=== PATIENT | female | born 1965 | race Caucasian/White ===

== ENCOUNTER 2017-04-27 09:20 | Day surgery (SDC) | payer MEDICARE, MEDICAID ==
[~2017-04-27] VITALS: Ht 167.6 cm; Wt 84.3 kg
[2017-04-27] MEDS ORDERED: IOHEXOL 350 MG/ML 50 ML BTL (for Cath Lab) OTHER ONE (09:21)
[2017-04-27] MEDS ORDERED: TRAM50TA PO (09:58)
[2017-04-27] MEDS ORDERED: FERR324T8 PO (09:58)
[2017-04-27] MEDS ORDERED: HYDR-3133 PO (09:58)
[2017-04-27] MEDS ORDERED: TRIA0.022 TOPICAL (09:58)
[2017-04-27] MEDS ORDERED: PERC10TA27 PO (09:58)
[2017-04-27] MEDS ORDERED: AMLO10TA2 PO (09:58)
[2017-04-27] MEDS ORDERED: CARV6.252 PO (09:58)
[2017-04-27] MEDS ORDERED: CINA30 PO (09:58)
[2017-04-27] MEDS ORDERED: CITA10TA4 PO (09:58)
[2017-04-27 10:08] VITALS: BP 162/112; PULSE 80; RESP 18; TEMP 98.7; O2SAT 94
[2017-04-27 11:38] LABS: INTERNATIONAL NORMALIZED RATIO 2.3 RATIO
--- NOTE | 2017-04-27 12:59 | PD.VS.PN ---
Pre-operative Note Pre-operative diagnosis: ESRD, need for HD Access Planned procedure: R UE venogram and SVCavagram Interval History: Pt has been feeling well, anxious but ready to proceed Labs: Laboratory Results Test 04/27/17 09:53 Prothromb Time International Ratio 2.3 RATIO Blood: none needed Orders: NPO Post-operative destination: DOCU Operative site marked: Yes Consent: Informed consent has been obtained from Adrienne Jackman. I have explained the procedure in detail and discussed the risks, benefits, and potential complications. All questions have been answered. Aguila Vargas MD Apr 27, 2017 12:59
--- NOTE | 2017-04-27 13:11 | HHI.PR ---
Immediate Post Op Note Procedure Date: Apr 27, 2017 Pre Op Diagnosis: ESRD, need for HD access Post Op Diagnosis: ESRD, need for HD access Surgeon: Aguila Vargas Radio Electronics Technician(s): none Procedure: R UE venogram and central venogram Findings: patent central veins Complications: none Specimen(s) removed: none Estimated blood loss: 0 Drains: None Patient to: Other (DOCU) Patient Condition: Good Date/Time of Procedure: SEE SURGICAL CARE RECORD Aguila Vargas MD Apr 27, 2017 13:11
--- NOTE | 2017-04-27 13:19 | CATHPROC ---
Engage HIS Report Study Information Study Number Admission Scheduled Start Study Start [id number] Apr 27 2017 9:20AM 04/27/2017 Apr 27 2017 12:46PM [place] Service Cath Endovascular Study Admit Source Facility Department Other [facility] - Animation Artist Physician and Clinical Staff Initial Aguila Barnhart Steam Conditioning Operator Gregorio Moralez,KAYLEE Recorder Miya Chery,KAROLYN TECH2 Scrub Hosterman, Lalo,RT(R) Procedures Performed Procedure Location (Site) Vessel Name Venogram Brach. Vein (right) Brachial Vein Equipment Time Facilities Supervisor Description Size Mfg Part Number Used/Scraped 12:48 [employer]ED OMNIPAQUE, 300 MG, 50ML 50ML [id number] Used [id number] 12:48 [facility] BLANKET,WARM AIR CCL * Used *[id number] History: Current Medications Medication Dosage/Unit Route Frequency Last Date/Time Taken NORVASC CARVEDILOL Ultram History: Allergies Allergy Reaction Penicillins History: Risk Factors Hypertension Dyslipidemia Previous Heart Failure Yes Yes Yes Cerebrovascular On Dialysis Disease Labs INR (PTT:PT) 0.90-1.10 2.3 Medication (Drip) Medication Time Given Dosage/Unit Concentration/Unit Diluent (ml) Solution IV Solutions 04/27/2017 1:00:54 PM 0 mL (IV) 500 NaCl .9 Patient arrived on IV Solutions in Right Antecubital via Peripheral IV. Pump/Drip Flow = 20 ml/hr usi ng NaCl .9. Initial Case Assessment Cardiovascular HR Rhythm Chest Pain 82 sr 0 Neurological State Oriented to time-place- Alert Moves all extremities person Respiration - General Respiration Rate SpO2 (%) (B/min) 19 100 Final Case Assessment Cardiovascular HR Rhythm Chest Pain 82 sr 0 Neurological State Oriented to time-place- Alert Moves all extremities person Respiration - General Respiration Rate SpO2 (%) (B/min) 19 100 Chronological Log Time Study Chronological Log 12:58:38 Patient arrived via Bed. 12:58:41 Patient Name, D.O.B, / Armband Verified By R.N. 13:00:42 Consent signed by the physician and the patient and verified by the Animation Artist staff. 13:00:43 Pre-op and post- op instructions given; patient acknowledges understanding of instructions . 13:00:45 Verbal Stimulation=2 Physical Stimulation=2 Airway=2 Respiration=2 TOTAL=8. (0=absent, 1=l imited, 2=present) 13:00:47 Presedation assessment performed by Animation Artist RN. 13:00:49 Patient has been NPO for More than 6Hrs. 13:00:50 Skin Breakdown-right leg bandaged 13:00:52 Jaswinder Prominences Protected 13:00:53 A # 20 IV was noted in the Antecubital (right). Grade = patent 13:00:54 Patient arrived on IV Solutions in Right Antecubital via Peripheral IV. Pump/Drip Flow = 2 0 ml/hr using NaCl .9. 13:00:58 MD arrived. Time Out. Correct patient, correct procedure, correct physician, power injector not used, surg ical team present. Time 13:05:14 Out Concurred by MD and individual staff in procedure. 13:06:40 History and physical on the chart or being dictated. 13:06:47 HR=82 bpm, YrL3=189 %, Resp=19 B/min Assessment: Initial Case, HR=82 BPM, Rhythm=sr, Chest Pain=0 13:06:47 Neurological: State=Alert, Ox3, [place] Respiration: Resp=19 B/min, MfQ5=190 % 13:07:38 The Brach. Vein (right) was manually injected with 5 cc's of contrast. OMNIPAQUE, 300 MG, 50ML 50ML used. 13:10:00 Case End Assessment: Final Case, HR=82 BPM, Rhythm=sr, Chest Pain=0 13:10:29 Neurological: State=Alert, Ox3, [place] Respiration: Resp=19 B/min, JgG3=636 % 13:11:10 No case complications noted. 13:11:15 Cine recording checked. 13:11:15 Patient moved to bed. 13:11:24 Bedside Report will be given. 13:11:35 Patient transported to DOCU End Study - Contrast Media Used In Study Contrast Total Opened (mL) Total Used (mL) Total Wasted (mL) Omnipaque 5 5 0 End Study - Radiation Exposure Fluoro Time (minutes) 0.1 End Study - Patient Disposition Complications Transferred To Interventional Outcome No Telemetry Bed No attempt made
--- NOTE | 2017-04-28 07:10 | MP ---
cc: AGUILA VARGAS MD DATE OF SURGERY 04/27/2017 PREOPERATIVE DIAGNOSIS End-stage renal disease, multiple failed dialysis access procedures. POSTOPERATIVE DIAGNOSIS End-stage renal disease, multiple failed dialysis access procedures. PROCEDURE Right upper extremity venogram. ATTENDING SURGEON Aguila Vargas MD ANESTHESIA None INDICATIONS Ms. Jackman is a 51-year-old female with by her estimation nine prior dialysis access attempts. When I met her in clinic she has obvious multiple incisions in her left upper extremity and concern for central venous stenosis give her prior catheter used. She is currently dialyzing through a groin catheter. She is taken to the operating room for a central venogram in preparation for dialysis access planning. PROCEDURE Informed consent was obtained from the patient. She was taken to the operating room and placed supine on the operating room table. An appropriate time-out was taken to ensure the patient's identity, operative site and the planned procedure. Everyone in the room agreed with the time-out and we proceeded. There were no antibiotics needed as this is a clean procedure, without planned implantation of any foreign objects. She previously had a right forearm vein access with an intravenous catheter. Under fluoroscopic imaging, an injection of contrast was then administered, followed by saline flush. This confirmed that her central veins were widely patent. The patient was then transported to the recovery room in stable condition. There were no complications. I was present and scrubbed and performed the entire procedure. Aguila Vargas MD RJF/SSB /6:15 AM /6:57 AM
== END 2017-04-27 15:27 | disposition home or self-care (01) ==
LOC: HDOC 09:20 → HDIC 09:20 → EDSEX 09:20 → HDOC 15:27
PROVIDERS: ATTEND Surgery
DX: T82.590A Other mechanical complication of surgically created arteriovenous fistula, initial encounter (principal); N18.6 End stage renal disease; I50.9 Heart failure, unspecified; E21.3 Hyperparathyroidism, unspecified; I45.89 Other specified conduction disorders; E78.5 Hyperlipidemia, unspecified; G45.9 Transient cerebral ischemic attack, unspecified; I82.509 Chronic embolism and thrombosis of unspecified deep veins of unspecified lower extremity; L03.119 Cellulitis of unspecified part of limb; Z01.818 Encounter for other preprocedural examination
CPT/HCPCS: 75820; 85610; Q9967

== ENCOUNTER 2017-05-20 14:14 | Observation (INO) | payer MEDICARE, MEDICAID ==
[~2017-05-20] VITALS: Ht 167.6 cm; Wt 83.5 kg
[~2017-05-20 14:14] MED LIST: AMLO10TA2 PO; BUPIVACAINE HCL PF 0.5% 30 ML VIAL ONE; CARV6.252 PO; CINA30 PO; CITA10TA4 PO; COUM7.5T PO; ESOM1CAP16 PO; FERR324T8 PO; HEPARIN SODIUM - IV 10,000 UNITS/10 ML VIAL ONE; HEPARIN-NS/PF INJ 500 ML ONE; HYDR-3133 PO; LIDOCAINE HCL 1% PF 5 ML SYRINGE OTHER ONE; ONDANSETRON HCL 4 MG/2 ML VIAL IV PUSH ONE; PERC10TA27 PO; PROPOFOL 200 MG/20 ML AMP IV ONE; PROTAMINE SULFATE 50 MG/5 ML VIAL ONE; SODIUM CHLORID 0.9% 500 ML INJ 500 ML IV ONE; STERILE WATER FOR INJECTION 20 ML VIAL IV ONE; TRAM50TA PO; TRIA0.022 TOPICAL; VANCOMYCIN HCL 1000 MG VIAL ONE; ceFAZolin 2 GM PREMIX 0 ML ONE; ePHEDrine/NS 25 MG/5 ML SYR IV ONE
[2017-05-20] MEDS ORDERED: INSULIN HUMAN REGULAR 1,000 UNITS/10 ML VIAL SQ PRN (14:45)
[2017-05-20] MEDS ORDERED: CHLORHEXIDINE GLUCONATE 2 % 1 PACK (2 CLOTHS) TOPICAL PRN (14:45)
[2017-05-20] MEDS ORDERED: SODIUM CHLORID 0.9% 500 ML IV PRN (14:45)
[2017-05-20] MEDS ORDERED: LACTATED RINGER'S 1000 ML IV PRN (14:45)
[2017-05-20] MEDS ORDERED: POVIDONE IODINE 5% (ANTISEPSIS KIT) 4 APPLICATIONS EACH NARE PRN (14:45)
[2017-05-20] MEDS ORDERED: METOPROLOL TARTRATE 25 MG TAB PO PRN (14:45)
--- NOTE | 2017-05-20 14:55 | HHI.HP ---
History of Present Illness Chief Complaint: ESRD, need for HD access History of Present Illness 51 yo female with ESRD and currently on HD MWF via groin catheter. Says she has had 9 prior UE access attempts. R UE venogram suggested decent central veins and R arm with palpable pulse Past/Family/Social History Past Medical History HTN ESRD CHF CVOD ICVF Past Surgical History AVF x 9 Social History nonsmoker Family History NC Home Medications Reported Medications Esomeprazole DR (Esomeprazole DR) 40 Mg Capdr, 40 MG PO DAILY, #30 CAP 0 Refills 05/05/17 Warfarin (Coumadin) 7.5 Mg Tab, 7.5 MG PO DAILY for Prevent Blood Clot, #30 TAB 0 Refills 05/05/17 Triamcinolone Topical (Triamcinolone Topical) 0.025 % Oint, 1 APPLIC TOPICAL BID for Inflammation, GM 0 Refills 04/27/17 Citalopram (Citalopram) 10 Mg Tab, 10 MG PO DAILY for Control Depression, #30 TAB 0 Refills 04/27/17 Oxycodone-Acetaminophen (Percocet) 10-325 mg Tab, 1 TAB PO Q6H Y for PAIN, TAB 0 Refills 04/27/17 Tramadol (Tramadol) 50 Mg Tab, 50 MG PO Q6H Y for PAIN, TAB 0 Refills 04/27/17 Hydroxyzine HCl (Hydroxyzine HCl) 25 Mg Tab, 25 MG PO TID, TAB 0 Refills 04/27/17 Ferrous Fumarate (Ferrous Fumarate) 324 Mg (106 Mg Iron) Tab, 325 MG PO DAILY for Nutritional Supplement, #30 TAB 0 Refills 04/27/17 Cinacalcet (Sensipar) 30 Mg Tab, 30 MG PO DAILY, #30 TAB 0 Refills 04/27/17 Carvedilol (Carvedilol) 6.25 Mg Tab, 6.25 MG PO BID, #60 TAB 0 Refills 04/27/17 Amlodipine (Amlodipine) 10 Mg Tab, 10 MG PO DAILY for Blood Pressure Management , #30 TAB 0 Refills 04/27/17 Coded Allergies: Penicillins (Verified Allergy, Severe, Swelling, 05/20/17) Review of Systems Constitutional: DENIES: Fever, Chills Physical Exam Neuro: alert, pleasant HEENT: anicteric Neck: trachea midline Heart: reg rate, no M Lungs: clear B Vascular: palpable pulses R UE Caprini VTE Risk Assessment Caprini VTE Risk Assessment: Mod/High Risk (score >= 2) Caprini Risk Assessment Model Point Value = 1 Point Value = 2 Point Value = 3 Point Value = 5 Age 41-60 Minor surgery BMI > 25 kg/m2 Swollen legs Varicose veins or History of unexplained or recurrent spontaneous Oral contraceptives or hormone replacement Sepsis (< 1 month) Serious lung disease, including pneumonia (< 1 month) Abnormal pulmonary function Acute myocardial infarction Congestive heart failure (< 1 month) History of inflammatory bowel disease Medical patient at bed rest Age 61-74 Arthroscopic surgery Major open surgery (> 45 min) Laparoscopic surgery (> 45 min) Malignancy Confined to bed (> 72 hours) Immobilizing plaster cast Central venous access Age >= 75 History of VTE Family history of VTE Factor V Leiden Prothrombin [id number] Lupus anticoagulant Anticardiolipin antibodies Elevated serum homocysteine Heparin-induced thrombocytopenia Other congenital or acquired thrombophilia Stroke (< 1 month) Elective arthroplasty Hip, pelvis, or leg fracture Acute spinal cord injury (< 1 month) Prophylaxis Regimen Total Risk Factor Score Risk Level Prophylaxis Regimen 0-1 Low Early ambulation 2 Moderate Order ONE of the following: *Sequential Compression Device (SCD) *Heparin 5000 units SQ BID 3-4 Higher Order ONE of the following medications: *Heparin 5000 units SQ TID *Enoxaparin/Lovenox 40 mg SQ daily (WT < 150 kg, CrCl > 30 mL/min) *Enoxaparin/Lovenox 30 mg SQ daily (WT < 150 kg, CrCl > 10-29 mL/min) *Enoxaparin/Lovenox 30 mg SQ BID (WT < 150 kg, CrCl > 30 mL/min) AND/OR *Sequential Compression Device (SCD) 5 or more Highest Order ONE of the following medications: *Heparin 5000 units SQ TID (Preferred with Epidurals) *Enoxaparin/Lovenox 40 mg SQ daily (WT < 150 kg, CrCl > 30 mL/min) *Enoxaparin/Lovenox 30 mg SQ daily (WT < 150 kg, CrCl > 10-29 mL/min) *Enoxaparin/Lovenox 30 mg SQ BID (WT < 150 kg, CrCl > 30 mL/min) AND *Sequential Compression Device (SCD) Assessment and Plan Plan R brachiobasilic AVF, 1st stage OR and post-op observation Discharge Planning tomorrow after HD Aguila Vargas MD May 20, 2017 14:55
[2017-05-20] MEDS ORDERED: SENNOSIDES 8.6 MG TAB PO PRN (15:00)
[2017-05-20] MEDS ORDERED: MORPHINE SULFATE 4 MG/ML INJ IV PUSH PRN (15:00)
[2017-05-20] MEDS ORDERED: BISACODYL 10 MG SUPP RECTAL PRN (15:00)
[2017-05-20] MEDS ORDERED: MAGNESIUM HYDROXIDE SUSP 30 ML CUP PO PRN (15:00)
[2017-05-20] MEDS ORDERED: oxyCODONE/ACETAMINOPHEN 10 MG/325 MG TAB PO PRN (15:00)
[2017-05-20] MEDS ORDERED: traMADol HCL 50 MG TAB PO PRN (15:00)
[2017-05-20] MEDS ORDERED: LACTULOSE SYRUP 20 GM/30 ML CUP PO PRN (15:00)
[2017-05-20 15:33] LABS: AUTOMATED NEUTROPHIL # 2.2 TH/MM3 (1.8-7.7); BASOPHIL # 0.1 TH/MM3 (0-0.2); BASOPHIL % 1.4 % (0.0-2.0); EOSINOPHIL # 0.4 TH/MM3 (0-0.4); EOSINOPHIL % 11.7 % (0.0-4.0); HEMATOCRIT 31.8 % (35.0-46.0); HEMO FLAGS DIFF FINAL; LYMPH % 18.5 % (9.0-44.0); LYMPHOCYTE # 0.7 TH/MM3 (1.0-4.8); MEAN CELL VOLUME 83.5 FL (80.0-100.0); MEAN CORPUSCULAR HEMOGLOBIN 27.3 PG (27.0-34.0); MEAN CORPUSCULAR HGB CONC 32.7 % (32.0-36.0); MONO % 10.5 % (0.0-8.0); NEUT % 57.9 % (16.0-70.0); PLATELET COUNT 236 TH/MM3 (150-450); RED BLOOD COUNT 3.81 MIL/MM3 (4.00-5.30); RED CELL DISTRIBUTION WIDTH 16.9 % (11.6-17.2); WHITE BLOOD COUNT 3.8 TH/MM3 (4.0-11.0)
[2017-05-20 15:41] LABS: INTERNATIONAL NORMALIZED RATIO 1.4 RATIO; PROTHROMBIN TIME - PATIENT 15.4 SEC (9.8-11.6)
[2017-05-20 15:51] LABS: BICARBONATE 31.7 MEQ/L (21.0-32.0); POTASSIUM 3.9 MEQ/L (3.5-5.1)
[2017-05-20] MEDS ORDERED: THROMBIN (TOPICAL) 20,000 UNIT SPRAY KIT ONE (16:15)
--- NOTE | 2017-05-20 16:22 | RADRPT ---
EXAM DATE/TIME: 05/20/2017 15:08 [place] COMPARISON: No previous studies available for comparison. INDICATIONS : Preoperative chest x-ray. MEDICAL HISTORY : Congestive heart failure. Stroke. SURGICAL HISTORY : None. ENCOUNTER: Initial ACUITY: 1 day PAIN SCORE: 0/10 LOCATION: Bilateral chest FINDINGS: A single portable frontal view the chest shows moderate cardiomegaly. No regional pulmonary vascular engorgement. There is nodularity involving the right hilum. The lungs are clear without infiltrate or effusion. Bony structures are unremarkable. There is a linear density overlying the right paraspinal area within the anterior chest presumably related to a groin catheter. CONCLUSION: 1. Cardiomegaly. 2. Nodularity involving the right hilum. Although this may simply relate to the patient's vasculature I cannot completely exclude a hilar mass. PA and lateral views of the chest versus CT scan of thorax with IV contrast to further evaluate. Indra Moran Jr., MD on May 20, 2017 at 16:19 Board Certified Radiologist. This report was verified electronically.
--- NOTE | 2017-05-20 16:53 | HHI.PR ---
Immediate Post Op Note Procedure Date: May 20, 2017 Pre Op Diagnosis: ESRD, need for HD Access Post Op Diagnosis: ESRD, need for HD access Surgeon: Aguila Vargas Fish Roe Technician(s): Murali Castro Procedure: R brachio-brachial AVF Findings: 4mm artery 3mm vein Additional Information: Good Doppler signals in wrist and + thrill in AVF after access creation Complications: none Specimen(s) removed: none Estimated blood loss: 15mL Anesthesia: LMA Drains: None Fluids: 150mL IVF Patient to: PACU Patient Condition: Good Date/Time of Procedure: SEE SURGICAL CARE RECORD Aguila Vargas MD May 20, 2017 16:53
[2017-05-20] MEDS ORDERED: PILL SPLITTER OTHER PRN (17:30)
[2017-05-20] MEDS ORDERED: DO NOT ADM ANY ANTICOAGULANT DRUGS PRN (18:15)
[2017-05-20] MEDS ORDERED: *morphine SULFATE 8 MG/ML PERIprocedure ONLY ONE (18:31)
[2017-05-20 20:00] VITALS: PULSE 78
[2017-05-20 20:45] VITALS: BP_SYST 128; BP_DIAS 7; BP_DIAS 79; PULSE 79; RESP 16; TEMP 97.9; O2SAT 93
[2017-05-20] MEDS: CARVEDILOL 6.25 MG TAB PO SCH (20:58)
[2017-05-20] MEDS: FLUOCINOLONE ACETONIDE 0.01% CR 15 GM TUBE TOPICAL SCH (20:58)
[2017-05-20 21:00] VITALS: PULSE 76; PULSE 78
[2017-05-20] MEDS: DOCUSATE SODIUM 50 MG/SENNA 8.6 MG TAB PO SCH (21:05)
[2017-05-20] MEDS: HYDROmorphone HCL 2 MG TAB PO PRN (21:06)
[2017-05-20] MEDS: hydrOXYzine HCL 25 MG TAB PO SCH (21:27)
[2017-05-20] MEDS ORDERED: SODIUM CHLOR 0.9% 1000 ML INJ 1,000 ML IV PRN (21:35)
[2017-05-20] MEDS ORDERED: SODIUM CHLOR 0.9% 1000 ML INJ 1,000 ML OTHER PRN ×2 (21:35)
[2017-05-20] MEDS ORDERED: diphenhydrAMINE HCL 25 MG CAP PO PRN (21:45)
[2017-05-20] MEDS ORDERED: SODIUM CHLORIDE 0.9% FLUSH 10 ML FLUSH IV FLUSH PRN (21:45)
[2017-05-20] MEDS ORDERED: HEPARIN SODIUM - IV 10,000 UNITS/10 ML VIAL PRN (21:45)
[2017-05-20] MEDS ORDERED: cloNIDine HCL 0.1 MG TAB PO PRN (21:45)
[2017-05-20] MEDS ORDERED: GELATIN 12 MM/7 MM FOAM TOP PRN (21:45)
[2017-05-20] MEDS ORDERED: ALBUMIN 25% INJ 100 ML IV PRN (21:45)
[2017-05-20] MEDS ORDERED: MANNITOL 12.5 GM/50 ML VIAL IV PRN (21:45)
[2017-05-20] MEDS ORDERED: ONDANSETRON HCL 4 MG/2 ML VIAL IV PUSH PRN (21:45)
[2017-05-20] MEDS ORDERED: NITROGLYCERIN 0.4 MG SL 25 TABS/BTL SL PRN (21:45)
[2017-05-20] MEDS ORDERED: EPOETIN ALFA 10,000 UNITS/ML VIAL IV PUSH PRN (21:45)
[2017-05-20] MEDS ORDERED: HEPARIN SODIUM - IV 10,000 UNITS/10 ML VIAL IV FLUSH PRN (21:45)
[2017-05-20] MEDS ORDERED: ACETAMINOPHEN 325 MG TAB PO PRN (21:45)
[2017-05-20] MEDS ORDERED: GENTAMICIN SULFATE (DIALYSIS USE ONLY) 20 MG/2 ML VIAL OTHER PRN (21:45)
[2017-05-20 22:00] VITALS: PULSE 78; PULSE 82
--- NOTE | 2017-05-20 22:23 | MB ---
cc: CAITLYN LANDRUM MD DATE OF CONSULTATION 05/20/17 REASON FOR CONSULTATION End-stage renal disease on hemodialysis for management. HISTORY OF PRESENT ILLNESS This is a very pleasant 51-year-old female with past medical history of hypertension, history of cerebrovascular accident, ischemic heart disease, congestive heart failure, was admitted for creation of right arm AV fistula. I was called to see the patient because of management of hemodialysis. She has been on hemodialysis on Wednesday, Wednesday, Wednesday. She had her dialysis done yesterday. She has a PermCath in the left groin through which she is getting dialysis and she developed a wound in her left lower leg. According to the patient this is related to her catheter in the groin but she has bilateral lymphedema. The patient has multiple surgeries for AV fistula which has been unsuccessful. She lives in [place] and she gets the dialysis there and came here for the surgery. Denies any shortness of breath. I saw the patient in the recovery room. There is no nausea or vomiting or chest pain. No abdominal pain. She was seen after the surgery. PAST MEDICAL HISTORY Hypertension, ischemic heart disease, congestive heart failure, end-stage renal disease on hemodialysis, chronic anemia, history of cerebrovascular accident. PAST SURGICAL HISTORY Multiple surgeries for AV fistula. REVIEW OF SYSTEMS There is no history of fever. No headache, dizziness or blurring of vision. No shortness of breath. No chest pain. No palpitations. No nausea, vomiting, abdominal pain. She has mild pain at the site of the AV fistula. SOCIAL HISTORY The patient lives in [place]. She has no history of smoking. FAMILY HISTORY Noncontributory. ALLERGIES SHE HAS ALLERGY TO PENICILLIN. MEDICATIONS Currently she is on the following medications: 1. Carvedilol 6.25 milligrams b.i.d. 2. Norvasc 10 milligrams once a day. 3. Sensipar 30 milligrams daily. 4. Celexa 10 milligrams once a day. 5. Hemocyte 325 milligrams daily. 6. Protonix 40 milligrams once a day. 7. Coumadin 7.5 milligrams daily. 8. Heparin 5000 units subcu q. 8-hour. 9. Atarax 25 milligrams t.i.d. 10. Oxycodone 5 milligrams p.r.n. 11. Dilaudid as needed. 12. Dulcolax as needed. PHYSICAL EXAMINATION GENERAL: The patient is awake, alert, not in acute distress. VITAL SIGNS: Her last blood pressure 129/78, temperature is 98.9, oxygen saturation on 2 liters nasal cannula 99% to 100%. HEENT: Pupils are mid-constricted. Nonicteric sclera, conjunctiva pale. NECK: Neck supple. JVD is not elevated. LUNGS: The patient has bilateral good air entry with occasional wheezing. HEART: S1-S2. Regular rhythm. ABDOMEN: Distended, soft, lax. There is no tenderness. Bowel sounds positive. EXTREMITIES: She has bilateral lymphedema and there is a dressing in the left lower leg. INVESTIGATION WBC count 3.8, hemoglobin 10.4, platelet count of 236, neutrophils 57.9, eosinophil 11.7%, sodium is 134, potassium 3.9, chloride 95, bicarb 31.7, BUN 39, creatinine 3.3, calcium 8.8, INR is 1.4. IMAGING STUDIES The patient has chest x-ray done which showed that she has cardiomegaly and nodularity involving the right hilum. CT scan recommended to exclude hilar mass. ASSESSMENT/PLAN 1. End-stage renal disease on hemodialysis. 2. Post AV fistula surgery. 3. Hypertension. 4. Ischemic heart disease, congestive heart failure. 5. Possibility of hilar mass on the chest x-ray. 6. History of cerebrovascular accident. The patient has been on hemodialysis through the Perma-Cath. She will need dialysis tomorrow. AV fistula surgery seems to be successful. There is a good bruit over the AV fistula. Her blood pressure is stable. The patient is not in fluid overload status. Her last potassium is 3.9. I will arrange for hemodialysis for tomorrow. For her chest hilar mass she will need the CT scan of the chest which she will try to do tomorrow and hemodialysis and after dialysis if she is stable possibly she will be discharged. Thank you for the consultation. I will follow the patient while she is in the hospital. Caitlyn Landrum MD AQJ/NICOLE /9:38 PM /10:03 PM
[2017-05-20 23:00] VITALS: PULSE 83
[2017-05-20 23:38] VITALS: BP 131/84; PULSE 79; RESP 16; TEMP 98.3; O2SAT 95
[2017-05-21] VITALS (20 sets, daily range): BP systolic 121–142; BP diastolic 77–87; PULSE 70–89; RESP 18–22; TEMP 98.3–98.7; O2SAT 90–95
[2017-05-21] MEDS: HYDROmorphone HCL 2 MG TAB PO PRN ×4 (02:45→20:48)
[2017-05-21 05:10] LABS: HEMATOCRIT 31.1 % (35.0-46.0); MEAN CELL VOLUME 83.9 FL (80.0-100.0); MEAN CORPUSCULAR HEMOGLOBIN 27.4 PG (27.0-34.0); MEAN CORPUSCULAR HGB CONC 32.7 % (32.0-36.0); PLATELET COUNT 242 TH/MM3 (150-450); RED CELL DISTRIBUTION WIDTH 16.9 % (11.6-17.2); REVIEW FLAG FINAL; WHITE BLOOD COUNT 4.1 TH/MM3 (4.0-11.0)
[2017-05-21 05:17] LABS: BICARBONATE 31.5 MEQ/L (21.0-32.0); POTASSIUM 3.6 MEQ/L (3.5-5.1)
--- NOTE | 2017-05-21 08:28 | PD.VS.PN ---
Subjective POD #: 1 Procedure(s): R brachio-brachial AVF Subjective/Hospital Course Pt POD 1 R BB AVF Pt w/o complaints Pt denies hand pain Objective Vitals/I&O Date Time Temp Pulse Resp B/P (MAP) Pulse Ox O2 Delivery O2 Flow Rate FiO2 05/21/17 06:00 80 05/21/17 05:10 76 05/21/17 04:00 78 05/21/17 03:25 80 20 129/86 (100) 94 05/21/17 03:25 94 Room Air 05/21/17 03:04 80 05/21/17 02:00 82 05/21/17 01:00 84 05/21/17 00:00 94 05/21/17 00:00 80 05/20/17 23:39 95 Nasal Cannula 2.00 05/20/17 23:38 98.3 79 16 131/84 (100) 95 05/20/17 23:00 83 05/20/17 22:00 82 05/20/17 21:00 76 05/20/17 20:45 97.9 79 16 128/79 (95) 93 05/20/17 20:30 93 Nasal Cannula 2.00 05/20/17 20:00 78 05/20/17 19:45 78 14 129/79 (96) 99 Nasal Cannula 2 05/20/17 19:00 74 14 131/77 (95) 100 Nasal Cannula 2 05/20/17 18:30 74 14 127/76 (93) 100 Nasal Cannula 2 05/20/17 18:15 71 14 122/77 (92) 100 Nasal Cannula 2 05/20/17 18:00 70 14 121/77 (92) 100 Nasal Cannula 2 05/20/17 17:45 69 14 127/79 (95) 100 Nasal Cannula 2 05/20/17 17:30 69 14 134/74 (94) 100 Nasal Cannula 2 05/20/17 17:15 70 14 157/81 (106) 97 Nasal Cannula 2 05/20/17 17:00 98.9 69 14 114/73 (87) 93 Nasal Cannula 2 05/20/17 14:56 98.1 74 18 142/95 (111) 100 05/21/17 05/21/17 05/21/17 07:00 15:00 23:00 Intake Total 360 ml Balance 360 ml Exam: GENERAL: A&OX3,NAD, GCS15 SKIN: RIGHT UE incision intact with surgical glue, NO R/D/S UE warm with motor intact Palpable R/L radial pulses Palpable thrill near R AVF present Laboratory Laboratory Tests Test 05/20/17 14:54 05/21/17 04:09 White Blood Count 3.8 4.1 Red Blood Count 3.81 3.70 Hemoglobin 10.4 10.1 Hematocrit 31.8 31.1 Mean Corpuscular Volume 83.5 83.9 Mean Corpuscular Hemoglobin 27.3 27.4 Mean Corpuscular Hemoglobin Concent 32.7 32.7 Red Cell Distribution Width 16.9 16.9 Platelet Count 236 242 Mean Platelet Volume 8.1 8.0 Neutrophils (%) (Auto) 57.9 Lymphocytes (%) (Auto) 18.5 Monocytes (%) (Auto) 10.5 Eosinophils (%) (Auto) 11.7 Basophils (%) (Auto) 1.4 Neutrophils # (Auto) 2.2 Lymphocytes # (Auto) 0.7 Monocytes # (Auto) 0.4 Eosinophils # (Auto) 0.4 Basophils # (Auto) 0.1 CBC Comment DIFF FINAL Differential Comment Prothrombin Time 15.4 Prothromb Time International Ratio 1.4 Blood Urea Nitrogen 39 45 Creatinine 3.33 3.77 Random Glucose 75 77 Calcium Level 8.8 8.3 Sodium Level 134 136 Potassium Level 3.9 3.6 Chloride Level 95 96 Carbon Dioxide Level 31.7 31.5 Anion Gap 7 9 Estimat Glomerular Filtration Rate 18 15 Assessment and Plan Assessment: (1) ESRD (end stage renal disease) (2) AVF (arteriovenous fistula) Plan Pt s/p POD 1- R brachiobasilic AVF, 1st stage Pt doing well w/o complaints Plan Pt to HD this am Discussed and reviewed post operative care -AVF Questions answered Arranged out patient f/u in 3W D/C post HD Zehra ESPARZA [facility] [employer] [phone] Discharge Planning Today after HD Zehra Lynch May 21, 2017 08:28
--- NOTE | 2017-05-21 08:47 | PD.VS.DC ---
Discharge Summary Admission Date: May 20, 2017 at 15:02 Discharge Date: May 21, 2017 Admission Diagnosis: (1) AVF (arteriovenous fistula) (2) ESRD (end stage renal disease) Discharge Diagnosis: (1) ESRD (end stage renal disease) ICD Codes: N18.6 - End stage renal disease (2) AVF (arteriovenous fistula) ICD Codes: I77.0 - Arteriovenous fistula, acquired Brief History from admission 51 yo female with ESRD and currently on HD MWF via groin catheter. Says she has had 9 prior UE access attempts. R UE venogram suggested decent central veins and R arm with palpable pulse Procedure(s): R brachio-brachial AVF Significant Findings GENERAL: A&OX3,NAD, GCS15 SKIN: RIGHT UE incision intact with surgical glue, NO R/D/S UE warm with motor intact Palpable R/L radial pulses Palpable thrill near R AVF present Laboratory Tests Test 05/20/17 14:54 05/21/17 04:09 White Blood Count 3.8 TH/MM3 (4.0-11.0) Red Blood Count 3.81 MIL/MM3 (4.00-5.30) 3.70 MIL/MM3 (4.00-5.30) Hemoglobin 10.4 GM/DL (11.6-15.3) 10.1 GM/DL (11.6-15.3) Hematocrit 31.8 % (35.0-46.0) 31.1 % (35.0-46.0) Monocytes (%) (Auto) 10.5 % (0.0-8.0) Eosinophils (%) (Auto) 11.7 % (0.0-4.0) Lymphocytes # (Auto) 0.7 TH/MM3 (1.0-4.8) Prothrombin Time 15.4 SEC (9.8-11.6) Blood Urea Nitrogen 39 MG/DL (7-18) 45 MG/DL (7-18) Creatinine 3.33 MG/DL (0.50-1.00) 3.77 MG/DL (0.50-1.00) Sodium Level 134 MEQ/L (136-145) Chloride Level 95 MEQ/L (98-107) 96 MEQ/L (98-107) Estimat Glomerular Filtration Rate 18 ML/MIN (>89) 15 ML/MIN (>89) Calcium Level 8.3 MG/DL (8.5-10.1) Hospital Course: 51 yo female with ESRD and currently on HD MWF via groin catheter. Pt POD 1 s/p RIGHT Brachio-brachial AVF Pt doing well w/o complaints Arranged OP F/U in 3W Discharge Condition: Good Discharge Disposition: Discharge Home Discharge Instructions: Out pt f/u in 3W Leave incision open to air Do not apply any creams or ointments as it may loosen the surgical glue Call the office to report any new onset RIGHT sided hand pain No heavy lifting over a gallon of milk (Right Arm) for 2W Activities to Right Upper Extremity as tolerated May shower then pat dry incision to Right arm Any questions or concerns: Call [facility] at [facility] [phone] Zehra Lynch May 21, 2017 08:47
[2017-05-21] MEDS ORDERED: PERC5TAB12 PO (08:50)
[2017-05-21] MEDS ORDERED: CINACALCET HYDROCHLORIDE 30 MG TAB PO SCH (09:00)
[2017-05-21] MEDS: FLUOCINOLONE ACETONIDE 0.01% CR 15 GM TUBE TOPICAL SCH ×2 (09:00→20:49)
[2017-05-21] MEDS ORDERED: PANTOPRAZOLE SOD 40 MG DELAYED RELEASE TAB PO SCH (09:00)
[2017-05-21] MEDS: hydrOXYzine HCL 25 MG TAB PO SCH ×3 (09:00→18:00)
[2017-05-21] MEDS ORDERED: ESOMEPRAZOLE 40 MG PO SCH (09:00)
[2017-05-21] MEDS ORDERED: FERROUS FUMARATE 325 MG TAB (106 MG ELEMENTAL IRON) PO SCH (09:00)
[2017-05-21] MEDS ORDERED: CITALOPRAM HYDROBROMIDE 20 MG TAB PO SCH (09:00)
--- NOTE | 2017-05-21 11:30 | HHI.NPPN ---
Subjective History of Present Illness 51-year-old female with past medical history of hypertension, history of cerebrovascular accident, ischemic heart disease, congestive heart failure, was admitted for creation of right arm AV fistula. I was called to see the patient because of management of hemodialysis. She has been on hemodialysis on Wednesday, Wednesday, Wednesday. Additional Remarks Patient is alert, has mild pain at AVF site, now on HD. Review of Systems General Constitutional: Fatigue Cardiovascular Cardiac: BOWMAN Objective Data Data Vital Signs Date Time Temp Pulse Resp B/P (MAP) Pulse Ox O2 Delivery O2 Flow Rate FiO2 05/21/17 07:38 93 Room Air 05/21/17 07:38 98.3 83 22 142/87 (105) 93 05/21/17 06:00 80 05/21/17 05:10 76 05/21/17 04:00 78 05/21/17 03:25 80 20 129/86 (100) 94 05/21/17 03:25 94 Room Air 05/21/17 03:04 80 05/21/17 02:00 82 05/21/17 01:00 84 05/21/17 00:00 94 05/21/17 00:00 80 05/20/17 23:39 95 Nasal Cannula 2.00 05/20/17 23:38 98.3 79 16 131/84 (100) 95 05/20/17 23:00 83 05/20/17 22:00 82 05/20/17 21:00 76 05/20/17 20:45 97.9 79 16 128/79 (95) 93 05/20/17 20:30 93 Nasal Cannula 2.00 05/20/17 20:00 78 05/20/17 19:45 78 14 129/79 (96) 99 Nasal Cannula 2 05/20/17 19:00 74 14 131/77 (95) 100 Nasal Cannula 2 05/20/17 18:30 74 14 127/76 (93) 100 Nasal Cannula 2 05/20/17 18:15 71 14 122/77 (92) 100 Nasal Cannula 2 05/20/17 18:00 70 14 121/77 (92) 100 Nasal Cannula 2 05/20/17 17:45 69 14 127/79 (95) 100 Nasal Cannula 2 05/20/17 17:30 69 14 134/74 (94) 100 Nasal Cannula 2 05/20/17 17:15 70 14 157/81 (106) 97 Nasal Cannula 2 05/20/17 17:00 98.9 69 14 114/73 (87) 93 Nasal Cannula 2 05/20/17 14:56 98.1 74 18 142/95 (111) 100 -: 05/21/179 05/21/17408 Physical Exam General Appearance: No Acute Distress, Comfortable Eyes Eye Exam: Pupils Equal Neck Neck Exam: Neck Supple Pulmonary Resp Exam: Breath Sounds Equal, No Distress, Rhonchi, Decreased Bases Cardiology CV Exam: Regular, Normal Sinus Rhythm Gastrointestinal/Abdomen GI Exam: Soft, Non-Tender, Bowel Sounds Present Extremeties Extremities Exam: Moderate Edema (has bilateral lymphedema.) Extremeties Remarks Rt. AVF has good Bruit. Neurologic Neuro Exam: Alert, Awake, Oriented Psychiatric Psych Exam: Appropriate Responses Assessment/Plan Assessment Summary: Hypertension, End Stage Renal Disease Problem List: (1) Hypertension ICD Codes: I10 - Essential (primary) hypertension (2) Anemia ICD Codes: D64.9 - Anemia, unspecified (3) AVF (arteriovenous fistula) ICD Codes: I77.0 - Arteriovenous fistula, acquired (4) ESRD (end stage renal disease) ICD Codes: N18.6 - End stage renal disease Plan Patient has AVF done, has good Bruit. HD now, BP is stable, K is normal. Possible D/C after HD. To follow at her Dialysis center. Johanny Hernandez MD May 21, 2017 11:30
[2017-05-21] MEDS: CARVEDILOL 6.25 MG TAB PO SCH ×2 (15:16→20:48)
[2017-05-21] MEDS: DOCUSATE SODIUM 50 MG/SENNA 8.6 MG TAB PO SCH ×2 (15:17→20:48)
[2017-05-21] MEDS ORDERED: WARFARIN SOD 7.5 MG TAB PO SCH (16:00)
[2017-05-21] MEDS ORDERED: HEPARIN SODIUM - SQ 10,000 UNITS/ML VIAL SQ SCH (16:00)
--- NOTE | 2017-05-21 16:41 | MP ---
cc: COLLETTE VARGAS DATE OF SURGERY: 05/20/2017. PREOPERATIVE DIAGNOSIS: End-stage renal disease, needs dialysis access. POSTOPERATIVE DIAGNOSIS: End-stage renal disease, needs dialysis access. OPERATIVE PROCEDURE PERFORMED: Right brachial artery to brachial vein arteriovenous fistula creation. SURGEON: Collette Vargas MD. COREMAKER BENCH SURGEON: Murali Castro MD. ANESTHESIA: General. INDICATIONS FOR THE PROCEDURE: Ms. Jackman is a 51-year-old lady with end-stage renal disease, and by her account, nine prior dialysis access attempts. She was taken to the operating room for access creation. Preoperative invasive and noninvasive imaging suggested that she had an adequate right basilic vein. Intraoperatively it was found that her basilic vein was smaller than her brachial vein and as such a brachial-brachial arteriovenous fistula was performed. DESCRIPTION OF THE PROCEDURE IN DETAIL: Informed consent was obtained from the patient. She was taken to the operating room and placed supine on the operating room table. An appropriate time out was taken to ensure the patient's identity, the operative site and the planned procedure. The administration of a gram of Vancomycin was initiated prior to the skin incision and will be discontinued after a single preoperative dose. Vancomycin was chosen because of the patient's end-stage renal disease. Everyone in the room agreed during the time-out. Her right arm was prepped and draped. An incision made over the medial aspect of the distal upper extremity and carried down through the subcutaneous tissue with the electrocautery. The brachial artery was identified. The brachial vein was identified and the brachial vein was dissected free for several centimeters. The distal limb was clamped with a right-angle clamp and the vein was marked and transected with the distal end being oversewn with a 3-0 silk. The patient was systemically heparinized with 3000 units of IV heparin. Proximal and distal control of the brachial artery was obtained with profunda clamps and a longitudinal arteriotomy was made with an 11 blade and extended with Tim scissors. The vein was then mobilized over to the artery and sewn end-to-side with running 6-0 Prolene suture which was flushed and made hemostatic. There is a nice thrill in the fistula and Doppler signal. The heparin reversed with protamine. The wound was infiltrated with Marcaine and closed with 2-0 Polysorb, 3-0 Polysorb and 4-0 Monocryl. Sponge and needle counts were correct at the end of the case. I was present and scrubbed for the entire procedure. MD LANDY Butcher/JAZMÍN /8:37 PM /4:33 PM
--- NOTE | 2017-05-21 18:08 | EKG ---
Date Performed: 05/20/2017 Time Performed: 15:00:02 PTAGE: 51 years EKG: Sinus rhythm WITH FIRST DEGREE AV BLOCK LEFT VENTRICULAR HYPERTROPHY AND ST-T CHANGE ABNORMAL ECG NO PREVIOUS TRACING DOCTOR: Rafael Roche Interpretating Date/Time 05/21/2017 18:06:15
== END 2017-05-21 23:15 | disposition home or self-care (01) ==
LOC: HCVO 14:14 → HSDI 15:02 → HCPC 20:00
PROVIDERS: ADMIT Surgery; ATTEND Surgery
DX: Z45.2 Encounter for adjustment and management of vascular access device (principal); N18.6 End stage renal disease; I44.0 Atrioventricular block, first degree; R94.31 Abnormal electrocardiogram [ECG] [EKG]; Z99.2 Dependence on renal dialysis; Z86.73 Personal history of transient ischemic attack (TIA), and cerebral infarction without residual deficits; I50.9 Heart failure, unspecified; I13.2 Hypertensive heart and chronic kidney disease with heart failure and with stage 5 chronic kidney disease, or end stage renal disease; I25.9 Chronic ischemic heart disease, unspecified; D63.1 Anemia in chronic kidney disease
CPT/HCPCS: 01844; 36821; 71010; 80048; 85025; 85027; 85610; 86850; 86900; 86901; 93005; 96374; 96375; G0257; G0378; J1580; J1644; J2270; J2405; J2720; J3010; J3370; J7030; J7040; Q4081; 90935; J0690

== ENCOUNTER 2017-09-02 13:15 | Inpatient (IN) | payer MEDICARE, MEDICAID ==
[~2017-09-02] VITALS: Ht 167.6 cm; Wt 81.5 kg
[~2017-09-02 13:15] MED LIST changes: -BUPIVACAINE HCL PF 0.5% 30 ML VIAL ONE; +DEXAMETHASONE SOD PHOS 4 MG/ML VIAL IV ONE; +ONDANSETRON HCL 4 MG/2 ML VIAL IV ONE; -ONDANSETRON HCL 4 MG/2 ML VIAL IV PUSH ONE; +PERC5TAB12 PO; +PHENYLEPH/NS 1000 MCG/10 ML SYR IV ONE; -SODIUM CHLORID 0.9% 500 ML INJ 500 ML IV ONE; -STERILE WATER FOR INJECTION 20 ML VIAL IV ONE; +THROMBIN (TOPICAL) 20,000 UNIT SPRAY KIT ONE; -ceFAZolin 2 GM PREMIX 0 ML ONE; -ePHEDrine/NS 25 MG/5 ML SYR IV ONE
[2017-09-02] MEDS ORDERED: POVIDONE IODINE 5% (ANTISEPSIS KIT) 4 APPLICATIONS EACH NARE PRN (14:00)
[2017-09-02] MEDS ORDERED: LACTATED RINGER'S 1000 ML IV PRN (14:00)
[2017-09-02] MEDS ORDERED: CHLORHEXIDINE GLUCONATE 2 % 1 PACK (2 CLOTHS) TOPICAL PRN (14:00)
[2017-09-02] MEDS ORDERED: SODIUM CHLORID 0.9% 500 ML IV PRN (14:00)
[2017-09-02] MEDS ORDERED: METOPROLOL TARTRATE 25 MG TAB PO PRN (14:00)
--- NOTE | 2017-09-02 14:14 | HHI.HP ---
History of Present Illness Chief Complaint: ESRD need for HD access History of Present Illness 51 yo female with ESRD s/p multiple failed AVF, most recently R Brachiobrachial AVF 05/20, presents for second stage. Past/Family/Social History Past Medical History ESRD CHF CVA DVT XOL HTN hyperparathyroidism Past Surgical History IVCF Multiple B UE AVF Social History nonsmoker Family History NC Home Medications Active Scripts Oxycodone-Acetaminophen (Percocet) 5-325 mg Tab, 1 TAB PO Q4H Y for PAIN, #30 TAB 0 Refills Prov:Zehra Lynch TERRAZZO TILE SETTER 05/21/[address] (Esomeprazole DR) 40 Mg Capdr, 40 MG PO DAILY, #30 CAP 0 Refills 05/05/17 Warfarin (Coumadin) 7.5 Mg Tab, 7.5 MG PO DAILY for Prevent Blood Clot, #30 TAB 0 Refills 05/05/17 Triamcinolone Topical (Triamcinolone Topical) 0.025 % Oint, 1 APPLIC TOPICAL BID for Inflammation, GM 0 Refills 04/27/17 Citalopram (Citalopram) 10 Mg Tab, 10 MG PO DAILY for Control Depression, #30 TAB 0 Refills 04/27/17 Oxycodone-Acetaminophen (Percocet) 10-325 mg Tab, 1 TAB PO Q6H Y for PAIN, TAB 0 Refills 04/27/17 Tramadol (Tramadol) 50 Mg Tab, 50 MG PO Q6H Y for PAIN, TAB 0 Refills 04/27/17 Hydroxyzine HCl (Hydroxyzine HCl) 25 Mg Tab, 25 MG PO TID, TAB 0 Refills 04/27/17 Ferrous Fumarate (Ferrous Fumarate) 324 Mg (106 Mg Iron) Tab, 325 MG PO DAILY for Nutritional Supplement, #30 TAB 0 Refills 04/27/17 Cinacalcet (Sensipar) 30 Mg Tab, 30 MG PO DAILY, #30 TAB 0 Refills 04/27/17 Carvedilol (Carvedilol) 6.25 Mg Tab, 6.25 MG PO BID, #60 TAB 0 Refills 04/27/17 Amlodipine (Amlodipine) 10 Mg Tab, 10 MG PO DAILY for Blood Pressure Management , #30 TAB 0 Refills 04/27/17 Coded Allergies: Penicillins (Verified Allergy, Severe, Swelling, 05/20/17) Review of Systems Constitutional: DENIES: Diaphoretic episodes, Fatigue, Fever, Weight gain, Weight loss, Chills, Dizziness, Change in appetite, Night Sweats Physical Exam Neuro: thin, frail, no acute distress HEENT: NC/AT Heart: reg rate Lungs: clear B Abdomen: soft, NT Vascular: palpable R UE thrill and palpable radial pulse Caprini VTE Risk Assessment Caprini VTE Risk Assessment: No/Low Risk (score <= 1) Caprini Risk Assessment Model Point Value = 1 Point Value = 2 Point Value = 3 Point Value = 5 Age 41-60 Minor surgery BMI > 25 kg/m2 Swollen legs Varicose veins or History of unexplained or recurrent spontaneous Oral contraceptives or hormone replacement Sepsis (< 1 month) Serious lung disease, including pneumonia (< 1 month) Abnormal pulmonary function Acute myocardial infarction Congestive heart failure (< 1 month) History of inflammatory bowel disease Medical patient at bed rest Age 61-74 Arthroscopic surgery Major open surgery (> 45 min) Laparoscopic surgery (> 45 min) Malignancy Confined to bed (> 72 hours) Immobilizing plaster cast Central venous access Age >= 75 History of VTE Family history of VTE Factor V Leiden Prothrombin [id number] Lupus anticoagulant Anticardiolipin antibodies Elevated serum homocysteine Heparin-induced thrombocytopenia Other congenital or acquired thrombophilia Stroke (< 1 month) Elective arthroplasty Hip, pelvis, or leg fracture Acute spinal cord injury (< 1 month) Prophylaxis Regimen Total Risk Factor Score Risk Level Prophylaxis Regimen 0-1 Low Early ambulation 2 Moderate Order ONE of the following: *Sequential Compression Device (SCD) *Heparin 5000 units SQ BID 3-4 Higher Order ONE of the following medications: *Heparin 5000 units SQ TID *Enoxaparin/Lovenox 40 mg SQ daily (WT < 150 kg, CrCl > 30 mL/min) *Enoxaparin/Lovenox 30 mg SQ daily (WT < 150 kg, CrCl > 10-29 mL/min) *Enoxaparin/Lovenox 30 mg SQ BID (WT < 150 kg, CrCl > 30 mL/min) AND/OR *Sequential Compression Device (SCD) 5 or more Highest Order ONE of the following medications: *Heparin 5000 units SQ TID (Preferred with Epidurals) *Enoxaparin/Lovenox 40 mg SQ daily (WT < 150 kg, CrCl > 30 mL/min) *Enoxaparin/Lovenox 30 mg SQ daily (WT < 150 kg, CrCl > 10-29 mL/min) *Enoxaparin/Lovenox 30 mg SQ BID (WT < 150 kg, CrCl > 30 mL/min) AND *Sequential Compression Device (SCD) Assessment and Plan Plan R UE access revision OR today Discharge Planning Home POD#1 Aguila Vargas MD Sep 02, 2017 14:13
[2017-09-02] MEDS ORDERED: ACETAMINOPHEN 1000 MG/100 ML 100 ML IV ONE (14:22)
[2017-09-02] MEDS ORDERED: FAMOTIDINE 20 MG/2 ML VIAL ONE (14:23)
[2017-09-02 14:33] LABS: HEMATOCRIT 30.2 % (35.0-46.0); HEMOGLOBIN 10.1 GM/DL (11.6-15.3); MEAN CELL VOLUME 82.8 FL (80.0-100.0); MEAN CORPUSCULAR HEMOGLOBIN 27.6 PG (27.0-34.0); MEAN CORPUSCULAR HGB CONC 33.3 % (32.0-36.0); MEAN PLATELET VOLUME 8.4 FL (7.0-11.0); PLATELET COUNT 359 TH/MM3 (150-450); RED BLOOD COUNT 3.65 MIL/MM3 (4.00-5.30); RED CELL DISTRIBUTION WIDTH 16.7 % (11.6-17.2)
[2017-09-02 14:41] LABS: INTERNATIONAL NORMALIZED RATIO 1.4 RATIO; PROTHROMBIN TIME - PATIENT 14.5 SEC (9.8-11.6)
[2017-09-02 14:45] LABS: BICARBONATE 32.4 MEQ/L (21.0-32.0); CREATININE 3.3 MG/DL (0.50-1.00)
[2017-09-02] MEDS ORDERED: BUPIVACAINE HCL PF 0.5% 10 ML VIAL ONE (15:40)
[2017-09-02 15:42] LABS: BANDS 4 % (0-6); BASOPHILS 2 % (0-2); LYMPHOCYTES 18 % (9-44); MONOCYTES 6 % (0-8); NEUTROPHIL # MANUAL DIFF 3.8 TH/MM3 (1.8-7.7); POLYS (SEG NEUTROPHILS) 59 % (16-70)
[2017-09-02 15:47] LABS: OVALOCYTES 1+ (NORMAL); TEARDROP RBCS 1+ (NORMAL)
--- NOTE | 2017-09-02 16:59 | HHI.PR ---
cc: Aguila Vargas MD Immediate Post Op Note Procedure Date: Sep 02, 2017 Pre Op Diagnosis: ESRD, need for HD access Post Op Diagnosis: ESRD, need for HD access Surgeon: Aguila Vargas Hand Finisher(s): Murali Castro Procedure: R UE access revision (superficialization, interpostion with PTFE) Findings: friable vein, replaced segment Complications: none Estimated blood loss: 400mL Anesthesia: General Drains: None Fluids: 350mL Patient to: PACU Patient Condition: Good Implant/Devices: SEE IMPLANT LOG (if applicable) Date/Time of Procedure: SEE SURGICAL CARE RECORD Aguila Vargas MD Sep 02, 2017 16:59
[2017-09-02] MEDS ORDERED: SENNOSIDES 8.6 MG TAB PO PRN (17:00)
[2017-09-02] MEDS ORDERED: MAGNESIUM HYDROXIDE SUSP 30 ML CUP PO PRN (17:00)
[2017-09-02] MEDS ORDERED: LACTULOSE SYRUP 20 GM/30 ML CUP PO PRN (17:00)
[2017-09-02] MEDS ORDERED: BISACODYL 10 MG SUPP RECTAL PRN (17:00)
[2017-09-02] MEDS ORDERED: DO NOT ADM ANY ANTICOAGULANT DRUGS PRN (17:32)
[2017-09-02] MEDS ORDERED: *morphine SULFATE 4 MG/ML PERIprocedure ONLY ONE ×3 (17:42→18:22)
[2017-09-02 18:08] LABS: HEMATOCRIT 26.9 % (35.0-46.0); HEMOGLOBIN 8.9 GM/DL (11.6-15.3); MEAN CELL VOLUME 82.9 FL (80.0-100.0); MEAN CORPUSCULAR HEMOGLOBIN 27.3 PG (27.0-34.0); MEAN CORPUSCULAR HGB CONC 32.9 % (32.0-36.0); MEAN PLATELET VOLUME 7.5 FL (7.0-11.0); PLATELET COUNT 282 TH/MM3 (150-450); RED BLOOD COUNT 3.25 MIL/MM3 (4.00-5.30); RED CELL DISTRIBUTION WIDTH 16.6 % (11.6-17.2); WHITE BLOOD COUNT 7.5 TH/MM3 (4.0-11.0)
[2017-09-02] MEDS ORDERED: PILL SPLITTER OTHER PRN (18:15)
[2017-09-02] MEDS ORDERED: MORPHINE SULFATE 2 MG/ML INJ IV PRN (18:15)
[2017-09-02 18:21] LABS: BICARBONATE 30.4 MEQ/L (21.0-32.0); CALCIUM 8.7 MG/DL (8.5-10.1); CREATININE 3.23 MG/DL (0.50-1.00)
[2017-09-02 19:00] VITALS: PULSE 75
[2017-09-02 20:00] VITALS: BP 156/84; PULSE 76; PULSE 77; RESP 18; TEMP 98; O2SAT 99
[2017-09-02] MEDS: HYDROmorphone HCL 2 MG TAB PO PRN (20:35)
[2017-09-02] MEDS: CARVEDILOL 6.25 MG TAB PO SCH (20:35)
[2017-09-02] MEDS: FLUOCINOLONE ACETONIDE 0.01% CR 15 GM TUBE TOPICAL SCH (20:35)
[2017-09-02] MEDS: hydrOXYzine HCL 25 MG TAB PO SCH (20:35)
[2017-09-02] MEDS: DOCUSATE SODIUM 50 MG/SENNA 8.6 MG TAB PO SCH (20:35)
[2017-09-02 21:00] VITALS: PULSE 78
[2017-09-02 22:00] VITALS: PULSE 78
[2017-09-02 23:00] VITALS: PULSE 76
[2017-09-02 23:20] VITALS: BP 151/87; PULSE 77; RESP 18; TEMP 97.8; O2SAT 100
[2017-09-03] VITALS (23 sets, daily range): BP systolic 115–140; BP diastolic 74–84; PULSE 72–82; RESP 16–18; TEMP 97.5–98.2; O2SAT 95–100
[2017-09-03] MEDS: HYDROmorphone HCL 2 MG TAB PO PRN ×2 (02:48→10:38)
[2017-09-03 06:05] LABS: HEMATOCRIT 25.4 % (35.0-46.0); HEMOGLOBIN 8.4 GM/DL (11.6-15.3); MEAN CELL VOLUME 83.7 FL (80.0-100.0); MEAN CORPUSCULAR HEMOGLOBIN 27.8 PG (27.0-34.0); MEAN CORPUSCULAR HGB CONC 33.2 % (32.0-36.0); MEAN PLATELET VOLUME 7.7 FL (7.0-11.0); PLATELET COUNT 268 TH/MM3 (150-450); RED BLOOD COUNT 3.03 MIL/MM3 (4.00-5.30); RED CELL DISTRIBUTION WIDTH 16.4 % (11.6-17.2); WHITE BLOOD COUNT 8.2 TH/MM3 (4.0-11.0)
[2017-09-03 06:30] LABS: CALCIUM 8.9 MG/DL (8.5-10.1); CREATININE 3.85 MG/DL (0.50-1.00)
--- NOTE | 2017-09-03 07:07 | PD.VS.PN ---
Subjective POD #: 1 Procedure(s): R UE Access revision Subjective/Hospital Course Pain overnight in incision but controlled this morning. No hand trouble. Objective Vitals/I&O Date Time Temp Pulse Resp B/P (MAP) Pulse Ox O2 Delivery O2 Flow Rate FiO2 09/03/17 06:00 79 09/03/17 05:00 76 09/03/17 04:00 78 09/03/17 03:00 100 Nasal Cannula 2.00 09/03/17 03:00 97.5 76 18 137/82 (100) 100 09/03/17 03:00 75 09/03/17 02:00 80 09/03/17 01:00 72 09/03/17 00:00 73 09/02/17 23:20 100 Nasal Cannula 2.00 09/02/17 23:20 97.8 77 18 151/87 (108) 100 09/02/17 23:00 76 09/02/17 22:00 78 09/02/17 21:00 78 09/02/17 20:00 99 Nasal Cannula 2.00 09/02/17 20:00 98.0 77 18 156/84 (108) 99 09/02/17 20:00 76 09/02/17 19:00 75 09/02/17 18:30 98.3 73 14 151/83 (105) 100 Nasal Cannula 2 09/02/17 18:15 75 19 133/81 (98) 100 Nasal Cannula 2 09/02/17 18:00 73 19 156/96 (116) 100 Nasal Cannula 2 09/02/17 17:45 73 21 154/95 (114) 100 Nasal Cannula 2 09/02/17 17:31 98.2 72 24 155/95 (115) 100 Nasal Cannula 2 09/02/17 14:00 99.1 90 18 164/101 (122) 96 09/03/17 09/03/17 09/03/17 06:59 14:59 22:59 Intake Total 720 ml Output Total 0 ml Balance 720 ml Exam: R UE incision covered. + thrill Slight fullness but not tense Good hand strength Laboratory Laboratory Tests Test 09/02/17 14:10 09/02/17 17:54 09/03/17 04:56 White Blood Count 6.0 7.5 8.2 Red Blood Count 3.65 3.25 3.03 Hemoglobin 10.1 8.9 8.4 Hematocrit 30.2 26.9 25.4 Mean Corpuscular Volume 82.8 82.9 83.7 Mean Corpuscular Hemoglobin 27.6 27.3 27.8 Mean Corpuscular Hemoglobin Concent 33.3 32.9 33.2 Red Cell Distribution Width 16.7 16.6 16.4 Platelet Count 359 282 268 Mean Platelet Volume 8.4 7.5 7.7 CBC Comment AUTO DIFF Differential Total Cells Counted 100 Neutrophils % (Manual) 59 Band Neutrophils % 4 Lymphocytes % 18 Monocytes % 6 Eosinophils % 11 Basophils % 2 Neutrophils # (Manual) 3.8 Differential Comment FINAL DIFF MANUAL Platelet Estimate NORMAL Platelet Morphology Comment NORMAL Tear Drop Cells 1+ Ovalocytes 1+ Prothrombin Time 14.5 Prothromb Time International Ratio 1.4 Activated Partial Thromboplast Time 29.8 Blood Urea Nitrogen 42 42 50 Creatinine 3.30 3.23 3.85 Random Glucose 70 88 97 Calcium Level 9.0 8.7 8.9 Sodium Level 136 136 137 Potassium Level 3.5 3.4 3.6 Chloride Level 98 99 99 Carbon Dioxide Level 32.4 30.4 26.0 Anion Gap 6 7 12 Estimat Glomerular Filtration Rate 18 18 15 Assessment and Plan Plan POD#1 s/p R UE access revision 1. D/C today 2. Pt requests HD here today as she normally gets HD in [place] at 0630. Have consulted nephrology Discharge Planning Today Aguila Vargas MD Sep 03, 2017 07:07
--- NOTE | 2017-09-03 07:08 | PD.VS.DC ---
Discharge Summary Admission Date: Sep 02, 2017 at 17:02 Discharge Date: Sep 03, 2017 Admission Diagnosis: (1) ESRD (end stage renal disease) Discharge Diagnosis: (1) ESRD (end stage renal disease) ICD Codes: N18.6 - End stage renal disease Brief History from admission 51 yo female with ESRD s/p multiple failed AVF, most recently R Brachiobrachial AVF 05/20, presents for second stage. Procedure(s): R UE Access revision Significant Findings Laboratory Tests Test 09/02/17 14:10 09/02/17 17:54 09/03/17 04:56 Red Blood Count 3.65 MIL/MM3 (4.00-5.30) 3.25 MIL/MM3 (4.00-5.30) 3.03 MIL/MM3 (4.00-5.30) Hemoglobin 10.1 GM/DL (11.6-15.3) 8.9 GM/DL (11.6-15.3) 8.4 GM/DL (11.6-15.3) Hematocrit 30.2 % (35.0-46.0) 26.9 % (35.0-46.0) 25.4 % (35.0-46.0) Eosinophils % 11 % (0-4) Tear Drop Cells 1+ (NORMAL) Ovalocytes 1+ (NORMAL) Prothrombin Time 14.5 SEC (9.8-11.6) Blood Urea Nitrogen 42 MG/DL (7-18) 42 MG/DL (7-18) 50 MG/DL (7-18) Creatinine 3.30 MG/DL (0.50-1.00) 3.23 MG/DL (0.50-1.00) 3.85 MG/DL (0.50-1.00) Random Glucose 70 MG/DL (74-106) Carbon Dioxide Level 32.4 MEQ/L (21.0-32.0) Estimat Glomerular Filtration Rate 18 ML/MIN (>89) 18 ML/MIN (>89) 15 ML/MIN (>89) Potassium Level 3.4 MEQ/L (3.5-5.1) Hospital Course: The patient was adm for post-op observation and did well overnight. Arranging HD POD#1 and will d/c. Discharge Condition: Good Discharge Disposition: Discharge Home Any questions or concerns: Call [facility] at [facility] [phone] Aguila Vargas MD Sep 03, 2017 07:08
[2017-09-03] MEDS ORDERED: SODIUM CHLOR 0.9% 1000 ML INJ 1,000 ML IV PRN (07:47)
[2017-09-03] MEDS ORDERED: SODIUM CHLOR 0.9% 1000 ML INJ 1,000 ML OTHER PRN ×2 (07:47)
[2017-09-03] MEDS ORDERED: NITROGLYCERIN 0.4 MG SL 25 TABS/BTL SL PRN (08:00)
[2017-09-03] MEDS ORDERED: ALBUMIN 25% INJ 100 ML IV PRN (08:00)
[2017-09-03] MEDS ORDERED: GELATIN 12 MM/7 MM FOAM TOP PRN (08:00)
[2017-09-03] MEDS ORDERED: GENTAMICIN SULFATE 20 MG/2 ML VIAL OTHER PRN (08:00)
[2017-09-03] MEDS ORDERED: diphenhydrAMINE HCL 25 MG CAP PO PRN (08:00)
[2017-09-03] MEDS ORDERED: cloNIDine HCL 0.1 MG TAB PO PRN (08:00)
[2017-09-03] MEDS ORDERED: ONDANSETRON HCL 4 MG/2 ML VIAL IV PUSH PRN (08:00)
[2017-09-03] MEDS ORDERED: ACETAMINOPHEN 325 MG TAB PO PRN (08:00)
[2017-09-03] MEDS ORDERED: MANNITOL 12.5 GM/50 ML VIAL IV PRN (08:00)
[2017-09-03] MEDS ORDERED: HEPARIN SODIUM - IV 10,000 UNITS/10 ML VIAL PRN (08:00)
[2017-09-03] MEDS ORDERED: EPOETIN ALFA 10,000 UNITS/ML VIAL IV PUSH PRN (08:00)
[2017-09-03] MEDS ORDERED: HEPARIN SODIUM - IV 10,000 UNITS/10 ML VIAL IV FLUSH PRN (08:00)
[2017-09-03] MEDS ORDERED: SODIUM CHLORIDE 0.9% FLUSH 10 ML FLUSH IV FLUSH PRN (08:00)
[2017-09-03] MEDS: FLUOCINOLONE ACETONIDE 0.01% CR 15 GM TUBE TOPICAL SCH (09:00)
[2017-09-03] MEDS ORDERED: ASPIRIN 81 MG CHEW TAB PO SCH (09:00)
[2017-09-03] MEDS ORDERED: CINACALCET HYDROCHLORIDE 30 MG TAB PO SCH (09:00)
[2017-09-03] MEDS ORDERED: CITALOPRAM HYDROBROMIDE 20 MG TAB PO SCH (09:00)
[2017-09-03] MEDS ORDERED: PANTOPRAZOLE SOD 40 MG DELAYED RELEASE TAB PO SCH (09:00)
[2017-09-03] MEDS ORDERED: FERROUS FUMARATE 325 MG TAB (106 MG ELEMENTAL IRON) PO SCH (09:00)
[2017-09-03] MEDS ORDERED: ESOMEPRAZOLE 40 MG PO SCH (09:00)
--- NOTE | 2017-09-03 09:33 | MP ---
cc: Aguila Vargas MD DATE OF OPERATION: 09/02/17 PREOPERATIVE DIAGNOSIS: End stage renal disease, need for hemodialysis access. POSTOPERATIVE DIAGNOSIS: End stage renal disease, need for hemodialysis access. PROCEDURE: Right upper extremity access revision (superficialization and interposition with PTFE). ATTENDING SURGEON: Aguila Vargas MD PROGRAMMER ANALYST HEALTH IT SURGEON: Murali Castro ANESTHESIA: General. INDICATIONS: Ms. Jackman is an elderly female who has had multiple dialysis access attempts. Several months ago, she underwent a right brachial artery to brachial vein arteriovenous fistula. This now appears to be mature by duplex and clinical examination. She is brought to the operating room for a planned second stage to include superficialization. Intraoperatively, it was found the vein was noted to be quite thin walled, and a portion of it was replaced with 6 mm PTFE. DESCRIPTION OF PROCEDURE: Informed consent was obtained from the patient. She was taken to the operating room, placed supine on the operating room table. An appropriate timeout was taken to ensure the patient's identity, operative site and planned procedure. The administration of a gram of vancomycin was initiated prior to skin incision and will be discontinued after a single preoperative dose. Vancomycin was chosen because of the patient's end stage renal disease. Everyone in the room agreed with the timeout, and we proceeded. Her right arm was prepped and draped. An incision was made over the medial aspect of the upper arm, carried down to subcutaneous tissue with electrocautery. The brachial vein was identified and dissected free. It was noted to be quite friable, but it was dissected free from the distal upper arm, all the way up to the axilla. At the central portion, it was noted to be very thin walled, and even surgical manipulation caused some of the nguyen to break down. As such, the decision was made to replace part of this. The patient was systemically heparinized, and proximal and distal control of the central part of the brachial vein was obtained with profunda clamps, and this section was resected. A 6 mm PTFE was brought up on the field. The vein and the PTFE were both spatulated and sewn end-to-end proximally and distally with a running 5-0 [place] suture. At the completion, it was flushed, noted to be hemostatic with several repair sutures. The entire wound was made hemostatic, infiltrated with Marcaine. The heparin was reversed with protamine, and the wound was closed with 2-0 Polysorb beneath the fistula. fistula wound was closed with 3-0 Polysorb and 4-0 Monocryl. The sponge and needle counts were correct at the end of the case. The heparin had been reversed with protamine, and there was Doppler signal at rest. There were no complications. The patient was awoken from anesthesia and transported to the recovery room in stable condition. Aguila Vargas MD RJF/DL , 04:59 AM , 09:31 AM MTDD
[2017-09-03] MEDS: CARVEDILOL 6.25 MG TAB PO SCH ×2 (10:31→21:56)
[2017-09-03] MEDS: DOCUSATE SODIUM 50 MG/SENNA 8.6 MG TAB PO SCH (10:31)
[2017-09-03] MEDS: hydrOXYzine HCL 25 MG TAB PO SCH ×2 (10:32→13:47)
[2017-09-03] MEDS ORDERED: HEPARIN SODIUM - SQ 10,000 UNITS/ML VIAL SQ SCH (17:00)
--- NOTE | 2017-09-03 17:14 | PD.CONS ---
HPI Service Nephrology Consult Requested By Dr. Vargas Reason for Consult ESRD management Primary Care Physician Non-Staff History of Present Illness Patient is a 51-year-old female with history of end-stage renal disease, CVA, CHF on hemodialysis she has peripheral edema and weakness in the legs she is here for AV fistula second procedure this was carried out she has a positive bruit, today is heard. Off dialysis, she is usually Wednesday, Wednesday and Wednesday patient, she gets short of breath on exertion, she follows with the Dr. Amaro in [place] Review of Systems Constitutional: COMPLAINS OF: Fatigue Respiratory: COMPLAINS OF: Shortness of breath Cardiovascular: COMPLAINS OF: Dyspnea on Exertion, Lower Extremity Edema, Orthopnea Musculoskeletal: COMPLAINS OF: Joint pain, Muscle aches, Back pain Neurologic: COMPLAINS OF: Abnormal gait Past Family Social History Allergies: Coded Allergies: Penicillins (Verified Allergy, Severe, Swelling, 09/02/17) Past Medical History End-stage renal disease Hypertension CVA congestive heart failure Peripheral edema Wheelchair bound due to weakness in the legs Venous stasis ulcers with poor circulation Osteoarthritis GERD Anemia Secondary hyperparathyroidism Past Surgical History AV fistula Reported Medications Reported Meds & Active Scripts Active Percocet (Oxycodone-Acetaminophen) 5-325 mg Tab 1 Tab PO Q4H PRN Reported Esomeprazole DR 40 Mg Capdr 40 Mg PO DAILY Coumadin (Warfarin) 7.5 Mg Tab 7.5 Mg PO DAILY Triamcinolone Topical 0.025 % Oint 1 Applic TOPICAL BID Citalopram (Citalopram Hydrobromide) 10 Mg Tab 10 Mg PO DAILY Percocet (Oxycodone-Acetaminophen) 10-325 mg Tab 1 Tab PO Q6H PRN Tramadol (Tramadol HCl) 50 Mg Tab 50 Mg PO Q6H PRN Hydroxyzine HCl 25 Mg Tab 25 Mg PO TID Ferrous Fumarate 324 Mg (106 Mg Iron) Tab 325 Mg PO DAILY Sensipar (Cinacalcet) 30 Mg Tab 30 Mg PO DAILY Carvedilol 6.25 Mg Tab 6.25 Mg PO BID Amlodipine (Amlodipine Besylate) 10 Mg Tab 10 Mg PO DAILY Active Ordered Medications Current Medications Medications (Trade) Dose Ordered Sig/Linda Route Start Time Stop Time Status Last Admin Lactated Ringer's 1,000 ml @ 30 mls/hr Q24H PRN IV 09/02/17 14:00 09/05/17 13:59 Sodium Chloride 500 ml @ 30 mls/hr [id number] PRN IV 09/02/17 14:00 09/05/17 13:59 09/02/17 14:00 (Lopressor) 25 mg CORPORATE RECEPTIONIST PRN PO 09/02/17 14:00 09/05/17 13:59 09/02/17 14:15 (Betadine 5% Antisepsis Kit) 1 applic CORPORATE RECEPTIONIST PRN EACH NARE 09/02/17 14:00 09/05/17 13:59 09/02/17 14:00 (Chlorhexidine 2% Cloth) 3 pack CORPORATE RECEPTIONIST PRN TOPICAL 09/02/17 14:00 09/05/17 13:59 09/02/17 14:00 (Aspirin Chew) 81 mg DAILY PO 09/03/17 09:00 09/03/17 10:31 (Roxicodone) 5 mg Q4H PRN PO 09/02/17 17:00 09/03/17 16:06 (Dilaudid) 2 mg Q4H PRN PO 09/02/17 17:00 09/03/17 10:38 (Morphine Inj) 2 mg Q1H PRN IV 09/02/17 18:15 09/03/17 05:30 (Heparin Inj) 5,000 units Q8H SQ 09/03/17 17:00 09/03/17 16:05 (Vanessa-Colace) 1 tab BID PO 09/02/17 21:00 09/03/17 10:31 (Milk Of Magnesia Liq) 30 ml Q12H PRN PO 09/02/17 17:00 (Senokot) 17.2 mg Q12H PRN PO 09/02/17 17:00 (Dulcolax Supp) 10 mg DAILY PRN RECTAL 09/02/17 17:00 (Lactulose Liq) 30 ml DAILY PRN PO 09/02/17 17:00 (Norvasc) 10 mg DAILY PO 09/03/17 09:00 09/03/17 10:36 (Coreg) 6.25 mg BID PO 09/02/17 21:00 09/03/17 10:31 (Sensipar) 30 mg DAILY PO 09/03/17 09:00 09/03/17 10:35 (CeleXA) 10 mg DAILY PO 09/03/17 09:00 09/03/17 10:33 (Hemocyte) 325 mg DAILY PO 09/03/17 09:00 09/03/17 10:34 (Atarax) 25 mg TID PO 09/02/17 18:00 09/03/17 13:47 (Synalar 0.01% Cream) 1 applic BID TOPICAL 09/02/17 21:00 (Pill Splitter) 1 ea UNSCH PRN OTHER 09/02/17 18:15 (Protonix) 40 mg DAILY PO 09/03/17 09:00 09/03/17 10:34 Miscellaneous Information ALL NURSING DEPARTME... UNSCH PRN .XX 09/02/17 17:32 09/03/17 17:31 Sodium Chloride 1,000 ml @ 0 mls/hr Q0M PRN OTHER 09/03/17 07:47 (Heparin Inj) 8,000 units UNSCH PRN IV FLUSH 09/03/17 08:00 Sodium Chloride 1,000 ml @ 200 mls/hr Q5H PRN IV 09/03/17 07:47 Sodium Chloride 1,000 ml @ 0 mls/hr Q0M PRN OTHER 09/03/17 07:47 (Mannitol Inj) 12.5 gm UNSCH PRN IV 09/03/17 08:00 Albumin Human 100 ml @ 60 mls/hr UNSCH PRN IV 09/03/17 08:00 (NS Flush) 5 ml UNSCH PRN IV FLUSH 09/03/17 08:00 (Heparin Inj) UNSCH PRN .XX 09/03/17 08:00 (Gentamicin Inj) 20 mg UNSCH PRN OTHER 09/03/17 08:00 (Zofran Inj) 4 mg UNSCH PRN IV PUSH 09/03/17 08:00 (Tylenol) 650 mg UNSCH PRN PO 09/03/17 08:00 (Benadryl) 25 mg UNSCH PRN PO 09/03/17 08:00 (Nitrostat Sl) 0.4 mg UNSCH PRN SL 09/03/17 08:00 (Catapres) 0.1 mg UNSCH PRN PO 09/03/17 08:00 (Epogen Inj) 10,000 units UNSCH PRN IV PUSH 09/03/17 08:00 (Gelfoam 12 Mm/7 Mm Top) 1 foam UNSCH PRN TOP 09/03/17 08:00 Family History Noncontributory Social History Denies smoking or alcohol use Physical Exam Vital Signs Vital Signs Date Time Temp Pulse Resp B/P (MAP) Pulse Ox O2 Delivery O2 Flow Rate FiO2 09/03/17 16:09 95 Room Air 09/03/17 16:09 98.1 75 18 115/74 (88) 95 09/03/17 16:00 76 09/03/17 15:00 77 09/03/17 14:00 78 09/03/17 13:00 80 09/03/17 12:00 80 09/03/17 11:54 98.2 82 18 135/76 (95) 95 09/03/17 11:54 95 Room Air 09/03/17 11:54 18 09/03/17 11:00 81 09/03/17 10:00 78 09/03/17 09:00 76 09/03/17 08:04 95 Room Air 09/03/17 08:04 80 18 140/84 (102) 95 09/03/17 08:00 80 09/03/17 07:00 76 09/03/17 06:00 79 09/03/17 05:00 76 09/03/17 04:00 78 09/03/17 03:00 100 Nasal Cannula 2.00 09/03/17 03:00 97.5 76 18 137/82 (100) 100 09/03/17 03:00 75 09/03/17 02:00 80 09/03/17 01:00 72 09/03/17 00:00 73 09/02/17 23:20 100 Nasal Cannula 2.00 09/02/17 23:20 97.8 77 18 151/87 (108) 100 09/02/17 23:00 76 09/02/17 22:00 78 09/02/17 21:00 78 09/02/17 20:00 99 Nasal Cannula 2.00 09/02/17 20:00 98.0 77 18 156/84 (108) 99 09/02/17 20:00 76 09/02/17 19:00 75 09/02/17 18:30 98.3 73 14 151/83 (105) 100 Nasal Cannula 2 09/02/17 18:15 75 19 133/81 (98) 100 Nasal Cannula 2 09/02/17 18:00 73 19 156/96 (116) 100 Nasal Cannula 2 09/02/17 17:45 73 21 154/95 (114) 100 Nasal Cannula 2 09/02/17 17:31 98.2 72 24 155/95 (115) 100 Nasal Cannula 2 Physical Exam GENERAL: Well-nourished, well-developed patient. SKIN: Warm and dry. HEAD: Normocephalic. EYES: No scleral icterus. No injection or drainage. NECK: Supple, trachea midline. JVD elevated 8 cm no lymphadenopathy. CARDIOVASCULAR: Regular rate and rhythm. 3/ 6 systolic murmurs, no gallops, or rubs. RESPIRATORY: Breath diminished at bases. Rales positive GASTROINTESTINAL: Abdomen soft, non-tender, nondistended. EXTREMITIES: No cyanosis, 2+ edema. Left leg ulcer NEUROLOGICAL: Awake, alert, and oriented x 3. Bilateral leg weakness Laboratory Laboratory Tests Test 09/02/17 17:54 09/03/17 04:56 White Blood Count 7.5 8.2 Red Blood Count 3.25 3.03 Hemoglobin 8.9 8.4 Hematocrit 26.9 25.4 Mean Corpuscular Volume 82.9 83.7 Mean Corpuscular Hemoglobin 27.3 27.8 Mean Corpuscular Hemoglobin Concent 32.9 33.2 Red Cell Distribution Width 16.6 16.4 Platelet Count 282 268 Mean Platelet Volume 7.5 7.7 Blood Urea Nitrogen 42 50 Creatinine 3.23 3.85 Random Glucose 88 97 Calcium Level 8.7 8.9 Sodium Level 136 137 Potassium Level 3.4 3.6 Chloride Level 99 99 Carbon Dioxide Level 30.4 26.0 Anion Gap 7 12 Estimat Glomerular Filtration Rate 18 15 Result Diagram: 09/03/17 0456 09/03/17 045 Assessment and Plan Problem List: (1) ESRD (end stage renal disease) ICD Codes: N18.6 - End stage renal disease Plan: Patient needs to do hemodialysis explained that she should do it, due to emergencies her dialysis was pushed to later time and she was reluctant to go on dialysis I convinced her to go for the dialysis now as she hasn't had dialysis since Wednesday She agreed to it the we will be transferring her down stairs Spoke to the staff, she voiced that she has to pay $100 fine if she is late for her discharge I told her it is unsafe medically to be without dialysis for 5 days. (2) AVF (arteriovenous fistula) ICD Codes: I77.0 - Arteriovenous fistula, acquired Plan: Working well (3) Hypertension ICD Codes: I10 - Essential (primary) hypertension Plan: Continue to monitor (4) Anemia ICD Codes: D64.9 - Anemia, unspecified Plan: Hemoglobin is stable Jacquie Malik MD Sep 03, 2017 17:14
== END 2017-09-03 22:38 | disposition home or self-care (01) | DRG 674 ==
LOC: HCVO 13:15 → HCPC 17:02
PROVIDERS: ADMIT Surgery; ATTEND Surgery
PROC: 03170JD Bypass Right Brachial Artery to Upper Arm Vein with Synthetic Substitute, Open Approach (ICD-10-PCS; principal; 2017-09-02 15:05)
PROC: 5A1D70Z Performance of Urinary Filtration, Intermittent, Less than 6 Hours Per Day (ICD-10-PCS; 2017-09-03)
DX: N18.6 End stage renal disease (principal); I13.2 Hypertensive heart and chronic kidney disease with heart failure and with stage 5 chronic kidney disease, or end stage renal disease; N25.81 Secondary hyperparathyroidism of renal origin; I50.9 Heart failure, unspecified; K21.9 Gastro-esophageal reflux disease without esophagitis; D64.9 Anemia, unspecified; M19.90 Unspecified osteoarthritis, unspecified site; Z99.3 Dependence on wheelchair; Z99.2 Dependence on renal dialysis; Z86.73 Personal history of transient ischemic attack (TIA), and cerebral infarction without residual deficits
CPT/HCPCS: 80048; 85007; 85027; 85610; 85730; 86850; 86900; 86901; 90935; 96374; 96375; C1768; J0131; J1100; J1580; J1644; J2270; J2370; J2405; J2720; J3010; J3370; J7040; Q4081

== ENCOUNTER 2017-09-13 15:49 | Emergency (ER) | payer MEDICARE, MEDICAID ==
[~2017-09-13] VITALS: Ht 167.6 cm; Wt 81.0 kg
[~2017-09-13 15:49] MED LIST changes: -DEXAMETHASONE SOD PHOS 4 MG/ML VIAL IV ONE; -HEPARIN SODIUM - IV 10,000 UNITS/10 ML VIAL ONE; -HEPARIN-NS/PF INJ 500 ML ONE; -LIDOCAINE HCL 1% PF 5 ML SYRINGE OTHER ONE; -ONDANSETRON HCL 4 MG/2 ML VIAL IV ONE; -PERC5TAB12 PO; -PHENYLEPH/NS 1000 MCG/10 ML SYR IV ONE; -PROPOFOL 200 MG/20 ML AMP IV ONE; -PROTAMINE SULFATE 50 MG/5 ML VIAL ONE; -THROMBIN (TOPICAL) 20,000 UNIT SPRAY KIT ONE; -VANCOMYCIN HCL 1000 MG VIAL ONE
[2017-09-13 16:03] VITALS: BP 137/82; PULSE 82; RESP 20; TEMP 98.7; O2SAT 97
[2017-09-13 17:31] LABS: BASOPHIL # 0.1 TH/MM3 (0-0.2); EOSINOPHIL # 0.5 TH/MM3 (0-0.4); EOSINOPHIL % 8.2 % (0.0-4.0); HEMATOCRIT 25.9 % (35.0-46.0); HEMOGLOBIN 8.5 GM/DL (11.6-15.3); LYMPH % 11.2 % (9.0-44.0); LYMPHOCYTE # 0.6 TH/MM3 (1.0-4.8); MEAN CELL VOLUME 83.9 FL (80.0-100.0); MEAN CORPUSCULAR HEMOGLOBIN 27.6 PG (27.0-34.0); MEAN CORPUSCULAR HGB CONC 32.9 % (32.0-36.0); MEAN PLATELET VOLUME 7.6 FL (7.0-11.0); MONO % 7.6 % (0.0-8.0); MONOCYTE # 0.4 TH/MM3 (0-0.9); PLATELET COUNT 286 TH/MM3 (150-450); RED BLOOD COUNT 3.09 MIL/MM3 (4.00-5.30); WHITE BLOOD COUNT 5.5 TH/MM3 (4.0-11.0)
[2017-09-13 17:42] LABS: ALBUMIN 2.7 GM/DL (3.4-5.0); ALT (GPT) 12 U/L (10-53); AST (GOT) 18 U/L (15-37); BICARBONATE 29.4 MEQ/L (21.0-32.0); BLOOD UREA NITROGEN 45 MG/DL (7-18); CALCIUM 9.1 MG/DL (8.5-10.1); CHLORIDE 95 MEQ/L (98-107); CREATININE 2.95 MG/DL (0.50-1.00); GLOMERULAR FILTRATION RATE 20 ML/MIN (>89); GLUCOSE,RANDOM 82 MG/DL (74-106); SODIUM (NA) 133 MEQ/L (136-145)
[2017-09-13 17:43] LABS: INTERNATIONAL NORMALIZED RATIO 1.5 RATIO; PROTHROMBIN TIME - PATIENT 15.4 SEC (9.8-11.6)
[2017-09-13 17:45] LABS: ALKALINE PHOSPHATASE 309 U/L (45-117); TOTAL BILIRUBIN ADULT 0.5 MG/DL (0.2-1.0); TOTAL PROTEIN 8.7 GM/DL (6.4-8.2)
--- NOTE | 2017-09-13 19:15 | PD ---
Physical Exam Date Seen by Provider: Sep 13, 2017 Time Seen by Provider: 18:33 Narrative 51 year old female presents to the emergency department stating she was sent by Dr. Vargas for right arm pain and swelling. She recently had AV fistula placed to right arm. She did have dialysis today. Current pain is 4/10. Data Data Last Documented VS Vital Signs Date Time Temp Pulse Resp B/P (MAP) Pulse Ox O2 Delivery O2 Flow Rate FiO2 09/13/17 16:03 98.7 82 20 137/82 (100) 97 Orders Orders Complete Blood Count With Diff (09/13/17 16:05) Comprehensive Metabolic Panel (09/13/17 16:05) Lipase (09/13/17 16:05) Prothrombin Time / Inr (Pt) (09/13/17 16:05) Act Partial Throm Time (Ptt) (09/13/17 16:05) Labs Laboratory Tests Test 09/13/17 17:00 White Blood Count 5.5 TH/MM3 Red Blood Count 3.09 MIL/MM3 Hemoglobin 8.5 GM/DL Hematocrit 25.9 % Mean Corpuscular Volume 83.9 FL Mean Corpuscular Hemoglobin 27.6 PG Mean Corpuscular Hemoglobin Concent 32.9 % Red Cell Distribution Width 18.0 % Platelet Count 286 TH/MM3 Mean Platelet Volume 7.6 FL Neutrophils (%) (Auto) 72.0 % Lymphocytes (%) (Auto) 11.2 % Monocytes (%) (Auto) 7.6 % Eosinophils (%) (Auto) 8.2 % Basophils (%) (Auto) 1.0 % Neutrophils # (Auto) 4.0 TH/MM3 Lymphocytes # (Auto) 0.6 TH/MM3 Monocytes # (Auto) 0.4 TH/MM3 Eosinophils # (Auto) 0.5 TH/MM3 Basophils # (Auto) 0.1 TH/MM3 CBC Comment DIFF FINAL Differential Comment Prothrombin Time 15.4 SEC Prothromb Time International Ratio 1.5 RATIO Activated Partial Thromboplast Time 30.1 SEC Blood Urea Nitrogen 45 MG/DL Creatinine 2.95 MG/DL Random Glucose 82 MG/DL Total Protein 8.7 GM/DL Albumin 2.7 GM/DL Calcium Level 9.1 MG/DL Alkaline Phosphatase 309 U/L Aspartate Amino Transf (AST/SGOT) 18 U/L Alanine Aminotransferase (ALT/SGPT) 12 U/L Total Bilirubin 0.5 MG/DL Sodium Level 133 MEQ/L Potassium Level 3.7 MEQ/L Chloride Level 95 MEQ/L Carbon Dioxide Level 29.4 MEQ/L Anion Gap 9 MEQ/L Estimat Glomerular Filtration Rate 20 ML/MIN Lipase 93 U/L [facility] Supervised Visit with MARJORIE: No Narrative Course 51 year old female presents to the emergency department for evaluation of right arm pain/swelling, sent by Dr. Vargas. Work up was initiated in triage. Patient left AMA before she could be moved to a medical bed. Diagnosis Primary Impression: Left against medical advice Disposition: 07 AGAINST MEDICAL ADVICE Rima Rosales Sep 13, 2017 19:15
== END 2017-09-13 18:33 | disposition left against medical advice (07) ==
LOC: NED 15:49
DX: M79.601 Pain in right arm (principal); I77.0 Arteriovenous fistula, acquired; Z53.21 Procedure and treatment not carried out due to patient leaving prior to being seen by health care provider
CPT/HCPCS: 80053; 83690; 85025; 85610; 85730; 99283

== ENCOUNTER 2018-01-03 19:45 | Inpatient (IN) ==
--- NOTE | 2018-01-03 23:41 | XR ---
EXAM DATE: 01/03/2018 11:33 PM EDT AGE/SEX: 52 years / Female INDICATIONS: Fever. CLINICAL DATA: This is the patient's initial encounter. Patient reports that signs and symptoms have been present for 1 day and indicates a pain score of 0/10. MEDICAL/SURGICAL HISTORY: Congestive heart failure. Stroke. None. COMPARISON: [facility] [place]ST SINGLE AP, 05/20/2017. POI, CT CHEST W AND W/O CONTRAST, 09/28/2017. . FINDINGS: There are new patchy infiltrates in the lower lateral right lung and consolidative infiltrates in the left lower lung. Stable fullness in the hilar region bilaterally. Stable moderate severity cardiomeg angela. Portions of the left hemidiaphragm are obscured. The right hemidiaphragm is well delineated. Oss eous structures are grossly intact. CONCLUSION: Bilateral lower lung infiltrates, left larger than right. Electronically signed by: Indra Perez MD 01/03/2018 11:40 PM EDT
[2018-01-03 23:51] LABS: Alanine Aminotransferase 9 U/L (10-53); Albumin 2.2 g/dL (3.4-5.0); Anion Gap 10 meq/L (5-15); Aspartate Aminotransferase 10 U/L (15-37); Blood Urea Nitrogen 54 mg/dL (7-18); Calcium 8.3 mg/dL (8.5-10.1); Carbon Dioxide 27.6 meq/L (21.0-32.0); Chloride 98 meq/L (98-107); Glomerular Filtration Rate 13 mL/min (>89); Glucose,Random 78 mg/dL (74-106); Potassium 3.8 meq/L (3.5-5.1); Sodium 136 meq/L (136-145)
[2018-01-03 23:53] LABS: Activated Partial Thrombo Time 38.8 sec (24.3-30.1); Alkaline Phosphatase 245 U/L (45-117); INR 2.7 Ratio; Total Protein 9.1 g/dL (6.4-8.2)
[2018-01-04 00:07] LABS: Baso # (Auto) 0.1 th/mm3 (0.0-0.2); Baso % (Auto) 1.2 % (0.0-2.0); Eos # (Auto) 0.3 th/mm3 (0.0-0.4); Eos % (Auto) 5.3 % (0.0-4.0); Hematocrit 27.9 % (35.0-46.0); Lymph # (Auto) 0.7 th/mm3 (1.0-4.8); Lymph % (Auto) 10.8 % (9.0-44.0); Mean Corpuscular HGB Conc 32.3 % (32.0-36.0); Mean Corpuscular Hemoglobin 25.7 pg (27.0-34.0); Mean Corpuscular Volume 79.5 fL (80.0-100.0); Mono # (Auto) 0.5 th/mm3 (0.0-0.9); Mono % (Auto) 8.2 % (0.0-8.0); Neut # (Auto) 4.5 th/mm3 (1.8-7.7); Neut % (Auto) 74.5 % (16.0-70.0); Platelet Count 367 th/mm3 (150-450); Red Blood Count 3.51 mil/mm3 (4.00-5.30); Red Cell Distribution Width 17.5 % (11.6-17.2); White Blood Count 6.1 th/mm3 (4.0-11.0)
[2018-01-04] MEDS ORDERED: Vancomycin Inj 1 GM/200 ML PIGGYBACK IV.SIG ONE (00:36)
--- NOTE | 2018-01-04 01:01 | ED ---
HPI General Chief complaint: Skin/Abscess/Foreign Body Stated complaint: Skin Time Seen by Provider: 01/03/18 22:41 Source: patient and family Mode of arrival: wheelchair Limitations: physical limitation History of Present Illness HPI narrative: 52-year-old female with history of end-stage renal disease, dialysis Wednesday, congestive heart failure, hypertension, lymphedema, presents emergency department at the instruction of her home health nurse. Patient states that she has had a Vas-Cath in her left lower extremity that stopped working last week. She states since then the left lower extremity has become more painful. It is a constant, throbbing pain, exacerbated with movement or touch. She states she has a wound on her left lower extremity that has began to get worse and is now open and draining. She has had intermittent fever and chills. Patient states that she feels like her abdomen breath. Dr. Vargas did her right upper extremity AV fistula. After a conversation with his staff, her home health nurse advised she come to the ED. Pt's tube builder is Dr. Nicole. Related Data Allergies Allergy/AdvReac Type Severity Reaction Status Date / Time Penicillins Allergy Severe Swelling Verified 09/02/17 14:16 Review of Systems ROS Unobtainable All other systems reviewed negative except as stated in HPI Except as stated in HPI: all other systems reviewed are negative Constitutional Reports as per HPI PMFSH History History Provided By: Patient and Family Member Medical History Medical History CHF (congestive heart failure) (Acute) CKD (chronic kidney disease) (Acute) DVT (deep venous thrombosis) (Acute) Dialysis patient (Acute) Lymphedema (Acute) Vascular port complication (Acute) Surgical History Surgical History H/O: (Acute) Social History Social History Substance History: No History of Abuse Second Hand Smoke Exposure: No Smoking Status: Never smoker How Often Do You Have a Drink Containing Alcohol: Never Recent Travel in [place] within the Last 8 Weeks: No Recent Out of Country Travel within the Last 8 Weeks: No Exam Narrative Exam Narrative: GENERAL: Chronically ill-appearing female patient, lying in bed , lethargic, arousable, but appears without distress SKIN: Focused skin assessment warm/dry. There is a Vas-Cath in place in the left upper extremity. There is a 15 cm x 8 cm open ulcerative lesion on the left lower extremity. There is a serous drainage from it. Foot is erythematous palpate. Pulses are thready. Cap refill is delayed. HEAD: Atraumatic. Normocephalic. EYES: Pupils equal and round. No scleral icterus. No injection or drainage. ENT: No nasal bleeding or discharge. Mucous membranes pink and moist. NECK: Trachea midline. No JVD. CARDIOVASCULAR: Regular rate and rhythm. RESPIRATORY: No accessory muscle use. Diminished to auscultation. Breath sounds equal bilaterally. GASTROINTESTINAL: Abdomen soft, non-tender. Normoactive bowel sounds. MUSCULOSKELETAL: No obvious deformities. No clubbing. No cyanosis. Significant edema of the right lower extremity NEUROLOGICAL: Lethargic, oriented x3. No obvious cranial nerve deficits. Motor grossly within normal limits. Normal speech. PSYCHIATRIC: Appropriate mood and affect; insight and judgment normal. Course Initial Documented Vital Signs Temperature 97.8 F 01/03/18 21:09 Pulse Rate 80 01/03/18 21:09 Respiratory Rate 18 01/03/18 21:09 Blood Pressure 136/73 01/03/18 21:09 Pulse Oximetry 96 01/03/18 21:09 Last Documented Vital Signs Temperature 97.8 F 01/03/18 21:09 Pulse Rate 80 01/03/18 21:09 Respiratory Rate 18 01/03/18 21:09 Blood Pressure 136/73 01/03/18 21:09 Pulse Oximetry 96 01/03/18 21:09 Medical Decision Making MARJORIE Attestation MARJORIE supervised visit: Yes [facility] Narrative Medical decision making narrative: 52-year-old female presents emergency department for evaluation. Patient appears chronically ill. She does not appear in any distress. Patient has lymphedema and lower extremity edema greater on the right than the left. She does have a wound on the left lower extremity is cellulitic. Lab work is collected to include blood cultures. Chest x-ray is complete with bilateral lower lobe infiltrates. Culture is obtained of the wound. I discussed patient with my attending physician. Patient will be given 1 g of vancomycin here in the emergency department. We feel it is in her best interest for CT of the lower extremities, however this will need to be coordinated with patient's creatinine has also increased to 4.4 however other electrolytes are within normal limits. Plan is discussed with the patient and her family. They are in agreement with this plan of care. Differential Diagnosis Differential Diagnosis: Cellulitis versus DVT versus PAD versus arterial occlusion versus recurrent wound versus chronic ulcer Lab Data Result diagrams: 01/03/18 23:00 01/03/18 23:00 Lab Results 01/03/18 01/03/18 01/03/18 Range/Units 23:00 23:00 23:00 WBC 6.1 (4.0-11.0) th/mm3 RBC 3.51 L (4.00-5.30) mil/mm3 Hgb 9.0 L (11.6-15.3) gm/dL Hct 27.9 L (35.0-46.0) % MCV 79.5 L (80.0-100.0) fL MCH 25.7 L (27.0-34.0) pg MCHC 32.3 (32.0-36.0) % RDW 17.5 H (11.6-17.2) % Plt Count 367 (150-450) th/mm3 MPV 8.0 (7.0-11.0) fL Neut % (Auto) 74.5 H (16.0-70.0) % Lymph % (Auto) 10.8 (9.0-44.0) % [place] % (Auto) 8.2 H (0.0-8.0) % Eos % (Auto) 5.3 H (0.0-4.0) % Baso % (Auto) 1.2 (0.0-2.0) % Neut # (Auto) 4.5 (1.8-7.7) th/mm3 Lymph # (Auto) 0.7 L (1.0-4.8) th/mm3 [place] # (Auto) 0.5 (0.0-0.9) th/mm3 Eos # (Auto) 0.3 (0.0-0.4) th/mm3 Baso # (Auto) 0.1 (0.0-0.2) th/mm3 WBC Differential . Differential Comment Auto diff final PT 27.0 H (9.8-11.6) sec INR 2.7 Ratio APTT 38.8 H (24.3-30.1) sec Sodium 136 (136-145) meq/L Potassium 3.8 (3.5-5.1) meq/L Chloride 98 (98-107) meq/L Carbon Dioxide 27.6 (21.0-32.0) meq/L Anion Gap 10 (5-15) meq/L BUN 54 H (7-18) mg/dL Creatinine 4.40 H (0.50-1.00) mg/dL Estimated GFR 13 L (>89) mL/min Random Glucose 78 (74-106) mg/dL Lactic Acid (0.4-2.0) mmol/L Calcium 8.3 L (8.5-10.1) mg/dL Total Bilirubin 0.3 (0.2-1.0) mg/dL AST 10 L (15-37) U/L ALT 9 L (10-53) U/L Alkaline Phosphatase 245 H (45-117) U/L Total Protein 9.1 H (6.4-8.2) g/dL Albumin 2.2 L (3.4-5.0) g/dL 01/03/18 Range/Units 23:00 WBC (4.0-11.0) th/mm3 RBC (4.00-5.30) mil/mm3 Hgb (11.6-15.3) gm/dL Hct (35.0-46.0) % MCV (80.0-100.0) fL MCH (27.0-34.0) pg MCHC (32.0-36.0) % RDW (11.6-17.2) % Plt Count (150-450) th/mm3 MPV (7.0-11.0) fL Neut % (Auto) (16.0-70.0) % Lymph % (Auto) (9.0-44.0) % [place] % (Auto) (0.0-8.0) % Eos % (Auto) (0.0-4.0) % Baso % (Auto) (0.0-2.0) % Neut # (Auto) (1.8-7.7) th/mm3 Lymph # (Auto) (1.0-4.8) th/mm3 [place] # (Auto) (0.0-0.9) th/mm3 Eos # (Auto) (0.0-0.4) th/mm3 Baso # (Auto) (0.0-0.2) th/mm3 WBC Differential Differential Comment PT (9.8-11.6) sec INR Ratio APTT (24.3-30.1) sec Sodium (136-145) meq/L Potassium (3.5-5.1) meq/L Chloride (98-107) meq/L Carbon Dioxide (21.0-32.0) meq/L Anion Gap (5-15) meq/L BUN (7-18) mg/dL Creatinine (0.50-1.00) mg/dL Estimated GFR (>89) mL/min Random Glucose (74-106) mg/dL Lactic Acid 0.9 (0.4-2.0) mmol/L Calcium (8.5-10.1) mg/dL Total Bilirubin (0.2-1.0) mg/dL AST (15-37) U/L ALT (10-53) U/L Alkaline Phosphatase (45-117) U/L Total Protein (6.4-8.2) g/dL Albumin (3.4-5.0) g/dL Imaging Data Radiologist's impression: ITS Impressions Chest X-Ray 01/03/18 23:05 CONCLUSION: Bilateral lower lung infiltrates, left larger than right. Discharge Plan Discharge Disposition Patient Disposition: 30 Still Patient Discharge Condition Condition: Stable Physicians Team ED Provider: Hue Gregg ED Midlevel Provider: Jailene Fishman Primary Care Provider: UNKNOWN, Status ED Status: With Doctor
[2018-01-04] MEDS ORDERED: Bisacodyl 10 MG Supp RECTAL PRN (01:27)
--- NOTE | 2018-01-04 03:07 | US ---
EXAM DATE: 01/04/2018 2:49 AM EDT AGE/SEX: 52 years / Female INDICATIONS: Bilateral lower extremity edema. CLINICAL DATA: This is the patient's initial encounter. Patient reports that signs and symptoms have been present for > 1 year and indicates a pain score of 8/10. MEDICAL/SURGICAL HISTORY: Renal disease, end stage. Congestive heart failure. Hypertension. Lymphedema. section. Vas-Cath in the left groin. COMPARISON: No prior exams available for comparison. TECHNIQUE: Venous ultrasound of both lower extremities was performed from the inguinal ligament to t he proximal calf. Real-time, color Doppler and spectral tracing, compression and augmentation techni ques were used. FINDINGS: Right Leg: There is compressibility of the common femoral and superficial femoral veins. Intact flow is seen in the deep system from the inguinal region to the popliteal with some augmentation demonstr ated with distal compression. Prominent soft tissue swelling. Left Leg: Vas-Cath is present within a groin pain; some echogenic thrombus is seen about the cathete r.. There is incomplete compressibility of the superficial femoral vein and peroneal vein. There is i ntact flow in the deep venous system with Doppler tracing having phasic components suggesting transmi ssion of arterial pulsation. Prominent soft tissue swelling. Other: Incidental note of pelvic free fluid. CONCLUSION: 1. No evidence of deep venous thrombosis in the right lower extremity. 2. There is some echogenic thrombus about the left groin catheter. 3. Incompressibility of the deep venous system in the proximal mid thigh and inability to demonstrat e augmentation to distal compression suggests deep venous thrombosis in the left lower extremity. 4. Prominent bilateral soft tissue swelling. 5. Evidence of free fluid in the pelvis. Electronically signed by: Indra Perez MD 01/04/2018 3:06 AM EDT
--- NOTE | 2018-01-04 05:20 | P.HPIM ---
History of Present Illness Primary Care Physician: UNKNOWN Chief Complaint: swelling History of Present Illness: 52-year-old female with history of ESRD on hemodialysis Wednesday, Wednesday, Wednesday (Dr Nicole in [place]), CVA, CHF who presents with worsening pain and swelling in bilateral legs, abdomen, together with worsening fatigue. She notes that left groin Vas-Cath stopped working last week, and she received partial dialysis, ending early on to dialysis days due to nonfunctional Vas- Cath.. Subsequent dialysis via right sided AV fistula has proceeded successfully per patient report. Patient reports feeling generally fatigued, short of breath, with abdominal distention over the past week - Inpatient Certification If this patient has been admitted as an Inpatient: I certify that the inpatient services were ordered in accordance with Medicare regulations governing the order. This includes certification that hospital inpatient services are reasonable and necessary and in the case of services not specified as inpatient-only under 42 CFR 419.22(n), that they are appropriately provided as inpatient services in accordance to with the 2-midnight benchmark under 43 CFR 412.3(e) Estimated Total Length of Stay (Days): 2 Plans for Post Hospital Care: Home Review of Systems All other systems reviewed negative except as stated in HPI PMFSH - History History Provided By: Patient, Family Member - Medical History Medical History: Medical History (Last Reviewed 01/04/18 @ 00:55 by VILMA Palma) CHF (congestive heart failure) CKD (chronic kidney disease) DVT (deep venous thrombosis) Dialysis patient Lymphedema Vascular port complication - Surgical History Surgical History: Surgical History (Last Reviewed 01/04/18 @ 00:56 by VILMA Palma) H/O: - Tobacco History Second Hand Smoke Exposure: No Tobacco Use In Past 30 Days: No Smoking Status: Never smoker - Alcohol History How Often Do You Have a Drink Containing Alcohol: Never - Substance Use History Substance History: No History of Abuse - Travel History Recent Travel in the [place] Within the Last 8 Weeks: No Recent Travel Out of the Country Within the Last 8 Weeks: No - Immunization History Tetanus Immunization: >5 Years Hx Influenza Vaccine This Season: No Medications and Allergies Active Medications: Active Medications Al Hydroxide/Mg Hydroxide (Milk Of Sandy Liq) 30 ml PO Q12H PRN PRN Reason: Mild Constipation Amlodipine Besylate (Norvasc) 10 mg PO DAILY [facility] Bisacodyl (Dulcolax Supp) 10 mg RECTAL DAILY PRN PRN Reason: SEVERE CONSITIPATION Carvedilol (Coreg) 6.25 mg PO BID [facility] Ferrous Sulfate (Ferosul) 325 mg PO DAILY [facility] Heparin Sodium (Porcine) (Heparin Inj) 5,000 units SQ Q12H [facility] Hydroxyzine HCl (Atarax) 25 mg PO QID PRN PRN Reason: Itching Pharmacy Profile Note (Coumadin Consult Pharmacy) 0 mls @ 0 mls/hr OTHER [facility] Lactulose (Lactulose Liq) 30 ml PO DAILY PRN PRN Reason: SEVERE CONSITIPATION Sennosides (Senokot) 17.2 mg PO Q12H PRN PRN Reason: Moderate Constipation Temazepam (Restoril) 15 mg PO HS PRN PRN Reason: INSOMNIA Trazodone HCl (Desyrel) 50 mg PO DAILY [facility] Allergies Allergy/AdvReac Type Severity Reaction Status Date / Time Penicillins Allergy Severe Swelling Verified 09/02/17 14:16 Home Medications Medication Instructions Recorded Confirmed Type amlodipine [Norvasc] 10 mg PO DAILY 01/04/18 01/04/18 History carvedilol 6.25 mg PO BID 01/04/18 01/04/18 History cinacalcet [Sensipar] 30 mg PO DAILY 01/04/18 01/04/18 History ferrous sulfate 325 mg PO DAILY 01/04/18 01/04/18 History hydroxyzine HCl 25 mg PO QID PRN 01/04/18 01/04/18 History oxycodone 01/04/18 History tramadol 50 mg PO QID 01/04/18 01/04/18 History trazodone 50 mg PO DAILY 01/04/18 01/04/18 History Exam Vital signs: Vital Signs 01/03/18 21:09 01/04/18 01:16 Temperature 97.8 F Pulse Rate 80 81 Respiratory Rate 18 14 Blood Pressure 136/73 136/76 Pulse Oximetry 96 100 Intake & Output 01/03/18 01/03/18 01/04/18 06:59 18:59 06:59 Weight 81.647 kg Narrative: GENERAL: Patient sitting up in bed. Appears comfortable. Somnolent, wakes up for exam. SKIN: Warm and dry. HEAD: Atraumatic. Normocephalic. EYES: Pupils equal and round. No scleral icterus. No injection or drainage. ENT: No nasal bleeding or discharge. Mucous membranes pink and moist. NECK: Trachea midline. No JVD. CARDIOVASCULAR: Regular rate and rhythm. RESPIRATORY: No accessory muscle use. Crackles bilateral bases. Breath sounds equal bilaterally. GASTROINTESTINAL: Abdomen soft, non-tender, nondistended. Hepatic and splenic margins not palpable. MUSCULOSKELETAL: Extremities without clubbing, cyanosis. No obvious deformities. 2+ bilateral lower extremity edema, abdominal ascites and anasarca. Left lower extremity with venous stasis ulcer just above the ankle, medially. Broken skin with granulation tissue, surrounding scar. No sign of acute infection. NEUROLOGICAL: Awake and alert. No obvious cranial nerve deficits. Motor grossly within normal limits. Five out of 5 muscle strength in the arms and legs. Normal speech. PSYCHIATRIC: Appropriate mood and affect; insight and judgment normal. Results - Labs CBC & Chem 7: 01/03/18 23:00 01/03/18 23:00 Labs: Short CBC 01/03/18 Range/Units 23:00 WBC 6.1 (4.0-11.0) th/mm3 Hgb 9.0 L (11.6-15.3) gm/dL Hct 27.9 L (35.0-46.0) % Plt Count 367 (150-450) th/mm3 BMP 01/03/18 23:00 Sodium 136 Potassium 3.8 Chloride 98 Carbon Dioxide 27.6 BUN 54 H Creatinine 4.40 H Calcium 8.3 L Liver Function 01/03/18 Range/Units 23:00 Total Bilirubin 0.3 (0.2-1.0) mg/dL AST 10 L (15-37) U/L ALT 9 L (10-53) U/L Alkaline Phosphatase 245 H (45-117) U/L Albumin 2.2 L (3.4-5.0) g/dL - Imaging Impressions Chest X-Ray 01/03/18 23:05 CONCLUSION: Bilateral lower lung infiltrates, left larger than right. Venous Doppler Study 01/04/18 01:01 CONCLUSION: 1. No evidence of deep venous thrombosis in the right lower extremity. 2. There is some echogenic thrombus about the left groin catheter. 3. Incompressibility of the deep venous system in the proximal mid thigh and inability to demonstrate augmentation to distal compression suggests deep venous thrombosis in the left lower extremity. 4. Prominent bilateral soft tissue swelling. 5. Evidence of free fluid in the pelvis. Caprini VTE Risk Assessment Caprini VTE Risk Assessment: Moderate/High Risk (score >= 2) Caprini Risk Assessment Model: Point Value = 1 Point Value = 2 Point Value = 3 Point Value = 5 Age 41-60 Minor surgery BMI > 25 kg/m2 Swollen legs Varicose veins or History of unexplained or recurrent spontaneous Oral contraceptives or hormone replacement Sepsis (< 1 month) Serious lung disease, including pneumonia (< 1 month) Abnormal pulmonary function Acute myocardial infarction Congestive heart failure (< 1 month) History of inflammatory bowel disease Medical patient at bed rest Age 61-74 Arthroscopic surgery Major open surgery (> 45 min) Laparoscopic surgery (> 45 min) Malignancy Confined to bed (> 72 hours) Immobilizing plaster cast Central venous access Age >= 75 History of VTE Family history of VTE Factor V Leiden Prothrombin [id number] Lupus anticoagulant Anticardiolipin antibodies Elevated serum homocysteine Heparin-induced thrombocytopenia Other congenital or acquired thrombophilia Stroke (< 1 month) Elective arthroplasty Hip, pelvis, or leg fracture Acute spinal cord injury (< 1 month) Prophylaxis Regimen: Total Risk Factor Score Risk Level Prophylaxis Regimen 0-1 Low Early ambulation 2 Moderate Order ONE of the following: *Sequential Compression Device (SCD) *Heparin 5000 units SQ BID 3-4 Higher Order ONE of the following medications: *Heparin 5000 units SQ TID *Enoxaparin/Lovenox 40 mg SQ daily (WT < 150 kg, CrCl > 30 mL/min) *Enoxaparin/Lovenox 30 mg SQ daily (WT < 150 kg, CrCl > 10-29 mL/min) *Enoxaparin/Lovenox 30 mg SQ BID (WT < 150 kg, CrCl > 30 mL/min) AND/OR *Sequential Compression Device (SCD) 5 or more Highest Order ONE of the following medications: *Heparin 5000 units SQ TID (Preferred with Epidurals) *Enoxaparin/Lovenox 40 mg SQ daily (WT < 150 kg, CrCl > 30 mL/min) *Enoxaparin/Lovenox 30 mg SQ daily (WT < 150 kg, CrCl > 10-29 mL/min) *Enoxaparin/Lovenox 30 mg SQ BID (WT < 150 kg, CrCl > 30 mL/min) AND *Sequential Compression Device (SCD) Assessment and Plan - Plan //CHF exacerbation //Fluid overload //Abdominal ascites = Renal cardiac syndrome secondary to fluid overload = Chest x-ray with bilateral infiltrates. BNP pending. = I have advised patient to minimize fluid intake. Consult nephrology for hemodialysis. //Left lower extremity venous stasis cellulitis. Does not appear to be infected. Will consult podiatry and vascular surgery as per discussion with ER physician. //Dysfunctional Vas-Cath left lower extremity. Small thrombus around Vas-Cath. On warfarin. Consult vascular surgery. //Hypertension. Systolic blood pressure acceptable. Continue home meds. //History of CVA //History of DVT -Patient appears to be on warfarin. INR therapeutic. Continue to monitor. //GERD. Chronic. Continue PPI. Discussed Condition With: Patient, nurse, ED physician, medical case manager
[2018-01-04] MEDS ORDERED: Warfarin Consult Pharmacy 1 EACH OTHER SCH (06:00)
[2018-01-04] MEDS: Carvedilol 6.25 MG Tablet PO SCH ×2 (08:02→21:22)
[2018-01-04] MEDS: Ferrous Sulfate 325 MG Tablet PO SCH (08:02)
[2018-01-04] MEDS: amLODIPine 10 MG Tablet PO SCH (08:02)
[2018-01-04] MEDS ORDERED: traZODone 50 MG Tablet PO SCH (09:00)
[2018-01-04] MEDS ORDERED: Heparin - SQ 10,000 UNITS/ML Vial SQ SCH (09:00)
[2018-01-04] MEDS ORDERED: Naloxone Inj 0.4 MG/ML Vial IV.PUSH PRN (10:16)
[2018-01-04 10:53] LABS: INR 2.6 Ratio; Prothrombin Time 26.3 sec (9.8-11.6)
[2018-01-04] MEDS: Ketorolac Inj 30 MG/ML (IVP) Vial IV.PUSH PRN ×2 (11:09→17:15)
--- NOTE | 2018-01-04 12:29 | ECG ---
Date Performed: 01/04/2018 Time Performed: 00:26:22 PTAGE: 52 years EKG: Sinus rhythm WITH FIRST DEGREE AV BLOCK POSSIBLE LEFT VENTRICULAR HYPERTROPHY NONSPECIFIC ST T WAVE CHANGES [place] E IN R WAVE PROGRESSION LIKELY DUE TO LEAD PLACEMENT WHEN COMPARED TO THE PRIOR TRACING ABNORMAL ECG PREVIOUS TRACING : 05/20/2017 15.00 DOCTOR: Chetan Toledo Interpretating Date/Time 01/04/2018 12:28:48
[2018-01-04] MEDS ORDERED: Albumin Human 25% Inj 100 ML IV.SIG PRN (13:26)
[2018-01-04] MEDS ORDERED: Sod Chloride 0.9% Inj 1,000 ML IV.CONT PRN (13:26)
[2018-01-04] MEDS ORDERED: Heparin 10,000 UNITS/10 ML Vial (for IV use) OTHER PRN (13:26)
[2018-01-04] MEDS ORDERED: Heparin 10,000 UNITS/10 ML Vial (for IV use) IV.FLUSH PRN (13:26)
[2018-01-04] MEDS ORDERED: Gelatin 12 MM/7 MM Topical Foam TOPICAL PRN (13:26)
[2018-01-04] MEDS ORDERED: Acetaminophen 325 MG Tablet PO PRN (13:26)
[2018-01-04] MEDS ORDERED: Sod Chloride 0.9% Inj 1,000 ML OTHER PRN ×2 (13:26)
--- NOTE | 2018-01-04 13:27 | P.PN ---
Subjective Interval history: Follow-up nonfunctional Vas-Cath January 04, 2018-patient seen and examined, currently stable Physical Exam Vital signs: Vital Signs 01/03/18 21:09 01/03/18 23:05 01/04/18 01:16 Temperature 97.8 F Pulse Rate 80 81 Respiratory Rate 18 14 Blood Pressure 136/73 136/76 Pulse Oximetry 96 96 100 01/04/18 06:41 01/04/18 07:58 01/04/18 11:55 Temperature 98.3 F 97.9 F Pulse Rate 85 80 74 Respiratory Rate 16 16 16 Blood Pressure 160/86 H 123/74 112/67 Pulse Oximetry 96 93 L 97 Intake & Output 01/03/18 01/04/18 01/04/18 18:59 06:59 18:59 Intake Total 200 / 200 Balance 200 / 200 Weight 81.647 kg Intake: IV 200 / 200 Narrative: GENERAL: NAD SKIN: Warm and dry. HEAD: Normocephalic. EYES: No scleral icterus. No injection or drainage. NECK: Supple, trachea midline. No JVD or lymphadenopathy. CARDIOVASCULAR: Regular rate and rhythm without murmurs, gallops, or rubs. RESPIRATORY: Breath sounds equal bilaterally. No accessory muscle use. GASTROINTESTINAL: Abdomen soft, non-tender, nondistended. MUSCULOSKELETAL: No cyanosis, or edema. Bilateral lower extremity lymphedema; left lower extremity with a chronic wound BACK: Nontender without obvious deformity. No CVA tenderness. Results - Labs CBC & Chem 7: 01/03/18 23:00 01/03/18 23:00 Laboratory Results - last 24 hr 01/03/18 01/03/18 01/03/18 23:00 23:00 23:00 WBC 6.1 RBC 3.51 L Hgb 9.0 L Hct 27.9 L MCV 79.5 L MCH 25.7 L MCHC 32.3 RDW 17.5 H Plt Count 367 MPV 8.0 Neut % (Auto) 74.5 H Lymph % (Auto) 10.8 [place] % (Auto) 8.2 H Eos % (Auto) 5.3 H Baso % (Auto) 1.2 Neut # (Auto) 4.5 Lymph # (Auto) 0.7 L [place] # (Auto) 0.5 Eos # (Auto) 0.3 Baso # (Auto) 0.1 WBC Differential . Differential Comment Auto diff final PT 27.0 H INR 2.7 APTT 38.8 H Sodium 136 Potassium 3.8 Chloride 98 Carbon Dioxide 27.6 Anion Gap 10 BUN 54 H Creatinine 4.40 H Estimated GFR 13 L Random Glucose 78 Lactic Acid Calcium 8.3 L Total Bilirubin 0.3 AST 10 L ALT 9 L Alkaline Phosphatase 245 H B-Natriuretic Peptide Total Protein 9.1 H Albumin 2.2 L 01/03/18 01/04/18 01/04/18 23:00 10:09 10:09 WBC RBC Hgb Hct MCV MCH MCHC RDW Plt Count MPV Neut % (Auto) Lymph % (Auto) [place] % (Auto) Eos % (Auto) Baso % (Auto) Neut # (Auto) Lymph # (Auto) [place] # (Auto) Eos # (Auto) Baso # (Auto) WBC Differential Differential Comment PT 26.3 H INR 2.6 APTT Sodium Potassium Chloride Carbon Dioxide Anion Gap BUN Creatinine Estimated GFR Random Glucose Lactic Acid 0.9 Calcium Total Bilirubin AST ALT Alkaline Phosphatase B-Natriuretic Peptide 4226 H Total Protein Albumin Microbiology 01/03/18 23:10 Blood - Peripheral Aerobic Blood Culture - Preliminary No growth in 1 day 01/03/18 23:10 Blood - Peripheral Anaerobic Blood Culture - Preliminary No growth in 1 day 01/03/18 23:00 Blood - Peripheral Aerobic Blood Culture - Preliminary No growth in 1 day 01/03/18 23:00 Blood - Peripheral Anaerobic Blood Culture - Preliminary No growth in 1 day 01/03/18 23:00 Wound - Foot Gram Stain - Final - Imaging Impressions Chest X-Ray 01/03/18 23:05 CONCLUSION: Bilateral lower lung infiltrates, left larger than right. Venous Doppler Study 01/04/18 01:01 CONCLUSION: 1. No evidence of deep venous thrombosis in the right lower extremity. 2. There is some echogenic thrombus about the left groin catheter. 3. Incompressibility of the deep venous system in the proximal mid thigh and inability to demonstrate augmentation to distal compression suggests deep venous thrombosis in the left lower extremity. 4. Prominent bilateral soft tissue swelling. 5. Evidence of free fluid in the pelvis. Assessment and Plan - Plan 52-year-old female with CHF exacerbation Fluid overload Abdominal ascites Consult nephrology for hemodialysis. Left lower extremity venous stasis cellulitis. consultation pending from podiatry and vascular surgery . Dysfunctional Vas-Cath left lower extremity. Small thrombus around Vas-Cath. On warfarin. Consult vascular surgery. Hypertension. Continue home meds. History of CVA History of DVT On warfarin. INR therapeutic. Continue to monitor. GERD. Chronic. Continue PPI.
--- NOTE | 2018-01-04 13:58 | MB ---
cc: Courtney Hernandez MD DATE: 01/04/2018 REASON FOR CONSULTATION: End-stage renal disease on hemodialysis for management. HISTORY OF PRESENT ILLNESS: This is a 52-year-old female with past medical history of end-stage renal disease on hemodialysis for last 10 years, history of hypertension, cerebrovascular accident, congestive heart failure, edema of both legs who was sent to the hospital because of a wound on the left lower leg. The patient has been on hemodialysis Wednesday, Wednesday and Wednesday. She went for her regular dialysis yesterday. She has this wound on her left lower leg, which has been taken care of by the wound care and they are doing the dressing, they told her that it is getting worse and her wound doctor advised her to go to the hospital. The patient has a PermCath in the left groin and she has a fistula in the right arm. According to her, they started using the fistula for the last 1-2 weeks and there was no problem, and I told her that the catheter has to be removed to improve the edema and help with healing of the wound on the left lower leg. The patient denies any history of trauma. She denies any nausea or vomiting. She has been getting dialysis in [place] and her hot plate plywood press operator is Dr. Nicole. PAST MEDICAL HISTORY: Hypertension, ischemic heart disease, congestive heart failure, and end-stage renal disease on hemodialysis, history of deep vein thrombosis, edema of both legs and chronic anemia. PAST SURGICAL HISTORY: Right arm AV fistula surgery, multiple PermCath placement and history of section. REVIEW OF SYSTEMS: Denies any headache or dizziness. There is no history of fever. No shortness of breath, no chest pain, no palpitation. No nausea or vomiting. No abdominal pain. No history of diarrhea. She has pain and swelling in her legs. SOCIAL HISTORY: There is no history of smoking or alcoholism. FAMILY HISTORY: Noncontributory. ALLERGIES: SHE IS ALLERGIC TO PENICILLIN. MEDICATIONS: Currently, she is on following medications: 1. Amlodipine 10 mg once a day. 2. Dulcolax as needed. 3. Coreg 6.25 mg b.i.d. 4. Ferrous sulfate 325 mg daily. 5. Atarax 25 mg q.i.d. 6. Toradol as needed. 7. Narcan as needed. 8. Senokot as needed. 9. Restoril as needed. 10. Coumadin 5 mg once a day. 11. She received 1 dose of vancomycin. PHYSICAL EXAMINATION: GENERAL: The patient is awake and alert. She is not in acute distress. VITAL SIGNS: Her last blood pressure is 136/67, temperature 98.3, oxygen saturation on room air is 96-100%. HEENT: Pupils are mid constricted. Nonicteric sclerae. Conjunctivae pale. NECK: Supple. JVD is not elevated. LUNGS: The patient has bilateral good air entry with occasional wheezing. HEART: S1, S2. Regular rate and rhythm. ABDOMEN: Distended, soft, lax. There is no tenderness. EXTREMITIES: She has bilateral 2+ edema, more in the left leg and the lower left leg is covered with a dressing. INVESTIGATIONS: WBC count 6.1, hemoglobin 9.0, platelet count of 367, neutrophils 74.6%, eosinophils 5.3%. INR is 2.6. Sodium 136, potassium 3.8, chloride 98, bicarbonate 27.6, BUN 54, creatinine 4.4, calcium 8.3, AST is 10, ALT is 9, alkaline phosphatase 245. BNP is 4226. Total protein is 9.1, albumin is 2.2. IMAGING STUDIES: The patient has venous Doppler of the leg done, which shows no evidence of deep vein thrombosis in the right lower extremity. There is echogenic thrombus in the left groin catheter, prominent left soft tissue swelling. Evidence of free fluid in the pelvis. Chest x-ray was done which shows bilateral lower infiltrate, left greater than the right. ASSESSMENT AND PLAN: 1. Left foot wound. 2. History of deep vein thrombosis and thrombus around the left PermCath. 3. Congestive heart failure. 4. End-stage renal disease on hemodialysis. 5. Hypertension. 6. Anemia. The patient is on Coumadin. Her INR is in the therapeutic range. She has AV fistula in the right arm, which we will use tomorrow for dialysis. She is on hemodialysis Wednesday, Wednesday and Wednesday and last hemodialysis was done yesterday. If the fistula is working good, then we will get the PermCath removed. Epogen with the dialysis. Thank you for the consultation. I will follow the patient while she is in the hospital. MD LAURA HudsonJ/KD , 01:25 PM , 01:57 PM
--- NOTE | 2018-01-04 14:45 | P.PNCA ---
- Note Subjective/Hospital Course: 01/04/2018 Covering for my colleague Dr. Vargas 52-year-old lady on chronic dialysis with multiple access sites in the past, currently an AV fistula on the right groin, presents with fatigue and anasarca. 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 Conservative therapy indicated Do not plan any vascular surgery at this time Thanks J Objective: Vital Signs - 24 hr 01/03/18 21:09 01/03/18 23:05 01/04/18 01:16 Temperature 97.8 F Pulse Rate 80 81 Respiratory Rate 18 14 Blood Pressure 136/73 136/76 Pulse Oximetry 96 96 100 01/04/18 06:41 01/04/18 07:58 01/04/18 11:55 Temperature 98.3 F 97.9 F Pulse Rate 85 80 74 Respiratory Rate 16 16 16 Blood Pressure 160/86 H 123/74 112/67 Pulse Oximetry 96 93 L 97 Labs: Laboratory Results - last 12 hr 01/04/18 01/04/18 10:09 10:09 PT 26.3 H INR 2.6 B-Natriuretic Peptide 4226 H Result Diagrams: 01/03/18 23:00 01/03/18 23:00
[2018-01-04 18:27] LABS: Hepatitis A IgM Antibody Nonreactive (Nonreactive)
[2018-01-04 18:28] LABS: Hepatitits B Surface Antigen Nonreactive (Nonreactive)
--- NOTE | 2018-01-04 18:35 | P.CON ---
History of Present Illness Service: Podiatry/foot and ankle surgery Consult date: 01/04/18 Reason for Consult: Left leg venous stasis ulcer Primary Care Provider: UNKNOWN Chief Complaint: swelling History of Present Illness: Podiatry consult for this 52-year-old female with a history of end-stage renal disease on hemodialysis, CVA, CHF who presents with worsening pain in the left lower extremity. Patient states she was discharged from her wound care provider he told her that her wound was here healed. She is very upset that it is open again. She reports tenderness and pain to left leg. She states silver helps heal her wounds. Review of Systems Constitutional: Denies chills, Denies fever(s), Denies night sweats Eyes: Denies blind spots, Denies blurry vision Ears, Nose, Mouth, and Throat: Denies abnormal hearing Cardiovascular: Reports leg swelling, Denies chest pain Respiratory: Denies cough, Denies shortness of breath Gastrointestinal: Denies abdominal pain Musculoskeletal: Reports muscle weakness Psychiatric: Denies anxiety, Denies confusion, Denies depression PMFSH - History History Provided By: Patient - Medical History Medical History: Medical History (Last Reviewed 01/04/18 @ 00:55 by VILMA Palma) CHF (congestive heart failure) CKD (chronic kidney disease) DVT (deep venous thrombosis) Dialysis patient Lymphedema Vascular port complication - Surgical History Surgical History: Surgical History (Last Reviewed 01/04/18 @ 00:56 by VILMA Palma) H/O: - Tobacco History Second Hand Smoke Exposure: No Tobacco Use In Past 30 Days: No Smoking Status: Never smoker - Alcohol History How Often Do You Have a Drink Containing Alcohol: Never - Substance Use History Substance History: No History of Abuse - Travel History Recent Travel in the [place] Within the Last 8 Weeks: No Recent Travel Out of the Country Within the Last 8 Weeks: No - Immunization History Tetanus Immunization: >5 Years Hx Influenza Vaccine This Season: No Medications and Allergies Active Medications: Active Medications Acetaminophen (Tylenol) 650 mg PO UNSCH PRN PRN Reason: SEE LABEL COMMENTS Al Hydroxide/Mg Hydroxide (Milk Of Magnbarb Liq) 30 ml PO Q12H PRN PRN Reason: Mild Constipation Last Admin: 01/04/18 11:09 Dose: 30 ml Amlodipine Besylate (Norvasc) 10 mg PO DAILY [facility] Last Admin: 01/04/18 08:02 Dose: 10 mg Bisacodyl (Dulcolax Supp) 10 mg RECTAL DAILY PRN PRN Reason: SEVERE CONSITIPATION Carvedilol (Coreg) 6.25 mg PO BID [facility] Last Admin: 01/04/18 08:02 Dose: 6.25 mg Clonidine HCl (Catapres) 0.1 mg PO UNSCH PRN PRN Reason: SEE LABEL COMMENTS Diphenhydramine HCl (Benadryl) 25 mg PO UNSCH PRN PRN Reason: SEE LABEL COMMENTS Epoetin Angel (Epogen Inj) 10,000 unit IV.PUSH MoWeFr [facility] Ferrous Sulfate (Ferosul) 325 mg PO DAILY [facility] Last Admin: 01/04/18 08:02 Dose: 325 mg Gelatin (Gelfoam 12 Mm/7 Mm Topical) 1 foam TOPICAL PRN PRN PRN Reason: help stop bleeding from site Gentamicin Sulfate (Gentamicin Inj) 20 mg OTHER WITH DIALYSIS PRN PRN Reason: Dwell Gentamycin Lock Heparin Sodium (Porcine) (Heparin Inj) 8,000 units IV.FLUSH WITH DIALYSIS PRN PRN Reason: for machine prime Heparin Sodium (Porcine) (Heparin Inj) 1,000 units OTHER WITH DIALYSIS PRN PRN Reason: Dwell Heparin to Fill Catheter Hydroxyzine HCl (Atarax) 25 mg PO QID PRN PRN Reason: Itching Pharmacy Profile Note (Coumadin Consult Pharmacy) 0 mls @ 0 mls/hr OTHER UNSCH [facility] Albumin Human (Flexbumin 25% Inj) 100 mls @ 60 mls/hr IV.SIG WITH DIALYSIS PRN PRN Reason: hypotension / volume replace Sodium Chloride (Ns Inj) 1,000 mls @ 0 mls/hr OTHER .Q0M PRN PRN Reason: for prime and rinse back Sodium Chloride (Ns Inj) 1,000 mls @ 200 mls/hr OTHER .Q5H PRN PRN Reason: for dialyzer flush PRN Sodium Chloride (Ns Inj) 1,000 mls @ 0 mls/hr IV.CONT .Q0M PRN PRN Reason: hypotension / volume replace Ketorolac Tromethamine (Toradol Inj) 15 mg IV.PUSH Q6H PRN PRN Reason: PAIN 3-5; IF UABLE TO TAKE PO Stop: 01/09/18 10:15 Ketorolac Tromethamine (Toradol Inj) 30 mg IV.PUSH Q6H PRN PRN Reason: PAIN 6-10;IF UNABLE TO TAKE PO Stop: 01/09/18 10:15 Last Admin: 01/04/18 17:15 Dose: 30 mg Lactulose (Lactulose Liq) 30 ml PO DAILY PRN PRN Reason: SEVERE CONSITIPATION Mannitol (Mannitol Inj) 12.5 gm IV.PUSH PRN PRN PRN Reason: hypotension / volume replace Naloxone HCl (Narcan Inj) 0.4 mg IV.PUSH UNSCH PRN PRN Reason: SEE LABEL COMMENTS Nitroglycerin (Nitrostat Sl) 0.4 mg SL Q5M PRN PRN Reason: CHEST PAIN Ondansetron HCl (Zofran Inj) 4 mg IV.PUSH UNSCH PRN PRN Reason: NAUSEA OR VOMITING Sennosides (Senokot) 17.2 mg PO Q12H PRN PRN Reason: Moderate Constipation Sodium Chloride (Ns Flush) 5 ml IV.FLUSH PRN PRN PRN Reason: flush each lumen during HD Temazepam (Restoril) 15 mg PO HS PRN PRN Reason: INSOMNIA Trazodone HCl (Desyrel) 50 mg PO HS [facility] Warfarin Sodium (Coumadin) 5 mg PO DAILY@1600 [facility] Last Admin: 01/04/18 17:16 Dose: 5 mg Allergies Allergy/AdvReac Type Severity Reaction Status Date / Time Penicillins Allergy Severe Swelling Verified 09/02/17 14:16 Home Medications Medication Instructions Recorded Confirmed Type amlodipine [Norvasc] 10 mg PO DAILY 01/04/18 01/04/18 History carvedilol 6.25 mg PO BID 01/04/18 01/04/18 History cinacalcet [Sensipar] 30 mg PO DAILY 01/04/18 01/04/18 History ferrous sulfate 325 mg PO DAILY 01/04/18 01/04/18 History hydroxyzine HCl 25 mg PO QID PRN 01/04/18 01/04/18 History oxycodone 01/04/18 History tramadol 50 mg PO QID 01/04/18 01/04/18 History trazodone 50 mg PO DAILY 01/04/18 01/04/18 History Physical Exam Vital signs: Vital Signs 01/03/18 21:09 01/03/18 23:05 01/04/18 01:16 Temperature 97.8 F Pulse Rate 80 81 Respiratory Rate 18 14 Blood Pressure 136/73 136/76 Pulse Oximetry 96 96 100 01/04/18 06:41 01/04/18 07:58 01/04/18 11:55 Temperature 98.3 F 97.9 F Pulse Rate 85 80 74 Respiratory Rate 16 16 16 Blood Pressure 160/86 H 123/74 112/67 Pulse Oximetry 96 93 L 97 01/04/18 16:00 Temperature 97.6 F Pulse Rate 73 Respiratory Rate 18 Blood Pressure 127/73 Pulse Oximetry 96 Intake & Output 01/03/18 01/04/18 01/04/18 18:59 06:59 18:59 Intake Total 1040 / 1040 Balance 1040 / 1040 Weight 81.647 kg Intake: IV 200 / 200 Oral 840 / 840 Narrative: GENERAL: This is a well-nourished, well-developed patient, in no apparent distress. SKIN: Left lower extremity venous leg ulcer HEAD: Atraumatic. EYES: Pupils equal round and reactive. ENT: Airway patent. NECK: Trachea midline. RESPIRATORY: Nonlabored breathing. MUSCULOSKELETAL:. Negative Homans sign bilaterally. NEUROLOGICAL: Awake and alert. Normal speech. Lower extremity physical exam: Vascular: Dorsalis pedis nonpalpable, posterior tibial nonpalpable. Capillary refill time within normal limits to digits X5 bilateral foot. Edema present bilateral lower extremity. Neuro: Gross sensation intact to bilateral lower extremity. Pinpoint sensation intact. No hyperalgesia noted to bilateral lower extremity Dermatology: Normal temperature and turgor to bilateral lower extremity. Left medial leg ulceration with serous drainage 1 cc total upon compression. Granular base with no hyperkeratotic borders. Fluctuance noted distally to ulceration. No increased erythema noted. No probe to bone and no malodor noted. Musculoskeletal: Tender to palpation to left lower extremity at ulceration site. Assessment and Plan - Plan 52-year-old female with left lower extremity ulceration Patient examined about with all questions answered Discussed need for MRI with patient as abscess may be present Patient is refusing MRI states she gets anxiety We will reevaluate to see if IV antibiotics improve left lower extremity wound Apply Aquacel Ag daily, nursing wound care orders placed
[2018-01-04] MEDS: traZODone 50 MG Tablet PO SCH (21:22)
[2018-01-05] MEDS: Ketorolac Inj 30 MG/ML (IVP) Vial IV.PUSH PRN ×3 (05:25→18:28)
[2018-01-05 06:14] LABS: Baso % (Auto) 0.9 % (0.0-2.0); Eos # (Auto) 0.3 th/mm3 (0.0-0.4); Eos % (Auto) 6.7 % (0.0-4.0); Hematocrit 23.1 % (35.0-46.0); Hemoglobin 7.5 gm/dL (11.6-15.3); Lymph # (Auto) 0.7 th/mm3 (1.0-4.8); Lymph % (Auto) 15.3 % (9.0-44.0); Mean Corpuscular HGB Conc 32.4 % (32.0-36.0); Mean Corpuscular Hemoglobin 25.9 pg (27.0-34.0); Mean Corpuscular Volume 79.9 fL (80.0-100.0); Mean Platelet Volume 7.4 fL (7.0-11.0); Mono # (Auto) 0.4 th/mm3 (0.0-0.9); Mono % (Auto) 8.2 % (0.0-8.0); Neut # (Auto) 3.1 th/mm3 (1.8-7.7); Neut % (Auto) 68.9 % (16.0-70.0); Platelet Count 313 th/mm3 (150-450); Red Blood Count 2.89 mil/mm3 (4.00-5.30); Red Cell Distribution Width 17.3 % (11.6-17.2); White Blood Count 4.5 th/mm3 (4.0-11.0)
[2018-01-05 06:32] LABS: INR 2.8 Ratio; Prothrombin Time 28.6 sec (9.8-11.6)
[2018-01-05 06:37] LABS: Anion Gap 11 meq/L (5-15); Aspartate Aminotransferase 10 U/L (15-37); Calcium 8.5 mg/dL (8.5-10.1); Carbon Dioxide 26.9 meq/L (21.0-32.0); Chloride 98 meq/L (98-107); Glomerular Filtration Rate 10 mL/min (>89); Glucose,Random 53 mg/dL (74-106); Sodium 136 meq/L (136-145)
[2018-01-05 07:07] LABS: Alkaline Phosphatase 211 U/L (45-117); Blood Urea Nitrogen 65 mg/dL (7-18); Total Protein 7.8 g/dL (6.4-8.2)
[2018-01-05] MEDS: Carvedilol 6.25 MG Tablet PO SCH ×2 (09:06→21:14)
--- NOTE | 2018-01-05 11:59 | P.PN ---
Subjective Interval history: Follow-up nonfunctional Vas-Cath January 04, 2018-patient seen and examined, currently stable January 05, 2018-patient seen and examined, afebrile however patient with 2 positive blood culture. Patient seen by vascular surgery however recommended conservative management. Patient was also seen by podiatry but she declined MRI Physical Exam Vital signs: Vital Signs 01/04/18 11:55 01/04/18 16:00 01/04/18 17:00 Temperature 97.9 F 97.6 F Pulse Rate 74 73 Respiratory Rate 16 18 18 Blood Pressure 112/67 127/73 Pulse Oximetry 97 96 01/04/18 20:00 01/04/18 21:00 01/05/18 00:00 Temperature 97.9 F 97.6 F Pulse Rate 74 68 Respiratory Rate 18 18 19 Blood Pressure 103/65 107/68 Pulse Oximetry 94 L 95 01/05/18 01:00 01/05/18 03:58 01/05/18 04:00 Temperature 98 F Pulse Rate 68 Respiratory Rate 19 19 18 Blood Pressure 105/69 Pulse Oximetry 93 L 01/05/18 08:00 Temperature 97.6 F Pulse Rate 67 Respiratory Rate Blood Pressure 109/64 Pulse Oximetry 93 L Intake & Output 01/04/18 01/05/18 01/05/18 18:59 06:59 18:59 Intake Total 1040 / 1040 400 / 400 Balance 1040 / 1040 400 / 400 Weight 80.3 kg Intake: IV 200 / 200 Oral 840 / 840 400 / 400 Other: # Voids 0 Date of Last Bowel Movement 01/03/18 01/03/18 Weight On Admission 81.647 kg Narrative: GENERAL: NAD SKIN: Warm and dry. HEAD: Normocephalic. EYES: No scleral icterus. No injection or drainage. NECK: Supple, trachea midline. No JVD or lymphadenopathy. CARDIOVASCULAR: Regular rate and rhythm without murmurs, gallops, or rubs. RESPIRATORY: Breath sounds equal bilaterally. No accessory muscle use. GASTROINTESTINAL: Abdomen soft, non-tender, nondistended. MUSCULOSKELETAL: No cyanosis, or edema. Bilateral lower extremity lymphedema; left lower extremity with a chronic wound BACK: Nontender without obvious deformity. No CVA tenderness. Results - Labs CBC & Chem 7: 01/05/18 05:21 01/05/18 05:21 Laboratory Results - last 24 hr 01/04/18 01/05/18 01/05/18 16:30 05:21 05:21 WBC 4.5 RBC 2.89 L Hgb 7.5 L Hct 23.1 L MCV 79.9 L MCH 25.9 L MCHC 32.4 RDW 17.3 H Plt Count 313 MPV 7.4 Neut % (Auto) 68.9 Lymph % (Auto) 15.3 Mccreary % (Auto) 8.2 H Eos % (Auto) 6.7 H Baso % (Auto) 0.9 Neut # (Auto) 3.1 Lymph # (Auto) 0.7 L Mccreary # (Auto) 0.4 Eos # (Auto) 0.3 Baso # (Auto) 0.0 WBC Differential . Differential Comment Auto diff final PT INR Sodium 136 Potassium 4.0 Chloride 98 Carbon Dioxide 26.9 Anion Gap 11 BUN 65 H Creatinine 5.20 H Estimated GFR 10 L POC Glucose Random Glucose 53 L Calcium 8.5 Total Bilirubin 0.3 AST 10 L ALT Less than 6 L Alkaline Phosphatase 211 H Total Protein 7.8 D Albumin 2.0 L Hepatitis A IgM Ab Nonreactive Hep Bs Antigen Nonreactive Hep B Core IgM Ab Nonreactive Hep C IgG Ab Nonreactive 01/05/18 01/05/18 01/05/18 05:21 10:02 11:13 WBC RBC Hgb Hct MCV MCH MCHC RDW Plt Count MPV Neut % (Auto) Lymph % (Auto) Mccreary % (Auto) Eos % (Auto) Baso % (Auto) Neut # (Auto) Lymph # (Auto) Mccreary # (Auto) Eos # (Auto) Baso # (Auto) WBC Differential Differential Comment PT 28.6 H INR 2.8 Sodium Potassium Chloride Carbon Dioxide Anion Gap BUN Creatinine Estimated GFR POC Glucose 68 87 Random Glucose Calcium Total Bilirubin AST ALT Alkaline Phosphatase Total Protein Albumin Hepatitis A IgM Ab Hep Bs Antigen Hep B Core IgM Ab Hep C IgG Ab Microbiology 01/03/18 23:10 Blood - Peripheral Aerobic Blood Culture - Preliminary No growth in 2 days 01/03/18 23:10 Blood - Peripheral Anaerobic Blood Culture - Preliminary gram positive cocci 01/03/18 23:00 Blood - Peripheral Aerobic Blood Culture - Preliminary No growth in 2 days 01/03/18 23:00 Blood - Peripheral Anaerobic Blood Culture - Preliminary gram positive cocci 01/03/18 23:00 Wound - Foot Gram Stain - Final Assessment and Plan - Plan 52-year-old female with Bacteremia Repeat blood culture Consult infectious disease specialist Start Zosyn and vancomycin renally dose CHF exacerbation Fluid overload Abdominal ascites Appreciate input from Nephrology for hemodialysis. Left lower extremity venous stasis cellulitis. Appreciate input from podiatry, will recommended MRI lower extremity to rule out osteomyelitis however patient declines. Dysfunctional Vas-Cath left lower extremity. Small thrombus around Vas-Cath. On warfarin. Appreciate input from vascular surgery, and recommended medical management Hypertension. Continue home meds. History of CVA History of DVT On warfarin. INR therapeutic. Continue to monitor. GERD. Chronic. Continue PPI.
[2018-01-05] MEDS ORDERED: Vancomycin Consult Pharmacy 1 EACH OTHER SCH (12:03)
[2018-01-05] MEDS: Ferrous Sulfate 325 MG Tablet PO SCH (13:02)
--- NOTE | 2018-01-05 14:47 | P.CONID ---
History of Present Illness Service: Infectious disease Consult date: 01/05/18 Requesting Physician: Tristan Kaminski Reason for Consult: Evaluation and Mment of Gram positive bacteremia in ESRD patient. Primary Care Provider: UNKNOWN Chief Complaint: swelling History of Present Illness: Ms. Jackman is a 52-year-old -Burm[place] female with past medical history significant for end-stage renal dialysis. 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 Nicole in [facility] and she undergoes hemodialysis on Wednesdays and Fridays. Patient's nephrology history is significant for multiple failed hemodialysis access related procedures for which she has seen vascular surgery. Upon review of medical records from vascular surgeon it appears that she has had multiple bilateral upper extremity AV fistula revisions. Most recently patient had a right upper extremity AV access site revised on September 03, 2017. Thereafter on September 13, 2017 patient presented to the emergency department [place] for pain at the right upper extremity revision site and a workup was initiated. It appears that patient signed off AGAINST MEDICAL ADVICE at that time. In the interim she seems to have had a left femoral permacath placed in [facility]. Patient reports that her left lower extremity permacath stopped working last week and her left leg has become more painful. She describes the left leg pain is constant throbbing pain exacerbated with movement or touch. She reports that she has a wound on her left lower extremity that has been infected in the past but now is beginning to get worse and draining them. She reports having intermittent fevers and chills. Patient reports that since the left lower extremity permacath a stop working and not started using her right upper ex fistula for dialysis purposes. Patient initially called her hydraulic rubbish compactor mechanic and then subsequently Dr. Vargas who then asked her to come to the emergency department at [place]. Due to her above history of fever and chills she underwent a sepsis workup including blood cultures. Blood cultures are positive for gram-positive bacteremia and infectious diseases consulted for the same especially given her history of end-stage renal disease Pertinent positives and negatives: Patient has a left lower extremity groin area permacath in place from an outside hospital Patient has a right upper extremity AV fistula that is currently being used for hemodialysis Patient reports fever chills night sweats. Past medical history History of DVT Lymphedema Cerebrovascular accident Congestive heart failure Hypertension Anemia End-stage renal disease Past surgical history April 27, 2017 patient underwent a angiogram as well as a venogram. May 2016 underwent a right brachial brachial AV fistula placement Patient also has had an IVC filter placed Bilateral multiple upper extremity AV fistula placements September 03, 2017 patient had right upper extremity access revision. Review of Systems Constitutional: Reports body ache(s), Reports chills, Reports fatigue, Reports fever(s), Reports malaise, Reports weakness Eyes: Denies blind spots, Denies blurry vision, Denies bulging eyes, Denies change in vision, Denies double vision, Denies discharge, Denies dry eyes, Denies floaters, Denies irritation, Denies itchy eyes, Denies loss of vision, Denies pain, Denies requires corrective lenses, Denies sensitivity to light, Denies other Ears, Nose, Mouth, and Throat: Denies abnormal hearing, Denies bleeding gums, Denies bad breath, Denies change in voice, Denies dental pain, Denies difficulty swallowing, Denies dizziness, Denies dry mouth, Denies ear discharge , Denies ear pain, Denies facial pain, Denies headache(s), Denies hearing loss, Denies hoarseness, Denies lip swelling, Denies nosebleed, Denies mouth lesions, Denies mouth pain, Denies nasal congestion, Denies nasal discharge, Denies nasal obstruction, Denies nasal trauma, Denies neck lump, Denies neck pain, Denies nose pain, Denies pain with swallowing, Denies poor balance, Denies post nasal drip, Denies ringing in the ears, Denies sinus pain, Denies sinus pressure , Denies sore throat, Denies throat swelling, Denies tongue swelling, Denies other Cardiovascular: Denies chest pain, Denies chest pain at rest, Denies chest pain with activity, Denies excessive sweating, Denies fainting, Denies fast heart rate, Denies foot swelling, Denies generalized swelling, Denies irregular heart rhythm, Denies leg pain with activity, Denies leg sores, Denies leg swelling, Denies lightheadedness, Denies radiating jaw, neck or arm pain, Denies rapid, pounding, or irregular heartbeat, Denies shortness of breath, Denies shortness of breath with activity, Denies shortness of breath when lying down, Denies shortness of breath causing sudden awakening, Denies slow heart rate, Denies other Respiratory: Denies change in phlegm color, Denies chest congestion, Denies cough, Denies coughing up blood, Denies excessive phlegm production, Denies pain on inspiration, Denies pain with cough, Denies shortness of breath, Denies shortness of breath with activity, Denies snoring, Denies stridor, Denies wheezing, Denies other Gastrointestinal: Denies abdominal pain, Denies belching, Denies black, tarry stools, Denies bloating, Denies bright, red blood in stools, Denies change in bowel habits, Denies constant urge to pass stool, Denies change in stools, Denies coffee ground vomit, Denies constipation, Denies cramping, Denies difficulty swallowing, Denies excessive passing of gas, Denies feeling full early, Denies heartburn, Denies incontinent of stools, Denies loose stools, Denies nausea, Denies pain with swallowing, Denies vomiting, Denies vomiting blood, Denies other Genitourinary: Denies abnormal periods, Denies abnormal vaginal bleeding, Denies absent period, Denies bleeding between periods, Denies blood in urine, Denies difficulty starting urination, Denies difficulty urinating, Denies dribbling after urination, Denies frequent nighttime urination, Denies genital itching, Denies genital lesions, Denies heavy periods, Denies hot flashes, Denies light periods, Denies nipple discharge, Denies painful intercourse, Denies painful periods, Denies painful urination, Denies pelvic pain, Denies prolapse symptoms, Denies sexual problems, Denies side pain, Denies urinary incontinence, Denies urinary urgency, Denies vaginal discharge, Denies vaginal dryness, Denies vaginal odor, Denies vaginal itching, Denies other Musculoskeletal: Reports radiating pain into limb Skin/Breast: Denies acne, Denies bleeding lesions, Denies boil, Denies breast swelling, Denies breast skin changes, Denies breast pain, Denies breast lump, Denies change in breast shape, Denies change in hair, Denies change in skin color, Denies changing lesions, Denies dry skin, Denies excessive hair growth, Denies hair loss, Denies itching, Denies lesions, Denies nail changes, Denies new lesions, Denies nipple discharge, Denies non-healing lesions, Denies redness , Denies sensitivity to light, Denies rash, Denies skin pain, Denies skin ulcer , Denies sores, Denies stretch guerra, Denies unusual bruising, Denies wounds, Denies yellowing of the skin, Denies other Neurologic: Denies abnormal hearing, Denies abnormal movements, Denies abnormal speech, Denies abnormal walking, Denies behavioral changes, Denies burning sensations, Denies confusion, Denies dizziness, Denies fainting, Denies frequent falls, Denies headache(s), Denies lack of coordination, Denies localized weakness, Denies loss of vision, Denies memory loss, Denies numbness, Denies other visual disturbances, Denies radiating pain, Denies restless legs, Denies convulsions, Denies seizure-like activity, Denies sensory deficit, Denies tingling, Denies tingling/numbness/burning sensations, Denies tremor(s), Denies unsteadiness, Denies weakness, Denies other Psychiatric: Denies abnormal sleep pattern, Denies anxiety, Denies behavioral changes, Denies change in appetite, Denies change in sex drive, Denies confusion , Denies depression, Denies difficulty concentrating, Denies hearing things others do not hear, Denies hopelessness, Denies irritability, Denies lack of enjoyment, Denies memory loss, Denies mood swings, Denies panic attacks, Denies paranoia, Denies seeing things others do not see, Denies sensing things others do not sense, Denies tactile hallucinations, Denies thoughts of hurting/killing others, Denies thoughts of hurting/killing yourself, Denies other Endocrine: Denies cold intolerance, Denies excessive sweating, Denies flushing, Denies heat intolerance, Denies increased hunger, Denies increased thirst, Denies increased urination, Denies rapid, pounding, or irregular heartbeat, Denies other Hematologic/Lymphatic: Denies easy bleeding, Denies easy bruising, Denies enlarged lymph nodes, Denies other Allergic/Immunologic: Denies GI upset with certain foods, Denies hives, Denies itchy eyes, Denies lip swelling, Denies seasonal runny nose, Denies throat swelling, Denies tongue swelling, Denies wheezing, Denies other PMFSH - History History Provided By: Patient, Medical Record - Medical History Medical History: Medical History (Last Updated 01/05/18 @ 18:22 by Emily Medina MD) A-V fistula CHF (congestive heart failure) CKD (chronic kidney disease) DVT (deep venous thrombosis) Dialysis patient Lymphedema Vascular port complication - Surgical History Surgical History: Surgical History (Last Reviewed 01/05/18 @ 06:31 by Shelby Quick RN) H/O: - Tobacco History Second Hand Smoke Exposure: No Tobacco Use In Past 30 Days: No Smoking Status: Never smoker - Alcohol History How Often Do You Have a Drink Containing Alcohol: Never - Substance Use History Substance History: No History of Abuse - Travel History Recent Travel in the [place] Within the Last 8 Weeks: No Recent Travel Out of the Country Within the Last 8 Weeks: No - Immunization History Tetanus Immunization: >5 Years Hx Influenza Vaccine This Season: No Medications and Allergies Active Medications: Active Medications Acetaminophen (Tylenol) 650 mg PO UNSCH PRN PRN Reason: SEE LABEL COMMENTS Al Hydroxide/Mg Hydroxide (Milk Of Sandy Eldridge) 30 ml PO Q12H PRN PRN Reason: Mild Constipation Last Admin: 01/04/18 11:09 Dose: 30 ml Amlodipine Besylate (Norvasc) 10 mg PO DAILY [facility] Last Admin: 01/04/18 08:02 Dose: 10 mg Bisacodyl (Dulcolax Supp) 10 mg RECTAL DAILY PRN PRN Reason: SEVERE CONSITIPATION Carvedilol (Coreg) 6.25 mg PO BID [facility] Last Admin: 01/05/18 09:06 Dose: Not Given Clonidine HCl (Catapres) 0.1 mg PO UNSCH PRN PRN Reason: SEE LABEL COMMENTS Diphenhydramine HCl (Benadryl) 25 mg PO UNSCH PRN PRN Reason: SEE LABEL COMMENTS Epoetin Angel (Epogen Inj) 10,000 unit IV.PUSH MoWeFr [facility] Ferrous Sulfate (Ferosul) 325 mg PO DAILY [facility] Last Admin: 01/05/18 13:02 Dose: 325 mg Gelatin (Gelfoam 12 Mm/7 Mm Topical) 1 foam TOPICAL PRN PRN PRN Reason: help stop bleeding from site Gentamicin Sulfate (Gentamicin Inj) 20 mg OTHER WITH DIALYSIS PRN PRN Reason: Dwell Gentamycin Lock Heparin Sodium (Porcine) (Heparin Inj) 8,000 units IV.FLUSH WITH DIALYSIS PRN PRN Reason: for machine prime Heparin Sodium (Porcine) (Heparin Inj) 1,000 units OTHER WITH DIALYSIS PRN PRN Reason: Dwell Heparin to Fill Catheter Hydroxyzine HCl (Atarax) 25 mg PO QID PRN PRN Reason: Itching Pharmacy Profile Note (Coumadin Consult Pharmacy) 0 mls @ 0 mls/hr OTHER UNSCH [facility] Albumin Human (Flexbumin 25% Inj) 100 mls @ 60 mls/hr IV.SIG WITH DIALYSIS PRN PRN Reason: hypotension / volume replace Sodium Chloride (Ns Inj) 1,000 mls @ 0 mls/hr OTHER .Q0M PRN PRN Reason: for prime and rinse back Sodium Chloride (Ns Inj) 1,000 mls @ 200 mls/hr OTHER .Q5H PRN PRN Reason: for dialyzer flush PRN Sodium Chloride (Ns Inj) 1,000 mls @ 0 mls/hr IV.CONT .Q0M PRN PRN Reason: hypotension / volume replace Vancomycin HCl 1,000 mg/ (Sodium Chloride) 250 mls @ 250 mls/hr IV.SIG WITH DIALYSIS [facility] Pharmacy Profile Note (Vancomycin Consult Pharmacy) 0 mls @ 0 mls/hr OTHER UNSCH [facility] Ketorolac Tromethamine (Toradol Inj) 15 mg IV.PUSH Q6H PRN PRN Reason: PAIN 3-5; IF UABLE TO TAKE PO Stop: 01/09/18 10:15 Last Admin: 01/05/18 12:44 Dose: 15 mg Ketorolac Tromethamine (Toradol Inj) 30 mg IV.PUSH Q6H PRN PRN Reason: PAIN 6-10;IF UNABLE TO TAKE PO Stop: 01/09/18 10:15 Last Admin: 01/05/18 05:25 Dose: 30 mg Lactulose (Lactulose Liq) 30 ml PO DAILY PRN PRN Reason: SEVERE CONSITIPATION Mannitol (Mannitol Inj) 12.5 gm IV.PUSH PRN PRN PRN Reason: hypotension / volume replace Naloxone HCl (Narcan Inj) 0.4 mg IV.PUSH UNSCH PRN PRN Reason: SEE LABEL COMMENTS Nitroglycerin (Nitrostat Sl) 0.4 mg SL Q5M PRN PRN Reason: CHEST PAIN Ondansetron HCl (Zofran Inj) 4 mg IV.PUSH UNSCH PRN PRN Reason: NAUSEA OR VOMITING Sennosides (Senokot) 17.2 mg PO Q12H PRN PRN Reason: Moderate Constipation Sodium Chloride (Ns Flush) 5 ml IV.FLUSH PRN PRN PRN Reason: flush each lumen during HD Temazepam (Restoril) 15 mg PO HS PRN PRN Reason: INSOMNIA Trazodone HCl (Desyrel) 50 mg PO HS [facility] Last Admin: 01/04/18 21:22 Dose: 50 mg Warfarin Sodium (Coumadin) 5 mg PO DAILY@1600 [facility] Last Admin: 01/04/18 17:16 Dose: 5 mg Allergies Allergy/AdvReac Type Severity Reaction Status Date / Time Penicillins Allergy Severe Swelling Verified 09/02/17 14:16 Home Medications Medication Instructions Recorded Confirmed Type amlodipine [Norvasc] 10 mg PO DAILY 01/04/18 01/04/18 History carvedilol 6.25 mg PO BID 01/04/18 01/04/18 History cinacalcet [Sensipar] 30 mg PO DAILY 01/04/18 01/04/18 History ferrous sulfate 325 mg PO DAILY 01/04/18 01/04/18 History hydroxyzine HCl 25 mg PO QID PRN 01/04/18 01/04/18 History oxycodone 10 mg PO Q6HR PRN 01/04/18 01/04/18 History tramadol 50 mg PO QID 01/04/18 01/04/18 History trazodone 50 mg PO DAILY 01/04/18 01/04/18 History Exam Vital signs: Vital Signs 01/04/18 16:00 01/04/18 17:00 01/04/18 20:00 Temperature 97.6 F 97.9 F Pulse Rate 73 74 Respiratory Rate 18 18 18 Blood Pressure 127/73 103/65 Pulse Oximetry 96 94 L 01/04/18 21:00 01/05/18 00:00 01/05/18 01:00 Temperature 97.6 F Pulse Rate 68 Respiratory Rate 18 19 19 Blood Pressure 107/68 Pulse Oximetry 95 01/05/18 03:58 01/05/18 04:00 01/05/18 08:00 Temperature 98 F 97.6 F Pulse Rate 68 67 Respiratory Rate 19 18 Blood Pressure 105/69 109/64 Pulse Oximetry 93 L 93 L 01/05/18 12:00 Temperature 98 F Pulse Rate 75 Respiratory Rate 17 Blood Pressure 119/76 Pulse Oximetry 94 L Intake & Output 01/04/18 01/05/18 01/05/18 18:59 06:59 18:59 Intake Total 1040 / 1040 400 / 400 Balance 1040 / 1040 400 / 400 Weight 80.3 kg Intake: IV 200 / 200 Oral 840 / 840 400 / 400 Other: # Voids 0 Date of Last Bowel Movement 01/03/18 01/03/18 Weight On Admission 81.647 kg - Constitutional no acute distress - Routine HEENT Exam Head: Present: normocephalic, atraumatic Eye: Present: EOMI, PERRL, normal accommodation ENT: Present: mucous membranes moist, oropharynx clear, nares patent, external ear normal, TM's clear bilaterally. Absent: dentition normal - Routine Neck Exam Present: supple, full ROM - Routine Chest/Breast/Axilla Exam Chest wall: Absent: tenderness, mass Breast: Absent: tenderness, mass Axillae: Absent: lymphadenopathy - Routine Respiratory Exam Present: CTA bilaterally - Routine Cardiovascular Exam Present: RRR, S1, S2 - Routine Abdominal Exam Present: soft, normoactive bowel sounds - Routine Extremities Exam Absent: cyanosis, clubbing - Routine Back/Spine/Pelvis Exam Back/Spine: Absent: CVA tenderness, paraspinal tenderness Pelvis: Absent: buttock swelling, buttock tenderness, pain with lateral compression of the pelvis - Routine Skin Exam Present: lesions. Absent: intact Comments: LLE with coin shaped area on [place] of tibia with yellowish discharge noted but no erythema. Unhealthy base. RLE > LLE chronic skin changes s/o lymphedema. Permacath site in left groin with tenderness with induration noted. - Routine Neurological Exam Present: alert, oriented X3 - Routine Psychiatric Exam Present: normal affect Results - Labs CBC & Chem 7: 01/11/18 06:31 01/11/18 06:31 Labs: Laboratory Results - last 24 hr 01/04/18 01/05/18 01/05/18 16:30 05:21 05:21 WBC 4.5 RBC 2.89 L Hgb 7.5 L Hct 23.1 L MCV 79.9 L MCH 25.9 L MCHC 32.4 RDW 17.3 H Plt Count 313 MPV 7.4 Neut % (Auto) 68.9 Lymph % (Auto) 15.3 [place] % (Auto) 8.2 H Eos % (Auto) 6.7 H Baso % (Auto) 0.9 Neut # (Auto) 3.1 Lymph # (Auto) 0.7 L [place] # (Auto) 0.4 Eos # (Auto) 0.3 Baso # (Auto) 0.0 WBC Differential . Differential Comment Auto diff final PT INR Sodium 136 Potassium 4.0 Chloride 98 Carbon Dioxide 26.9 Anion Gap 11 BUN 65 H Creatinine 5.20 H Estimated GFR 10 L POC Glucose Random Glucose 53 L Calcium 8.5 Total Bilirubin 0.3 AST 10 L ALT Less than 6 L Alkaline Phosphatase 211 H Total Protein 7.8 D Albumin 2.0 L Hepatitis A IgM Ab Nonreactive Hep Bs Antigen Nonreactive Hep B Core IgM Ab Nonreactive Hep C IgG Ab Nonreactive 01/05/18 01/05/18 01/05/18 05:21 10:02 11:13 WBC RBC Hgb Hct MCV MCH MCHC RDW Plt Count MPV Neut % (Auto) Lymph % (Auto) [place] % (Auto) Eos % (Auto) Baso % (Auto) Neut # (Auto) Lymph # (Auto) [place] # (Auto) Eos # (Auto) Baso # (Auto) WBC Differential Differential Comment PT 28.6 H INR 2.8 Sodium Potassium Chloride Carbon Dioxide Anion Gap BUN Creatinine Estimated GFR POC Glucose 68 87 Random Glucose Calcium Total Bilirubin AST ALT Alkaline Phosphatase Total Protein Albumin Hepatitis A IgM Ab Hep Bs Antigen Hep B Core IgM Ab Hep C IgG Ab - Imaging Impressions Chest X-Ray 01/03/18 23:05 CONCLUSION: Bilateral lower lung infiltrates, left larger than right. Venous Doppler Study 01/04/18 01:01 CONCLUSION: 1. No evidence of deep venous thrombosis in the right lower extremity. 2. There is some echogenic thrombus about the left groin catheter. 3. Incompressibility of the deep venous system in the proximal mid thigh and inability to demonstrate augmentation to distal compression suggests deep venous thrombosis in the left lower extremity. 4. Prominent bilateral soft tissue swelling. 5. Evidence of free fluid in the pelvis. Assessment and Plan - Plan MRSA bacteremia likely related to Permacath in Left groin. Septic Thrombophlebitis at site of left permacath. ESRD on HD Multiple AV fistulas with access issues needing revisions. MYLES Fistula current HD access. Bilateral infiltrates ? pneumonia ? septic emboli. Lymphedema LLE ulcer ? infected Recs Vanco 1 gm to be given in HD. Check Vanco level prior to next dose to decide if dosing adequate. Check 2 D ECHO Doppler Right UE at AV fistula site to look for abscess vs thrombus as another source of possible infection. Will repeat CXR if persistent infiltrates will need CT coordinated with HD to assess for septic emboli. Wound care consult. liliana Baltazar: IR guided removal of Permacath as soon as feasible. Send tip for culture. liliana RN dw Patient.
--- NOTE | 2018-01-05 14:51 | P.PN ---
Subjective Interval history: a 52-year-old female with past medical history of end-stage renal disease on hemodialysis for last 10 years, history of hypertension, cerebrovascular accident, congestive heart failure, edema of both legs who was sent to the hospital because of a wound on the left lower leg. The patient has been on hemodialysis Wednesday, Wednesday and Wednesday. Patient is admitted for left leg wound. Patient is alert, complaining of pain in left lower leg. Physical Exam Vital signs: Vital Signs 01/04/18 16:00 01/04/18 17:00 01/04/18 20:00 Temperature 97.6 F 97.9 F Pulse Rate 73 74 Respiratory Rate 18 18 18 Blood Pressure 127/73 103/65 Pulse Oximetry 96 94 L 01/04/18 21:00 01/05/18 00:00 01/05/18 01:00 Temperature 97.6 F Pulse Rate 68 Respiratory Rate 18 19 19 Blood Pressure 107/68 Pulse Oximetry 95 01/05/18 03:58 01/05/18 04:00 01/05/18 08:00 Temperature 98 F 97.6 F Pulse Rate 68 67 Respiratory Rate 19 18 Blood Pressure 105/69 109/64 Pulse Oximetry 93 L 93 L 01/05/18 12:00 Temperature 98 F Pulse Rate 75 Respiratory Rate 17 Blood Pressure 119/76 Pulse Oximetry 94 L Intake & Output 01/04/18 01/05/18 01/05/18 18:59 06:59 18:59 Intake Total 1040 / 1040 400 / 400 Balance 1040 / 1040 400 / 400 Weight 80.3 kg Intake: IV 200 / 200 Oral 840 / 840 400 / 400 Other: # Voids 0 Date of Last Bowel Movement 01/03/18 01/03/18 Weight On Admission 81.647 kg - Constitutional no acute distress - Routine HEENT Exam Head: Present: normocephalic - Routine Neck Exam Present: supple, JVD - Routine Cardiovascular Exam Present: RRR, S1, S2 - Routine Abdominal Exam Present: soft, normoactive bowel sounds, distended - Routine Extremities Exam Present: edema (Left lower leg covered with dressing.) - Routine Neurological Exam Present: alert, oriented X3 - Detailed Neurological Exam: Coma Scale Verbal Response: Oriented Results - Labs CBC & Chem 7: 01/05/18 05:21 01/05/18 05:21 Laboratory Results - last 24 hr 01/04/18 01/05/18 01/05/18 16:30 05:21 05:21 WBC 4.5 RBC 2.89 L Hgb 7.5 L Hct 23.1 L MCV 79.9 L MCH 25.9 L MCHC 32.4 RDW 17.3 H Plt Count 313 MPV 7.4 Neut % (Auto) 68.9 Lymph % (Auto) 15.3 [place] % (Auto) 8.2 H Eos % (Auto) 6.7 H Baso % (Auto) 0.9 Neut # (Auto) 3.1 Lymph # (Auto) 0.7 L [place] # (Auto) 0.4 Eos # (Auto) 0.3 Baso # (Auto) 0.0 WBC Differential . Differential Comment Auto diff final PT INR Sodium 136 Potassium 4.0 Chloride 98 Carbon Dioxide 26.9 Anion Gap 11 BUN 65 H Creatinine 5.20 H Estimated GFR 10 L POC Glucose Random Glucose 53 L Calcium 8.5 Total Bilirubin 0.3 AST 10 L ALT Less than 6 L Alkaline Phosphatase 211 H Total Protein 7.8 D Albumin 2.0 L Hepatitis A IgM Ab Nonreactive Hep Bs Antigen Nonreactive Hep B Core IgM Ab Nonreactive Hep C IgG Ab Nonreactive 01/05/18 01/05/18 01/05/18 05:21 10:02 11:13 WBC RBC Hgb Hct MCV MCH MCHC RDW Plt Count MPV Neut % (Auto) Lymph % (Auto) [place] % (Auto) Eos % (Auto) Baso % (Auto) Neut # (Auto) Lymph # (Auto) [place] # (Auto) Eos # (Auto) Baso # (Auto) WBC Differential Differential Comment PT 28.6 H INR 2.8 Sodium Potassium Chloride Carbon Dioxide Anion Gap BUN Creatinine Estimated GFR POC Glucose 68 87 Random Glucose Calcium Total Bilirubin AST ALT Alkaline Phosphatase Total Protein Albumin Hepatitis A IgM Ab Hep Bs Antigen Hep B Core IgM Ab Hep C IgG Ab Microbiology 01/03/18 23:00 Wound - Foot Gram Stain - Final 01/03/18 23:00 Wound - Foot Wound Culture - Preliminary S. aureus MRSA 01/03/18 23:00 Blood - Peripheral Aerobic Blood Culture - Preliminary gram positive cocci 01/03/18 23:00 Blood - Peripheral Anaerobic Blood Culture - Preliminary Staphylococcus epidermidis 01/03/18 23:10 Blood - Peripheral Aerobic Blood Culture - Preliminary No growth in 2 days 01/03/18 23:10 Blood - Peripheral Anaerobic Blood Culture - Preliminary gram positive cocci Assessment and Plan - Plan 1. Left foot wound. 2. History of deep vein thrombosis and thrombus around the left PermCath. 3. Congestive heart failure. 4. End-stage renal disease on hemodialysis. 5. Hypertension. 6. Anemia. 7. Bacteremia. The patient is on Coumadin. Her INR is in the therapeutic range. She has AVG in the right arm, She is on hemodialysis Wednesday, Wednesday and Wednesday and HD will be done today. patient has bacteremia, ID following, need PermCath to be removed. IR Consulted.
[2018-01-05] MEDS: amLODIPine 10 MG Tablet PO SCH (17:50)
[2018-01-05] MEDS: traZODone 50 MG Tablet PO SCH (21:14)
[2018-01-06] MEDS: Ketorolac Inj 30 MG/ML (IVP) Vial IV.PUSH PRN ×4 (01:03→20:08)
--- NOTE | 2018-01-06 05:52 | XR ---
EXAM DATE: 01/06/2018 4:07 AM EDT AGE/SEX: 52 years / Female INDICATIONS: Shortness of breath CLINICAL DATA: This is the patient's subsequent encounter. Patient reports that signs and symptoms h ave been present for 2 days and indicates a pain score of 0/10. MEDICAL/SURGICAL HISTORY: . Congestive heart failure. Stroke. None. COMPARISON: [facility] [place], CHEST 1V SINGLE AP, 01/03/2018. . FINDINGS: Persistent patchy infiltrates in the lower lungs, left greater than right, similar in appearance to p rior exam. Severe cardiomegaly, stable. Both hemidiaphragms remain fairly well delineated. CONCLUSION: Persistent bilateral lower lung infiltrates, left greater than right. Electronically signed by: Indra Perez MD 01/06/2018 5:51 AM EDT
[2018-01-06 06:47] LABS: Prothrombin Time 30.1 sec (9.8-11.6)
[2018-01-06 07:41] LABS: Hepatitits B Surface Antigen Nonreactive (Nonreactive)
[2018-01-06] MEDS: Ferrous Sulfate 325 MG Tablet PO SCH (09:26)
[2018-01-06] MEDS: amLODIPine 10 MG Tablet PO SCH (09:26)
[2018-01-06] MEDS: Carvedilol 6.25 MG Tablet PO SCH ×2 (09:26→22:01)
--- NOTE | 2018-01-06 10:53 | P.PN ---
Subjective Interval history: Follow-up nonfunctional Vas-Cath January 04, 2018-patient seen and examined, currently stable January 05, 2018-patient seen and examined, afebrile however patient with 2 positive blood culture. Patient seen by vascular surgery however recommended conservative management. Patient was also seen by podiatry but she declined MRI January 06, 2018-patient seen and examined, plan for permacath removal if INR less than 1.5. Patient has no complaint and currently afebrile. Mom by the bedside. Physical Exam Vital signs: Vital Signs 01/05/18 12:00 01/05/18 16:00 01/05/18 17:51 Temperature 98 F 97.8 F Pulse Rate 73 79 Respiratory Rate 17 18 Blood Pressure 119/76 126/76 Pulse Oximetry 94 L 92 L 01/05/18 20:00 01/06/18 00:00 01/06/18 04:00 Temperature 98.2 F 98 F 98 F Pulse Rate 82 75 80 Respiratory Rate 18 18 18 Blood Pressure 132/81 119/70 120/75 Pulse Oximetry 95 96 95 01/06/18 08:00 Temperature 98.3 F Pulse Rate 79 Respiratory Rate 20 Blood Pressure 135/79 Pulse Oximetry 97 Intake & Output 01/05/18 01/06/18 01/06/18 18:59 06:59 18:59 Intake Total 960 / 960 340 / 340 Output Total 3000 / 3000 Balance -2040 / -2040 340 / 340 Intake: Oral 960 / 960 340 / 340 Output: Hemodialysis Amount 3000 / 3000 Other: # Voids 0 Date of Last Bowel Movement 01/03/18 01/03/18 # Bowel Movements 1 Narrative: GENERAL: NAD SKIN: Warm and dry. HEAD: Normocephalic. EYES: No scleral icterus. No injection or drainage. NECK: Supple, trachea midline. No JVD or lymphadenopathy. CARDIOVASCULAR: Regular rate and rhythm without murmurs, gallops, or rubs. RESPIRATORY: Breath sounds equal bilaterally. No accessory muscle use. GASTROINTESTINAL: Abdomen soft, non-tender, nondistended. MUSCULOSKELETAL: No cyanosis, or edema. Bilateral lower extremity lymphedema; left lower extremity with a chronic wound; dressing covering it BACK: Nontender without obvious deformity. No CVA tenderness. Results - Labs CBC & Chem 7: 01/05/18 05:21 01/05/18 05:21 Laboratory Results - last 24 hr 01/05/18 01/05/18 01/05/18 05:21 11:13 16:03 PT INR POC Glucose 87 88 C-Reactive Protein 5.90 H Hep Bs Antigen Hep B Core IgM Ab Hep C IgG Ab 01/06/18 01/06/18 01/06/18 04:51 04:51 07:47 PT 30.1 H INR 3.0 POC Glucose 86 C-Reactive Protein Hep Bs Antigen Nonreactive Hep B Core IgM Ab Nonreactive Hep C IgG Ab Nonreactive Microbiology 01/03/18 23:00 Wound - Foot Gram Stain - Final 01/03/18 23:00 Wound - Foot Wound Culture - Final S. aureus MRSA 01/03/18 23:10 Blood - Peripheral Aerobic Blood Culture - Preliminary gram positive cocci 01/03/18 23:10 Blood - Peripheral Anaerobic Blood Culture - Preliminary gram positive cocci 01/03/18 23:00 Blood - Peripheral Aerobic Blood Culture - Preliminary gram positive cocci 01/03/18 23:00 Blood - Peripheral Anaerobic Blood Culture - Preliminary Staphylococcus epidermidis - Imaging Impressions Chest X-Ray 01/06/18 00:01 CONCLUSION: Persistent bilateral lower lung infiltrates, left greater than right. Assessment and Plan - Plan 52-year-old female with Bacteremia Repeat blood culture Appreciate input from infectious disease specialist Currently on vancomycin with HD Plan for removal of permacath, however INR 3.0 Supratherapeutic INR Coumadin currently on hold. Plan for permacath removal today only if INR less than 1.5, therefore will give vitamin K to reverse CHF exacerbation Fluid overload Abdominal ascites Appreciate input from Nephrology for hemodialysis. Left lower extremity venous stasis cellulitis. Appreciate input from podiatry, will recommended MRI lower extremity to rule out osteomyelitis however patient declines. Dysfunctional Vas-Cath left lower extremity. Small thrombus around Vas-Cath. On warfarin. Appreciate input from vascular surgery, and recommended medical management Hypertension. Continue home meds. History of CVA History of DVT On warfarin. GERD. Chronic. Continue PPI.
--- NOTE | 2018-01-06 11:09 | P.PNWCN ---
Wound Care Nurse Consult Additional information: Patient not seen for LLE abscess wound. Doctor Ranjana Podiatry has seen patient and has written appropriate wound care orders.Wound care inpatient is signing off.
[2018-01-06] MEDS ORDERED: Phytonadione 2.5 MG/SWFI 2.5 ML Oral Syringe PO ONE (12:00)
[2018-01-06] MEDS ORDERED: Phytonadione 5 MG/SWFI 5 ML Oral Syringe PO ONE (12:15)
[2018-01-06] MEDS ORDERED: Dextrose 50% in Water 50 ML Vial IV.PUSH PRN (13:29)
--- NOTE | 2018-01-06 15:16 | P.PNNP ---
Subjective Interval history: Patient is a 52-year-old female with past medical history of end-stage renal disease on hemodialysis for last 10 years, history of hypertension, cerebrovascular accident, congestive heart failure, edema of both legs who was sent to the hospital because of a wound on the left lower leg.The patient has been on hemodialysis Wednesday, Wednesday and Wednesday.Patient is admitted for left leg wound. Patient eating meal. VSS and afebrile. Denies any SOB. Mild lower extremity pain. <Jillian Bowling - Last Filed: 01/06/18 15:06> Physical Exam Vital signs: Vital Signs 01/05/18 16:00 01/05/18 17:51 01/05/18 20:00 Temperature 97.8 F 98.2 F Pulse Rate 79 82 Respiratory Rate 18 18 Blood Pressure 126/76 132/81 Pulse Oximetry 92 L 95 01/06/18 00:00 01/06/18 04:00 01/06/18 08:00 Temperature 98 F 98 F 98.3 F Pulse Rate 75 80 79 Respiratory Rate 18 18 20 Blood Pressure 119/70 120/75 135/79 Pulse Oximetry 96 95 97 01/06/18 12:00 Temperature 97.9 F Pulse Rate 74 Respiratory Rate 19 Blood Pressure 131/79 Pulse Oximetry 92 L Intake & Output 01/05/18 01/06/18 01/06/18 18:59 06:59 18:59 Intake Total 960 / 960 340 / 340 Output Total 3000 / 3000 Balance -2040 / -2040 340 / 340 Intake: Oral 960 / 960 340 / 340 Output: Hemodialysis Amount 3000 / 3000 Other: # Voids 0 Date of Last Bowel Movement 01/03/18 01/03/18 # Bowel Movements 1 - Constitutional no acute distress - Routine HEENT Exam Head: Present: normocephalic ENT: Present: mucous membranes moist - Routine Neck Exam Present: supple. Absent: JVD - Routine Respiratory Exam Present: decreased breath sounds. Absent: rales, rhonchi, wheezes - Routine Cardiovascular Exam Present: RRR - Routine Abdominal Exam Present: soft, normoactive bowel sounds - Routine Extremities Exam Present: edema, AV fistula - Routine Skin Exam Present: warm, wounds - Routine Neurological Exam Present: alert, oriented X3 - Detailed Neurological Exam: Coma Scale Eye Opening: Spontaneous - Routine Psychiatric Exam Present: normal affect, cooperative <Jillian Bowling - Last Filed: 01/06/18 15:06> Vital signs: Vital Signs 01/06/18 00:00 01/06/18 04:00 01/06/18 08:00 Temperature 98 F 98 F 98.3 F Pulse Rate 75 80 79 Respiratory Rate 18 18 20 Blood Pressure 119/70 120/75 135/79 Pulse Oximetry 96 95 97 01/06/18 12:00 01/06/18 16:00 01/06/18 20:00 Temperature 97.9 F 98 F 97.7 F Pulse Rate 74 73 80 Respiratory Rate 19 19 18 Blood Pressure 131/79 112/71 120/76 Pulse Oximetry 92 L 95 95 Intake & Output 01/06/18 01/06/18 01/07/18 06:59 18:59 06:59 Intake Total 340 / 340 770 / 770 Balance 340 / 340 770 / 770 Intake: Oral 340 / 340 770 / 770 Other: # Voids 0 0 Date of Last Bowel Movement 01/03/18 <Courtney Hernandez - Last Filed: 01/06/18 22:25> Assessment and Plan - Assessment (1) End-stage renal disease on hemodialysis Code(s): N18.6 - End stage renal disease; Z99.2 - Dependence on renal dialysis Status: Acute - Plan ESRD She is on hemodialysis Wednesday, Wednesday and Wednesday Has AVG in right upper arm HD catheter in right groin to be removed when INR is less than 1.5 Coumadin is on hold and vitamin K given. Hemodialysis yesterday with 3 liters of fluid removed Hemodialysis planned for tomorrow Bacteremia Vancomycin with HD ID managing <Jillian Bowling - Last Filed: 01/06/18 15:06> - Assessment (1) End-stage renal disease on hemodialysis Code(s): N18.6 - End stage renal disease; Z99.2 - Dependence on renal dialysis Status: Acute - Attending Attestation Patient seen and examined, agree with above. HD will be in AM, PermCath to remove when INR is better. <Courtney Hernandez - Last Filed: 01/06/18 22:25>
--- NOTE | 2018-01-06 18:38 | P.PNID ---
Subjective Remarks: Ms. Jackman is a 52-year-old -Polish female with past medical history significant for end-stage renal dialysis. Her primary cleaners is Dr. Nicole in [facility] and she undergoes hemodialysis on Wednesdays and Fridays. Patient's nephrology history is significant for multiple failed hemodialysis access related procedures for which she has seen vascular surgery. Upon review of medical records from vascular surgeon it appears that she has had multiple bilateral upper extremity AV fistula revisions. Most recently patient had a right upper extremity AV access site revised on September 03, 2017. Thereafter on September 13, 2017 patient presented to the emergency department [place] for pain at the right upper extremity revision site and a workup was initiated. It appears that patient signed off AGAINST MEDICAL ADVICE at that time. In the interim she seems to have had a left femoral permacath placed in [facility]. Patient reports that her left lower extremity permacath stopped working last week and her left leg has become more painful. She describes the left leg pain is constant throbbing pain exacerbated with movement or touch. She reports that she has a wound on her left lower extremity that has been infected in the past but now is beginning to get worse and draining them. She reports having intermittent fevers and chills. Patient reports that since the left lower extremity permacath a stop working and not started using her right upper ex fistula for dialysis purposes. Patient initially called her cleaners and then subsequently Dr. Vargas who then asked her to come to the emergency department at [place]. Due to her above history of fever and chills she underwent a sepsis workup including blood cultures. Blood cultures are positive for gram-positive bacteremia and infectious diseases consulted for the same especially given her history of end-stage renal disease Pertinent positives and negatives: Patient has a left lower extremity groin area permacath in place from an outside hospital Patient has a right upper extremity AV fistula that is currently being used for hemodialysis Patient reports fever chills night sweats. Overnight events reviewed No fever No rash No diarrhea Her INR was still high and therefore permacath could not be removed. Antibiotics: Vancomycin IV in dialysis Lines: Line sites with no evidence of infection. Past Medical History: Past medical history History of DVT Lymphedema Cerebrovascular accident Congestive heart failure Hypertension Anemia End-stage renal disease Past surgical history April 27, 2017 patient underwent a angiogram as well as a venogram. May 2016 underwent a right brachial brachial AV fistula placement Patient also has had an IVC filter placed Bilateral multiple upper extremity AV fistula placements September 03, 2017 patient had right upper extremity access revision. Allergies/Adverse Reactions: Allergies Penicillins Allergy (Severe, Verified 09/02/17 14:16) Swelling Objective Vital Signs 01/05/18 20:00 01/06/18 00:00 01/06/18 04:00 Temperature 98.2 F 98 F 98 F Pulse Rate 82 75 80 Respiratory Rate 18 Blood Pressure 132/81 119/70 120/75 Pulse Oximetry 95 96 95 01/06/18 08:00 01/06/18 12:00 01/06/18 16:00 Temperature 98.3 F 97.9 F 98 F Pulse Rate 79 74 73 Respiratory Rate Blood Pressure 135/79 131/79 112/71 Pulse Oximetry 97 92 L 95 Intake & Output 01/05/18 01/06/18 01/06/18 18:59 06:59 18:59 Intake Total 960 / 960 340 / 340 770 / 770 Output Total 3000 / 3000 Balance -2040 / -2040 340 / 340 770 / 770 Intake: Oral 960 / 960 340 / 340 770 / 770 Output: Hemodialysis Amount 3000 / 3000 Other: # Voids 0 0 Date of Last Bowel Movement 01/03/18 01/03/18 # Bowel Movements 1 01/03/18 23:10 Blood - Peripheral Aerobic Blood Culture - Preliminary gram positive cocci 01/03/18 23:10 Blood - Peripheral Anaerobic Blood Culture - Preliminary Staphylococcus coag negative 01/03/18 23:00 Blood - Peripheral Aerobic Blood Culture - Preliminary Staphylococcus coag negative 01/03/18 23:00 Blood - Peripheral Anaerobic Blood Culture - Preliminary Staphylococcus epidermidis 01/05/18 15:30 Blood - Peripheral Aerobic Blood Culture - Preliminary No growth in 1 day 01/05/18 15:30 Blood - Peripheral Anaerobic Blood Culture - Preliminary No growth in 1 day 01/05/18 15:25 Blood - Peripheral Aerobic Blood Culture - Preliminary No growth in 1 day 01/05/18 15:25 Blood - Peripheral Anaerobic Blood Culture - Preliminary No growth in 1 day 01/03/18 23:00 Wound - Foot Gram Stain - Final 01/03/18 23:00 Wound - Foot Wound Culture - Final S. aureus MRSA Lab - Hematology Results 01/05/18 05:21 WBC 4.5 RBC 2.89 L Hgb 7.5 L Hct 23.1 L MCV 79.9 L MCH 25.9 L MCHC 32.4 RDW 17.3 H Plt Count 313 MPV 7.4 Neut % (Auto) 68.9 Lymph % (Auto) 15.3 [place] % (Auto) 8.2 H Eos % (Auto) 6.7 H Baso % (Auto) 0.9 Neut # (Auto) 3.1 Lymph # (Auto) 0.7 L [place] # (Auto) 0.4 Eos # (Auto) 0.3 Baso # (Auto) 0.0 WBC Differential . Differential Comment Auto diff final Lab - Chemistry Results 01/05/18 01/05/18 01/05/18 05:21 05:21 10:02 Sodium 136 Potassium 4.0 Chloride 98 Carbon Dioxide 26.9 Anion Gap 11 BUN 65 H Creatinine 5.20 H Estimated GFR 10 L POC Glucose 68 Random Glucose 53 L Calcium 8.5 Total Bilirubin 0.3 AST 10 L ALT Less than 6 L Alkaline Phosphatase 211 H C-Reactive Protein 5.90 H Total Protein 7.8 D Albumin 2.0 L 01/05/18 01/05/18 01/06/18 11:13 16:03 07:47 Sodium Potassium Chloride Carbon Dioxide Anion Gap BUN Creatinine Estimated GFR POC Glucose 87 88 86 Random Glucose Calcium Total Bilirubin AST ALT Alkaline Phosphatase C-Reactive Protein Total Protein Albumin 01/06/18 01/06/18 01/06/18 12:18 13:55 17:32 Sodium Potassium Chloride Carbon Dioxide Anion Gap BUN Creatinine Estimated GFR POC Glucose 67 L 88 79 Random Glucose Calcium Total Bilirubin AST ALT Alkaline Phosphatase C-Reactive Protein Total Protein Albumin Imaging: ITS Impressions Venous Doppler Study 01/04/18 01:01 CONCLUSION: 1. No evidence of deep venous thrombosis in the right lower extremity. 2. There is some echogenic thrombus about the left groin catheter. 3. Incompressibility of the deep venous system in the proximal mid thigh and inability to demonstrate augmentation to distal compression suggests deep venous thrombosis in the left lower extremity. 4. Prominent bilateral soft tissue swelling. 5. Evidence of free fluid in the pelvis. Chest X-Ray 01/06/18 00:01 CONCLUSION: Persistent bilateral lower lung infiltrates, left greater than right. Physical Exam: GENERAL: Well-nourished well-developed, not in acute distress SKIN: Cool and dry, no generalized rash HEAD: Atraumatic. Normocephalic. No temporal or scalp tenderness. EYES: Pupils equal round and reactive. Scleral icterus. No injection or drainage. No petechia ENT: Nothing abnormal detected NECK: Trachea midline. Supple, nontender, no meningeal signs. CARDIOVASCULAR: HS audible. RESPIRATORY: Clear to auscultation bilaterally. GASTROINTESTINAL: Abdomen soft nontender. MUSCULOSKELETAL: Extremities without clubbing, cyanosis. NEUROLOGICAL: Alert oriented 3. Nonfocal. Psych cooperative IV line sites ok. Permacath site looks okay no obvious purulence. Tenderness with induration noted. Assessment and Plan - Plan MRSA bacteremia likely related to Permacath in Left groin. Septic Thrombophlebitis at site of left permacath. ESRD on HD Multiple AV fistulas with access issues needing revisions. RUE Fistula current HD access. Bilateral infiltrates ? pneumonia ? septic emboli. Lymphedema LLE ulcer ? infected Recs Vanco 1 gm to be given in HD. Check Vanco level prior to next dose to decide if dosing adequate. Check 2 D ECHO Doppler Right UE at AV fistula site to look for abscess vs thrombus as another source of possible infection. Will dw about CT with contrast before HD. IR guided removal of Permacath as soon as feasible. Send tip for culture. liliana RN dw Patient.
[2018-01-06 18:41] LABS: INR 2.5 Ratio; Prothrombin Time 24.8 sec (9.8-11.6)
--- NOTE | 2018-01-06 20:14 | P.PNPOD ---
Subjective Interval history: Patient seen bedside. Patient resting comfortably eating. Denies any pain. Denies any nausea, fevers, chills, or vomiting. Review of Systems All other systems reviewed negative except as stated in HPI Physical Exam Vital signs: Vital Signs 01/06/18 00:00 01/06/18 04:00 01/06/18 08:00 Temperature 98 F 98 F 98.3 F Pulse Rate 75 80 79 Respiratory Rate 18 18 20 Blood Pressure 119/70 120/75 135/79 Pulse Oximetry 96 95 97 01/06/18 12:00 01/06/18 16:00 Temperature 97.9 F 98 F Pulse Rate 74 73 Respiratory Rate 19 19 Blood Pressure 131/79 112/71 Pulse Oximetry 92 L 95 Intake & Output 01/06/18 01/06/18 01/07/18 06:59 18:59 06:59 Intake Total 340 / 340 770 / 770 Balance 340 / 340 770 / 770 Intake: Oral 340 / 340 770 / 770 Other: # Voids 0 0 Date of Last Bowel Movement 01/03/18 Narrative: Lower extremity physical exam: Vascular: Dorsalis pedis nonpalpable, posterior tibial nonpalpable. Capillary refill time within normal limits to digits X5 bilateral foot. Edema present bilateral lower extremity. Neuro: Gross sensation intact to bilateral lower extremity. Pinpoint sensation intact. No hyperalgesia noted to bilateral lower extremity Dermatology: Normal temperature and turgor to bilateral lower extremity. Left medial leg ulceration. Granular base with no hyperkeratotic borders. Fluctuance which was noted distally to ulceration, is now absent and there is a draining ulcer with granular base. No purulent drainage noted from either ulceration no increased erythema noted. No probe to bone and no malodor noted. Serous drainage noted to bilateral ulceration. Musculoskeletal: Tender to palpation to left lower extremity at ulceration site. Medications and Allergies Active Medications: Active Medications Acetaminophen (Tylenol) 650 mg PO UNSCH PRN PRN Reason: SEE LABEL COMMENTS Al Hydroxide/Mg Hydroxide (Milk Of Sandy Liq) 30 ml PO Q12H PRN PRN Reason: Mild Constipation Last Admin: 01/04/18 11:09 Dose: 30 ml Amlodipine Besylate (Norvasc) 10 mg PO DAILY [facility] Last Admin: 01/06/18 09:26 Dose: 10 mg Bisacodyl (Dulcolax Supp) 10 mg RECTAL DAILY PRN PRN Reason: SEVERE CONSITIPATION Carvedilol (Coreg) 6.25 mg PO BID [facility] Last Admin: 01/06/18 09:26 Dose: 6.25 mg Clonidine HCl (Catapres) 0.1 mg PO UNSCH PRN PRN Reason: SEE LABEL COMMENTS Dextrose (D50w Vial) 50 ml IV.PUSH UNSCH PRN PRN Reason: PER HYPOGLYCEMIA PROTOCOL Diphenhydramine HCl (Benadryl) 25 mg PO UNSCH PRN PRN Reason: SEE LABEL COMMENTS Epoetin Angel (Epogen Inj) 10,000 unit IV.PUSH MoWeFr [facility] Last Admin: 01/05/18 17:00 Dose: 10,000 unit Ferrous Sulfate (Ferosul) 325 mg PO DAILY [facility] Last Admin: 01/06/18 09:26 Dose: 325 mg Gelatin (Gelfoam 12 Mm/7 Mm Topical) 1 foam TOPICAL PRN PRN PRN Reason: help stop bleeding from site Gentamicin Sulfate (Gentamicin Inj) 20 mg OTHER WITH DIALYSIS PRN PRN Reason: Dwell Gentamycin Lock Glucagon (Glucagon Inj) 1 mg OTHER PRN PRN PRN Reason: for Hypoglycemia Protocol Heparin Sodium (Porcine) (Heparin Inj) 8,000 units IV.FLUSH WITH DIALYSIS PRN PRN Reason: for machine prime Heparin Sodium (Porcine) (Heparin Inj) 1,000 units OTHER WITH DIALYSIS PRN PRN Reason: Dwell Heparin to Fill Catheter Hydroxyzine HCl (Atarax) 25 mg PO QID PRN PRN Reason: Itching Pharmacy Profile Note (Coumadin Consult Pharmacy) 0 mls @ 0 mls/hr OTHER UNSCH [facility] Albumin Human (Flexbumin 25% Inj) 100 mls @ 60 mls/hr IV.SIG WITH DIALYSIS PRN PRN Reason: hypotension / volume replace Sodium Chloride (Ns Inj) 1,000 mls @ 0 mls/hr OTHER .Q0M PRN PRN Reason: for prime and rinse back Sodium Chloride (Ns Inj) 1,000 mls @ 200 mls/hr OTHER .Q5H PRN PRN Reason: for dialyzer flush PRN Sodium Chloride (Ns Inj) 1,000 mls @ 0 mls/hr IV.CONT .Q0M PRN PRN Reason: hypotension / volume replace Vancomycin HCl 1,000 mg/ (Sodium Chloride) 250 mls @ 250 mls/hr IV.SIG WITH DIALYSIS [facility] Ketorolac Tromethamine (Toradol Inj) 15 mg IV.PUSH Q6H PRN PRN Reason: PAIN 3-5; IF UABLE TO TAKE PO Stop: 01/09/18 10:15 Last Admin: 01/06/18 20:08 Dose: 15 mg Ketorolac Tromethamine (Toradol Inj) 30 mg IV.PUSH Q6H PRN PRN Reason: PAIN 6-10;IF UNABLE TO TAKE PO Stop: 01/09/18 10:15 Last Admin: 01/06/18 01:03 Dose: 30 mg Lactulose (Lactulose Liq) 30 ml PO DAILY PRN PRN Reason: SEVERE CONSITIPATION Mannitol (Mannitol Inj) 12.5 gm IV.PUSH PRN PRN PRN Reason: hypotension / volume replace Naloxone HCl (Narcan Inj) 0.4 mg IV.PUSH UNSCH PRN PRN Reason: SEE LABEL COMMENTS Nitroglycerin (Nitrostat Sl) 0.4 mg SL Q5M PRN PRN Reason: CHEST PAIN Ondansetron HCl (Zofran Inj) 4 mg IV.PUSH UNSCH PRN PRN Reason: NAUSEA OR VOMITING Sennosides (Senokot) 17.2 mg PO Q12H PRN PRN Reason: Moderate Constipation Sodium Chloride (Ns Flush) 5 ml IV.FLUSH PRN PRN PRN Reason: flush each lumen during HD Temazepam (Restoril) 15 mg PO HS PRN PRN Reason: INSOMNIA Trazodone HCl (Desyrel) 50 mg PO HS [facility] Last Admin: 01/05/18 21:14 Dose: 50 mg Warfarin Sodium (Coumadin) 5 mg PO DAILY@1600 [facility] Last Admin: 01/04/18 17:16 Dose: 5 mg Allergies Allergy/AdvReac Type Severity Reaction Status Date / Time Penicillins Allergy Severe Swelling Verified 09/02/17 14:16 Home Medications Medication Instructions Recorded Confirmed Type amlodipine [Norvasc] 10 mg PO DAILY 01/04/18 01/04/18 History carvedilol 6.25 mg PO BID 01/04/18 01/04/18 History cinacalcet [Sensipar] 30 mg PO DAILY 01/04/18 01/04/18 History ferrous sulfate 325 mg PO DAILY 01/04/18 01/04/18 History hydroxyzine HCl 25 mg PO QID PRN 01/04/18 01/04/18 History oxycodone 10 mg PO Q6HR PRN 01/04/18 01/04/18 History tramadol 50 mg PO QID 01/04/18 01/04/18 History trazodone 50 mg PO DAILY 01/04/18 01/04/18 History Results - Labs CBC & Chem 7: 01/05/18 05:21 01/05/18 05:21 Laboratory Results - last 24 hr 01/05/18 01/06/18 01/06/18 05:21 04:51 04:51 PT 30.1 H INR 3.0 POC Glucose C-Reactive Protein 5.90 H Hep Bs Antigen Nonreactive Hep B Core IgM Ab Nonreactive Hep C IgG Ab Nonreactive 01/06/18 01/06/18 01/06/18 07:47 12:18 13:55 PT INR POC Glucose 86 67 L 88 C-Reactive Protein Hep Bs Antigen Hep B Core IgM Ab Hep C IgG Ab 01/06/18 01/06/18 17:23 17:32 PT 24.8 H INR 2.5 POC Glucose 79 C-Reactive Protein Hep Bs Antigen Hep B Core IgM Ab Hep C IgG Ab Microbiology 01/03/18 23:10 Blood - Peripheral Aerobic Blood Culture - Preliminary gram positive cocci 01/03/18 23:10 Blood - Peripheral Anaerobic Blood Culture - Preliminary Staphylococcus coag negative 01/03/18 23:00 Blood - Peripheral Aerobic Blood Culture - Preliminary Staphylococcus coag negative 01/03/18 23:00 Blood - Peripheral Anaerobic Blood Culture - Preliminary Staphylococcus epidermidis 01/05/18 15:30 Blood - Peripheral Aerobic Blood Culture - Preliminary No growth in 1 day 01/05/18 15:30 Blood - Peripheral Anaerobic Blood Culture - Preliminary No growth in 1 day 01/05/18 15:25 Blood - Peripheral Aerobic Blood Culture - Preliminary No growth in 1 day 01/05/18 15:25 Blood - Peripheral Anaerobic Blood Culture - Preliminary No growth in 1 day 01/03/18 23:00 Wound - Foot Gram Stain - Final 01/03/18 23:00 Wound - Foot Wound Culture - Final S. aureus MRSA - Imaging Impressions Chest X-Ray 01/06/18 00:01 CONCLUSION: Persistent bilateral lower lung infiltrates, left greater than right. Assessment and Plan - Plan 52-year-old female with left lower extremity ulceration Patient examined and evaluated with all questions answered Patient continues to refuse MRI Area of fluctuance which was concerning for abscess is now open and draining serous fluid Improvement noted to left lower extremity Continue with daily dressing changes consisting of Maxorb AG 2+ Patient will need to follow-up with wound care center She states she has a wound care doctor which she likes to see back near [place] Patient okay to DC per podiatry Please facilitate follow-up with wound care
--- NOTE | 2018-01-06 21:52 | US ---
EXAM DATE: 01/06/2018 9:50 PM EDT AGE/SEX: 52 years / Female INDICATIONS: Right arm swelling. CLINICAL DATA: This is the patient's initial encounter. Patient reports that signs and symptoms have been present for 2 days and indicates a pain score of 0/10. MEDICAL/SURGICAL HISTORY: . Renal disease, end stage. Congestive heart failure. Hypertension. L ymphedema. . section. Vas-Cath in the left groin. COMPARISON: No prior exams available for comparison. FINDINGS: The vessels are compressible and augmentation response is documented. No filling defects a re seen. The flow is phasic with respiration. Other: None. CONCLUSION: No evidence of right upper extremity DVT Electronically signed by: Murali Horn MD 01/06/2018 9:51 PM EDT
[2018-01-06] MEDS: traZODone 50 MG Tablet PO SCH (22:02)
[2018-01-06 22:54] LABS: Hepatitis A IgM Antibody Nonreactive (Nonreactive)
[2018-01-07 05:23] LABS: INR 1.9 Ratio; Prothrombin Time 19.4 sec (9.8-11.6)
[2018-01-07] MEDS: Ketorolac Inj 30 MG/ML (IVP) Vial IV.PUSH PRN ×2 (06:55→19:42)
--- NOTE | 2018-01-07 11:51 | P.PN ---
Subjective Interval history: Follow-up nonfunctional Vas-Cath January 04, 2018-patient seen and examined, currently stable January 05, 2018-patient seen and examined, afebrile however patient with 2 positive blood culture. Patient seen by vascular surgery however recommended conservative management. Patient was also seen by podiatry but she declined MRI January 06, 2018-patient seen and examined, plan for permacath removal if INR less than 1.5. Patient has no complaint and currently afebrile. Mom by the bedside. January 07, 2018-patient seen and examined, Heading for removal of permacath today ; stable and no complaint. Physical Exam Vital signs: Vital Signs 01/06/18 12:00 01/06/18 16:00 01/06/18 20:00 Temperature 97.9 F 98 F 97.7 F Pulse Rate 74 73 80 Respiratory Rate 19 19 18 Blood Pressure 131/79 112/71 120/76 Pulse Oximetry 92 L 95 95 01/07/18 00:00 01/07/18 04:00 01/07/18 08:00 Temperature 98.2 F 98.4 F 97.8 F Pulse Rate 76 78 80 Respiratory Rate 18 18 20 Blood Pressure 112/69 117/76 139/80 Pulse Oximetry 96 93 L 93 L Intake & Output 01/06/18 01/07/18 01/07/18 18:59 06:59 18:59 Intake Total 770 / 770 320 / 320 Output Total 0 / 0 Balance 770 / 770 320 / 320 Intake: Oral 770 / 770 320 / 320 Output: Stool 0 / 0 Other: # Voids 0 Date of Last Bowel Movement 01/03/18 Narrative: GENERAL: NAD SKIN: Warm and dry. HEAD: Normocephalic. EYES: No scleral icterus. No injection or drainage. NECK: Supple, trachea midline. No JVD or lymphadenopathy. CARDIOVASCULAR: Regular rate and rhythm without murmurs, gallops, or rubs. RESPIRATORY: Breath sounds equal bilaterally. No accessory muscle use. GASTROINTESTINAL: Abdomen soft, non-tender, nondistended. MUSCULOSKELETAL: No cyanosis, or edema. Bilateral lower extremity lymphedema; left lower extremity with a chronic wound; dressing covering it BACK: Nontender without obvious deformity. No CVA tenderness. Results - Labs CBC & Chem 7: 01/05/18 05:21 01/05/18 05:21 Laboratory Results - last 24 hr 01/06/18 01/06/18 01/06/18 04:51 12:18 13:55 PT INR POC Glucose 67 L 88 Hepatitis A IgM Ab Nonreactive 01/06/18 01/06/18 01/06/18 17:23 17:32 22:00 PT 24.8 H INR 2.5 POC Glucose 79 98 Hepatitis A IgM Ab 01/07/18 01/07/18 04:56 10:19 PT 19.4 H INR 1.9 POC Glucose 72 Hepatitis A IgM Ab Microbiology 01/03/18 23:00 Blood - Peripheral Aerobic Blood Culture - Final Staphylococcus epidermidis 01/03/18 23:00 Blood - Peripheral Anaerobic Blood Culture - Final Staphylococcus epidermidis 01/05/18 15:30 Blood - Peripheral Aerobic Blood Culture - Preliminary No growth in 2 days 01/05/18 15:30 Blood - Peripheral Anaerobic Blood Culture - Preliminary No growth in 2 days 01/05/18 15:25 Blood - Peripheral Aerobic Blood Culture - Preliminary No growth in 2 days 01/05/18 15:25 Blood - Peripheral Anaerobic Blood Culture - Preliminary No growth in 2 days 01/03/18 23:10 Blood - Peripheral Aerobic Blood Culture - Preliminary gram positive cocci 01/03/18 23:10 Blood - Peripheral Anaerobic Blood Culture - Preliminary Staphylococcus coag negative 01/03/18 23:00 Wound - Foot Gram Stain - Final 01/03/18 23:00 Wound - Foot Wound Culture - Final S. aureus MRSA - Imaging Impressions Venous Doppler Study 01/06/18 00:00 CONCLUSION: No evidence of right upper extremity DVT Assessment and Plan - Plan 52-year-old female with Bacteremia Appreciate input from infectious disease specialist Currently on vancomycin with HD Plan for removal of permacath today January 07, 2018 Subtherapeutic INR Coumadin currently on hold. Vitamin K 2.5 mg x1 was given yesterday January 06, 2018. Currently INR 1.9 and plan for plan for permacath removal today CHF exacerbation Fluid overload Abdominal ascites Appreciate input from Nephrology for hemodialysis. Left lower extremity venous stasis cellulitis. Appreciate input from podiatry, will recommended MRI lower extremity to rule out osteomyelitis however patient declines. Dysfunctional Vas-Cath left lower extremity. Small thrombus around Vas-Cath. On warfarin however on hold. Appreciate input from vascular surgery, and recommended medical management Hypertension. Continue home meds. History of CVA History of DVT On warfarin. GERD. Chronic. Continue PPI.
[2018-01-07] MEDS ORDERED: fentaNYL Citrate Inj 100 MCG/2 ML Ampul ONE (13:18)
[2018-01-07] MEDS ORDERED: Thrombin Topical Soln 5,000 UNIT Vial TOPICAL ONE (13:30)
--- NOTE | 2018-01-07 16:17 | IR ---
EXAM DATE: 01/07/2018 1:51 PM EDT AGE/SEX: 52 years / Female INDICATIONS: Patient presents with left femoral perm dialysis catheter in need of removal. CLINICAL DATA: This is the patient's initial encounter. Patient reports that signs and symptoms have been present for 3 days and indicates a pain score of 8/10. MEDICAL/SURGICAL HISTORY: Congestive heart failure. Deep venous thrombosis. Chronic Kidney Dis ease Dialysis Lymphedema Vascular Port Complication section. COMPARISON: No prior exams available for comparison. FLUORO TIME (min): 1.54 IMAGE SERIES: ACCESS SITE: MEDICATION(S): 100mcg fentanyl (Sublimaze) IV 2mg lorazepam (Ativan) IV DEVICE(S): . . PROCEDURE : 1. Attempted Central venous catheter removal. The skin and subcutaneous tissues were infiltrated with lidocaine solution. Blunt dissection was util ized to free the cuff from the superficial subcutaneous tissues. The catheter was still firmly adhere nt to the underlying tissues. It appeared that the catheter was being trapped at the level of the nikita in near the presumed venotomy puncture. The skin in this region was anesthetized with local anestheti c and a small dermatotomy was made. Blunt dissection was utilized to expose the catheter. Still, the catheter was firmly adherent to the deeper soft tissues. I did not feel comfortable dissecting any de eper into the groin region for fear of disrupting the underlying neurovascular structures. The incisi on was closed with Steri-Strips and gauze bandages were applied. CONCLUSION: The patient's left groin dialysis permacath could not be removed, firmly adherent to the tissues deep to the groin region. Surgical consultation is recommended for removal. Electronically signed by: Murali Horn MD 01/07/2018 4:16 PM EDT
--- NOTE | 2018-01-07 16:48 | P.PNNP ---
Subjective Interval history: Patient seen during HD, no SOB, has pain in left leg and left groin area. Physical Exam Vital signs: Vital Signs 01/06/18 20:00 01/07/18 00:00 01/07/18 04:00 Temperature 97.7 F 98.2 F 98.4 F Pulse Rate 80 76 78 Respiratory Rate 18 18 18 Blood Pressure 120/76 112/69 117/76 Pulse Oximetry 95 96 93 L 01/07/18 08:00 Temperature 97.8 F Pulse Rate 80 Respiratory Rate 20 Blood Pressure 139/80 Pulse Oximetry 93 L Intake & Output 01/06/18 01/07/18 01/07/18 18:59 06:59 18:59 Intake Total 770 / 770 320 / 320 Output Total 0 / 0 Balance 770 / 770 320 / 320 Intake: Oral 770 / 770 320 / 320 Output: Stool 0 / 0 Other: # Voids 0 Date of Last Bowel Movement 01/03/18 01/03/18 - Constitutional no acute distress - Routine HEENT Exam Head: Present: normocephalic - Routine Neck Exam Present: supple - Routine Respiratory Exam Present: decreased breath sounds, CTA bilaterally, rhonchi - Routine Cardiovascular Exam Present: RRR, S1, S2 - Routine Abdominal Exam Present: soft, normoactive bowel sounds, distended - Routine Exam Perineum Description: Laceration - Routine Extremities Exam Present: edema - Routine Skin Exam Present: lesions (left lower leg.) - Routine Neurological Exam Present: alert, oriented X3 Assessment and Plan - Assessment (1) End-stage renal disease on hemodialysis Code(s): N18.6 - End stage renal disease; Z99.2 - Dependence on renal dialysis Status: Acute - Plan ESRD She is on hemodialysis Wednesday, Wednesday and Wednesday Has AVG in right upper arm HD catheter in right groin to be removed when INR is less than 1.5 Coumadin is on hold and vitamin K given. IR tried, PermCath could not removed. Need Vascular surgery for removal. HD now, follow Hgb. Bacteremia Vancomycin with HD ID managing
[2018-01-07] MEDS: Ferrous Sulfate 325 MG Tablet PO SCH (17:22)
[2018-01-07] MEDS: amLODIPine 10 MG Tablet PO SCH (17:23)
[2018-01-07] MEDS: Carvedilol 6.25 MG Tablet PO SCH ×2 (17:23→21:29)
[2018-01-07] MEDS: traZODone 50 MG Tablet PO SCH (21:29)
[2018-01-08] MEDS: Ketorolac Inj 30 MG/ML (IVP) Vial IV.PUSH PRN ×3 (03:48→17:01)
[2018-01-08 04:59] LABS: INR 1.6 Ratio
[2018-01-08] MEDS: amLODIPine 10 MG Tablet PO SCH (08:54)
[2018-01-08] MEDS: Ferrous Sulfate 325 MG Tablet PO SCH (08:55)
[2018-01-08] MEDS: Carvedilol 6.25 MG Tablet PO SCH ×2 (08:55→21:30)
--- NOTE | 2018-01-08 09:56 | P.PNVS ---
Subjective Subjective/Hospital Course: Pt well known to me and adm with L LE wound. I have performed R UE AVF on her most recently on 09/02/17 that was a revision with superficialization and PTFE interposition. This has healed nicely and she has been using it in the outpatient setting. Her L LE wound is chronic but recently "reopened" according to the patient. + pain. No F/C. Objective Vital Signs / I&O: Vital Signs 01/07/18 18:45 01/07/18 20:00 01/08/18 00:00 Temperature 98.1 F 98.2 F 98 F Pulse Rate 88 87 88 Respiratory Rate 18 20 20 Blood Pressure 135/73 122/66 142/69 H Pulse Oximetry 100 95 93 L 01/08/18 04:00 01/08/18 08:00 Temperature 98.1 F 97.8 F Pulse Rate 84 75 Respiratory Rate 20 18 Blood Pressure 130/69 116/70 Pulse Oximetry 100 100 Intake & Output 01/07/18 01/08/18 01/08/18 18:59 06:59 18:59 Intake Total 120 / 120 720 / 720 Balance 120 / 120 720 / 720 Weight 82.2 kg Intake: Oral 120 / 120 720 / 720 Other: Date of Last Bowel Movement 01/03/18 01/07/18 # Bowel Movements 1 Physical Exam: R UE with + thrill. Hand ok L groin catheter in place. L LE with lipodermatosclerosis and superficial ulcerations medially. + DP pulse Laboratory Results - last 24 hr 01/07/18 01/07/18 01/08/18 10:19 18:32 03:53 PT INR POC Glucose 72 91 79 01/08/18 01/08/18 04:18 08:52 PT 16.0 H INR 1.6 POC Glucose 81 Microbiology 01/03/18 23:10 Aerobic Blood Culture - Preliminary Blood - Peripheral gram positive cocci Anaerobic Blood Culture - Preliminary Staphylococcus coag negative 01/03/18 23:00 Aerobic Blood Culture - Final Blood - Peripheral Staphylococcus epidermidis Anaerobic Blood Culture - Final Staphylococcus epidermidis 01/05/18 15:30 Aerobic Blood Culture - Preliminary Blood - Peripheral No growth in 2 days Anaerobic Blood Culture - Preliminary No growth in 2 days 01/05/18 15:25 Aerobic Blood Culture - Preliminary Blood - Peripheral No growth in 2 days Anaerobic Blood Culture - Preliminary No growth in 2 days Impressions Venous Doppler Study 01/06/18 00:00 CONCLUSION: No evidence of right upper extremity DVT Tube Removal 01/07/18 00:00 CONCLUSION: The patient's left groin dialysis permacath could not be removed, firmly adherent to the tissues deep to the groin region. Surgical consultation is recommended for removal. Assessment and Plan - Plan 1. Ok to use R UE AVF 2. Remove L CFV tunneled catheter. 3. Should f/u as outpatient for wound treatment - likely venous stasis and continued local wound care and compression is the mainstay of therapy Aguila Vargas MD FACS [employer] house painter helper [facility] - [facility] Vascular Surgery at [facility] [phone]
--- NOTE | 2018-01-08 12:19 | P.PN ---
Subjective Interval history: Follow-up nonfunctional Vas-Cath January 04, 2018-patient seen and examined, currently stable January 05, 2018-patient seen and examined, afebrile however patient with 2 positive blood culture. Patient seen by vascular surgery however recommended conservative management. Patient was also seen by podiatry but she declined MRI January 06, 2018-patient seen and examined, plan for permacath removal if INR less than 1.5. Patient has no complaint and currently afebrile. Mom by the bedside. January 07, 2018-patient seen and examined, Heading for removal of permacath today ; stable and no complaint. January 08, 2018-patient seen and examined, left CFV tunnel catheter removed yesterday by vascular surgery, complicated overnight by bleeding at sites however resolved since this morning. Vital stable. H&H stable. Taking p.o. without any competition nausea and vomiting. Mom by the bedside. Physical Exam Vital signs: Vital Signs 01/07/18 18:45 01/07/18 20:00 01/08/18 00:00 Temperature 98.1 F 98.2 F 98 F Pulse Rate 88 87 88 Respiratory Rate 18 20 20 Blood Pressure 135/73 122/66 142/69 H Pulse Oximetry 100 95 93 L 01/08/18 04:00 01/08/18 08:00 Temperature 98.1 F 97.8 F Pulse Rate 84 75 Respiratory Rate 20 18 Blood Pressure 130/69 116/70 Pulse Oximetry 100 100 Intake & Output 01/07/18 01/08/18 01/08/18 18:59 06:59 18:59 Intake Total 120 / 120 720 / 720 Balance 120 / 120 720 / 720 Weight 82.2 kg Intake: Oral 120 / 120 720 / 720 Other: Date of Last Bowel Movement 01/03/18 01/07/18 # Bowel Movements 1 Narrative: GENERAL: NAD SKIN: Warm and dry. HEAD: Normocephalic. EYES: No scleral icterus. No injection or drainage. NECK: Supple, trachea midline. No JVD or lymphadenopathy. CARDIOVASCULAR: Regular rate and rhythm without murmurs, gallops, or rubs. RESPIRATORY: Breath sounds equal bilaterally. No accessory muscle use. GASTROINTESTINAL: Abdomen soft, non-tender, nondistended. MUSCULOSKELETAL: No cyanosis, or edema. Bilateral lower extremity lymphedema; left lower extremity with a chronic wound; dressing covering it BACK: Nontender without obvious deformity. No CVA tenderness. Results - Labs CBC & Chem 7: 01/05/18 05:21 01/05/18 05:21 Laboratory Results - last 24 hr 01/07/18 01/08/18 01/08/18 18:32 03:53 04:18 PT 16.0 H INR 1.6 POC Glucose 91 79 01/08/18 08:52 PT INR POC Glucose 81 Microbiology 01/05/18 15:30 Blood - Peripheral Aerobic Blood Culture - Preliminary No growth in 3 days 01/05/18 15:30 Blood - Peripheral Anaerobic Blood Culture - Preliminary No growth in 3 days 01/05/18 15:25 Blood - Peripheral Aerobic Blood Culture - Preliminary No growth in 3 days 01/05/18 15:25 Blood - Peripheral Anaerobic Blood Culture - Preliminary No growth in 3 days 01/03/18 23:10 Blood - Peripheral Aerobic Blood Culture - Final Staphylococcus coag negative 01/03/18 23:10 Blood - Peripheral Anaerobic Blood Culture - Final Staphylococcus epidermidis 01/03/18 23:00 Blood - Peripheral Aerobic Blood Culture - Final Staphylococcus epidermidis 01/03/18 23:00 Blood - Peripheral Anaerobic Blood Culture - Final Staphylococcus epidermidis - Imaging Impressions Tube Removal 01/07/18 00:00 CONCLUSION: The patient's left groin dialysis permacath could not be removed, firmly adherent to the tissues deep to the groin region. Surgical consultation is recommended for removal. Assessment and Plan - Plan 52-year-old female with Bacteremia Appreciate input from infectious disease specialist Currently on vancomycin with HD Continue to monitor culture report 2D echo pending to rule out endocarditis CHF exacerbation Fluid overload Abdominal ascites Appreciate input from Nephrology for hemodialysis. Hemodialysis per protocol Left CFV tunneled catheter removed yesterday by vascular surgery Okay to use right upper extremity aVF Left lower extremity venous stasis cellulitis. Appreciate input from podiatry, patient declined MRI to rule out osteomyelitis Dysfunctional Vas-Cath left lower extremity. Small thrombus around Vas-Cath. On warfarin however on hold. Appreciate input from vascular surgery, and recommended medical management Hypertension. Continue home meds. Anemia of chronic kidney disease Monitor H&H, transfuse for hemoglobin less than 7 during HD Hypoglycemia, asymptomatic Secondary to end-stage renal disease Treatment per hypoglycemia protocol History of CVA History of DVT On warfarin. GERD. Chronic. Continue PPI.
--- NOTE | 2018-01-08 17:08 | ECHRPT ---
Indication: Endocarditis CONCLUSIONS Normal left ventricular size. Mild concentric left ventricular hypertrophy. The left ventricular systolic function is low normal with an estimated ejection fraction of 50%. No definite segmental wall motion abnormalities. The left atrial size is moderately dilated. Moderate mitral annular calcification is present. Mild to moderate eccentrically directed mitral va lve regurgitation. Trileaflet aortic valve. Mild to moderate aortic valve sclerosis is present. There is moderate tricuspid regurgitation. The estimated pulmonary arterial pressure is 75 mmHg. BP: / HR: Rhythm: MEASUREMENTS (Male / Female) Normal Values Technical Quality: 2D ECHO LV Diastolic Diameter PLAX 5.9 cm 4.2 - 5.9 / 3.9 - 5.3 cm LV Systolic Diameter PLAX 4.7 cm IVS Diastolic Thickness 1.6 cm 0.6 - 1.0 / 0.6 - 0.9 cm LVPW Diastolic Thickness 1.5 cm 0.6 - 1.0 / 0.6 - 0.9 cm LV Relative Wall Thickness 0.5 RV Internal Dim ED PLAX 2.9 cm LVOT Diameter 2.2 cm LA Systolic Diameter LX 5.0 cm 3.0 - 4.0 / 2.7 - 3.8 cm M-MODE Aortic Root Diameter MM 2.7 cm LA Systolic Diameter MM 6.2 cm LA Ao Ratio MM 2.3 AV Cusp Separation MM 1.3 cm DOPPLER AV Peak Velocity 270.0 cm/s AV Peak Gradient 29.2 mmHg AV Mean Gradient 17.0 mmHg AV Velocity Time Integral 51.6 cm LVOT Peak Velocity 103.5 cm/s LVOT Peak Gradient 4.3 mmHg LVOT Velocity Time Integral 20.7 cm AV Area Cont Eq vti 1.5 cm AV Area Cont Eq pk 1.5 cm MV Area PHT 3.7 cm Mitral E Point Velocity 133.0 cm/s Mitral A Point Velocity 99.7 cm/s Mitral E to A Ratio 1.3 LV E' Lateral Velocity 12.2 cm/s Mitral E to LV E' Lateral Ratio 10.9 LV E' Septal Velocity 6.3 cm/s Mitral E to LV E' Septal Ratio 21.0 TR Peak Velocity 403.0 cm/s TR Peak Gradient 65.0 mmHg Right Atrial Pressure 10.0 mmHg Pulmonary Artery Systolic Pressu 75.0 mmHg Right Ventricular Systolic Press 75.0 mmHg FINDINGS LEFT VENTRICLE Normal left ventricular size. Mild concentric left ventricular hypertrophy. The left ventricular systolic function is low normal with an estimated ejection fraction of 50%. No definite segmental wall motion abnormalities. RIGHT VENTRICLE Normal right ventricular size and systolic function. LEFT ATRIUM The left atrial size is moderately dilated. RIGHT ATRIUM The right atrial size is normal. ATRIAL SEPTUM Normal atrial septal thickness without atrial level shunting by limited color doppler interrogation. AORTA The aortic root and proximal ascending aorta are normal in size on limited imaging. MITRAL VALVE Moderate mitral annular calcification is present. Mild to moderate eccentrically directed mitral va lve regurgitation. AORTIC VALVE Trileaflet aortic valve. Mild to moderate aortic valve sclerosis is present. TRICUSPID VALVE Structurally normal tricuspid valve. There is moderate tricuspid regurgitation. The estimated pulmonary arterial pressure is 75 mmHg. PULMONARY VALVE Trivial pulmonary valve regurgitation. PERICARDIUM No pericardial effusion. Dequan Amaral MD (Electronically Signed) Final Date:08 January 2018 17:07
--- NOTE | 2018-01-08 18:06 | P.PNID ---
Subjective Remarks: Ms. Jackman is a 52-year-old -[place] female with past medical history significant for end-stage renal dialysis. Her primary chemical librarian is Dr. Nicole in [facility] and she undergoes hemodialysis on Wednesdays and Fridays. Patient's nephrology history is significant for multiple failed hemodialysis access related procedures for which she has seen vascular surgery. Upon review of medical records from vascular surgeon it appears that she has had multiple bilateral upper extremity AV fistula revisions. Most recently patient had a right upper extremity AV access site revised on September 03, 2017. Thereafter on September 13, 2017 patient presented to the emergency department [place] for pain at the right upper extremity revision site and a workup was initiated. It appears that patient signed off AGAINST MEDICAL ADVICE at that time. In the interim she seems to have had a left femoral permacath placed in [facility]. Patient reports that her left lower extremity permacath stopped working last week and her left leg has become more painful. She describes the left leg pain is constant throbbing pain exacerbated with movement or touch. She reports that she has a wound on her left lower extremity that has been infected in the past but now is beginning to get worse and draining them. She reports having intermittent fevers and chills. Patient reports that since the left lower extremity permacath a stop working and not started using her right upper ex fistula for dialysis purposes. Patient initially called her chemical librarian and then subsequently Dr. Vargas who then asked her to come to the emergency department at [place]. Due to her above history of fever and chills she underwent a sepsis workup including blood cultures. Blood cultures are positive for gram-positive bacteremia and infectious diseases consulted for the same especially given her history of end-stage renal disease Pertinent positives and negatives: Patient has a left lower extremity groin area permacath in place from an outside hospital Patient has a right upper extremity AV fistula that is currently being used for hemodialysis Patient reports fever chills night sweats. Overnight events reviewed No fever No rash No diarrhea Reviewed interventional radiology notes permacath could not be removed as it appears to be at their into tissues they recommend surgical consultation for removal of the permacath Antibiotics: Vancomycin IV in dialysis Lines: Line sites with no evidence of infection. Past Medical History: Past medical history History of DVT Lymphedema Cerebrovascular accident Congestive heart failure Hypertension Anemia End-stage renal disease Past surgical history April 27, 2017 patient underwent a angiogram as well as a venogram. May 2016 underwent a right brachial brachial AV fistula placement Patient also has had an IVC filter placed Bilateral multiple upper extremity AV fistula placements September 03, 2017 patient had right upper extremity access revision. Allergies/Adverse Reactions: Allergies Penicillins Allergy (Severe, Verified 09/02/17 14:16) Swelling Objective Vital Signs 01/07/18 18:45 01/07/18 20:00 01/08/18 00:00 Temperature 98.1 F 98.2 F 98 F Pulse Rate 88 87 88 Respiratory Rate 18 20 20 Blood Pressure 135/73 122/66 142/69 H Pulse Oximetry 100 95 93 L 01/08/18 04:00 01/08/18 08:00 01/08/18 12:00 Temperature 98.1 F 97.8 F 98 F Pulse Rate 84 75 80 Respiratory Rate 20 18 18 Blood Pressure 130/69 116/70 113/63 Pulse Oximetry 100 100 100 01/08/18 16:00 Temperature Pulse Rate 73 Respiratory Rate Blood Pressure Pulse Oximetry Intake & Output 01/07/18 01/08/18 01/08/18 18:59 06:59 18:59 Intake Total 120 / 120 720 / 720 Balance 120 / 120 720 / 720 Weight 82.2 kg Intake: Oral 120 / 120 720 / 720 Other: Date of Last Bowel Movement 01/07/18 01/07/18 # Bowel Movements 1 01/05/18 15:30 Blood - Peripheral Aerobic Blood Culture - Preliminary No growth in 3 days 01/05/18 15:30 Blood - Peripheral Anaerobic Blood Culture - Preliminary No growth in 3 days 01/05/18 15:25 Blood - Peripheral Aerobic Blood Culture - Preliminary No growth in 3 days 01/05/18 15:25 Blood - Peripheral Anaerobic Blood Culture - Preliminary No growth in 3 days 01/03/18 23:10 Blood - Peripheral Aerobic Blood Culture - Final Staphylococcus coag negative 01/03/18 23:10 Blood - Peripheral Anaerobic Blood Culture - Final Staphylococcus epidermidis 01/03/18 23:00 Blood - Peripheral Aerobic Blood Culture - Final Staphylococcus epidermidis 01/03/18 23:00 Blood - Peripheral Anaerobic Blood Culture - Final Staphylococcus epidermidis 01/03/18 23:00 Wound - Foot Gram Stain - Final 01/03/18 23:00 Wound - Foot Wound Culture - Final S. aureus MRSA Lab - Chemistry Results 01/06/18 01/07/18 01/07/18 22:00 10:19 18:32 POC Glucose 98 72 91 01/08/18 01/08/18 03:53 08:52 POC Glucose 79 81 Imaging: ITS Impressions Venous Doppler Study 01/06/18 00:00 CONCLUSION: No evidence of right upper extremity DVT Chest X-Ray 01/06/18 00:01 CONCLUSION: Persistent bilateral lower lung infiltrates, left greater than right. Tube Removal 01/07/18 00:00 CONCLUSION: The patient's left groin dialysis permacath could not be removed, firmly adherent to the tissues deep to the groin region. Surgical consultation is recommended for removal. Physical Exam: GENERAL: Well-nourished well-developed, not in acute distress SKIN: Cool and dry, no generalized rash HEAD: Atraumatic. Normocephalic. No temporal or scalp tenderness. EYES: Pupils equal round and reactive. Scleral icterus. No injection or drainage. No petechia ENT: Nothing abnormal detected NECK: Trachea midline. Supple, nontender, no meningeal signs. CARDIOVASCULAR: HS audible. RESPIRATORY: Clear to auscultation bilaterally. GASTROINTESTINAL: Abdomen soft nontender. MUSCULOSKELETAL: Extremities without clubbing, cyanosis. NEUROLOGICAL: Alert oriented 3. Nonfocal. Psych cooperative IV line sites ok. Permacath site looks okay no obvious purulence. Tenderness with induration noted. Assessment and Plan - Plan MRSA bacteremia likely related to Permacath in Left groin. Coag negative staph bacteremia Septic Thrombophlebitis at site of left permacath. ESRD on HD Multiple AV fistulas with access issues needing revisions. RUE Fistula current HD access. Bilateral infiltrates ? pneumonia ? septic emboli. Lymphedema LLE ulcer ? infected Recs Vanco 1 gm to be given in HD. We will check vancomycin level early next week 2D echo negative We will need to consult vascular surgery for removal of the left groin permacath catheter is IR was not able to take it out due to adherent tissue. liliana RN liliana Patient.
--- NOTE | 2018-01-08 19:26 | P.PNNP ---
Subjective Interval history: no acute complaints Physical Exam Vital signs: Vital Signs 01/07/18 20:00 01/08/18 00:00 01/08/18 04:00 Temperature 98.2 F 98 F 98.1 F Pulse Rate 87 88 84 Respiratory Rate 20 20 20 Blood Pressure 122/66 142/69 H 130/69 Pulse Oximetry 95 93 L 100 01/08/18 08:00 01/08/18 12:00 01/08/18 16:00 Temperature 97.8 F 98 F 98.2 F Pulse Rate 75 80 83 Respiratory Rate 18 18 18 Blood Pressure 116/70 113/63 122/65 Pulse Oximetry 100 100 100 Intake & Output 01/08/18 01/08/18 01/09/18 06:59 18:59 06:59 Intake Total 720 / 720 Output Total 2 / 2 Balance 720 / 720 -2 / -2 Weight 82.2 kg Intake: Oral 720 / 720 Output: Stool 2 / 2 Other: Date of Last Bowel Movement 01/07/18 # Bowel Movements 1 - Constitutional no acute distress - Routine HEENT Exam Head: Present: normocephalic ENT: Present: mucous membranes moist - Routine Neck Exam Present: supple - Routine Respiratory Exam Present: decreased breath sounds - Routine Cardiovascular Exam Present: RRR - Routine Abdominal Exam Present: soft - Routine Exam Groin: Present: swelling - Routine Skin Exam Present: intact - Routine Neurological Exam Present: alert, oriented X3 - Detailed Neurological Exam: Coma Scale Eye Opening: Spontaneous - Routine Psychiatric Exam Present: normal affect Assessment and Plan - Assessment (1) End-stage renal disease on hemodialysis Code(s): N18.6 - End stage renal disease; Z99.2 - Dependence on renal dialysis Status: Acute - Plan ESRD She is on hemodialysis Wednesday, Wednesday and Wednesday Has AVG in right upper arm with good thrill HD catheter in groin to be removed with vascular surgery May consider for endoluminal catheter balloon dilation to help remove catheter ( in place for 4 years with likely adherent fibrin sheath) Bacteremia Vancomycin with HD ID managing
[2018-01-08] MEDS: traZODone 50 MG Tablet PO SCH (21:29)
[2018-01-09] MEDS: Ketorolac Inj 30 MG/ML (IVP) Vial IV.PUSH PRN ×2 (00:36→08:26)
[2018-01-09 06:09] LABS: Baso # (Auto) 0.1 th/mm3 (0.0-0.2); Baso % (Auto) 0.8 % (0.0-2.0); Eos # (Auto) 0.5 th/mm3 (0.0-0.4); Eos % (Auto) 7.4 % (0.0-4.0); Lymph % (Auto) 13.9 % (9.0-44.0); Mean Corpuscular HGB Conc 32.5 % (32.0-36.0); Mean Corpuscular Hemoglobin 25.9 pg (27.0-34.0); Mean Corpuscular Volume 79.7 fL (80.0-100.0); Mean Platelet Volume 7.4 fL (7.0-11.0); Mono # (Auto) 0.6 th/mm3 (0.0-0.9); Mono % (Auto) 8.4 % (0.0-8.0); Neut % (Auto) 69.5 % (16.0-70.0); Platelet Count 300 th/mm3 (150-450); Red Blood Count 2.14 mil/mm3 (4.00-5.30); Red Cell Distribution Width 17.5 % (11.6-17.2); White Blood Count 7.2 th/mm3 (4.0-11.0)
[2018-01-09 06:14] LABS: INR 1.5 Ratio; Prothrombin Time 14.7 sec (9.8-11.6)
[2018-01-09 06:18] LABS: Hemoglobin 5.5 gm/dL (11.6-15.3)
[2018-01-09 06:22] LABS: Calcium 8.1 mg/dL (8.5-10.1); Carbon Dioxide 29.3 meq/L (21.0-32.0); Potassium 4.6 meq/L (3.5-5.1)
[2018-01-09] MEDS ORDERED: Sodium Chlor 0.9% Inj 250 ML IV.SIG SCH (07:00)
[2018-01-09] MEDS: Ferrous Sulfate 325 MG Tablet PO SCH (08:25)
[2018-01-09] MEDS: amLODIPine 10 MG Tablet PO SCH (08:25)
[2018-01-09] MEDS: Carvedilol 6.25 MG Tablet PO SCH ×2 (08:25→21:18)
[2018-01-09 09:58] LABS: Ovalocytes 1+
--- NOTE | 2018-01-09 11:26 | P.PN ---
Subjective Interval history: Follow-up nonfunctional Vas-Cath January 04, 2018-patient seen and examined, currently stable January 05, 2018-patient seen and examined, afebrile however patient with 2 positive blood culture. Patient seen by vascular surgery however recommended conservative management. Patient was also seen by podiatry but she declined MRI January 06, 2018-patient seen and examined, plan for permacath removal if INR less than 1.5. Patient has no complaint and currently afebrile. Mom by the bedside. January 07, 2018-patient seen and examined, Heading for removal of permacath today ; stable and no complaint. January 08, 2018-patient seen and examined, left CFV tunnel catheter removed yesterday by vascular surgery, complicated overnight by bleeding at sites however resolved since this morning. Vital stable. H&H stable. Taking p.o. without any competition nausea and vomiting. Mom by the bedside. January 09, 2018-patient seen and examined, currently receiving 2 units packed red blood cell. No other issues. Physical Exam Vital signs: Vital Signs 01/08/18 12:00 01/08/18 16:00 01/08/18 20:00 Temperature 98 F 98.2 F 98.3 F Pulse Rate 80 83 86 Respiratory Rate 18 18 17 Blood Pressure 113/63 122/65 140/70 Pulse Oximetry 100 100 100 01/09/18 00:00 01/09/18 04:00 01/09/18 08:00 Temperature 97.4 F L 98.1 F 97.7 F Pulse Rate 77 80 75 Respiratory Rate 19 18 20 Blood Pressure 111/68 117/69 118/69 Pulse Oximetry 100 100 100 01/09/18 09:48 01/09/18 10:29 01/09/18 10:45 Temperature Pulse Rate 77 Respiratory Rate 8 L 16 Blood Pressure 111/70 Pulse Oximetry 100 Intake & Output 01/08/18 01/09/18 01/09/18 18:59 06:59 18:59 Intake Total 480 / 480 360 / 360 Output Total 2 / 2 Balance -2 / -2 480 / 480 360 / 360 Intake: Oral 480 / 480 360 / 360 Output: Stool 2 / 2 Other: Date of Last Bowel Movement 01/07/18 Narrative: GENERAL: NAD SKIN: Warm and dry. HEAD: Normocephalic. EYES: No scleral icterus. No injection or drainage. NECK: Supple, trachea midline. No JVD or lymphadenopathy. CARDIOVASCULAR: Regular rate and rhythm without murmurs, gallops, or rubs. RESPIRATORY: Breath sounds equal bilaterally. No accessory muscle use. GASTROINTESTINAL: Abdomen soft, non-tender, nondistended. MUSCULOSKELETAL: No cyanosis, or edema. Bilateral lower extremity lymphedema; left lower extremity with a chronic wound; dressing covering it BACK: Nontender without obvious deformity. No CVA tenderness. Results - Labs CBC & Chem 7: 01/09/18 05:25 01/09/18 05:25 Laboratory Results - last 24 hr 01/09/18 01/09/18 01/09/18 05:25 05:25 05:25 WBC 7.2 RBC 2.14 L Hgb 5.5 L* Hct 17.0 L* MCV 79.7 L MCH 25.9 L MCHC 32.5 RDW 17.5 H Plt Count 300 MPV 7.4 Prelim Diff (Auto) Slide review pending Neut % (Auto) 69.5 Lymph % (Auto) 13.9 [place] % (Auto) 8.4 H Eos % (Auto) 7.4 H Baso % (Auto) 0.8 Neut # (Auto) 5.0 Lymph # (Auto) 1.0 [place] # (Auto) 0.6 Eos # (Auto) 0.5 H Baso # (Auto) 0.1 WBC Differential . Diff Scan Auto diff confirmed Differential Comment . Ovalocytes 1+ H PT 14.7 H INR 1.5 Sodium 140 Potassium 4.6 Chloride 101 Carbon Dioxide 29.3 Anion Gap 10 BUN 47 H Creatinine 4.44 H Estimated GFR 13 L Random Glucose 82 Calcium 8.1 L Blood Type Blood Type Confirm Antibody Screen MTS Gel Crossmatch 01/09/18 01/09/18 08:00 08:41 WBC RBC Hgb Hct MCV MCH MCHC RDW Plt Count MPV Prelim Diff (Auto) Neut % (Auto) Lymph % (Auto) [place] % (Auto) Eos % (Auto) Baso % (Auto) Neut # (Auto) Lymph # (Auto) [place] # (Auto) Eos # (Auto) Baso # (Auto) WBC Differential Diff Scan Differential Comment Ovalocytes PT INR Sodium Potassium Chloride Carbon Dioxide Anion Gap BUN Creatinine Estimated GFR Random Glucose Calcium Blood Type A Positive Blood Type Confirm A Positive Antibody Screen Negative MTS Gel Crossmatch See Detail Microbiology 01/05/18 15:30 Blood - Peripheral Aerobic Blood Culture - Preliminary No growth in 4 days 01/05/18 15:30 Blood - Peripheral Anaerobic Blood Culture - Preliminary No growth in 4 days 01/05/18 15:25 Blood - Peripheral Aerobic Blood Culture - Preliminary No growth in 4 days 01/05/18 15:25 Blood - Peripheral Anaerobic Blood Culture - Preliminary No growth in 4 days 01/03/18 23:10 Blood - Peripheral Aerobic Blood Culture - Final Staphylococcus coag negative 01/03/18 23:10 Blood - Peripheral Anaerobic Blood Culture - Final Staphylococcus epidermidis Assessment and Plan - Plan 52-year-old female with Bacteremia Appreciate input from infectious disease specialist Currently on vancomycin with HD Continue to monitor culture report 2D echo pending to rule out endocarditis CHF exacerbation Fluid overload Abdominal ascites Appreciate input from Nephrology for hemodialysis. Hemodialysis per protocol Left CFV tunneled catheter removed yesterday by vascular surgery Okay to use right upper extremity aVF Left lower extremity venous stasis cellulitis. Appreciate input from podiatry, patient declined MRI to rule out osteomyelitis Dysfunctional Vas-Cath left lower extremity. Small thrombus around Vas-Cath. On warfarin however on hold. Appreciate input from vascular surgery Hypertension. Continue home meds. Anemia of chronic kidney disease compounded by acute blood loss 2 unit packed red blood cells ordered by [facility] [employer] Hypoglycemia, asymptomatic Secondary to end-stage renal disease Treatment per hypoglycemia protocol History of CVA History of DVT On warfarin however due to acute blood loss, will continue to hold warfarin. GERD. Chronic. Continue PPI.
--- NOTE | 2018-01-09 13:42 | P.PNNP ---
Subjective Interval history: receiving PRBCs Physical Exam Vital signs: Vital Signs 01/08/18 16:00 01/08/18 20:00 01/09/18 00:00 Temperature 98.2 F 98.3 F 97.4 F L Pulse Rate 83 86 77 Respiratory Rate 18 17 19 Blood Pressure 122/65 140/70 111/68 Pulse Oximetry 100 100 100 01/09/18 04:00 01/09/18 08:00 01/09/18 09:48 Temperature 98.1 F 97.7 F Pulse Rate 80 75 Respiratory Rate 18 20 8 L Blood Pressure 117/69 118/69 Pulse Oximetry 100 100 01/09/18 10:29 01/09/18 10:45 01/09/18 12:14 Temperature 98.0 F Pulse Rate 77 76 Respiratory Rate 16 16 Blood Pressure 111/70 111/70 Pulse Oximetry 100 100 Intake & Output 01/08/18 01/09/18 01/09/18 18:59 06:59 18:59 Intake Total 480 / 480 760 / 760 Output Total 2 / 2 Balance -2 / -2 480 / 480 760 / 760 Intake: Oral 480 / 480 360 / 360 Intake (Blood Product) Amt 400 / 400 Rbc As-3 Leukoreduced Unit 400 / 400 [id number] Output: Stool 2 / 2 Other: Date of Last Bowel Movement 01/07/18 - Constitutional no acute distress - Routine HEENT Exam Head: Present: normocephalic Eye: Present: EOMI ENT: Present: mucous membranes moist - Routine Neck Exam Present: supple - Routine Respiratory Exam Present: diminished air movement - Routine Cardiovascular Exam Present: RRR - Routine Abdominal Exam Present: soft - Routine Skin Exam Present: intact - Routine Neurological Exam Present: alert - Detailed Neurological Exam: Coma Scale Eye Opening: Spontaneous - Routine Psychiatric Exam Present: normal affect Assessment and Plan - Assessment (1) End-stage renal disease on hemodialysis Code(s): N18.6 - End stage renal disease; Z99.2 - Dependence on renal dialysis Status: Acute - Plan ESRD She is on hemodialysis Wednesday, Wednesday and Wednesday Has AVG in right upper arm with good thrill HD Wednesday HD catheter in groin to be removed with vascular surgery May consider for endoluminal catheter balloon dilation to help remove catheter ( in place for 4 years with likely adherent fibrin sheath) Receiving 2U PRBCs today - continue to monitor. Bacteremia Vancomycin with HD ID managing
[2018-01-09 16:25] LABS: Hematocrit 22.4 % (35.0-46.0); Hemoglobin 7.3 gm/dL (11.6-15.3); Mean Corpuscular HGB Conc 32.6 % (32.0-36.0); Mean Corpuscular Hemoglobin 25.7 pg (27.0-34.0); Mean Platelet Volume 7.7 fL (7.0-11.0); Platelet Count 321 th/mm3 (150-450); Red Blood Count 2.84 mil/mm3 (4.00-5.30); Red Cell Distribution Width 17.2 % (11.6-17.2)
[2018-01-09 16:44] LABS: Albumin 1.8 g/dL (3.4-5.0); Anion Gap 10 meq/L (5-15); Blood Urea Nitrogen 51 mg/dL (7-18); Calcium 8.3 mg/dL (8.5-10.1); Carbon Dioxide 27.4 meq/L (21.0-32.0); Chloride 100 meq/L (98-107); Glucose,Random 77 mg/dL (74-106); Potassium 5.2 meq/L (3.5-5.1); Sodium 137 meq/L (136-145)
[2018-01-09 16:45] LABS: Glomerular Filtration Rate 12 mL/min (>89)
[2018-01-09 16:48] LABS: Alanine Aminotransferase 6 U/L (10-53); Alkaline Phosphatase 245 U/L (45-117); Aspartate Aminotransferase 12 U/L (15-37)
[2018-01-09] MEDS: traZODone 50 MG Tablet PO SCH (21:18)
--- NOTE | 2018-01-10 01:44 | XR ---
EXAM DATE: 01/10/2018 12:54 AM EDT AGE/SEX: 52 years / Female INDICATIONS: Shortness of breath. CLINICAL DATA: This is the patient's subsequent encounter. Patient reports that signs and symptoms h ave been present for 4 - 6 days and indicates a pain score of 0/10. MEDICAL/SURGICAL HISTORY: . Congestive heart failure. Deep venous thrombosis. Chronic Kidney D isease. section. COMPARISON: C, CHEST 1V SINGLE AP, 01/06/2018. . FINDINGS: Diffuse patchy airspace disease throughout the right lung and left lower lobe. Cardiomediastinal cont ours are stable. Bony thorax is intact. CONCLUSION: 1. Stable patchy diffuse right lung and left lower lobe airspace disease. Electronically signed by: Yrn Fletcher MD 01/10/2018 1:43 AM EDT
[2018-01-10 06:16] LABS: Baso # (Auto) 0.1 th/mm3 (0.0-0.2); Baso % (Auto) 0.7 % (0.0-2.0); Eos # (Auto) 0.4 th/mm3 (0.0-0.4); Eos % (Auto) 4.6 % (0.0-4.0); INR 1.5 Ratio; Lymph % (Auto) 9.8 % (9.0-44.0); Mean Corpuscular HGB Conc 33.3 % (32.0-36.0); Mean Corpuscular Hemoglobin 26.3 pg (27.0-34.0); Mean Corpuscular Volume 78.9 fL (80.0-100.0); Mean Platelet Volume 7.2 fL (7.0-11.0); Mono # (Auto) 0.6 th/mm3 (0.0-0.9); Mono % (Auto) 6.4 % (0.0-8.0); Neut # (Auto) 7.6 th/mm3 (1.8-7.7); Neut % (Auto) 78.5 % (16.0-70.0); Platelet Count 338 th/mm3 (150-450); Prothrombin Time 14.7 sec (9.8-11.6); Red Blood Count 2.63 mil/mm3 (4.00-5.30); Red Cell Distribution Width 16.7 % (11.6-17.2); White Blood Count 9.7 th/mm3 (4.0-11.0)
[2018-01-10 06:21] LABS: Hematocrit 20.8 % (35.0-46.0); Hemoglobin 6.9 gm/dL (11.6-15.3)
[2018-01-10 06:34] LABS: Calcium 7.5 mg/dL (8.5-10.1); Carbon Dioxide 29.7 meq/L (21.0-32.0); Potassium 5.7 meq/L (3.5-5.1)
[2018-01-10] MEDS ORDERED: Sodium Chlor 0.9% Inj 250 ML IV.SIG SCH (07:00)
[2018-01-10 08:17] LABS: Ovalocytes 1+
--- NOTE | 2018-01-10 10:20 | P.PN ---
Subjective Interval history: Follow-up nonfunctional Vas-Cath January 04, 2018-patient seen and examined, currently stable January 05, 2018-patient seen and examined, afebrile however patient with 2 positive blood culture. Patient seen by vascular surgery however recommended conservative management. Patient was also seen by podiatry but she declined MRI January 06, 2018-patient seen and examined, plan for permacath removal if INR less than 1.5. Patient has no complaint and currently afebrile. Mom by the bedside. January 07, 2018-patient seen and examined, Heading for removal of permacath today ; stable and no complaint. January 08, 2018-patient seen and examined, left CFV tunnel catheter removed yesterday by vascular surgery, complicated overnight by bleeding at sites however resolved since this morning. Vital stable. H&H stable. Taking p.o. without any competition nausea and vomiting. Mom by the bedside. January 09, 2018-patient seen and examined, currently receiving 2 units packed red blood cell. No other issues. January 10, 2018-patient seen and examined, patient had an adverse reaction to blood transfusion yesterday with complaint of shortness of breath. Plan for hemodialysis today as well as removal of permacath Physical Exam Vital signs: Vital Signs 01/09/18 10:29 01/09/18 10:45 01/09/18 12:00 Temperature 98 F Pulse Rate 77 79 Respiratory Rate 16 20 Blood Pressure 111/70 122/73 Pulse Oximetry 100 99 01/09/18 12:14 01/09/18 14:07 01/09/18 16:00 Temperature 98.0 F 97.6 F 98.5 F Pulse Rate 76 79 79 Respiratory Rate 16 16 20 Blood Pressure 111/70 118/74 127/78 Pulse Oximetry 100 100 01/09/18 16:50 01/09/18 20:00 01/09/18 23:50 Temperature 98 F 97.6 F Pulse Rate 82 89 Respiratory Rate 16 19 19 Blood Pressure 118/79 142/83 H Pulse Oximetry 100 95 01/10/18 00:00 01/10/18 04:00 01/10/18 08:00 Temperature 97.9 F 98.3 F Pulse Rate 87 72 83 Respiratory Rate 17 18 Blood Pressure 114/70 121/65 Pulse Oximetry 97 100 01/10/18 09:09 Temperature Pulse Rate Respiratory Rate Blood Pressure Pulse Oximetry 97 Intake & Output 01/09/18 01/10/18 01/10/18 18:59 06:59 18:59 Intake Total 1160 / 1160 Balance 1160 / 1160 Weight 82.1 kg Intake: Oral 360 / 360 Intake (Blood Product) Amt 800 / 800 Rbc As-3 Leukoreduced Unit 400 / 400 [id number] Rbc As-3 Leukoreduced Unit 400 / 400 [id number] Other: # Voids 0 Date of Last Bowel Movement 01/07/18 01/07/18 # Bowel Movements 1 Narrative: GENERAL: NAD SKIN: Warm and dry. HEAD: Normocephalic. EYES: No scleral icterus. No injection or drainage. NECK: Supple, trachea midline. No JVD or lymphadenopathy. CARDIOVASCULAR: Regular rate and rhythm without murmurs, gallops, or rubs. RESPIRATORY: Breath sounds equal bilaterally. No accessory muscle use. GASTROINTESTINAL: Abdomen soft, non-tender, nondistended. MUSCULOSKELETAL: No cyanosis, or edema. Bilateral lower extremity lymphedema; left lower extremity with a chronic wound; dressing covering it BACK: Nontender without obvious deformity. No CVA tenderness. Results - Labs CBC & Chem 7: 01/10/18 05:31 01/10/18 05:31 Laboratory Results - last 24 hr 01/09/18 01/09/18 01/09/18 08:00 13:16 15:01 WBC 8.0 RBC 2.84 L Hgb 7.3 L Hct 22.4 L MCV 79.0 L MCH 25.7 L MCHC 32.6 RDW 17.2 Plt Count 321 MPV 7.7 Prelim Diff (Auto) Neut % (Auto) Lymph % (Auto) Mathews % (Auto) Eos % (Auto) Baso % (Auto) Neut # (Auto) Lymph # (Auto) Mathews # (Auto) Eos # (Auto) Baso # (Auto) WBC Differential Diff Scan Differential Comment Ovalocytes PT INR Sodium Potassium Chloride Carbon Dioxide Anion Gap BUN Creatinine Estimated GFR POC Glucose 93 Random Glucose Calcium Total Bilirubin AST ALT Alkaline Phosphatase Total Protein Albumin Blood Type A Positive Antibody Screen Negative MTS Gel Crossmatch See Detail 01/09/18 01/09/18 01/09/18 15:01 17:05 21:16 WBC RBC Hgb Hct MCV MCH MCHC RDW Plt Count MPV Prelim Diff (Auto) Neut % (Auto) Lymph % (Auto) Mathews % (Auto) Eos % (Auto) Baso % (Auto) Neut # (Auto) Lymph # (Auto) Mathews # (Auto) Eos # (Auto) Baso # (Auto) WBC Differential Diff Scan Differential Comment Ovalocytes PT INR Sodium 137 Potassium 5.2 H Chloride 100 Carbon Dioxide 27.4 Anion Gap 10 BUN 51 H Creatinine 4.68 H Estimated GFR 12 L POC Glucose 96 110 Random Glucose 77 Calcium 8.3 L Total Bilirubin 0.6 AST 12 L ALT 6 L Alkaline Phosphatase 245 H Total Protein 8.0 Albumin 1.8 L Blood Type Antibody Screen MTS Gel Crossmatch 01/10/18 01/10/18 01/10/18 04:41 05:31 05:31 WBC 9.7 RBC 2.63 L Hgb 6.9 L* Hct 20.8 L* MCV 78.9 L MCH 26.3 L MCHC 33.3 RDW 16.7 Plt Count 338 MPV 7.2 Prelim Diff (Auto) Slide review pending Neut % (Auto) 78.5 H Lymph % (Auto) 9.8 Mathews % (Auto) 6.4 Eos % (Auto) 4.6 H Baso % (Auto) 0.7 Neut # (Auto) 7.6 Lymph # (Auto) 1.0 Mathews # (Auto) 0.6 Eos # (Auto) 0.4 Baso # (Auto) 0.1 WBC Differential . Diff Scan Auto diff confirmed Differential Comment . Ovalocytes 1+ H PT INR Sodium 138 Potassium 5.7 H Chloride 101 Carbon Dioxide 29.7 Anion Gap 7 BUN 67 H Creatinine 4.82 H Estimated GFR 11 L POC Glucose 96 Random Glucose 87 Calcium 7.5 L D Total Bilirubin AST ALT Alkaline Phosphatase Total Protein Albumin Blood Type Antibody Screen [facility] Gel Crossmatch 01/10/18 01/10/18 01/10/18 05:31 07:07 08:18 WBC RBC Hgb Hct MCV MCH MCHC RDW Plt Count MPV Prelim Diff (Auto) Neut % (Auto) Lymph % (Auto) Mathews % (Auto) Eos % (Auto) Baso % (Auto) Neut # (Auto) Lymph # (Auto) Mathews # (Auto) Eos # (Auto) Baso # (Auto) WBC Differential Diff Scan Differential Comment Ovalocytes PT 14.7 H INR 1.5 Sodium Potassium Chloride Carbon Dioxide Anion Gap BUN Creatinine Estimated GFR POC Glucose 93 Random Glucose Calcium Total Bilirubin AST ALT Alkaline Phosphatase Total Protein Albumin Blood Type Antibody Screen MTS Gel Crossmatch See Detail Microbiology 01/05/18 15:30 Blood - Peripheral Aerobic Blood Culture - Preliminary No growth in 4 days 01/05/18 15:30 Blood - Peripheral Anaerobic Blood Culture - Preliminary No growth in 4 days 01/05/18 15:25 Blood - Peripheral Aerobic Blood Culture - Preliminary No growth in 4 days 01/05/18 15:25 Blood - Peripheral Anaerobic Blood Culture - Preliminary No growth in 4 days - Imaging Impressions Chest X-Ray 01/10/18 00:27 CONCLUSION: 1. Stable patchy diffuse right lung and left lower lobe airspace disease. Assessment and Plan - Plan 52-year-old female with Bacteremia Appreciate input from infectious disease specialist Currently on vancomycin with HD Continue to monitor culture report 2D echo pending to rule out endocarditis CHF exacerbation Fluid overload Abdominal ascites Appreciate input from Nephrology for hemodialysis. Hemodialysis per protocol Left CFV tunneled catheter removed 01/08 by vascular surgery Okay to use right upper extremity aVF Plan for removal of permacath today in OR by vascular surgery January 10, 2018 Left lower extremity venous stasis cellulitis. Appreciate input from podiatry, patient declined MRI to rule out osteomyelitis Dysfunctional Vas-Cath left lower extremity. Small thrombus around Vas-Cath. On warfarin however on hold. Appreciate input from vascular surgery Hypertension. Continue home meds. Anemia of chronic kidney disease compounded by acute blood loss Patient had adverse reaction to blood transfusion January 09, 2018 Patient to receive 1 unit packed red blood cell transfusion today during hemodialysis January 10, 2018 Hypoglycemia, asymptomatic Secondary to end-stage renal disease Treatment per hypoglycemia protocol History of CVA History of DVT On warfarin however due to acute blood loss, continue to hold warfarin. GERD. Chronic. Continue PPI.
--- NOTE | 2018-01-10 10:53 | P.PNVS ---
- Pre-operative Note Planned Procedure: Removal of LEFT Groin catheter Vein Repair Interval History: 52/F w/ a hx of left groin dialysis permacath could not be removed, firmly adherent to the tissues deep to the groin region. Surgical consultation for removal Labs: WBC 9.7 th/mm3 (4.0-11.0) 01/10/18 05:31 RBC 2.63 mil/mm3 (4.00-5.30) L 01/10/18 05:31 Hgb 6.9 gm/dL (11.6-15.3) L* 01/10/18 05:31 Hct 20.8 % (35.0-46.0) L* 01/10/18 05:31 MCV 78.9 fL (80.0-100.0) L 01/10/18 05:31 MCH 26.3 pg (27.0-34.0) L 01/10/18 05:31 MCHC 33.3 % (32.0-36.0) 01/10/18 05:31 RDW 16.7 % (11.6-17.2) 01/10/18 05:31 Plt Count 338 th/mm3 (150-450) 01/10/18 05:31 MPV 7.2 fL (7.0-11.0) 01/10/18 05:31 INR 1.5 Ratio 01/10/18 05:31 Sodium 138 meq/L (136-145) 01/10/18 05:31 Potassium 5.7 meq/L (3.5-5.1) H 01/10/18 05:31 Chloride 101 meq/L (98-107) 01/10/18 05:31 Carbon Dioxide 29.7 meq/L (21.0-32.0) 01/10/18 05:31 Anion Gap 7 meq/L (5-15) 01/10/18 05:31 BUN 67 mg/dL (7-18) H 01/10/18 05:31 Random Glucose 87 mg/dL (74-106) 01/10/18 05:31 Calcium 7.5 mg/dL (8.5-10.1) L D 01/10/18 05:31 Imaging: ITS Impressions Venous Doppler Study 01/06/18 00:00 CONCLUSION: No evidence of right upper extremity DVT Tube Removal 01/07/18 00:00 CONCLUSION: The patient's left groin dialysis permacath could not be removed, firmly adherent to the tissues deep to the groin region. Surgical consultation is recommended for removal. Chest X-Ray 01/10/18 00:27 CONCLUSION: 1. Stable patchy diffuse right lung and left lower lobe airspace disease. Operative site marked: Yes Consent: Informed consent has been obtained from Adrienne Jackman. I have explained the procedure in detail and discussed the risks, benefits, and potential complications. All questions have been answered.
[2018-01-10] MEDS: Carvedilol 6.25 MG Tablet PO SCH (11:11)
[2018-01-10] MEDS: Ferrous Sulfate 325 MG Tablet PO SCH (11:11)
[2018-01-10] MEDS: amLODIPine 10 MG Tablet PO SCH (11:11)
[2018-01-10] MEDS ORDERED: Sodium Chlor 0.9% Inj 500 ML IV.SIG ONE (12:00)
--- NOTE | 2018-01-10 13:04 | P.PNID ---
Subjective Remarks: Ms. Jackman is a 52-year-old -[place] female with past medical history significant for end-stage renal dialysis. Her primary director compensation is Dr. Nicole in [facility] and she undergoes hemodialysis on Wednesdays and Fridays. Patient's nephrology history is significant for multiple failed hemodialysis access related procedures for which she has seen vascular surgery. Upon review of medical records from vascular surgeon it appears that she has had multiple bilateral upper extremity AV fistula revisions. Most recently patient had a right upper extremity AV access site revised on September 03, 2017. Thereafter on September 13, 2017 patient presented to the emergency department [place] for pain at the right upper extremity revision site and a workup was initiated. It appears that patient signed off AGAINST MEDICAL ADVICE at that time. In the interim she seems to have had a left femoral permacath placed in [facility]. Patient reports that her left lower extremity permacath stopped working last week and her left leg has become more painful. She describes the left leg pain is constant throbbing pain exacerbated with movement or touch. She reports that she has a wound on her left lower extremity that has been infected in the past but now is beginning to get worse and draining them. She reports having intermittent fevers and chills. Patient reports that since the left lower extremity permacath a stop working and not started using her right upper ex fistula for dialysis purposes. Patient initially called her director compensation and then subsequently Dr. Vargas who then asked her to come to the emergency department at [place]. Due to her above history of fever and chills she underwent a sepsis workup including blood cultures. Blood cultures are positive for gram-positive bacteremia and infectious diseases consulted for the same especially given her history of end-stage renal disease Pertinent positives and negatives: Patient has a left lower extremity groin area permacath in place from an outside hospital Patient has a right upper extremity AV fistula that is currently being used for hemodialysis Patient reports fever chills night sweats. Overnight events reviewed No fever No rash No diarrhea Reviewed interventional radiology notes permacath could not be removed as it appears to be at their into tissues they recommend surgical consultation for removal of the permacath dw vascular SHEEP HERDER plan for vascular surgery to remove Tunneled cath. Antibiotics: Vancomycin IV in dialysis Lines: Line sites with no evidence of infection. Past Medical History: Past medical history History of DVT Lymphedema Cerebrovascular accident Congestive heart failure Hypertension Anemia End-stage renal disease Past surgical history April 27, 2017 patient underwent a angiogram as well as a venogram. May 2016 underwent a right brachial brachial AV fistula placement Patient also has had an IVC filter placed Bilateral multiple upper extremity AV fistula placements September 03, 2017 patient had right upper extremity access revision. Allergies/Adverse Reactions: Allergies Penicillins Allergy (Severe, Verified 09/02/17 14:16) Swelling Objective Vital Signs 01/09/18 14:07 01/09/18 16:00 01/09/18 16:50 Temperature 97.6 F 98.5 F Pulse Rate 79 79 Respiratory Rate 16 20 16 Blood Pressure 118/74 127/78 Pulse Oximetry 100 01/09/18 20:00 01/09/18 23:50 01/10/18 00:00 Temperature 98 F 97.6 F Pulse Rate 82 89 87 Respiratory Rate 19 19 Blood Pressure 118/79 142/83 H Pulse Oximetry 100 95 01/10/18 04:00 01/10/18 08:00 01/10/18 09:09 Temperature 97.9 F 98.3 F Pulse Rate 72 83 Respiratory Rate 17 18 Blood Pressure 114/70 121/65 Pulse Oximetry 97 100 97 01/10/18 12:00 Temperature 98.7 F Pulse Rate 87 Respiratory Rate 20 Blood Pressure 134/80 Pulse Oximetry 93 L Intake & Output 01/09/18 01/10/18 01/10/18 18:59 06:59 18:59 Intake Total 1160 / 1160 Balance 1160 / 1160 Weight 82.1 kg Intake: Oral 360 / 360 Intake (Blood Product) Amt 800 / 800 Rbc As-3 Leukoreduced Unit 400 / 400 [id number] Rbc As-3 Leukoreduced Unit 400 / 400 [id number] Other: # Voids 0 Date of Last Bowel Movement 01/07/18 01/07/18 # Bowel Movements 1 01/05/18 15:30 Blood - Peripheral Aerobic Blood Culture - Final No growth in 5 days 01/05/18 15:30 Blood - Peripheral Anaerobic Blood Culture - Final No growth in 5 days 01/05/18 15:25 Blood - Peripheral Aerobic Blood Culture - Final No growth in 5 days 01/05/18 15:25 Blood - Peripheral Anaerobic Blood Culture - Final No growth in 5 days 01/03/18 23:10 Blood - Peripheral Aerobic Blood Culture - Final Staphylococcus coag negative 01/03/18 23:10 Blood - Peripheral Anaerobic Blood Culture - Final Staphylococcus epidermidis 01/03/18 23:00 Blood - Peripheral Aerobic Blood Culture - Final Staphylococcus epidermidis 01/03/18 23:00 Blood - Peripheral Anaerobic Blood Culture - Final Staphylococcus epidermidis Lab - Hematology Results 01/09/18 01/09/18 01/10/18 05:25 15:01 05:31 WBC 7.2 8.0 9.7 RBC 2.14 L 2.84 L 2.63 L Hgb 5.5 L* 7.3 L 6.9 L* Hct 17.0 L* 22.4 L 20.8 L* MCV 79.7 L 79.0 L 78.9 L MCH 25.9 L 25.7 L 26.3 L MCHC 32.5 32.6 33.3 RDW 17.5 H 17.2 16.7 Plt Count 300 321 338 MPV 7.4 7.7 7.2 Prelim Diff (Auto) Slide review pending Slide review pending Neut % (Auto) 69.5 78.5 H Lymph % (Auto) 13.9 9.8 Glades % (Auto) 8.4 H 6.4 Eos % (Auto) 7.4 H 4.6 H Baso % (Auto) 0.8 0.7 Neut # (Auto) 5.0 7.6 Lymph # (Auto) 1.0 1.0 Glades # (Auto) 0.6 0.6 Eos # (Auto) 0.5 H 0.4 Baso # (Auto) 0.1 0.1 WBC Differential . . Diff Scan Auto diff confirmed Auto diff confirmed Differential Comment . . Ovalocytes 1+ H 1+ H Lab - Chemistry Results 01/09/18 01/09/18 01/09/18 05:25 13:16 15:01 Sodium 140 137 Potassium 4.6 5.2 H Chloride 101 100 Carbon Dioxide 29.3 27.4 Anion Gap 10 10 BUN 47 H 51 H Creatinine 4.44 H 4.68 H Estimated GFR 13 L 12 L POC Glucose 93 Random Glucose 82 77 Calcium 8.1 L 8.3 L Total Bilirubin 0.6 AST 12 L ALT 6 L Alkaline Phosphatase 245 H Total Protein 8.0 Albumin 1.8 L 01/09/18 01/09/18 01/10/18 17:05 21:16 04:41 Sodium Potassium Chloride Carbon Dioxide Anion Gap BUN Creatinine Estimated GFR POC Glucose 96 110 96 Random Glucose Calcium Total Bilirubin AST ALT Alkaline Phosphatase Total Protein Albumin 01/10/18 01/10/18 05:31 08:18 Sodium 138 Potassium 5.7 H Chloride 101 Carbon Dioxide 29.7 Anion Gap 7 BUN 67 H Creatinine 4.82 H Estimated GFR 11 L POC Glucose 93 Random Glucose 87 Calcium 7.5 L D Total Bilirubin AST ALT Alkaline Phosphatase Total Protein Albumin Imaging: ITS Impressions Venous Doppler Study 01/06/18 00:00 CONCLUSION: No evidence of right upper extremity DVT Tube Removal 01/07/18 00:00 CONCLUSION: The patient's left groin dialysis permacath could not be removed, firmly adherent to the tissues deep to the groin region. Surgical consultation is recommended for removal. Chest X-Ray 01/10/18 00:27 CONCLUSION: 1. Stable patchy diffuse right lung and left lower lobe airspace disease. Physical Exam: GENERAL: Well-nourished well-developed, not in acute distress SKIN: Cool and dry, no generalized rash HEAD: Atraumatic. Normocephalic. No temporal or scalp tenderness. EYES: Pupils equal round and reactive. Scleral icterus. No injection or drainage. No petechia ENT: Nothing abnormal detected NECK: Trachea midline. Supple, nontender, no meningeal signs. CARDIOVASCULAR: HS audible. RESPIRATORY: Clear to auscultation bilaterally. GASTROINTESTINAL: Abdomen soft nontender. MUSCULOSKELETAL: Extremities without clubbing, cyanosis. NEUROLOGICAL: Alert oriented 3. Nonfocal. Psych cooperative IV line sites ok. Permacath site looks okay no obvious purulence. Tenderness with induration noted. Assessment and Plan - Plan MRSA bacteremia likely related to Permacath in Left groin. Coag negative staph bacteremia Septic Thrombophlebitis at site of left permacath. ESRD on HD Multiple AV fistulas with access issues needing revisions. RUE Fistula current HD access. Bilateral infiltrates ? pneumonia ? septic emboli. Lymphedema LLE ulcer ? infected Recs Vanco 1 gm to be given in HD. 2D echo negative dw vascular surgery for removal of the left groin permacath catheter is IR was not able to take it out due to adherent tissue. liliana RN dw Patient.
[2018-01-10] MEDS ORDERED: Protamine Sulfate Inj 50 MG/5 ML Vial ONE (16:06)
[2018-01-10] MEDS ORDERED: Bupivacaine PF 0.5% Inj 30 ML Vial ONE (16:07)
[2018-01-10] MEDS ORDERED: Heparin/NS PF Inj 500 ML ONE (16:07)
[2018-01-10] MEDS ORDERED: Thrombin Topical 20,000 UNIT Spray Kit TOPICAL ONE (16:07)
[2018-01-10] MEDS ORDERED: Heparin 10,000 UNITS/10 ML Vial (for IV use) ONE (16:07)
--- NOTE | 2018-01-10 16:56 | P.PNNP ---
Subjective Interval history: Seen during hemodialysis. Plan to have permacath removed after. <Jillian Bowling - Last Filed: 01/10/18 16:51> Physical Exam Vital signs: Vital Signs 01/09/18 20:00 01/09/18 23:50 01/10/18 00:00 Temperature 98 F 97.6 F Pulse Rate 82 89 87 Respiratory Rate 19 19 Blood Pressure 118/79 142/83 H Pulse Oximetry 100 95 01/10/18 04:00 01/10/18 08:00 01/10/18 09:09 Temperature 97.9 F 98.3 F Pulse Rate 72 83 Respiratory Rate 17 18 Blood Pressure 114/70 121/65 Pulse Oximetry 97 100 97 01/10/18 12:00 01/10/18 16:00 01/10/18 16:02 Temperature 98.7 F 97.5 F L 96.9 F L Pulse Rate 87 86 Respiratory Rate 20 20 18 Blood Pressure 134/80 113/71 117/71 Pulse Oximetry 93 L 01/10/18 16:15 Temperature 97.5 F L Pulse Rate 86 Respiratory Rate 20 Blood Pressure 117/71 Pulse Oximetry Intake & Output 01/09/18 01/10/18 01/10/18 18:59 06:59 18:59 Intake Total 1160 / 1160 0 / 0 Balance 1160 / 1160 0 / 0 Weight 82.1 kg Intake: Oral 360 / 360 Intake (Blood Product) Amt 800 / 800 0 / 0 Rbc As-3 Leukoreduced Unit 400 / 400 [id number] Rbc As-3 Leukoreduced Unit 400 / 400 [id number] Rbc As-3 Leukoreduced Unit 0 / 0 [id number] Other: # Voids 0 Date of Last Bowel Movement 01/07/18 01/07/18 # Bowel Movements 1 - Constitutional no acute distress - Routine HEENT Exam Head: Present: normocephalic - Routine Neck Exam Present: supple. Absent: JVD - Routine Respiratory Exam Present: decreased breath sounds - Routine Cardiovascular Exam Present: RRR - Routine Abdominal Exam Present: soft, normoactive bowel sounds - Routine Extremities Exam Present: AV fistula, vascular access - Routine Skin Exam Present: dry, warm - Routine Neurological Exam Present: alert, oriented X3 <Jillian Bowling - Last Filed: 01/10/18 16:51> Vital signs: Vital Signs 01/09/18 23:50 01/10/18 00:00 01/10/18 04:00 Temperature 97.6 F 97.9 F Pulse Rate 89 87 72 Respiratory Rate 19 17 Blood Pressure 142/83 H 114/70 Pulse Oximetry 95 97 01/10/18 08:00 01/10/18 09:09 01/10/18 12:00 Temperature 98.3 F 98.7 F Pulse Rate 83 87 Respiratory Rate 18 20 Blood Pressure 121/65 134/80 Pulse Oximetry 100 97 93 L 01/10/18 16:00 01/10/18 16:02 01/10/18 16:15 Temperature 97.5 F L 96.9 F L 97.5 F L Pulse Rate 86 86 Respiratory Rate 20 18 20 Blood Pressure 113/71 117/71 117/71 Pulse Oximetry 01/10/18 19:36 01/10/18 20:15 Temperature 98.1 F Pulse Rate 82 84 Respiratory Rate 21 22 Blood Pressure 122/68 114/65 Pulse Oximetry 100 100 Intake & Output 01/10/18 01/10/18 01/11/18 06:59 18:59 06:59 Intake Total 900 / 900 Output Total 4000 / 4000 Balance 900 / 900 -4000 / -4000 Weight 82.1 kg Intake: IV 500 / 500 Heparin/NS PF Inj 500 ML @ 0 500 / 500 mls/hr .ROUTE .K-MED ONE Rx#: [id number] Intake (Blood Product) Amt 400 / 400 Rbc As-3 Leukoreduced Unit 400 / 400 [id number] Output: Hemodialysis Amount 4000 / 4000 Other: # Voids 0 0 Date of Last Bowel Movement 01/07/18 01/09/18 # Bowel Movements 1 2 <Boo Hernandez Q - Last Filed: 01/10/18 21:10> Assessment and Plan - Assessment (1) End-stage renal disease on hemodialysis Code(s): N18.6 - End stage renal disease; Z99.2 - Dependence on renal dialysis Status: Acute - Plan ESRD She is on hemodialysis Wednesday, Wednesday and Wednesday Has AVG in right upper arm with good thrill HD catheter in groin to be removed with vascular surgery May consider for endoluminal catheter balloon dilation to help remove catheter ( in place for 4 years with likely adherent fibrin sheath) Continue Sensipar Seen during hemodialysis tolerating well will remove fluid as tolerated. Bacteremia Vancomycin with HD ID managing Anemia Epogen with dialysis Transfused PRBC yesterday Hypertension Will monitor <Jillian Bowling - Last Filed: 01/10/18 16:51> - Assessment (1) End-stage renal disease on hemodialysis Code(s): N18.6 - End stage renal disease; Z99.2 - Dependence on renal dialysis Status: Acute - Attending Attestation Patient seen and examined, agree with above. Continue antibiotics. Hgb. is low, for transfusion during HD also. <Courtney Hernandez - Last Filed: 01/10/18 21:10>
[2018-01-10] MEDS ORDERED: Lidocaine PF 1% Inj 30 ML Vial ONE (17:55)
[2018-01-10] MEDS ORDERED: Ketamine Inj 50 MG/5 ML Syringe IV.PUSH ONE (18:06)
[2018-01-10] MEDS ORDERED: fentaNYL Citrate Inj 100 MCG/2 ML Ampul ONE (18:42)
--- NOTE | 2018-01-10 19:28 | P.OP ---
Date of procedure: 01/10/18 Procedure: 1. Repair of LEFT femoral vein 2. Evacuation of hematoma Implants: none Anesthesia: MAC, local Surgeon: Aguila Vargas MD Watch Repairer Apprentice: Carmen Mitchell Estimated blood loss (mL): 100 IV fluids (mL): 400 Pathology: other (1. Catheter portion 2. Hematoma/tissue - BOTH FOR CULTURE) Operation and Findings: venous catheter adherent to IVC/iliac vein, unable to release. Venotomy repaired primarily cephalad to catheter insertion Large purulent hematoma. Catheter transected and oversewn with 4 cm protruding from vein, marked with clips
[2018-01-10] MEDS: traZODone 50 MG Tablet PO SCH (21:10)
--- NOTE | 2018-01-10 21:22 | MP ---
cc: Aguila Vargas MD DATE OF OPERATION: 01/10/2018 PREOPERATIVE DIAGNOSIS: Infected left groin dialysis catheter. POSTOPERATIVE DIAGNOSIS: Infected left groin dialysis catheter, venous hematoma, perivascular hematoma around the vein. PROCEDURE PERFORMED: 1. Repair of venotomy with primary repair. 2. Evacuation of left thigh hematoma. ATTENDING SURGEON: Aguila Vargas MD MUD MIXER SURGEON: Carmen Mitchell ANESTHESIA: Local with sedation. INDICATIONS FOR PROCEDURE: Mrs. Sheehan is a 52-year-old lady who is chronic dialysis dependent. She has an indwelling left groin catheter that has been present for years and is thought to be infected. Previous attempts by interventional radiology to remove this were not successful and, as such, the patient is taken to the operating room. Intraoperatively, it was found there was a likely infected hematoma that was evacuated and irrigated. Additionally, even with an aggressive femoral vein isolation, venotomy and stripping the catheter sheath, the catheter itself would not break loose from the iliac and caval venous segments. DESCRIPTION OF PROCEDURE: Informed consent was obtained from the patient. She was taken to the operating room and placed supine on the operating table. An appropriate timeout was taken to assure the patient's identity, and planned procedure. The administration of antibiotics was not necessary, as the patient just received vancomycin immediately after hemodialysis. She was taken to the operating room. The patient was prepped from her nipples to her knees. Her previous skin incision from her cuff release was infiltrated with lidocaine and extended cephalad. The common femoral vein was dissected free and the side branches were ligated with 3-0 silk. The vein proximal and distal to the catheter entry site were successfully dissected free and clamps were placed on this. A venotomy was then made and the catheter sheath was excised, thereby exposing the catheter. Even with a stiff wire through the catheter, no amount of traction was able to break the catheter free and under fluoroscopy, we could see the entire iliac cava segment to be the focal point of the adherence of the catheter into the cava wall. The venotomy was repaired with 4-0 Prolene suture. Hemostasis was achieved. The wound was copiously irrigated with saline. The catheter was then transected and the distal end immediately protruding the vein was oversewn and clipped with large Hemoclips. The hemostasis was achieved and the hematoma was evacuated and sent for culture. The catheter portion was also sent for culture. The entire wound was irrigated and closed with 2-0 Polysorb and vertical mattress 2-0 nylon sutures. Sponge and needle counts were correct at the end of the case. I was present, scrubbed and performed the entire procedure. MD LANDY Butcher/ADRIAN , 07:31 PM , 09:20 PM
[2018-01-11] MEDS: Carvedilol 6.25 MG Tablet PO SCH ×3 (00:23→23:25)
--- NOTE | 2018-01-11 07:20 | P.PNVS ---
Subjective Post Op Day #: 1 Procedure: Repair of L CFV and evacuation of hematoma Subjective/Hospital Course: looks good; pain in L groin but controlled with meds jenna po Objective Vital Signs / I&O: Vital Signs 01/10/18 08:00 01/10/18 09:09 01/10/18 12:00 Temperature 98.3 F 98.7 F Pulse Rate 83 87 Respiratory Rate 18 20 Blood Pressure 121/65 134/80 Pulse Oximetry 100 97 93 L 01/10/18 16:00 01/10/18 16:02 01/10/18 16:15 Temperature 97.5 F L 96.9 F L 97.5 F L Pulse Rate 86 86 Respiratory Rate 20 18 20 Blood Pressure 113/71 117/71 117/71 Pulse Oximetry 01/10/18 19:36 01/10/18 20:00 01/10/18 20:15 Temperature 98.1 F 98.4 F Pulse Rate 82 69 84 Respiratory Rate 21 14 22 Blood Pressure 122/68 110/57 L 114/65 Pulse Oximetry 100 100 100 01/10/18 21:00 01/11/18 00:00 01/11/18 04:00 Temperature 98.4 F 98.3 F Pulse Rate 69 87 Respiratory Rate 14 14 Blood Pressure 110/57 L 90/57 L Pulse Oximetry 100 100 100 Intake & Output 01/10/18 01/11/18 01/11/18 18:59 06:59 18:59 Intake Total 900 / 900 Output Total 4000 / 4000 Balance 900 / 900 -4000 / -4000 Intake: IV 500 / 500 Heparin/NS PF Inj 500 ML @ 0 500 / 500 mls/hr .ROUTE .[facility] Rx#: [id number] Intake (Blood Product) Amt 400 / 400 Rbc As-3 Leukoreduced Unit 400 / 400 [id number] Output: Hemodialysis Amount 4000 / 4000 Other: # Voids 0 Date of Last Bowel Movement 01/09/18 # Bowel Movements 2 Exam: L groin incision intact, minimal drainage L thigh wound repacked this morning - old hematoma expressed, + purulent Laboratory Results - last 24 hr 01/09/18 01/10/18 01/10/18 08:00 05:31 07:07 WBC Differential . Diff Scan Auto diff confirmed Ovalocytes 1+ H POC Glucose MTS Gel Crossmatch See Detail See Detail 01/10/18 01/10/18 01/10/18 08:18 13:27 17:03 WBC Differential Diff Scan Ovalocytes POC Glucose 93 95 87 MTS Gel Crossmatch 01/11/18 01/11/18 04:24 05:29 WBC Differential Diff Scan Ovalocytes POC Glucose 65 L 103 MTS Gel Crossmatch Microbiology 01/05/18 15:30 Aerobic Blood Culture - Final Blood - Peripheral No growth in 5 days Anaerobic Blood Culture - Final No growth in 5 days 01/05/18 15:25 Aerobic Blood Culture - Final Blood - Peripheral No growth in 5 days Anaerobic Blood Culture - Final No growth in 5 days Assessment and Plan - Plan POD#1 s/p partial catheter excision, repair of vein, drainage of hematoma 1. Wound care: pack cavity BID and consulted wound team 2. F/U intraop cultures (catheter and abscess cavity); continue antibiotics 3. Continue to use R UE AVF Aguila Vargas MD FACS [employer] corporate logistics manager [facility] - [facility] at [place] [phone]
[2018-01-11 07:28] LABS: Baso # (Auto) 0.1 th/mm3 (0.0-0.2); Baso % (Auto) 0.5 % (0.0-2.0); Eos # (Auto) 0.2 th/mm3 (0.0-0.4); Eos % (Auto) 1.5 % (0.0-4.0); Lymph # (Auto) 0.7 th/mm3 (1.0-4.8); Lymph % (Auto) 6.7 % (9.0-44.0); Mean Corpuscular HGB Conc 32.5 % (32.0-36.0); Mean Platelet Volume 7.4 fL (7.0-11.0); Mono # (Auto) 0.7 th/mm3 (0.0-0.9); Mono % (Auto) 6.2 % (0.0-8.0); Neut # (Auto) 9.4 th/mm3 (1.8-7.7); Neut % (Auto) 85.1 % (16.0-70.0); Platelet Count 259 th/mm3 (150-450); Red Blood Count 2.01 mil/mm3 (4.00-5.30); Red Cell Distribution Width 16.3 % (11.6-17.2)
[2018-01-11 07:37] LABS: Hematocrit 16.1 % (35.0-46.0); Hemoglobin 5.2 gm/dL (11.6-15.3)
[2018-01-11 07:49] LABS: Albumin 1.4 g/dL (3.4-5.0); Carbon Dioxide 28.5 meq/L (21.0-32.0); Phosphorus 3.3 mg/dL (2.5-4.9); Potassium 4.3 meq/L (3.5-5.1)
[2018-01-11 07:56] LABS: Calcium 6.9 mg/dL (8.5-10.1)
[2018-01-11 08:54] LABS: Platelet Estimate Normal (Normal); Platelet Morphology Normal (Normal)
--- NOTE | 2018-01-11 10:00 | P.PNNP ---
Subjective Interval history: Complaining of increased pain at site of permacath removal. Hgb is low today at 5.2. <Jillian Bowling - Last Filed: 01/11/18 09:55> Physical Exam Vital signs: Vital Signs 01/10/18 12:00 01/10/18 16:00 01/10/18 16:02 Temperature 98.7 F 97.5 F L 96.9 F L Pulse Rate 87 86 Respiratory Rate 20 20 18 Blood Pressure 134/80 113/71 117/71 Pulse Oximetry 93 L 01/10/18 16:15 01/10/18 19:36 01/10/18 20:00 Temperature 97.5 F L 98.1 F 98.4 F Pulse Rate 86 82 69 Respiratory Rate 20 21 14 Blood Pressure 117/71 122/68 110/57 L Pulse Oximetry 100 100 01/10/18 20:15 01/10/18 21:00 01/11/18 00:00 Temperature 98.4 F Pulse Rate 84 69 Respiratory Rate 22 14 Blood Pressure 114/65 110/57 L Pulse Oximetry 100 100 100 01/11/18 04:00 01/11/18 08:00 Temperature 98.3 F 98.3 F Pulse Rate 87 75 Respiratory Rate 14 16 Blood Pressure 90/57 L 99/61 L Pulse Oximetry 100 100 Intake & Output 01/10/18 01/11/18 01/11/18 18:59 06:59 18:59 Intake Total 900 / 900 240 / 240 Output Total 4000 / 4000 Balance 900 / 900 -4000 / -4000 240 / 240 Intake: IV 500 / 500 Heparin/NS PF Inj 500 ML @ 0 500 / 500 mls/hr .ROUTE [facility] Rx#: [id number] Oral 240 / 240 Intake (Blood Product) Amt 400 / 400 Rbc As-3 Leukoreduced Unit 400 / 400 [id number] Output: Hemodialysis Amount 4000 / 4000 Other: # Voids 0 1 Date of Last Bowel Movement 01/09/18 # Bowel Movements 2 - Constitutional mild distress, thin, cachectic - Routine HEENT Exam Head: Present: normocephalic ENT: Present: mucous membranes moist - Routine Neck Exam Absent: JVD - Routine Respiratory Exam Present: decreased breath sounds. Absent: rales, rhonchi - Routine Cardiovascular Exam Present: RRR - Routine Abdominal Exam Present: soft, normoactive bowel sounds. Absent: tenderness - Routine Skin Exam Present: dry, warm, wounds Comments: left groin oozing. - Routine Neurological Exam Present: alert, oriented X3 - Routine Psychiatric Exam Present: cooperative <Jillian Bowling - Last Filed: 01/11/18 09:55> Vital signs: Vital Signs 01/11/18 00:00 01/11/18 04:00 01/11/18 08:00 Temperature 98.4 F 98.3 F 98.3 F Pulse Rate 69 87 75 Respiratory Rate 14 14 16 Blood Pressure 110/57 L 90/57 L 99/61 L Pulse Oximetry 100 100 100 01/11/18 10:00 01/11/18 12:00 01/11/18 16:42 Temperature 97.7 F 98.1 F Pulse Rate 80 84 Respiratory Rate 16 18 Blood Pressure 104/65 100/54 L Pulse Oximetry 100 100 100 01/11/18 16:48 01/11/18 17:22 01/11/18 18:45 Temperature 98.1 F 98.2 F 98.1 F Pulse Rate 84 84 Respiratory Rate 18 18 18 Blood Pressure 100/54 L 97/52 L 103/56 L Pulse Oximetry 98 Intake & Output 01/11/18 01/11/18 01/12/18 06:59 18:59 06:59 Intake Total 480 / 480 Output Total 4000 / 4000 Balance -4000 / -4000 480 / 480 Intake: Oral 480 / 480 Intake (Blood Product) Amt 0 / 0 Rbc As-3 Leukoreduced Unit 0 / 0 [id number] Output: Hemodialysis Amount 4000 / 4000 Other: # Voids 0 Date of Last Bowel Movement 01/10/18 # Bowel Movements 1 <Courtney Hernandez - Last Filed: 01/11/18 21:31> Assessment and Plan - Assessment (1) End-stage renal disease on hemodialysis Code(s): N18.6 - End stage renal disease; Z99.2 - Dependence on renal dialysis Status: Acute - Plan ESRD She is on hemodialysis Wednesday, Wednesday and Wednesday Has AVG in right upper arm with good thrill HD catheter in groin removed yesterday. Site is oozing Continue Sensipar Hemodialysis yesterday tolerated well with the removal of 4 liters Hemodialysis tomorrow Bacteremia Vancomycin with HD ID managing Anemia Epogen with dialysis HGB 5.2 will transfuse PRBC today Hypertension Will monitor, blood pressure on lower side plan to transfuse today <Jillian Bowling - Last Filed: 01/11/18 09:55> - Assessment (1) End-stage renal disease on hemodialysis Code(s): N18.6 - End stage renal disease; Z99.2 - Dependence on renal dialysis Status: Acute - Attending Attestation Patient seen and examine, agree with above. Hgb. dropped, getting transfusion, BP is on lower side, HD will be in AM. <Courtney Hernandez - Last Filed: 01/11/18 21:31>
--- NOTE | 2018-01-11 11:25 | P.PN ---
Subjective Interval history: Follow-up nonfunctional Vas-Cath January 04, 2018-patient seen and examined, currently stable January 05, 2018-patient seen and examined, afebrile however patient with 2 positive blood culture. Patient seen by vascular surgery however recommended conservative management. Patient was also seen by podiatry but she declined MRI January 06, 2018-patient seen and examined, plan for permacath removal if INR less than 1.5. Patient has no complaint and currently afebrile. Mom by the bedside. January 07, 2018-patient seen and examined, Heading for removal of permacath today ; stable and no complaint. January 08, 2018-patient seen and examined, left CFV tunnel catheter removed yesterday by vascular surgery, complicated overnight by bleeding at sites however resolved since this morning. Vital stable. H&H stable. Taking p.o. without any competition nausea and vomiting. Mom by the bedside. January 09, 2018-patient seen and examined, currently receiving 2 units packed red blood cell. No other issues. January 10, 2018-patient seen and examined, patient had an adverse reaction to blood transfusion yesterday with complaint of shortness of breath. Plan for hemodialysis today as well as removal of permacath January 11, 2018-patient seen and examined; h/h low and BP is low.HD catheter was removed yesterday. patient is requesting some Narcotics Physical Exam Vital signs: Vital Signs 01/10/18 12:00 01/10/18 16:00 01/10/18 16:02 Temperature 98.7 F 97.5 F L 96.9 F L Pulse Rate 87 86 Respiratory Rate 20 20 18 Blood Pressure 134/80 113/71 117/71 Pulse Oximetry 93 L 01/10/18 16:15 01/10/18 19:36 01/10/18 20:00 Temperature 97.5 F L 98.1 F 98.4 F Pulse Rate 86 82 69 Respiratory Rate 20 21 14 Blood Pressure 117/71 122/68 110/57 L Pulse Oximetry 100 100 01/10/18 20:15 01/10/18 21:00 01/11/18 00:00 Temperature 98.4 F Pulse Rate 84 69 Respiratory Rate 22 14 Blood Pressure 114/65 110/57 L Pulse Oximetry 100 100 100 01/11/18 04:00 01/11/18 08:00 01/11/18 10:00 Temperature 98.3 F 98.3 F Pulse Rate 87 75 Respiratory Rate 14 16 Blood Pressure 90/57 L 99/61 L Pulse Oximetry 100 100 100 Intake & Output 01/10/18 01/11/18 01/11/18 18:59 06:59 18:59 Intake Total 900 / 900 240 / 240 Output Total 4000 / 4000 Balance 900 / 900 -4000 / -4000 240 / 240 Intake: IV 500 / 500 Heparin/NS PF Inj 500 ML @ 0 500 / 500 mls/hr .ROUTE .[facility] Rx#: [id number] Oral 240 / 240 Intake (Blood Product) Amt 400 / 400 Rbc As-3 Leukoreduced Unit 400 / 400 [id number] Output: Hemodialysis Amount 4000 / 4000 Other: # Voids 0 1 Date of Last Bowel Movement 01/09/18 # Bowel Movements 2 Narrative: GENERAL: NAD SKIN: Warm and dry. HEAD: Normocephalic. EYES: No scleral icterus. No injection or drainage. NECK: Supple, trachea midline. No JVD or lymphadenopathy. CARDIOVASCULAR: Regular rate and rhythm without murmurs, gallops, or rubs. RESPIRATORY: Breath sounds equal bilaterally. No accessory muscle use. GASTROINTESTINAL: Abdomen soft, non-tender, nondistended. MUSCULOSKELETAL: No cyanosis, or edema. Bilateral lower extremity lymphedema; left lower extremity with a chronic wound; dressing covering it. dressing over previous site of HD catheter with surrounding blood BACK: Nontender without obvious deformity. No CVA tenderness. Results - Labs CBC & Chem 7: 01/11/18 06:31 01/11/18 06:31 Laboratory Results - last 24 hr 01/09/18 01/10/18 01/10/18 08:00 07:07 13:27 WBC RBC Hgb Hct MCV MCH MCHC RDW Plt Count MPV Prelim Diff (Auto) Neut % (Auto) Lymph % (Auto) [place] % (Auto) Eos % (Auto) Baso % (Auto) Neut # (Auto) Lymph # (Auto) [place] # (Auto) Eos # (Auto) Baso # (Auto) WBC Differential Diff Scan Differential Comment Platelet Estimate Platelet Morphology Basophilic Stippling Sodium Potassium Chloride Carbon Dioxide Anion Gap BUN Creatinine Estimated GFR POC Glucose 95 Random Glucose Calcium Phosphorus Albumin MTS Gel Crossmatch See Detail See Detail 01/10/18 01/11/18 01/11/18 17:03 04:24 05:29 WBC RBC Hgb Hct MCV MCH MCHC RDW Plt Count MPV Prelim Diff (Auto) Neut % (Auto) Lymph % (Auto) [place] % (Auto) Eos % (Auto) Baso % (Auto) Neut # (Auto) Lymph # (Auto) [place] # (Auto) Eos # (Auto) Baso # (Auto) WBC Differential Diff Scan Differential Comment Platelet Estimate Platelet Morphology Basophilic Stippling Sodium Potassium Chloride Carbon Dioxide Anion Gap BUN Creatinine Estimated GFR POC Glucose 87 65 L 103 Random Glucose Calcium Phosphorus Albumin MTS Gel Crossmatch 01/11/18 01/11/18 01/11/18 06:31 06:31 09:46 WBC 11.0 RBC 2.01 L Hgb 5.2 L* Hct 16.1 L* MCV 80.0 MCH 26.0 L MCHC 32.5 RDW 16.3 Plt Count 259 MPV 7.4 Prelim Diff (Auto) Slide review pending Neut % (Auto) 85.1 H Lymph % (Auto) 6.7 L [place] % (Auto) 6.2 Eos % (Auto) 1.5 Baso % (Auto) 0.5 Neut # (Auto) 9.4 H Lymph # (Auto) 0.7 L [place] # (Auto) 0.7 Eos # (Auto) 0.2 Baso # (Auto) 0.1 WBC Differential . Diff Scan Auto diff confirmed Differential Comment . Platelet Estimate Normal Platelet Morphology Normal Basophilic Stippling Faint H Sodium 140 Potassium 4.3 D Chloride 101 Carbon Dioxide 28.5 Anion Gap 11 BUN 74 H Creatinine 3.78 H Estimated GFR 15 L POC Glucose Random Glucose 74 Calcium 6.9 L* Phosphorus 3.3 Albumin 1.4 L MTS Gel Crossmatch See Detail Microbiology 01/10/18 18:15 Tissue - Groin Gram Stain - Final 01/10/18 18:15 Tissue - Groin Fungal Smear - Final No fungal elements seen 01/05/18 15:30 Blood - Peripheral Aerobic Blood Culture - Final No growth in 5 days 01/05/18 15:30 Blood - Peripheral Anaerobic Blood Culture - Final No growth in 5 days 01/05/18 15:25 Blood - Peripheral Aerobic Blood Culture - Final No growth in 5 days 01/05/18 15:25 Blood - Peripheral Anaerobic Blood Culture - Final No growth in 5 days Assessment and Plan - Plan 52-year-old female with Bacteremia Appreciate input from infectious disease specialist Currently on vancomycin with HD Continue to monitor culture report CHF exacerbation Fluid overload Abdominal ascites Appreciate input from Nephrology for hemodialysis. Hemodialysis per protocol Left CFV tunneled catheter removed 01/08 by vascular surgery Okay to use right upper extremity aVF HD catheter in groin removed yesterday 01/10/18 Left lower extremity venous stasis cellulitis. Appreciate input from podiatry, patient declined MRI to rule out osteomyelitis Dysfunctional Vas-Cath left lower extremity. Small thrombus around Vas-Cath. On warfarin however on hold. Appreciate input from vascular surgery Hypertension. Continue home meds. Anemia of chronic kidney disease compounded by acute blood loss Patient had adverse reaction to blood transfusion January 09, 2018 Transfuse 2 units PRBC today 01/11/18 Hypoglycemia, asymptomatic Secondary to end-stage renal disease Treatment per hypoglycemia protocol History of CVA History of DVT On warfarin however due to acute blood loss, continue to hold warfarin. GERD. Chronic. Continue PPI.
[2018-01-11] MEDS: amLODIPine 10 MG Tablet PO SCH (12:37)
[2018-01-11] MEDS: Ferrous Sulfate 325 MG Tablet PO SCH (12:44)
--- NOTE | 2018-01-11 13:12 | P.PNID ---
Subjective Remarks: Ms. Jackman is a 52-year-old -[place] female with past medical history significant for end-stage renal dialysis. Her primary gang supervisor is Dr. Nicole in [facility] and she undergoes hemodialysis on Wednesdays and Fridays. Patient's nephrology history is significant for multiple failed hemodialysis access related procedures for which she has seen vascular surgery. Upon review of medical records from vascular surgeon it appears that she has had multiple bilateral upper extremity AV fistula revisions. Most recently patient had a right upper extremity AV access site revised on September 03, 2017. Thereafter on September 13, 2017 patient presented to the emergency department [facility] for pain at the right upper extremity revision site and a workup was initiated. It appears that patient signed off AGAINST MEDICAL ADVICE at that time. In the interim she seems to have had a left femoral permacath placed in [facility]. Patient reports that her left lower extremity permacath stopped working last week and her left leg has become more painful. She describes the left leg pain is constant throbbing pain exacerbated with movement or touch. She reports that she has a wound on her left lower extremity that has been infected in the past but now is beginning to get worse and draining them. She reports having intermittent fevers and chills. Patient reports that since the left lower extremity permacath a stop working and not started using her right upper ex fistula for dialysis purposes. Patient initially called her gang supervisor and then subsequently Dr. Vargas who then asked her to come to the emergency department at [facility]. Due to her above history of fever and chills she underwent a sepsis workup including blood cultures. Blood cultures are positive for gram-positive bacteremia and infectious diseases consulted for the same especially given her history of end-stage renal disease Pertinent positives and negatives: Patient has a left lower extremity groin area permacath in place from an outside hospital Patient has a right upper extremity AV fistula that is currently being used for hemodialysis Patient reports fever chills night sweats. Overnight events reviewed No fever No rash No diarrhea Vascular surgery took the permacath out and noted a hematoma/abscess cavity. Cultures intraop sent. Antibiotics: Vancomycin IV in dialysis Lines: Line sites with no evidence of infection. Past Medical History: Past medical history History of DVT Lymphedema Cerebrovascular accident Congestive heart failure Hypertension Anemia End-stage renal disease Past surgical history April 27, 2017 patient underwent a angiogram as well as a venogram. May 2016 underwent a right brachial brachial AV fistula placement Patient also has had an IVC filter placed Bilateral multiple upper extremity AV fistula placements September 03, 2017 patient had right upper extremity access revision. Allergies/Adverse Reactions: Allergies Penicillins Allergy (Severe, Verified 09/02/17 14:16) Swelling Objective Vital Signs 01/10/18 16:00 01/10/18 16:02 01/10/18 16:15 Temperature 97.5 F L 96.9 F L 97.5 F L Pulse Rate 86 86 Respiratory Rate 20 18 20 Blood Pressure 113/71 117/71 117/71 Pulse Oximetry 01/10/18 19:36 01/10/18 20:00 01/10/18 20:15 Temperature 98.1 F 98.4 F Pulse Rate 82 69 84 Respiratory Rate 21 14 22 Blood Pressure 122/68 110/57 L 114/65 Pulse Oximetry 100 100 100 01/10/18 21:00 01/11/18 00:00 01/11/18 04:00 Temperature 98.4 F 98.3 F Pulse Rate 69 87 Respiratory Rate 14 14 Blood Pressure 110/57 L 90/57 L Pulse Oximetry 100 100 100 01/11/18 08:00 01/11/18 10:00 01/11/18 12:00 Temperature 98.3 F 97.7 F Pulse Rate 75 80 Respiratory Rate 16 16 Blood Pressure 99/61 L 104/65 Pulse Oximetry 100 100 100 Intake & Output 01/10/18 01/11/18 01/11/18 18:59 06:59 18:59 Intake Total 900 / 900 240 / 240 Output Total 4000 / 4000 Balance 900 / 900 -4000 / -4000 240 / 240 Intake: IV 500 / 500 Heparin/NS PF Inj 500 ML @ 0 500 / 500 mls/hr .ROUTE .STK-MED ONE Rx#: [id number] Oral 240 / 240 Intake (Blood Product) Amt 400 / 400 Rbc As-3 Leukoreduced Unit 400 / 400 [id number] Output: Hemodialysis Amount 4000 / 4000 Other: # Voids 0 1 Date of Last Bowel Movement 01/09/18 # Bowel Movements 2 01/10/18 19:02 Catheter Tip - Other Fungal Culture - Pending 01/10/18 19:02 Catheter Tip - Other Wound Culture - Pending 01/10/18 18:15 Tissue - Groin Gram Stain - Final 01/10/18 18:15 Tissue - Groin Wound Culture - Pending 01/10/18 18:15 Tissue - Groin Fungal Smear - Final No fungal elements seen 01/10/18 18:15 Tissue - Groin Fungal Culture - Pending 01/10/18 19:02 Other Acid Fast Bacilli Smear - Pending 01/10/18 19:02 Other Mycobacterial Culture - Pending 01/10/18 18:15 Tissue - Groin Acid Fast Bacilli Smear - Pending 01/10/18 18:15 Tissue - Groin Mycobacterial Culture - Pending 01/05/18 15:30 Blood - Peripheral Aerobic Blood Culture - Final No growth in 5 days 01/05/18 15:30 Blood - Peripheral Anaerobic Blood Culture - Final No growth in 5 days 01/05/18 15:25 Blood - Peripheral Aerobic Blood Culture - Final No growth in 5 days 01/05/18 15:25 Blood - Peripheral Anaerobic Blood Culture - Final No growth in 5 days 01/03/18 23:10 Blood - Peripheral Aerobic Blood Culture - Final Staphylococcus coag negative 01/03/18 23:10 Blood - Peripheral Anaerobic Blood Culture - Final Staphylococcus epidermidis Lab - Hematology Results 01/09/18 01/10/18 01/11/18 15:01 05:31 06:31 WBC 8.0 9.7 11.0 RBC 2.84 L 2.63 L 2.01 L Hgb 7.3 L 6.9 L* 5.2 L* Hct 22.4 L 20.8 L* 16.1 L* MCV 79.0 L 78.9 L 80.0 MCH 25.7 L 26.3 L 26.0 L MCHC 32.6 33.3 32.5 RDW 17.2 16.7 16.3 Plt Count 321 338 259 MPV 7.7 7.2 7.4 Prelim Diff (Auto) Slide review pending Slide review pending Neut % (Auto) 78.5 H 85.1 H Lymph % (Auto) 9.8 6.7 L [place] % (Auto) 6.4 6.2 Eos % (Auto) 4.6 H 1.5 Baso % (Auto) 0.7 0.5 Neut # (Auto) 7.6 9.4 H Lymph # (Auto) 1.0 0.7 L [place] # (Auto) 0.6 0.7 Eos # (Auto) 0.4 0.2 Baso # (Auto) 0.1 0.1 WBC Differential . . Diff Scan Auto diff confirmed Auto diff confirmed Differential Comment . . Platelet Estimate Normal Platelet Morphology Normal Basophilic Stippling Faint H Ovalocytes 1+ H Lab - Chemistry Results 01/09/18 01/09/18 01/09/18 13:16 15:01 17:05 Sodium 137 Potassium 5.2 H Chloride 100 Carbon Dioxide 27.4 Anion Gap 10 BUN 51 H Creatinine 4.68 H Estimated GFR 12 L POC Glucose 93 96 Random Glucose 77 Calcium 8.3 L Phosphorus Total Bilirubin 0.6 AST 12 L ALT 6 L Alkaline Phosphatase 245 H Total Protein 8.0 Albumin 1.8 L 01/09/18 01/10/18 01/10/18 21:16 04:41 05:31 Sodium 138 Potassium 5.7 H Chloride 101 Carbon Dioxide 29.7 Anion Gap 7 BUN 67 H Creatinine 4.82 H Estimated GFR 11 L POC Glucose 110 96 Random Glucose 87 Calcium 7.5 L D Phosphorus Total Bilirubin AST ALT Alkaline Phosphatase Total Protein Albumin 01/10/18 01/10/18 01/10/18 08:18 13:27 17:03 Sodium Potassium Chloride Carbon Dioxide Anion Gap BUN Creatinine Estimated GFR POC Glucose 93 95 87 Random Glucose Calcium Phosphorus Total Bilirubin AST ALT Alkaline Phosphatase Total Protein Albumin 01/11/18 01/11/18 01/11/18 04:24 05:29 06:31 Sodium 140 Potassium 4.3 D Chloride 101 Carbon Dioxide 28.5 Anion Gap 11 BUN 74 H Creatinine 3.78 H Estimated GFR 15 L POC Glucose 65 L 103 Random Glucose 74 Calcium 6.9 L* Phosphorus 3.3 Total Bilirubin AST ALT Alkaline Phosphatase Total Protein Albumin 1.4 L Imaging: ITS Impressions Venous Doppler Study 01/06/18 00:00 CONCLUSION: No evidence of right upper extremity DVT Tube Removal 01/07/18 00:00 CONCLUSION: The patient's left groin dialysis permacath could not be removed, firmly adherent to the tissues deep to the groin region. Surgical consultation is recommended for removal. Chest X-Ray 01/10/18 00:27 CONCLUSION: 1. Stable patchy diffuse right lung and left lower lobe airspace disease. Physical Exam: GENERAL: Well-nourished well-developed, not in acute distress SKIN: Cool and dry, no generalized rash HEAD: Atraumatic. Normocephalic. No temporal or scalp tenderness. EYES: Pupils equal round and reactive. Scleral icterus. No injection or drainage. No petechia ENT: Nothing abnormal detected NECK: Trachea midline. Supple, nontender, no meningeal signs. CARDIOVASCULAR: HS audible. RESPIRATORY: Clear to auscultation bilaterally. GASTROINTESTINAL: Abdomen soft nontender. MUSCULOSKELETAL: Extremities without clubbing, cyanosis. NEUROLOGICAL: Alert oriented 3. Nonfocal. Psych cooperative IV line sites ok. Opening in right thigh with significant tenderness and induration noted. Suture sites ok. Assessment and Plan - Plan MRSA bacteremia likely related to Permacath in Left groin. Possible infected Hematoma infected/Septic Thrombophlebitis at site of left permacath. ESRD on HD Multiple AV fistulas with access issues needing revisions. RUE Fistula current HD access. Bilateral infiltrates ? pneumonia ? septic emboli. Lymphedema LLE ulcer ? infected Recs Vanco 1 gm to be given in HD. Check random vanco level now. Check 2 D ECHO Will repeat CXR if persistent infiltrates will need CT coordinated with HD to assess for septic emboli. Wound care consult appreciated. liliana RN dw Patient.
[2018-01-11] MEDS ORDERED: Acetaminophen 325 MG Tablet PO PRN (14:39)
[2018-01-11] MEDS ORDERED: Sodium Chlor 0.9% Inj 250 ML IV.SIG SCH (15:00)
--- NOTE | 2018-01-11 15:56 | P.PNWCN ---
Wound Care Nurse Consult Description: wound consult ordered by for wound management. Communicated with: Janice PAGE, , Additional information: Statistics Manager attempted to see patient x2 but patient was unable to tolerate wound assessment due to pain.Due to patients low blood pressure no narcotics are able to be prescribed .Statistics Manager will follow up in am. Wound/Pressure Injury - Patient Status Premedicated for Pain Prior to Dressing Change: No - Wound Left Lower Leg Wound Assessment: Ongoing Wound Type: Abscess Is This a Chronic Wound: Yes Wound Bed Appearance: Red Drainage Description: Serosanguinous Drainage Amount: Scant Drainage Odor: No Odor Dressing Status: Dry & Intact Cleansing Solution: Saline Wound Packing Type: Alginate Primary Dressing: maxorb Cover Dressing: Gauze Roll/Wrap Tape Type: Paper Wound Dressing Change Date: 01/07/18 Wound Closure Date: 01/07/18 Incision - Patient Status Premedicated for Pain Prior to Dressing Change: No - Incision Left Groin Incision Type: Incision Incision Description: Sutures Cover Dressing: Gauze Pads Tape Type: Transparent Left Groin DISTAL Incision Assessment: Ongoing Incision Type: Incision Incision Description: Approximated Surrounding Tissue Appearance: [place] Surrounding Tissue Temperature: Warm Drainage Description: Sanguinous Drainage Amount: Moderate Drainage Odor: No Odor Incision Dressing Status: Dry & Intact, Reinforced Incision Packing Type: Gauze Roll Primary Dressing: Transparent Cover Dressing: Transparent
--- NOTE | 2018-01-11 21:17 | ECHRPT ---
Indication: POSS SEPSIS, ENDOCARDITIS CONCLUSIONS Mildly dilated left ventricle. Wall thickness is normal. The left ventricular systolic function is moderately reduced with an estimated ejection fraction in the range of 40-45%. There is mild global left ventricular dysfunction. The left atrial size is moderately dilated. No atrial level shunt is demonstrated by color flow Doppler interrogation. Moderate mitral annular calcification. Moderate mitral valve regurgitation with an eccentric jet. Aortic valve sclerosis is present. There is estimated moderate pulmonary hypertension present (range 50-60 mmHg). There is moderate to severe tricuspid valve regurgitation. Trivial pulmonary valve regurgitation. There is less than 50% respiratory change in dimension of the inferior vena cava (abnormal). BP: / HR: Rhythm: Sinus MEASUREMENTS (Male / Female) Normal Values Technical Quality:Fair 2D ECHO LV Diastolic Diameter PLAX 6.3 cm 4.2 - 5.9 / 3.9 - 5.3 cm LV Systolic Diameter PLAX 5.3 cm IVS Diastolic Thickness 0.8 cm 0.6 - 1.0 / 0.6 - 0.9 cm LVPW Diastolic Thickness 0.8 cm 0.6 - 1.0 / 0.6 - 0.9 cm LV Relative Wall Thickness 0.3 RV Internal Dim ED PLAX 2.9 cm LVOT Diameter 2.0 cm Aortic Root Diameter 3.5 cm LA Systolic Diameter LX 4.9 cm 3.0 - 4.0 / 2.7 - 3.8 cm M-MODE AV Cusp Separation MM 1.7 cm DOPPLER AV Peak Velocity 245.0 cm/s AV Peak Gradient 24.0 mmHg AV Mean Gradient 12.5 mmHg AV Velocity Time Integral 42.9 cm LVOT Peak Velocity 93.2 cm/s LVOT Peak Gradient 3.5 mmHg LVOT Velocity Time Integral 17.6 cm AV Area Cont Eq vti 1.3 cm AV Area Cont Eq pk 1.2 cm Mitral E Point Velocity 125.0 cm/s Mitral A Point Velocity 101.0 cm/s Mitral E to A Ratio 1.2 LV E' Lateral Velocity 12.1 cm/s Mitral E to LV E' Lateral Ratio 10.3 LV E' Septal Velocity 7.3 cm/s Mitral E to LV E' Septal Ratio 17.1 TR Peak Velocity 335.0 cm/s TR Peak Gradient 44.9 mmHg Right Atrial Pressure 10.0 mmHg Pulmonary Artery Systolic Pressu 54.9 mmHg Right Ventricular Systolic Press 54.9 mmHg PV Peak Velocity 64.7 cm/s PV Peak Gradient 1.7 mmHg FINDINGS LEFT VENTRICLE Mildly dilated left ventricle. Wall thickness is normal. The left ventricular systolic function is moderately reduced with an estimated ejection fraction in the range of 40-45%. There is mild global left ventricular dysfunction. RIGHT VENTRICLE Normal right ventricular size and systolic function. LEFT ATRIUM The left atrial size is moderately dilated. RIGHT ATRIUM The right atrial size is normal. ATRIAL SEPTUM No atrial level shunt is demonstrated by color flow Doppler interrogation. AORTA The aortic root and proximal ascending aorta are normal in size on limited imaging. MITRAL VALVE Moderate mitral annular calcification. Moderate mitral valve regurgitation with an eccentric jet. AORTIC VALVE Trileaflet aortic valve. Aortic valve sclerosis is present. TRICUSPID VALVE There is estimated moderate pulmonary hypertension present (range 50-60 mmHg). There is moderate to severe tricuspid valve regurgitation. PULMONARY VALVE Trivial pulmonary valve regurgitation. VESSELS There is less than 50% respiratory change in dimension of the inferior vena cava (abnormal). PERICARDIUM No pericardial effusion. Chetan Toledo MD (Electronically Signed) Final Date:11 January 2018 21:16
[2018-01-11] MEDS: traZODone 50 MG Tablet PO SCH (22:01)
[2018-01-12 07:31] LABS: Baso # (Auto) 0.1 th/mm3 (0.0-0.2); Baso % (Auto) 0.6 % (0.0-2.0); Eos # (Auto) 0.5 th/mm3 (0.0-0.4); Eos % (Auto) 5.2 % (0.0-4.0); Lymph # (Auto) 0.9 th/mm3 (1.0-4.8); Lymph % (Auto) 8.5 % (9.0-44.0); Mean Corpuscular HGB Conc 33.7 % (32.0-36.0); Mean Corpuscular Hemoglobin 27.6 pg (27.0-34.0); Mean Corpuscular Volume 82.1 fL (80.0-100.0); Mean Platelet Volume 7.4 fL (7.0-11.0); Mono # (Auto) 0.9 th/mm3 (0.0-0.9); Mono % (Auto) 9.4 % (0.0-8.0); Neut # (Auto) 7.7 th/mm3 (1.8-7.7); Neut % (Auto) 76.3 % (16.0-70.0); Platelet Count 251 th/mm3 (150-450); Red Blood Count 1.89 mil/mm3 (4.00-5.30); Red Cell Distribution Width 16.5 % (11.6-17.2); White Blood Count 10.1 th/mm3 (4.0-11.0)
[2018-01-12 07:34] LABS: INR 1.5 Ratio; Prothrombin Time 15.6 sec (9.8-11.6)
[2018-01-12 07:51] LABS: Hematocrit 15.5 % (35.0-46.0); Hemoglobin 5.2 gm/dL (11.6-15.3)
[2018-01-12 07:53] LABS: Calcium 7.5 mg/dL (8.5-10.1); Carbon Dioxide 28.9 meq/L (21.0-32.0); Potassium 4.5 meq/L (3.5-5.1)
[2018-01-12 08:46] LABS: Basophilic Stippling Moderate; Ovalocytes 1+
[2018-01-12] MEDS: amLODIPine 10 MG Tablet PO SCH (10:16)
[2018-01-12] MEDS: Ferrous Sulfate 325 MG Tablet PO SCH (10:25)
--- NOTE | 2018-01-12 10:54 | P.PNWCN ---
Wound Care Nurse Consult Description: wound consult ordered by for wound management. Communicated with: Janice PAGE, , Zehra ESPARZA. Recommendation: Left groin surgical incision/sutures. 1. Cleanse Left groin suture site and surgical wound with normal saline pat dry, Skin prep vanessa wound. 2.Apply lidocaine 3% gel to [place] 0.125% moistened rolled gauze ,gently pack into wound cavity leaving tail exposed. 3. Cover with dry dressing secure with paper tape or adhesive dressing 4. Change dressing twice a day or as needed for dislodgement/exudate management. 5. Sutures can remain open to air, if exudate cover with dry non stick dressing. Sacrum 1.Turn patient every 2 hours for comfort and offloading 2. Cleanse sacral region with Remedy soft cloth barrier wipes. 3.Apply Calazime to sacral area BID or as needed for loose stool. Additional information: Energy Efficiency Engineer , and assistant commissioner VILMA Shahid seen patient today for wound management.Patient alert and oriented x4.Dressing removed from left upper thigh with discomfort noted.Surgical incision measures ~3.5cm x ~3.0cm x ~2.0cm wound base is beefy red non granular tissue wound edges are well defined and sloped with wound base moderate serosanguineous exudate noted with out odor.Vanessa wound dry intact.induration noted from 10-2 O'clock firm warm to touch.Wound cleansed with normal saline pat dry.Saline moistened rolled gauze gently packed in wound base leaving tail exposed.Wound covered with dry gauze and compression weight applied .Patient was repositioned to right side were communications writer was able to visualize sacral/coccyx region.Patient noted to have a stage 1 non blanchable tissue over sacrum measuring 1.0cm x 1.0cm by intact tissue.Sacral region cleansed with Remedy soft cloth barrier wipes and thick even layer of Calazime applied. Wound/Pressure Injury - Patient Status Premedicated for Pain Prior to Dressing Change: No - Wound Left Lower Leg Primary Dressing: maxorb Wound Dressing Change Date: 01/07/18 Wound Closure Date: 01/07/18 Left Groin Thigh Wound Assessment: Ongoing Wound Type: Abscess Is This a Chronic Wound: No Requested from Provider a Wound Care Consult: No (V.Dollar RN,[facility] seen 01/12) Wound Bed Appearance: [place], Red, Sutures Surrounding Tissue Appearance: Indurated Surrounding Tissue Temperature: Warm Drainage Description: Serosanguinous Drainage Amount: Moderate Drainage Odor: No Odor Dressing Status: Changed Cleansing Solution: Saline Topical: Medicated Gel Wound Packing Type: Gauze Roll Primary Dressing: Gauze Pad Cover Dressing: Adhesive Dressing Wound Dressing Change Date: 01/12/18 Midline Sacrum Wound Staging: Stage I Wound Assessment: Ongoing Wound Type: Pressure Injury Is This a Chronic Wound: No Requested from Provider a Wound Care Consult: No Length: 1.0 Width: 1.0 Wound Bed Appearance: [place] Surrounding Tissue Appearance: Blanched/Dull Cleansing Solution: Saline Topical: Calazime Incision - Patient Status Premedicated for Pain Prior to Dressing Change: No - Incision Left Groin Incision Type: Incision Incision Description: Sutures Cover Dressing: Gauze Pads Tape Type: Transparent Left Groin DISTAL Incision Assessment: Ongoing Incision Type: Incision Incision Description: Approximated Surrounding Tissue Appearance: [place] Surrounding Tissue Temperature: Warm Drainage Description: Sanguinous Drainage Amount: Moderate Drainage Odor: No Odor Incision Dressing Status: Dry & Intact, Reinforced Incision Packing Type: Gauze Roll Primary Dressing: Transparent Cover Dressing: Transparent
--- NOTE | 2018-01-12 11:16 | P.PNVS ---
Subjective Post Op Day #: 2 Procedure: Repair of L CFV and evacuation of hematoma Subjective/Hospital Course: Pt c/o L LE incisional pain Dressing changed Minimal drainage present Incision intact Objective Vital Signs / I&O: Vital Signs 01/11/18 12:00 01/11/18 16:42 01/11/18 16:48 Temperature 97.7 F 98.1 F 98.1 F Pulse Rate 80 84 84 Respiratory Rate 16 18 18 Blood Pressure 104/65 100/54 L 100/54 L Pulse Oximetry 100 100 01/11/18 17:22 01/11/18 18:45 01/11/18 20:00 Temperature 98.2 F 98.1 F 98.4 F Pulse Rate 84 78 Respiratory Rate 18 18 20 Blood Pressure 97/52 L 103/56 L 107/55 L Pulse Oximetry 98 96 01/12/18 00:00 01/12/18 04:00 01/12/18 08:00 Temperature 97.9 F 98.7 F 98.4 F Pulse Rate 90 86 85 Respiratory Rate 18 18 19 Blood Pressure 101/47 L 111/54 L 101/58 L Pulse Oximetry 100 100 100 Intake & Output 01/11/18 01/12/18 01/12/18 18:59 06:59 18:59 Intake Total 480 / 480 320 / 320 Balance 480 / 480 320 / 320 Intake: Oral 480 / 480 320 / 320 Intake (Blood Product) Amt 0 / 0 0 / 0 Rbc As-3 Leukoreduced Unit 0 / 0 0 / 0 [id number] Other: # Voids 0 0 Date of Last Bowel Movement 01/10/18 # Bowel Movements 1 4 Exam: GENERAL: A&OX3,NAD,GCS 15 SKIN: Warm and dry Left groin incision intact Minimal drainage present Laboratory Results - last 24 hr 01/09/18 01/10/18 01/11/18 08:00 07:07 09:46 WBC RBC Hgb Hct MCV MCH MCHC RDW Plt Count MPV Prelim Diff (Auto) Neut % (Auto) Lymph % (Auto) [place] % (Auto) Eos % (Auto) Baso % (Auto) Neut # (Auto) Lymph # (Auto) [place] # (Auto) Eos # (Auto) Baso # (Auto) WBC Differential Diff Scan Differential Comment Basophilic Stippling Ovalocytes PT INR Sodium Potassium Chloride Carbon Dioxide Anion Gap BUN Creatinine Estimated GFR POC Glucose Random Glucose Calcium MTS Gel Crossmatch See Detail See Detail See Detail 01/11/18 01/12/18 01/12/18 17:53 05:26 06:32 WBC RBC Hgb Hct MCV MCH MCHC RDW Plt Count MPV Prelim Diff (Auto) Neut % (Auto) Lymph % (Auto) [place] % (Auto) Eos % (Auto) Baso % (Auto) Neut # (Auto) Lymph # (Auto) [place] # (Auto) Eos # (Auto) Baso # (Auto) WBC Differential Diff Scan Differential Comment Basophilic Stippling Ovalocytes PT 15.6 H INR 1.5 Sodium Potassium Chloride Carbon Dioxide Anion Gap BUN Creatinine Estimated GFR POC Glucose 107 83 Random Glucose Calcium MTS Gel Crossmatch 01/12/18 01/12/18 01/12/18 06:32 06:32 08:37 WBC 10.1 RBC 1.89 L Hgb 5.2 L* Hct 15.5 L* MCV 82.1 MCH 27.6 MCHC 33.7 RDW 16.5 Plt Count 251 MPV 7.4 Prelim Diff (Auto) Slide review pending Neut % (Auto) 76.3 H Lymph % (Auto) 8.5 L [place] % (Auto) 9.4 H Eos % (Auto) 5.2 H Baso % (Auto) 0.6 Neut # (Auto) 7.7 Lymph # (Auto) 0.9 L [place] # (Auto) 0.9 Eos # (Auto) 0.5 H Baso # (Auto) 0.1 WBC Differential . Diff Scan Auto diff confirmed Differential Comment . Basophilic Stippling Moderate H Ovalocytes 1+ H PT INR Sodium 138 Potassium 4.5 Chloride 99 Carbon Dioxide 28.9 Anion Gap 10 BUN 92 H Creatinine 4.45 H Estimated GFR 13 L POC Glucose 81 Random Glucose 68 L Calcium 7.5 L MTS Gel Crossmatch Microbiology 01/10/18 19:02 Wound Culture - Final Catheter Tip - Other gram negative rods gram positive cocci 01/10/18 18:15 Gram Stain - Final Tissue - Groin Wound Culture - Preliminary gram negative rods 01/10/18 18:15 Fungal Smear - Final Tissue - Groin No fungal elements seen Assessment and Plan - Assessment (1) End-stage renal disease on hemodialysis Code(s): N18.6 - End stage renal disease; Z99.2 - Dependence on renal dialysis Status: Acute - Plan POD#2 Pt s/p partial catheter excision, repair of vein, drainage of hematoma Pain controlled Reviewed labs Plan Give 2U RBC Continue pain control Continue daily Wound care- orders written Continue antibiotics Zehra Lynch NP [facility]/[place] [phone]
--- NOTE | 2018-01-12 11:39 | P.PN ---
Subjective Interval history: Follow-up nonfunctional Vas-Cath January 04, 2018-patient seen and examined, currently stable January 05, 2018-patient seen and examined, afebrile however patient with 2 positive blood culture. Patient seen by vascular surgery however recommended conservative management. Patient was also seen by podiatry but she declined MRI January 06, 2018-patient seen and examined, plan for permacath removal if INR less than 1.5. Patient has no complaint and currently afebrile. Mom by the bedside. January 07, 2018-patient seen and examined, Heading for removal of permacath today ; stable and no complaint. January 08, 2018-patient seen and examined, left CFV tunnel catheter removed yesterday by vascular surgery, complicated overnight by bleeding at sites however resolved since this morning. Vital stable. H&H stable. Taking p.o. without any competition nausea and vomiting. Mom by the bedside. January 09, 2018-patient seen and examined, currently receiving 2 units packed red blood cell. No other issues. January 10, 2018-patient seen and examined, patient had an adverse reaction to blood transfusion yesterday with complaint of shortness of breath. Plan for hemodialysis today as well as removal of permacath January 11, 2018-patient seen and examined; h/h low and BP is low.HD catheter was removed yesterday. patient is requesting some Narcotics January 12, 2018-patient seen and examined, despite 1 unit packed red blood cells given yesterday, patient still with low H&H. Plan for hemodialysis during which patient will receive 2 units of packed red blood cell today Physical Exam Vital signs: Vital Signs 01/11/18 12:00 01/11/18 16:42 01/11/18 16:48 Temperature 97.7 F 98.1 F 98.1 F Pulse Rate 80 84 84 Respiratory Rate 16 18 18 Blood Pressure 104/65 100/54 L 100/54 L Pulse Oximetry 100 100 01/11/18 17:22 01/11/18 18:45 01/11/18 20:00 Temperature 98.2 F 98.1 F 98.4 F Pulse Rate 84 78 Respiratory Rate 18 18 20 Blood Pressure 97/52 L 103/56 L 107/55 L Pulse Oximetry 98 96 01/12/18 00:00 01/12/18 04:00 01/12/18 08:00 Temperature 97.9 F 98.7 F 98.4 F Pulse Rate 90 86 85 Respiratory Rate 18 18 19 Blood Pressure 101/47 L 111/54 L 101/58 L Pulse Oximetry 100 100 100 Intake & Output 01/11/18 01/12/18 01/12/18 18:59 06:59 18:59 Intake Total 480 / 480 320 / 320 Balance 480 / 480 320 / 320 Intake: Oral 480 / 480 320 / 320 Intake (Blood Product) Amt 0 / 0 0 / 0 Rbc As-3 Leukoreduced Unit 0 / 0 0 / 0 [id number] Other: # Voids 0 0 Date of Last Bowel Movement 01/10/18 # Bowel Movements 1 4 Narrative: GENERAL: NAD SKIN: Warm and dry. HEAD: Normocephalic. EYES: No scleral icterus. No injection or drainage. NECK: Supple, trachea midline. No JVD or lymphadenopathy. CARDIOVASCULAR: Regular rate and rhythm without murmurs, gallops, or rubs. RESPIRATORY: Breath sounds equal bilaterally. No accessory muscle use. GASTROINTESTINAL: Abdomen soft, non-tender, nondistended. MUSCULOSKELETAL: No cyanosis, or edema. Bilateral lower extremity lymphedema; left lower extremity with a chronic wound; dressing covering it. dressing over previous site of HD catheter with surrounding blood BACK: Nontender without obvious deformity. No CVA tenderness. Results - Labs CBC & Chem 7: 01/12/18 06:32 01/12/18 06:32 Laboratory Results - last 24 hr 01/09/18 01/10/18 01/11/18 08:00 07:07 09:46 WBC RBC Hgb Hct MCV MCH MCHC RDW Plt Count MPV Prelim Diff (Auto) Neut % (Auto) Lymph % (Auto) [place] % (Auto) Eos % (Auto) Baso % (Auto) Neut # (Auto) Lymph # (Auto) [place] # (Auto) Eos # (Auto) Baso # (Auto) WBC Differential Diff Scan Differential Comment Basophilic Stippling Ovalocytes PT INR Sodium Potassium Chloride Carbon Dioxide Anion Gap BUN Creatinine Estimated GFR POC Glucose Random Glucose Calcium MTS Gel Crossmatch See Detail See Detail See Detail 01/11/18 01/12/18 01/12/18 17:53 05:26 06:32 WBC RBC Hgb Hct MCV MCH MCHC RDW Plt Count MPV Prelim Diff (Auto) Neut % (Auto) Lymph % (Auto) [place] % (Auto) Eos % (Auto) Baso % (Auto) Neut # (Auto) Lymph # (Auto) [place] # (Auto) Eos # (Auto) Baso # (Auto) WBC Differential Diff Scan Differential Comment Basophilic Stippling Ovalocytes PT 15.6 H INR 1.5 Sodium Potassium Chloride Carbon Dioxide Anion Gap BUN Creatinine Estimated GFR POC Glucose 107 83 Random Glucose Calcium MTS Gel Crossmatch 01/12/18 01/12/18 01/12/18 06:32 06:32 08:37 WBC 10.1 RBC 1.89 L Hgb 5.2 L* Hct 15.5 L* MCV 82.1 MCH 27.6 MCHC 33.7 RDW 16.5 Plt Count 251 MPV 7.4 Prelim Diff (Auto) Slide review pending Neut % (Auto) 76.3 H Lymph % (Auto) 8.5 L [place] % (Auto) 9.4 H Eos % (Auto) 5.2 H Baso % (Auto) 0.6 Neut # (Auto) 7.7 Lymph # (Auto) 0.9 L [place] # (Auto) 0.9 Eos # (Auto) 0.5 H Baso # (Auto) 0.1 WBC Differential . Diff Scan Auto diff confirmed Differential Comment . Basophilic Stippling Moderate H Ovalocytes 1+ H PT INR Sodium 138 Potassium 4.5 Chloride 99 Carbon Dioxide 28.9 Anion Gap 10 BUN 92 H Creatinine 4.45 H Estimated GFR 13 L POC Glucose 81 Random Glucose 68 L Calcium 7.5 L MTS Gel Crossmatch Microbiology 01/10/18 19:02 Other Acid Fast Bacilli Smear - Final No acid fast bacilli seen 01/10/18 18:15 Tissue - Groin Acid Fast Bacilli Smear - Final No acid fast bacilli seen 01/10/18 19:02 Catheter Tip - Other Wound Culture - Final gram negative rods gram positive cocci 01/10/18 18:15 Tissue - Groin Gram Stain - Final 01/10/18 18:15 Tissue - Groin Wound Culture - Preliminary gram negative rods 01/10/18 18:15 Tissue - Groin Fungal Smear - Final No fungal elements seen Assessment and Plan - Plan 52-year-old female with Bacteremia Appreciate input from infectious disease specialist Currently on vancomycin with HD Continue to monitor culture report CHF exacerbation Fluid overload Abdominal ascites Appreciate input from Nephrology for hemodialysis. Hemodialysis per protocol Left CFV tunneled catheter removed 01/08 by vascular surgery Okay to use right upper extremity aVF HD catheter in groin removed 01/10/18 Left lower extremity venous stasis cellulitis. Appreciate input from podiatry, patient declined MRI to rule out osteomyelitis Dysfunctional Vas-Cath left lower extremity. Small thrombus around Vas-Cath. On warfarin however on hold. Appreciate input from vascular surgery Hypertension. Continue home meds. Anemia of chronic kidney disease compounded by acute blood loss Patient had adverse reaction to blood transfusion January 09, 2018 Transfuse 2 units PRBC today 01/12/18 Will consult gastroenterology for evaluation for possible panendoscopy Hypoglycemia, asymptomatic Secondary to end-stage renal disease Treatment per hypoglycemia protocol History of CVA History of DVT On warfarin however due to acute blood loss, continue to hold warfarin. GERD. Chronic. Continue PPI.
--- NOTE | 2018-01-12 11:41 | P.PNNP ---
Subjective Interval history: Patient denies any shortness of breath. HGB is low at 5.2. Plan for hemodialysis today and transfuse 2 units of PRBC's. <Jillian Bowling - Last Filed: 01/12/18 11:37> Physical Exam Vital signs: Vital Signs 01/11/18 12:00 01/11/18 16:42 01/11/18 16:48 Temperature 97.7 F 98.1 F 98.1 F Pulse Rate 80 84 84 Respiratory Rate 16 18 18 Blood Pressure 104/65 100/54 L 100/54 L Pulse Oximetry 100 100 01/11/18 17:22 01/11/18 18:45 01/11/18 20:00 Temperature 98.2 F 98.1 F 98.4 F Pulse Rate 84 78 Respiratory Rate 18 18 20 Blood Pressure 97/52 L 103/56 L 107/55 L Pulse Oximetry 98 96 01/12/18 00:00 01/12/18 04:00 01/12/18 08:00 Temperature 97.9 F 98.7 F 98.4 F Pulse Rate 90 86 85 Respiratory Rate 18 18 19 Blood Pressure 101/47 L 111/54 L 101/58 L Pulse Oximetry 100 100 100 Intake & Output 01/11/18 01/12/18 01/12/18 18:59 06:59 18:59 Intake Total 480 / 480 320 / 320 Balance 480 / 480 320 / 320 Intake: Oral 480 / 480 320 / 320 Intake (Blood Product) Amt 0 / 0 0 / 0 Rbc As-3 Leukoreduced Unit 0 / 0 0 / 0 [id number] Other: # Voids 0 0 Date of Last Bowel Movement 01/10/18 # Bowel Movements 1 4 - Constitutional no acute distress, thin, cachectic - Routine HEENT Exam Head: Present: normocephalic ENT: Present: mucous membranes moist - Routine Neck Exam Absent: JVD - Routine Respiratory Exam Present: decreased breath sounds. Absent: rales, rhonchi - Routine Cardiovascular Exam Present: RRR. Absent: murmur - Routine Abdominal Exam Present: soft, normoactive bowel sounds - Routine Extremities Exam Absent: edema - Routine Skin Exam Present: dry, warm, wounds - Routine Neurological Exam Present: alert, oriented X3 - Routine Psychiatric Exam Present: cooperative <Jillian Bowling - Last Filed: 01/12/18 11:37> Vital signs: Vital Signs 01/11/18 20:00 01/12/18 00:00 01/12/18 04:00 Temperature 98.4 F 97.9 F 98.7 F Pulse Rate 78 90 86 Respiratory Rate 20 18 18 Blood Pressure 107/55 L 101/47 L 111/54 L Pulse Oximetry 96 100 100 01/12/18 08:00 01/12/18 12:00 01/12/18 16:05 Temperature 98.4 F 98.2 F 98.6 F Pulse Rate 85 85 90 Respiratory Rate 19 19 Blood Pressure 101/58 L 109/64 108/61 Pulse Oximetry 100 100 01/12/18 16:08 01/12/18 16:22 Temperature 98.6 F 98.3 F Pulse Rate 90 82 Respiratory Rate Blood Pressure 108/61 95/46 L Pulse Oximetry Intake & Output 01/11/18 01/12/18 01/12/18 18:59 06:59 18:59 Intake Total 480 / 480 320 / 320 800 / 800 Output Total Balance 480 / 480 320 / 320 799 / 799 Intake: Oral 480 / 480 320 / 320 Intake (Blood Product) Amt 0 / 0 0 / 0 800 / 800 Rbc As-3 Leukoreduced Unit 0 / 0 0 / 0 [id number] Rbc As-3 Leukoreduced Unit 400 / 400 [id number] Rbc As-3 Leukoreduced Unit 400 / 400 [id number] Output: Stool Other: # Voids 0 0 Date of Last Bowel Movement 01/10/18 01/11/18 # Bowel Movements 1 4 <Courtney Hernandez - Last Filed: 01/12/18 18:53> Assessment and Plan - Assessment (1) End-stage renal disease on hemodialysis Code(s): N18.6 - End stage renal disease; Z99.2 - Dependence on renal dialysis Status: Acute - Plan ESRD She is on hemodialysis Wednesday, Wednesday and Wednesday Has AVG in right upper arm with good thrill HD catheter in groin removed yesterday. Site is oozing Continue Sensipar Hemodialysis today Bacteremia Vancomycin with HD ID managing Anemia Epogen with dialysis Transfused yesterday Will order stool for occult blood per nursing having maroon stools HGB 5.2 today will transfuse 2 units of PRBC today with hemodialysis Hypertension Will monitor <Jillian Bowling - Last Filed: 01/12/18 11:37> - Assessment (1) End-stage renal disease on hemodialysis Code(s): N18.6 - End stage renal disease; Z99.2 - Dependence on renal dialysis Status: Acute - Attending Attestation Patient seen and examined, agree with above. Hgb. is low, for transfusion with HD. HD today, remove fluid as tolerated. <Courtney Hernandez - Last Filed: 01/12/18 18:53>
[2018-01-12] MEDS ORDERED: Sodium Chlor 0.9% Inj 250 ML IV.SIG SCH (12:00)
--- NOTE | 2018-01-12 13:56 | P.CONGI ---
History of Present Illness Consult date: 01/12/18 Consult reason: GI bleed, anemia, melena stools Chief complaint: Occluded LLE Vascath; Rec. Wound; Bilat LL Pna History of Present Illness: This is a thin borderline frail 52-year-old female who entered the hospital on with questionable functioning left extremity Vas-Cath. Patient has been maintained in the intensive care unit for her aggressive care and to monitor her end-stage renal disease as well as dialysis. Patient states dialysis for the past 10 years and now has a AV fistula in the right arm for her dialysis. Patient had anemia on admission and on 01/09/2018 patient's hemoglobin was 5.5 and she received 2 units of packed RBCs. On patient also had a hemoglobin of 5.2 and received 1 unit of blood and on patient still remains with a hemoglobin of 5.2 during my exam patient was noted to have large melena stool but currently denies any nausea vomiting, diarrhea or constipation, and no abdominal pain. On admission PT/INR was 2.5 on PT/INR 1.5. Patient is awake answering simple questions but is a fair historian only. We discussed procedure EGD and patient agreed to the plan. Patient currently is afebrile and vital signs are stable, discussed with nurse caring for her the possibility of EGD procedure being done in GI lab and she agreed she should be stable. <Charity Hodges - Last Filed: 01/12/18 13:39> Review of Systems All other systems reviewed negative except as stated in HPI <Charity Hodges - Last Filed: 01/12/18 13:39> PMFSH - History History Provided By: Patient, Medical Record - Medical History Medical History: Medical History (Last Updated 01/05/18 @ 18:22 by Emily Medina MD) A-V fistula CHF (congestive heart failure) CKD (chronic kidney disease) DVT (deep venous thrombosis) Dialysis patient Lymphedema Vascular port complication - Surgical History Surgical History: Surgical History (Last Reviewed 01/05/18 @ 06:31 by Shelby Quick RN) H/O: - Tobacco History Second Hand Smoke Exposure: No Tobacco Use In Past 30 Days: No Smoking Status: Never smoker - Alcohol History How Often Do You Have a Drink Containing Alcohol: Never - Substance Use History Substance History: No History of Abuse - Travel History Recent Travel in the [place] Within the Last 8 Weeks: No Recent Travel Out of the Country Within the Last 8 Weeks: No - Immunization History Tetanus Immunization: >5 Years Hx Influenza Vaccine This Season: No <Charity Hodges - Last Filed: 01/12/18 13:39> - Medical History Medical History: Medical History (Last Updated 01/05/18 @ 18:22 by Emily Medina MD) A-V fistula CHF (congestive heart failure) CKD (chronic kidney disease) DVT (deep venous thrombosis) Dialysis patient Lymphedema Vascular port complication - Surgical History Surgical History: Surgical History (Last Reviewed 01/05/18 @ 06:31 by Shelby Quick RN) H/O: <Anyi العراقي - Last Filed: 01/12/18 14:23> Medications and Allergies Active Medications: Active Medications Acetaminophen (Tylenol) 650 mg PO UNSCH PRN PRN Reason: SEE LABEL COMMENTS Acetaminophen (Tylenol) 650 mg PO Q4H PRN PRN Reason: SEE LABEL COMMENTS Al Hydroxide/Mg Hydroxide (Milk Of Sandy Liq) 30 ml PO Q12H PRN PRN Reason: Mild Constipation Last Admin: 01/04/18 11:09 Dose: 30 ml Amlodipine Besylate (Norvasc) 10 mg PO DAILY [facility] Last Admin: 01/12/18 10:16 Dose: Not Given Bisacodyl (Dulcolax Supp) 10 mg RECTAL DAILY PRN PRN Reason: SEVERE CONSITIPATION Last Admin: 01/09/18 21:21 Dose: 10 mg Carvedilol (Coreg) 6.25 mg PO BID [facility] Last Admin: 01/11/18 23:25 Dose: Not Given Cinacalcet (Sensipar) 30 mg PO DAILY [facility] Last Admin: 01/11/18 12:44 Dose: 30 mg Clonidine HCl (Catapres) 0.1 mg PO UNSCH PRN PRN Reason: SEE LABEL COMMENTS Dextrose (D50w Vial) 50 ml IV.PUSH UNSCH PRN PRN Reason: PER HYPOGLYCEMIA PROTOCOL Diphenhydramine HCl (Benadryl) 25 mg PO UNSCH PRN PRN Reason: SEE LABEL COMMENTS Diphenhydramine HCl (Benadryl) 25 mg PO Q4H PRN PRN Reason: SEE LABEL COMMENTS Last Admin: 01/11/18 16:42 Dose: 25 mg Epoetin Angel (Epogen Inj) 10,000 unit IV.PUSH MoWeFr [facility] Last Admin: 01/10/18 17:20 Dose: 10,000 unit Ferrous Sulfate (Ferosul) 325 mg PO DAILY [facility] Last Admin: 01/12/18 10:25 Dose: 325 mg Gelatin (Gelfoam 12 Mm/7 Mm Topical) 1 foam TOPICAL PRN PRN PRN Reason: help stop bleeding from site Gentamicin Sulfate (Gentamicin Inj) 20 mg OTHER WITH DIALYSIS PRN PRN Reason: Dwell Gentamycin Lock Glucagon (Glucagon Inj) 1 mg OTHER PRN PRN PRN Reason: for Hypoglycemia Protocol Heparin Sodium (Porcine) (Heparin Inj) 8,000 units IV.FLUSH WITH DIALYSIS PRN PRN Reason: for machine prime Heparin Sodium (Porcine) (Heparin Inj) 1,000 units OTHER WITH DIALYSIS PRN PRN Reason: Dwell Heparin to Fill Catheter Hydroxyzine HCl (Atarax) 25 mg PO QID PRN PRN Reason: Itching Pharmacy Profile Note (Coumadin Consult Pharmacy) 0 mls @ 0 mls/hr OTHER UNSCH [facility] Albumin Human (Flexbumin 25% Inj) 100 mls @ 60 mls/hr IV.SIG WITH DIALYSIS PRN PRN Reason: hypotension / volume replace Sodium Chloride (Ns Inj) 1,000 mls @ 0 mls/hr OTHER .Q0M PRN PRN Reason: for prime and rinse back Sodium Chloride (Ns Inj) 1,000 mls @ 200 mls/hr OTHER .Q5H PRN PRN Reason: for dialyzer flush PRN Sodium Chloride (Ns Inj) 1,000 mls @ 0 mls/hr IV.CONT .Q0M PRN PRN Reason: hypotension / volume replace Vancomycin HCl 1,000 mg/ (Sodium Chloride) 250 mls @ 250 mls/hr IV.SIG WITH DIALYSIS [facility] Levofloxacin/Dextrose (Levaquin 500 Mg Premix Inj) 500 mg in 100 mls @ 100 mls/ hr IV.SIG Q48H [facility] Sodium Chloride (Ns Inj) 250 mls @ 15 mls/hr IV.SIG ONCE [facility] Stop: 01/13/18 04:39 Lactulose (Lactulose Liq) 30 ml PO DAILY PRN PRN Reason: SEVERE CONSITIPATION Last Admin: 01/09/18 17:56 Dose: 30 ml Mannitol (Mannitol Inj) 12.5 gm IV.PUSH PRN PRN PRN Reason: hypotension / volume replace Naloxone HCl (Narcan Inj) 0.4 mg IV.PUSH UNSCH PRN PRN Reason: SEE LABEL COMMENTS Nitroglycerin (Nitrostat Sl) 0.4 mg SL Q5M PRN PRN Reason: CHEST PAIN Ondansetron HCl (Zofran Inj) 4 mg IV.PUSH UNSCH PRN PRN Reason: NAUSEA OR VOMITING Last Admin: 01/10/18 17:20 Dose: 4 mg Pantoprazole Sodium (Protonix) 40 mg PO DAILY [facility] Sennosides (Senokot) 17.2 mg PO Q12H PRN PRN Reason: Moderate Constipation Sodium Chloride (Ns Flush) 5 ml IV.FLUSH PRN PRN PRN Reason: flush each lumen during HD Last Admin: 01/12/18 10:26 Dose: 5 ml Sodium Hypochlorite (Dakin's 0.124% Top Soln) 0 ml TOPICAL BID [facility] Temazepam (Restoril) 15 mg PO HS PRN PRN Reason: INSOMNIA Tramadol HCl (Ultram) 50 mg PO Q6H PRN PRN Reason: PAIN 1-10 AND/OR FEVER >101F Last Admin: 01/12/18 10:25 Dose: 50 mg Trazodone HCl (Desyrel) 50 mg PO HS [facility] Last Admin: 01/11/18 22:01 Dose: 50 mg Warfarin Sodium (Coumadin) 6 mg PO DAILY@1600 [facility] Last Admin: 01/09/18 15:58 Dose: Not Given <Charity Hodges - Last Filed: 01/12/18 13:39> Active Medications: Active Medications Acetaminophen (Tylenol) 650 mg PO UNSCH PRN PRN Reason: SEE LABEL COMMENTS Acetaminophen (Tylenol) 650 mg PO Q4H PRN PRN Reason: SEE LABEL COMMENTS Al Hydroxide/Mg Hydroxide (Milk Of Magnesia Liq) 30 ml PO Q12H PRN PRN Reason: Mild Constipation Last Admin: 01/04/18 11:09 Dose: 30 ml Amlodipine Besylate (Norvasc) 10 mg PO DAILY [facility] Last Admin: 01/12/18 10:16 Dose: Not Given Bisacodyl (Dulcolax Supp) 10 mg RECTAL DAILY PRN PRN Reason: SEVERE CONSITIPATION Last Admin: 01/09/18 21:21 Dose: 10 mg Carvedilol (Coreg) 6.25 mg PO BID [facility] Last Admin: 01/11/18 23:25 Dose: Not Given Cinacalcet (Sensipar) 30 mg PO DAILY [facility] Last Admin: 01/11/18 12:44 Dose: 30 mg Clonidine HCl (Catapres) 0.1 mg PO UNSCH PRN PRN Reason: SEE LABEL COMMENTS Dextrose (D50w Vial) 50 ml IV.PUSH UNSCH PRN PRN Reason: PER HYPOGLYCEMIA PROTOCOL Diphenhydramine HCl (Benadryl) 25 mg PO UNSCH PRN PRN Reason: SEE LABEL COMMENTS Diphenhydramine HCl (Benadryl) 25 mg PO Q4H PRN PRN Reason: SEE LABEL COMMENTS Last Admin: 01/11/18 16:42 Dose: 25 mg Epoetin Angel (Epogen Inj) 10,000 unit IV.PUSH MoWeFr [facility] Last Admin: 01/10/18 17:20 Dose: 10,000 unit Ferrous Sulfate (Ferosul) 325 mg PO DAILY [facility] Last Admin: 01/12/18 10:25 Dose: 325 mg Gelatin (Gelfoam 12 Mm/7 Mm Topical) 1 foam TOPICAL PRN PRN PRN Reason: help stop bleeding from site Gentamicin Sulfate (Gentamicin Inj) 20 mg OTHER WITH DIALYSIS PRN PRN Reason: Dwell Gentamycin Lock Glucagon (Glucagon Inj) 1 mg OTHER PRN PRN PRN Reason: for Hypoglycemia Protocol Heparin Sodium (Porcine) (Heparin Inj) 8,000 units IV.FLUSH WITH DIALYSIS PRN PRN Reason: for machine prime Heparin Sodium (Porcine) (Heparin Inj) 1,000 units OTHER WITH DIALYSIS PRN PRN Reason: Dwell Heparin to Fill Catheter Hydroxyzine HCl (Atarax) 25 mg PO QID PRN PRN Reason: Itching Pharmacy Profile Note (Coumadin Consult Pharmacy) 0 mls @ 0 mls/hr OTHER UNSCH [facility] Albumin Human (Flexbumin 25% Inj) 100 mls @ 60 mls/hr IV.SIG WITH DIALYSIS PRN PRN Reason: hypotension / volume replace Sodium Chloride (Ns Inj) 1,000 mls @ 0 mls/hr OTHER .Q0M PRN PRN Reason: for prime and rinse back Sodium Chloride (Ns Inj) 1,000 mls @ 200 mls/hr OTHER .Q5H PRN PRN Reason: for dialyzer flush PRN Sodium Chloride (Ns Inj) 1,000 mls @ 0 mls/hr IV.CONT .Q0M PRN PRN Reason: hypotension / volume replace Vancomycin HCl 1,000 mg/ (Sodium Chloride) 250 mls @ 250 mls/hr IV.SIG WITH DIALYSIS [facility] Levofloxacin/Dextrose (Levaquin 500 Mg Premix Inj) 500 mg in 100 mls @ 100 mls/ hr IV.SIG Q48H [facility] Sodium Chloride (Ns Inj) 250 mls @ 15 mls/hr IV.SIG ONCE [facility] Stop: 01/13/18 04:39 Lactulose (Lactulose Liq) 30 ml PO DAILY PRN PRN Reason: SEVERE CONSITIPATION Last Admin: 01/09/18 17:56 Dose: 30 ml Mannitol (Mannitol Inj) 12.5 gm IV.PUSH PRN PRN PRN Reason: hypotension / volume replace Naloxone HCl (Narcan Inj) 0.4 mg IV.PUSH UNSCH PRN PRN Reason: SEE LABEL COMMENTS Nitroglycerin (Nitrostat Sl) 0.4 mg SL Q5M PRN PRN Reason: CHEST PAIN Ondansetron HCl (Zofran Inj) 4 mg IV.PUSH UNSCH PRN PRN Reason: NAUSEA OR VOMITING Last Admin: 01/10/18 17:20 Dose: 4 mg Pantoprazole Sodium (Protonix) 40 mg PO DAILY [facility] Sennosides (Senokot) 17.2 mg PO Q12H PRN PRN Reason: Moderate Constipation Sodium Chloride (Ns Flush) 5 ml IV.FLUSH PRN PRN PRN Reason: flush each lumen during HD Last Admin: 01/12/18 10:26 Dose: 5 ml Sodium Hypochlorite (Dakin's 0.124% Top Soln) 0 ml TOPICAL BID [facility] Temazepam (Restoril) 15 mg PO HS PRN PRN Reason: INSOMNIA Tramadol HCl (Ultram) 50 mg PO Q6H PRN PRN Reason: PAIN 1-10 AND/OR FEVER >101F Last Admin: 01/12/18 10:25 Dose: 50 mg Trazodone HCl (Desyrel) 50 mg PO HS [facility] Last Admin: 01/11/18 22:01 Dose: 50 mg Warfarin Sodium (Coumadin) 6 mg PO DAILY@1600 [facility] Last Admin: 01/09/18 15:58 Dose: Not Given <Anyi العراقي - Last Filed: 01/12/18 14:23> Allergies Allergy/AdvReac Type Severity Reaction Status Date / Time Penicillins Allergy Severe Swelling Verified 09/02/17 14:16 Home Medications Medication Instructions Recorded Confirmed Type amlodipine [Norvasc] 10 mg PO DAILY 01/04/18 01/04/18 History carvedilol 6.25 mg PO BID 01/04/18 01/04/18 History cinacalcet [Sensipar] 30 mg PO DAILY 01/04/18 01/04/18 History ferrous sulfate 325 mg PO DAILY 01/04/18 01/04/18 History hydroxyzine HCl 25 mg PO QID PRN 01/04/18 01/04/18 History oxycodone 10 mg PO Q6HR PRN 01/04/18 01/04/18 History tramadol 50 mg PO QID 01/04/18 01/04/18 History trazodone 50 mg PO DAILY 01/04/18 01/04/18 History Exam Vital signs: Vital Signs 01/11/18 16:42 01/11/18 16:48 01/11/18 17:22 Temperature 98.1 F 98.1 F 98.2 F Pulse Rate 84 84 Respiratory Rate 18 18 18 Blood Pressure 100/54 L 100/54 L 97/52 L Pulse Oximetry 100 01/11/18 18:45 01/11/18 20:00 01/12/18 00:00 Temperature 98.1 F 98.4 F 97.9 F Pulse Rate 84 78 90 Respiratory Rate 18 20 18 Blood Pressure 103/56 L 107/55 L 101/47 L Pulse Oximetry 98 96 100 01/12/18 04:00 01/12/18 08:00 Temperature 98.7 F 98.4 F Pulse Rate 86 85 Respiratory Rate 18 19 Blood Pressure 111/54 L 101/58 L Pulse Oximetry 100 100 Intake & Output 01/11/18 01/12/18 01/12/18 18:59 06:59 18:59 Intake Total 480 / 480 320 / 320 Balance 480 / 480 320 / 320 Intake: Oral 480 / 480 320 / 320 Intake (Blood Product) Amt 0 / 0 0 / 0 Rbc As-3 Leukoreduced Unit 0 / 0 0 / 0 [id number] Other: # Voids 0 0 Date of Last Bowel Movement 01/10/18 # Bowel Movements 1 4 - Constitutional no acute distress, chronically ill appearing - Routine HEENT Exam Head: Present: normocephalic, atraumatic (Slim body build) Eye: Present: conjunctival icterus (Possible mild) ENT: Present: mucous membranes dry - Routine Neck Exam Present: supple - Routine Cardiovascular Exam Present: S1, S2 - Routine Abdominal Exam Present: soft, normoactive bowel sounds (Flat, no obvious distention or tenderness to light palpation) - Routine Skin Exam Present: dry <Charity Hodges - Last Filed: 01/12/18 13:39> Vital signs: Vital Signs 01/11/18 16:42 01/11/18 16:48 01/11/18 17:22 Temperature 98.1 F 98.1 F 98.2 F Pulse Rate 84 84 Respiratory Rate 18 18 18 Blood Pressure 100/54 L 100/54 L 97/52 L Pulse Oximetry 100 01/11/18 18:45 01/11/18 20:00 01/12/18 00:00 Temperature 98.1 F 98.4 F 97.9 F Pulse Rate 84 78 90 Respiratory Rate 18 20 18 Blood Pressure 103/56 L 107/55 L 101/47 L Pulse Oximetry 98 96 100 01/12/18 04:00 01/12/18 08:00 01/12/18 12:00 Temperature 98.7 F 98.4 F 98.2 F Pulse Rate 86 85 85 Respiratory Rate 18 19 19 Blood Pressure 111/54 L 101/58 L 109/64 Pulse Oximetry 100 100 100 Intake & Output 01/11/18 01/12/18 01/12/18 18:59 06:59 18:59 Intake Total 480 / 480 320 / 320 Balance 480 / 480 320 / 320 Intake: Oral 480 / 480 320 / 320 Intake (Blood Product) Amt 0 / 0 0 / 0 Rbc As-3 Leukoreduced Unit 0 / 0 0 / 0 [id number] Other: # Voids 0 0 Date of Last Bowel Movement 01/10/18 # Bowel Movements 1 4 <Anyi العراقي - Last Filed: 01/12/18 14:23> Results - Labs CBC & Chem 7: 01/12/18 06:32 01/12/18 06:32 Labs: Laboratory Results - last 24 hr 01/09/18 01/10/18 01/11/18 08:00 07:07 09:46 WBC RBC Hgb Hct MCV MCH MCHC RDW Plt Count MPV Prelim Diff (Auto) Neut % (Auto) Lymph % (Auto) Anson % (Auto) Eos % (Auto) Baso % (Auto) Neut # (Auto) Lymph # (Auto) Anson # (Auto) Eos # (Auto) Baso # (Auto) WBC Differential Diff Scan Differential Comment Basophilic Stippling Ovalocytes PT INR Sodium Potassium Chloride Carbon Dioxide Anion Gap BUN Creatinine Estimated GFR POC Glucose Random Glucose Calcium Blood Type Blood Type Recheck Antibody Screen MTS Gel Crossmatch See Detail See Detail See Detail 01/11/18 01/12/18 01/12/18 17:53 05:26 06:32 WBC RBC Hgb Hct MCV MCH MCHC RDW Plt Count MPV Prelim Diff (Auto) Neut % (Auto) Lymph % (Auto) Anson % (Auto) Eos % (Auto) Baso % (Auto) Neut # (Auto) Lymph # (Auto) Anson # (Auto) Eos # (Auto) Baso # (Auto) WBC Differential Diff Scan Differential Comment Basophilic Stippling Ovalocytes PT 15.6 H INR 1.5 Sodium Potassium Chloride Carbon Dioxide Anion Gap BUN Creatinine Estimated GFR POC Glucose 107 83 Random Glucose Calcium Blood Type Blood Type Recheck Antibody Screen MTS Gel Crossmatch 01/12/18 01/12/18 01/12/18 06:32 06:32 08:37 WBC 10.1 RBC 1.89 L Hgb 5.2 L* Hct 15.5 L* MCV 82.1 MCH 27.6 MCHC 33.7 RDW 16.5 Plt Count 251 MPV 7.4 Prelim Diff (Auto) Slide review pending Neut % (Auto) 76.3 H Lymph % (Auto) 8.5 L Anson % (Auto) 9.4 H Eos % (Auto) 5.2 H Baso % (Auto) 0.6 Neut # (Auto) 7.7 Lymph # (Auto) 0.9 L Anson # (Auto) 0.9 Eos # (Auto) 0.5 H Baso # (Auto) 0.1 WBC Differential . Diff Scan Auto diff confirmed Differential Comment . Basophilic Stippling Moderate H Ovalocytes 1+ H PT INR Sodium 138 Potassium 4.5 Chloride 99 Carbon Dioxide 28.9 Anion Gap 10 BUN 92 H Creatinine 4.45 H Estimated GFR 13 L POC Glucose 81 Random Glucose 68 L Calcium 7.5 L Blood Type Blood Type Recheck Antibody Screen MTS Gel Crossmatch 01/12/18 01/12/18 12:07 12:07 WBC RBC Hgb Hct MCV MCH MCHC RDW Plt Count MPV Prelim Diff (Auto) Neut % (Auto) Lymph % (Auto) Anson % (Auto) Eos % (Auto) Baso % (Auto) Neut # (Auto) Lymph # (Auto) Anson # (Auto) Eos # (Auto) Baso # (Auto) WBC Differential Diff Scan Differential Comment Basophilic Stippling Ovalocytes PT INR Sodium Potassium Chloride Carbon Dioxide Anion Gap BUN Creatinine Estimated GFR POC Glucose Random Glucose Calcium Blood Type A Positive Blood Type Recheck Not needed Antibody Screen Negative MTS Gel Crossmatch See Detail <Charity Hodges - Last Filed: 01/12/18 13:39> - Labs CBC & Chem 7: 01/12/18 06:32 01/12/18 06:32 Labs: Laboratory Results - last 24 hr 01/09/18 01/10/18 01/11/18 08:00 07:07 09:46 WBC RBC Hgb Hct MCV MCH MCHC RDW Plt Count MPV Prelim Diff (Auto) Neut % (Auto) Lymph % (Auto) Anson % (Auto) Eos % (Auto) Baso % (Auto) Neut # (Auto) Lymph # (Auto) Anson # (Auto) Eos # (Auto) Baso # (Auto) WBC Differential Diff Scan Differential Comment Basophilic Stippling Ovalocytes PT INR Sodium Potassium Chloride Carbon Dioxide Anion Gap BUN Creatinine Estimated GFR POC Glucose Random Glucose Calcium Blood Type Blood Type Recheck Antibody Screen MTS Gel Crossmatch See Detail See Detail See Detail 01/11/18 01/12/18 01/12/18 17:53 05:26 06:32 WBC RBC Hgb Hct MCV MCH MCHC RDW Plt Count MPV Prelim Diff (Auto) Neut % (Auto) Lymph % (Auto) Anson % (Auto) Eos % (Auto) Baso % (Auto) Neut # (Auto) Lymph # (Auto) Anson # (Auto) Eos # (Auto) Baso # (Auto) WBC Differential Diff Scan Differential Comment Basophilic Stippling Ovalocytes PT 15.6 H INR 1.5 Sodium Potassium Chloride Carbon Dioxide Anion Gap BUN Creatinine Estimated GFR POC Glucose 107 83 Random Glucose Calcium Blood Type Blood Type Recheck Antibody Screen MTS Gel Crossmatch 01/12/18 01/12/18 01/12/18 06:32 06:32 08:37 WBC 10.1 RBC 1.89 L Hgb 5.2 L* Hct 15.5 L* MCV 82.1 MCH 27.6 MCHC 33.7 RDW 16.5 Plt Count 251 MPV 7.4 Prelim Diff (Auto) Slide review pending Neut % (Auto) 76.3 H Lymph % (Auto) 8.5 L Anson % (Auto) 9.4 H Eos % (Auto) 5.2 H Baso % (Auto) 0.6 Neut # (Auto) 7.7 Lymph # (Auto) 0.9 L Anson # (Auto) 0.9 Eos # (Auto) 0.5 H Baso # (Auto) 0.1 WBC Differential . Diff Scan Auto diff confirmed Differential Comment . Basophilic Stippling Moderate H Ovalocytes 1+ H PT INR Sodium 138 Potassium 4.5 Chloride 99 Carbon Dioxide 28.9 Anion Gap 10 BUN 92 H Creatinine 4.45 H Estimated GFR 13 L POC Glucose 81 Random Glucose 68 L Calcium 7.5 L Blood Type Blood Type Recheck Antibody Screen MTS Gel Crossmatch 01/12/18 01/12/18 12:07 12:07 WBC RBC Hgb Hct MCV MCH MCHC RDW Plt Count MPV Prelim Diff (Auto) Neut % (Auto) Lymph % (Auto) Anson % (Auto) Eos % (Auto) Baso % (Auto) Neut # (Auto) Lymph # (Auto) Anson # (Auto) Eos # (Auto) Baso # (Auto) WBC Differential Diff Scan Differential Comment Basophilic Stippling Ovalocytes PT INR Sodium Potassium Chloride Carbon Dioxide Anion Gap BUN Creatinine Estimated GFR POC Glucose Random Glucose Calcium Blood Type A Positive Blood Type Recheck Not needed Antibody Screen Negative MTS Gel Crossmatch See Detail <Anyi العراقي - Last Filed: 01/12/18 14:23> Assessment and Plan - Plan Symptomatic anemia with melena stools. Patient does feel weak and fatigued but denies any upper GI symptoms of nausea vomiting or dyspepsia. Patient denies any abdominal pain and no constipation. Melena stools noted when patient was being changed in the room and she is currently being monitored in the intensive care setting and admitted to the hospital on 01/03/2018 End-stage renal disease with dialysis for approximately 10 years according to patient she had recent left lower extremity Vas-Cath which was removed. Patient now has right arm AV fistula. Patient came in with anemia which could have been related to her end-stage renal disease but since 01 09 hemoglobin has been 5.5 and 5.2 and receiving transfusions daily without hemoglobin improvement. Coagulopathy with PT/INR 2.5 on admission now 1.5 and will need to be monitored before her tentative EGD. Possible mild icteric sclera noted on exam will check LFTs and bilirubin. Patient denies any history of alcohol tobacco or illicit drugs. Plan Diet renal today N.p.o. at midnight Hold any Coumadin and anticoagulants in the a.m. before EGD Consent for EGD in a.m. discussed with staff today and during my exam patient was felt to be stable to come to GI lab in the morning patient will need reevaluation before coming and PT/INR review. Checking hepatic function pump oiler for any acute bleeding, and her melena stools PPI Further recommendations to follow Patient was seen per myself and Dr. العراقي, this note was written on his behalf <Charity Hodges - Last Filed: 01/12/18 13:39> - Attending Attestation As above, seen with Charity, plan for EGD in AM if INR below 1.5 Will follow up with you. <Anyi العراقي - Last Filed: 01/12/18 14:23>
[2018-01-12 14:32] LABS: Albumin 1.5 g/dL (3.4-5.0)
[2018-01-12 14:34] LABS: Total Protein 6.5 g/dL (6.4-8.2)
[2018-01-12] MEDS: Vancomycin Inj 1,000 MG in Sodium Chlor 0.9% Inj 250 ML IV.SIG SCH (17:49)
[2018-01-12] MEDS: traZODone 50 MG Tablet PO SCH (21:28)
[2018-01-12] MEDS: Temazepam 15 MG Capsule PO PRN (21:28)
[2018-01-12] MEDS: Carvedilol 6.25 MG Tablet PO SCH (21:28)
[2018-01-13 05:42] LABS: Hematocrit 22.2 % (35.0-46.0); Hemoglobin 7.3 gm/dL (11.6-15.3); Mean Corpuscular Hemoglobin 26.6 pg (27.0-34.0); Mean Corpuscular Volume 80.7 fL (80.0-100.0); Platelet Count 232 th/mm3 (150-450); Red Blood Count 2.76 mil/mm3 (4.00-5.30); Red Cell Distribution Width 18.3 % (11.6-17.2); White Blood Count 12.2 th/mm3 (4.0-11.0)
[2018-01-13 05:51] LABS: INR 1.6 Ratio; Prothrombin Time 16.1 sec (9.8-11.6)
[2018-01-13] MEDS: amLODIPine 10 MG Tablet PO SCH (08:48)
[2018-01-13] MEDS: Ferrous Sulfate 325 MG Tablet PO SCH (08:49)
[2018-01-13] MEDS: Carvedilol 6.25 MG Tablet PO SCH ×2 (08:49→19:55)
--- NOTE | 2018-01-13 10:54 | P.PN ---
Subjective Interval history: Follow-up nonfunctional Vas-Cath/symptomatic anemia January 13, 2018-patient seen and examined, H&H improved post transfusion. Awaiting for EGD. Low BP however patient still requesting adjustment of her narcotics. Mother by the bedside. Physical Exam Vital signs: Vital Signs 01/12/18 12:00 01/12/18 16:05 01/12/18 16:08 Temperature 98.2 F 98.6 F 98.6 F Pulse Rate 85 90 90 Respiratory Rate 19 Blood Pressure 109/64 108/61 108/61 Pulse Oximetry 100 01/12/18 16:22 01/12/18 20:00 01/12/18 21:49 Temperature 98.3 F 91 F L Pulse Rate 82 82 Respiratory Rate 18 Blood Pressure 95/46 L 132/62 Pulse Oximetry 100 97 01/13/18 00:00 01/13/18 04:00 01/13/18 08:00 Temperature 98.4 F 98.2 F 98.1 F Pulse Rate 80 79 69 Respiratory Rate 18 18 12 Blood Pressure 114/57 L 120/58 L 88/41 L Pulse Oximetry 100 100 98 Intake & Output 01/12/18 01/13/18 01/13/18 18:59 06:59 18:59 Intake Total 1050 / 1050 220 / 220 Output Total 4000 / 4000 Balance 1049 / 1049 -3780 / -3780 Intake: IV 250 / 250 Vancomycin Inj 1,000 MG In NS 250 / 250 Inj 250 ML @ 250 mls/hr IV.SIG WITH [facility]YS[facility] Rx#:[id number] Oral 220 / 220 Intake (Blood Product) Amt 800 / 800 Rbc As-3 Leukoreduced Unit 400 / 400 [id number] Rbc As-3 Leukoreduced Unit 400 / 400 [id number] Output: Stool Hemodialysis Amount 4000 / 4000 Other: Date of Last Bowel Movement 01/11/18 01/11/18 # Bowel Movements 1 Narrative: GENERAL: NAD SKIN: Warm and dry. HEAD: Normocephalic. EYES: No scleral icterus. No injection or drainage. NECK: Supple, trachea midline. No JVD or lymphadenopathy. CARDIOVASCULAR: Regular rate and rhythm without murmurs, gallops, or rubs. RESPIRATORY: Breath sounds equal bilaterally. No accessory muscle use. GASTROINTESTINAL: Abdomen soft, non-tender, nondistended. MUSCULOSKELETAL: No cyanosis, or edema. Bilateral lower extremity lymphedema; left lower extremity with a chronic wound; dressing covering it. dressing over previous site of HD catheter with surrounding blood BACK: Nontender without obvious deformity. No CVA tenderness. Results - Labs CBC & Chem 7: 01/13/18 04:51 01/12/18 06:32 Laboratory Results - last 24 hr 01/11/18 01/12/18 01/12/18 09:46 12:07 12:07 WBC RBC Hgb Hct MCV MCH MCHC RDW Plt Count MPV PT INR POC Glucose Total Bilirubin Direct Bilirubin Indirect Bilirubin AST ALT Alkaline Phosphatase Total Protein Albumin Vancomycin Trough Random Vancomycin Blood Type A Positive Blood Type Recheck Not needed Antibody Screen Negative MTS Gel Crossmatch See Detail See Detail 01/12/18 01/12/18 01/12/18 13:45 13:45 14:50 WBC RBC Hgb Hct MCV MCH MCHC RDW Plt Count MPV PT INR POC Glucose 88 Total Bilirubin 0.4 Direct Bilirubin 0.2 Indirect Bilirubin 0.2 AST 12 L ALT 6 L Alkaline Phosphatase 229 H Total Protein 6.5 D Albumin 1.5 L Vancomycin Trough Random Vancomycin 7.3 Blood Type Blood Type Recheck Antibody Screen MTS Gel Crossmatch 01/12/18 01/12/18 01/12/18 15:50 17:21 21:40 WBC RBC Hgb Hct MCV MCH MCHC RDW Plt Count MPV PT INR POC Glucose 85 86 Total Bilirubin Direct Bilirubin Indirect Bilirubin AST ALT Alkaline Phosphatase Total Protein Albumin Vancomycin Trough 7.4 Random Vancomycin Blood Type Blood Type Recheck Antibody Screen MTS Gel Crossmatch 01/13/18 01/13/18 04:51 04:51 WBC 12.2 H RBC 2.76 L Hgb 7.3 L D Hct 22.2 L MCV 80.7 MCH 26.6 L MCHC 33.0 RDW 18.3 H Plt Count 232 MPV 8.0 PT 16.1 H INR 1.6 POC Glucose Total Bilirubin Direct Bilirubin Indirect Bilirubin AST ALT Alkaline Phosphatase Total Protein Albumin Vancomycin Trough Random Vancomycin Blood Type Blood Type Recheck Antibody Screen MTS Gel Crossmatch Microbiology 01/10/18 18:15 Tissue - Groin Gram Stain - Final 01/10/18 18:15 Tissue - Groin Wound Culture - Final Proteus mirabilis 01/10/18 19:02 Other Acid Fast Bacilli Smear - Final No acid fast bacilli seen 01/10/18 18:15 Tissue - Groin Acid Fast Bacilli Smear - Final No acid fast bacilli seen 01/10/18 19:02 Catheter Tip - Other Wound Culture - Final gram negative rods gram positive cocci - Procedures s/p partial catheter excision, repair of vein, drainage of hematoma Assessment and Plan - Plan 52-year-old female with Bacteremia Appreciate input from infectious disease specialist Currently on vancomycin with HD Continue to monitor culture report CHF exacerbation Fluid overload Abdominal ascites Appreciate input from Nephrology for hemodialysis. Hemodialysis per protocol Left CFV tunneled catheter removed 01/08 by vascular surgery Okay to use right upper extremity aVF HD catheter in groin removed 01/10/18 Left lower extremity venous stasis cellulitis. Appreciate input from podiatry, patient declined MRI to rule out osteomyelitis Dysfunctional Vas-Cath left lower extremity. Small thrombus around Vas-Cath. On warfarin however on hold. Appreciate input from vascular surgery s/p partial catheter excision, repair of vein, drainage of hematoma Hypertension. Continue home meds. Anemia of chronic kidney disease compounded by acute blood loss H&H stable posttransfusion yesterday January 12, 2018 Appreciate input from gastroenterology will plan for EGD possible today January 13, 2018 Continue with PPI and serial H&H monitoring Hypoglycemia, asymptomatic Secondary to end-stage renal disease Treatment per hypoglycemia protocol History of CVA History of DVT On warfarin however due to acute blood loss, continue to hold warfarin. GERD. Chronic. Continue PPI.
[2018-01-13] MEDS ORDERED: Lidocaine PF 1% Inj 5 ML Syringe INFILTRATN ONE (12:00)
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
--- NOTE | 2018-01-13 14:30 | P.PNNP ---
Subjective Interval history: Patient seen earlier in day. NPO for EGD. Hemodialysis yesterday tolerated well. HGB improved today at 7.2 after 2 units of PRBC <Jillian Bowling - Last Filed: 01/13/18 14:26> Physical Exam Vital signs: Vital Signs 01/12/18 16:05 01/12/18 16:08 01/12/18 16:22 Temperature 98.6 F 98.6 F 98.3 F Pulse Rate 90 90 82 Respiratory Rate Blood Pressure 108/61 108/61 95/46 L Pulse Oximetry 01/12/18 20:00 01/12/18 21:49 01/13/18 00:00 Temperature 91 F L 98.4 F Pulse Rate 82 80 Respiratory Rate 18 18 Blood Pressure 132/62 114/57 L Pulse Oximetry 100 97 100 01/13/18 04:00 01/13/18 08:00 01/13/18 13:20 Temperature 98.2 F 98.1 F 98.0 F Pulse Rate 79 69 Respiratory Rate 18 12 18 Blood Pressure 120/58 L 88/41 L 109/59 L Pulse Oximetry 100 98 97 01/13/18 13:25 01/13/18 13:30 Temperature Pulse Rate Respiratory Rate 18 18 Blood Pressure Pulse Oximetry 94 L 97 Intake & Output 01/12/18 01/13/18 01/13/18 18:59 06:59 18:59 Intake Total 1050 / 1050 220 / 220 150 / 150 Output Total 4000 / 4000 0 / 0 Balance 1049 / 1049 -3780 / -3780 150 / 150 Intake: IV 250 / 250 Vancomycin Inj 1,000 MG In NS 250 / 250 Inj 250 ML @ 250 mls/hr IV.SIG WITH DIALYSIS [facility] Rx#:[id number] Oral 220 / 220 Anesthesia Amount 150 / 150 Intake (Blood Product) Amt 800 / 800 Rbc As-3 Leukoreduced Unit 400 / 400 [id number] Rbc As-3 Leukoreduced Unit 400 / 400 [id number] Output: Stool Hemodialysis Amount 4000 / 4000 Estimated Blood Loss 0 / 0 Other: Date of Last Bowel Movement 01/11/18 01/11/18 # Bowel Movements 1 - Constitutional no acute distress - Routine HEENT Exam Head: Present: normocephalic - Routine Neck Exam Present: supple. Absent: JVD - Routine Respiratory Exam Present: CTA bilaterally. Absent: rhonchi - Routine Cardiovascular Exam Present: RRR. Absent: murmur - Routine Abdominal Exam Present: soft, normoactive bowel sounds - Routine Extremities Exam Present: edema - Routine Skin Exam Present: dry, warm, wounds - Routine Neurological Exam Present: alert, oriented X3 <Jillian Bowling - Last Filed: 01/13/18 14:26> Vital signs: Vital Signs 01/12/18 20:00 01/12/18 21:49 01/13/18 00:00 Temperature 91 F L 98.4 F Pulse Rate 82 80 Respiratory Rate 18 18 Blood Pressure 132/62 114/57 L Pulse Oximetry 100 97 100 01/13/18 04:00 01/13/18 08:00 01/13/18 13:20 Temperature 98.2 F 98.1 F 98.0 F Pulse Rate 79 69 Respiratory Rate 18 12 18 Blood Pressure 120/58 L 88/41 L 109/59 L Pulse Oximetry 100 98 97 01/13/18 13:25 01/13/18 13:30 01/13/18 16:00 Temperature 98.4 F Pulse Rate 96 H Respiratory Rate 18 18 12 Blood Pressure 114/58 L Pulse Oximetry 94 L 97 94 L Intake & Output 01/12/18 01/13/18 01/13/18 18:59 06:59 18:59 Intake Total 1050 / 1050 220 / 220 150 / 150 Output Total 4000 / 4000 0 / 0 Balance 1049 / 1049 -3780 / -3780 150 / 150 Intake: IV 250 / 250 Vancomycin Inj 1,000 MG In NS 250 / 250 Inj 250 ML @ 250 mls/hr IV.SIG WITH DIALYSIS [facility] Rx#:[id number] Oral 220 / 220 Anesthesia Amount 150 / 150 Intake (Blood Product) Amt 800 / 800 Rbc As-3 Leukoreduced Unit 400 / 400 [id number] Rbc As-3 Leukoreduced Unit 400 / 400 [id number] Output: Stool Hemodialysis Amount 4000 / 4000 Estimated Blood Loss 0 / 0 Other: Date of Last Bowel Movement 01/11/18 01/11/18 # Bowel Movements 1 <Courtney Hernandez - Last Filed: 01/13/18 18:24> Assessment and Plan - Assessment (1) End-stage renal disease on hemodialysis Code(s): N18.6 - End stage renal disease; Z99.2 - Dependence on renal dialysis Status: Acute - Plan ESRD She is on hemodialysis Wednesday, Wednesday and Wednesday Has AVG in right upper arm with good thrill HD catheter in groin removed 01/10 Continue Sensipar Hemodialysis yesterday with 4 liters of fluid removed Hemodialysis tomorrow Bacteremia Vancomycin with HD ID managing Anemia Epogen with dialysis EGD today, NPO HGB 7.2 today, transfused 2 units of PRBC with dialysis Hypertension Will monitor, on low side <Jillian Bowling - Last Filed: 01/13/18 14:26> - Assessment (1) End-stage renal disease on hemodialysis Code(s): N18.6 - End stage renal disease; Z99.2 - Dependence on renal dialysis Status: Acute - Attending Attestation Patient seen and examined, agree with above. Hgb. is better, after transfusion. HD will be in AM. <Courtney Hernandez - Last Filed: 01/13/18 18:24>
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
[2018-01-13] MEDS: Sodium Hypochlorite 0.125% Top Soln 500 ML Bottle TOPICAL SCH (23:25)
[2018-01-14] MEDS: Carvedilol 6.25 MG Tablet PO SCH ×4 (00:54→21:02)
[2018-01-14] MEDS: traZODone 50 MG Tablet PO SCH ×2 (00:58→21:02)
[2018-01-14] MEDS: Sodium Hypochlorite 0.125% Top Soln 500 ML Bottle TOPICAL SCH ×2 (06:31→18:16)
[2018-01-14 07:12] LABS: INR 1.5 Ratio; Prothrombin Time 15.4 sec (9.8-11.6)
[2018-01-14] MEDS: amLODIPine 10 MG Tablet PO SCH ×2 (08:12→18:17)
[2018-01-14] MEDS: Ferrous Sulfate 325 MG Tablet PO SCH ×2 (08:12→18:16)
[2018-01-14] MEDS: Levofloxacin 500 mg Premix Inj 500 MG/100 ML PIGGYBACK IV.SIG SCH ×2 (08:13→18:16)
[2018-01-14] MEDS: Dextrose 50% in Water 50 ML Vial IV.PUSH PRN (10:09)
[2018-01-14] MEDS ORDERED: Dextrose 50% in Water Syringe 50 ML ONE (10:09)
--- NOTE | 2018-01-14 13:20 | P.PNGI ---
Subjective Interval history: Patient is resting in the bed awake answer simple questions Chief complaint is her sacral wound and pain level Mild abdominal bloating but no acute pain Melena stool 1 this a.m. Patient is status post EGD on 01/13/2018 <Charity Hodges - Last Filed: 01/14/18 13:13> Physical Exam Vital signs: Vital Signs 01/13/18 13:20 01/13/18 13:25 01/13/18 13:30 Temperature 98.0 F Pulse Rate Respiratory Rate 18 18 18 Blood Pressure 109/59 L Pulse Oximetry 97 94 L 97 01/13/18 16:00 01/13/18 20:00 01/13/18 20:05 Temperature 98.4 F 98.2 F Pulse Rate 96 H 83 Respiratory Rate 12 18 Blood Pressure 114/58 L 98/56 L Pulse Oximetry 94 L 98 98 01/14/18 00:00 01/14/18 04:00 01/14/18 08:00 Temperature 98 F 98.2 F 97.8 F Pulse Rate 79 76 79 Respiratory Rate 18 18 12 Blood Pressure 114/55 L 112/76 109/60 Pulse Oximetry 99 93 L 99 01/14/18 10:04 01/14/18 12:00 Temperature 97.7 F Pulse Rate 79 Respiratory Rate 14 Blood Pressure 108/61 Pulse Oximetry 99 100 Intake & Output 01/13/18 01/14/18 01/14/18 18:59 06:59 18:59 Intake Total 150 / 150 220 / 220 Output Total 0 / 0 Balance 150 / 150 220 / 220 Intake: Oral 220 / 220 Anesthesia Amount 150 / 150 Output: Estimated Blood Loss 0 / 0 Other: Date of Last Bowel Movement 01/12/18 01/12/18 # Bowel Movements 1 - Constitutional mild distress - Routine HEENT Exam Head: Present: normocephalic, atraumatic ENT: Present: mucous membranes moist - Routine Neck Exam Present: supple - Routine Respiratory Exam Present: decreased breath sounds (Mild S OB, low volumes) - Routine Cardiovascular Exam Present: S1, S2 (Soft murmur) - Routine Abdominal Exam Present: soft, normoactive bowel sounds, distended (Minimal mild) - Routine Neurological Exam Present: alert (Answering simple questions) <Charity Hodges - Last Filed: 01/14/18 13:13> Vital signs: Vital Signs 01/13/18 16:00 01/13/18 20:00 01/13/18 20:05 Temperature 98.4 F 98.2 F Pulse Rate 96 H 83 Respiratory Rate 12 18 Blood Pressure 114/58 L 98/56 L Pulse Oximetry 94 L 98 98 01/14/18 00:00 01/14/18 04:00 01/14/18 08:00 Temperature 98 F 98.2 F 97.8 F Pulse Rate 79 76 79 Respiratory Rate 18 18 12 Blood Pressure 114/55 L 112/76 109/60 Pulse Oximetry 99 93 L 99 01/14/18 10:04 01/14/18 12:00 Temperature 97.7 F Pulse Rate 79 Respiratory Rate 14 Blood Pressure 108/61 Pulse Oximetry 99 100 Intake & Output 01/13/18 01/14/18 01/14/18 18:59 06:59 18:59 Intake Total 150 / 150 220 / 220 Output Total 0 / 0 Balance 150 / 150 220 / 220 Intake: Oral 220 / 220 Anesthesia Amount 150 / 150 Output: Estimated Blood Loss 0 / 0 Other: Date of Last Bowel Movement 01/12/18 01/12/18 # Bowel Movements 1 <Anyi العراقي A - Last Filed: 01/14/18 13:32> Results - Labs CBC & Chem 7: 01/13/18 04:51 01/12/18 06:32 Laboratory Results - last 24 hr 01/13/18 01/13/18 01/14/18 17:16 21:06 06:16 PT 15.4 H INR 1.5 POC Glucose 93 72 01/14/18 01/14/18 01/14/18 08:13 08:58 09:37 PT INR POC Glucose 62 L 55 L 71 01/14/18 01/14/18 01/14/18 10:07 10:32 12:45 PT INR POC Glucose 68 162 H 78 Microbiology 01/10/18 18:15 Tissue - Groin Gram Stain - Final 01/10/18 18:15 Tissue - Groin Wound Culture - Final Proteus mirabilis - Procedures s/p partial catheter excision, repair of vein, drainage of hematoma <Charity Hodges - Last Filed: 01/14/18 13:13> - Labs CBC & Chem 7: 01/13/18 04:51 01/12/18 06:32 Laboratory Results - last 24 hr 01/13/18 01/13/18 01/14/18 17:16 21:06 06:16 PT 15.4 H INR 1.5 POC Glucose 93 72 01/14/18 01/14/18 01/14/18 08:13 08:58 09:37 PT INR POC Glucose 62 L 55 L 71 01/14/18 01/14/18 01/14/18 10:07 10:32 12:45 PT INR POC Glucose 68 162 H 78 Microbiology 01/10/18 18:15 Tissue - Groin Gram Stain - Final 01/10/18 18:15 Tissue - Groin Wound Culture - Final Proteus mirabilis <Anyi العراقي - Last Filed: 01/14/18 13:32> Assessment and Plan - Plan Symptomatic anemia with melena stools. Patient does feel weak and fatigued but denies any upper GI symptoms of nausea vomiting or dyspepsia. Patient denies any abdominal pain and no constipation. Melena stools noted when patient was being changed in the room and she is currently being monitored in the intensive care setting and admitted to the hospital on 01/03/2018 End-stage renal disease with dialysis for approximately 10 years according to patient she had recent left lower extremity Vas-Cath which was removed. Patient now has right arm AV fistula. Patient came in with anemia which could have been related to her end-stage renal disease but since 8 hemoglobin has been 5.5 and 5.2 and receiving transfusions daily without hemoglobin improvement. Coagulopathy with PT/INR 2.5 on admission now 1.5 and will need to be monitored before her tentative EGD. Possible mild icteric sclera noted on exam will check LFTs and bilirubin. Patient denies any history of alcohol tobacco or illicit drugs. 01/13/2018 patient had EGD with Dr. العراقي. Findings include no obvious bleeding positive for multiple gastric deep ulcers,. Hemoglobin check on 2017 was 7.3. 01/14/2018 will follow and recheck hemoglobin in the morning. Encourage patient to take p.o. fluids and eat her renal diet. Coumadin still on hold. Hepatic panel nonreactive PT/INR 1.5. Patient did have melena stool this morning according to patient's family member. Currently patient has no obvious bleeding and this may be the remnants of her previous GI bleed. Patient has had 6 transfusions this admission. Plan Diet renal today, encourage calories and hydration Bowel regimen Monitor for any acute bleeding, and her melena stools PPI Check hemoglobin in a.m. transfuse as necessary Patient was seen per myself and Dr. العراقي, this note was written on his behalf <Charity Hodges - Last Filed: 01/14/18 13:13> - Attending Attestation Agree with above assessment and plan. Will follow clinically and daily HH. Further recommendations to follow. <Anyi العراقي - Last Filed: 01/14/18 13:32>
--- NOTE | 2018-01-14 13:35 | P.PN ---
Subjective Interval history: Follow-up nonfunctional Vas-Cath/symptomatic anemia January 13, 2018-patient seen and examined, H&H improved post transfusion. Awaiting for EGD. Low BP however patient still requesting adjustment of her narcotics. Mother by the bedside. January 14, 2018-patient seen and examined, episode of asymptomatic hypoglycemia. No other issues Physical Exam Vital signs: Vital Signs 01/13/18 16:00 01/13/18 20:00 01/13/18 20:05 Temperature 98.4 F 98.2 F Pulse Rate 96 H 83 Respiratory Rate 12 18 Blood Pressure 114/58 L 98/56 L Pulse Oximetry 94 L 98 98 01/14/18 00:00 01/14/18 04:00 01/14/18 08:00 Temperature 98 F 98.2 F 97.8 F Pulse Rate 79 76 79 Respiratory Rate 18 18 12 Blood Pressure 114/55 L 112/76 109/60 Pulse Oximetry 99 93 L 99 01/14/18 10:04 01/14/18 12:00 Temperature 97.7 F Pulse Rate 79 Respiratory Rate 14 Blood Pressure 108/61 Pulse Oximetry 99 100 Intake & Output 01/13/18 01/14/18 01/14/18 18:59 06:59 18:59 Intake Total 150 / 150 220 / 220 Output Total 0 / 0 Balance 150 / 150 220 / 220 Intake: Oral 220 / 220 Anesthesia Amount 150 / 150 Output: Estimated Blood Loss 0 / 0 Other: Date of Last Bowel Movement 01/12/18 01/12/18 # Bowel Movements 1 Narrative: GENERAL: NAD SKIN: Warm and dry. HEAD: Normocephalic. EYES: No scleral icterus. No injection or drainage. NECK: Supple, trachea midline. No JVD or lymphadenopathy. CARDIOVASCULAR: Regular rate and rhythm without murmurs, gallops, or rubs. RESPIRATORY: Breath sounds equal bilaterally. No accessory muscle use. GASTROINTESTINAL: Abdomen soft, non-tender, nondistended. MUSCULOSKELETAL: No cyanosis, or edema. Bilateral lower extremity lymphedema; left lower extremity with a chronic wound; dressing covering it. dressing over previous site of HD catheter with surrounding blood BACK: Nontender without obvious deformity. No CVA tenderness. Results - Labs CBC & Chem 7: 01/13/18 04:51 01/12/18 06:32 Laboratory Results - last 24 hr 01/13/18 01/13/18 01/14/18 17:16 21:06 06:16 PT 15.4 H INR 1.5 POC Glucose 93 72 01/14/18 01/14/18 01/14/18 08:13 08:58 09:37 PT INR POC Glucose 62 L 55 L 71 01/14/18 01/14/18 01/14/18 10:07 10:32 12:45 PT INR POC Glucose 68 162 H 78 Microbiology 01/10/18 18:15 Tissue - Groin Gram Stain - Final 01/10/18 18:15 Tissue - Groin Wound Culture - Final Proteus mirabilis - Procedures s/p partial catheter excision, repair of vein, drainage of hematoma Assessment and Plan - Plan 52-year-old female with Bacteremia Appreciate input from infectious disease specialist Currently on vancomycin with HD Continue to monitor culture report CHF exacerbation Fluid overload Abdominal ascites Appreciate input from Nephrology for hemodialysis. Hemodialysis per protocol Left CFV tunneled catheter removed 01/08 by vascular surgery Okay to use right upper extremity aVF HD catheter in groin removed 01/10/18 Left lower extremity venous stasis cellulitis. Appreciate input from podiatry, patient declined MRI to rule out osteomyelitis Dysfunctional Vas-Cath left lower extremity. Small thrombus around Vas-Cath. On warfarin . Appreciate input from vascular surgery s/p partial catheter excision, repair of vein, drainage of hematoma Hypertension. Continue home meds. Anemia of chronic kidney disease compounded by acute blood loss H&H stable posttransfusion yesterday January 12, 2018 Appreciate input from gastroenterology and status post EGD January 13, 2018 pending biopsy report Continue with PPI and serial H&H monitoring Hypoglycemia, asymptomatic Secondary to end-stage renal disease Treatment per hypoglycemia protocol History of CVA History of DVT Resume warfarin . GERD. Chronic. Continue PPI.
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
[2018-01-14] MEDS: Vancomycin Inj 1,000 MG in Sodium Chlor 0.9% Inj 250 ML IV.SIG SCH (17:36)
--- NOTE | 2018-01-14 19:15 | P.PNNP ---
Subjective Interval history: Patient is alert, seen during HD, mild SOB and pain in the Rt. leg and groin. Physical Exam Vital signs: Vital Signs 01/13/18 20:00 01/13/18 20:05 01/14/18 00:00 Temperature 98.2 F 98 F Pulse Rate 83 79 Respiratory Rate 18 18 Blood Pressure 98/56 L 114/55 L Pulse Oximetry 98 98 99 01/14/18 04:00 01/14/18 08:00 01/14/18 10:04 Temperature 98.2 F 97.8 F Pulse Rate 76 79 Respiratory Rate 18 12 Blood Pressure 112/76 109/60 Pulse Oximetry 93 L 99 99 01/14/18 12:00 Temperature 97.7 F Pulse Rate 79 Respiratory Rate 14 Blood Pressure 108/61 Pulse Oximetry 100 Intake & Output 01/14/18 01/14/18 01/15/18 06:59 18:59 06:59 Intake Total 220 / 220 Balance 220 / 220 Intake: Oral 220 / 220 Other: Date of Last Bowel Movement 01/12/18 01/12/18 # Bowel Movements 1 Narrative: GENERAL: Patient is alert, not in distress. SKIN: Warm and dry. HEAD: Normocephalic. EYES: No scleral icterus. No injection or drainage. NECK: Supple, trachea midline. No JVD or lymphadenopathy. CARDIOVASCULAR: Regular rate and rhythm without murmurs, gallops, or rubs. RESPIRATORY: Breath sounds equal bilaterally. No accessory muscle use. GASTROINTESTINAL: Abdomen soft, non-tender, nondistended. MUSCULOSKELETAL: No cyanosis, or edema. Bilateral lower extremity lymphedema; left lower extremity with a chronic wound; dressing covering it. dressing over previous site of HD catheter with surrounding blood BACK: Nontender without obvious deformity. No CVA tenderness. Assessment and Plan - Assessment (1) End-stage renal disease on hemodialysis Code(s): N18.6 - End stage renal disease; Z99.2 - Dependence on renal dialysis Status: Acute - Plan ESRD She is on hemodialysis Wednesday, Wednesday and Wednesday Has AVG in right upper arm with good thrill HD catheter in groin removed 01/10 Continue Sensipar Hemodialysis now, remove fluid as tolerated. Bacteremia Vancomycin with HD ID managing Anemia Epogen with dialysis EGD today, NPO HGB is better after transfusion. Hypertension Will monitor, on low side
[2018-01-15] MEDS: Sodium Hypochlorite 0.125% Top Soln 500 ML Bottle TOPICAL SCH ×2 (01:05→04:59)
[2018-01-15 05:06] LABS: Baso # (Auto) 0.1 th/mm3 (0.0-0.2); Baso % (Auto) 0.8 % (0.0-2.0); Eos # (Auto) 0.3 th/mm3 (0.0-0.4); Eos % (Auto) 2.1 % (0.0-4.0); Hematocrit 21.5 % (35.0-46.0); Lymph # (Auto) 0.2 th/mm3 (1.0-4.8); Lymph % (Auto) 1.5 % (9.0-44.0); Mean Corpuscular HGB Conc 32.3 % (32.0-36.0); Mean Corpuscular Hemoglobin 26.8 pg (27.0-34.0); Mean Corpuscular Volume 82.7 fL (80.0-100.0); Mean Platelet Volume 7.5 fL (7.0-11.0); Mono # (Auto) 0.4 th/mm3 (0.0-0.9); Mono % (Auto) 2.8 % (0.0-8.0); Neut # (Auto) 13.5 th/mm3 (1.8-7.7); Neut % (Auto) 92.8 % (16.0-70.0); Platelet Count 358 th/mm3 (150-450); Red Cell Distribution Width 18.6 % (11.6-17.2); White Blood Count 14.5 th/mm3 (4.0-11.0)
[2018-01-15 05:40] LABS: INR 1.4 Ratio; Prothrombin Time 14.5 sec (9.8-11.6)
[2018-01-15] MEDS: Carvedilol 6.25 MG Tablet PO SCH (09:01)
[2018-01-15] MEDS: amLODIPine 10 MG Tablet PO SCH (09:02)
[2018-01-15] MEDS: Ferrous Sulfate 325 MG Tablet PO SCH (09:02)
--- NOTE | 2018-01-15 10:26 | P.PNVS ---
Subjective Post Op Day #: 5 Procedure: Repair of L CFV and evacuation of hematoma Subjective/Hospital Course: pain controlled for the most part - still hurts with dressing changes overall feels better - no malaise jenna po Objective Vital Signs / I&O: Vital Signs 01/14/18 12:00 01/14/18 20:00 01/14/18 22:16 Temperature 97.7 F 98.4 F Pulse Rate 79 83 Respiratory Rate 14 18 Blood Pressure 108/61 122/56 L Pulse Oximetry 100 98 98 01/15/18 00:00 01/15/18 04:00 01/15/18 08:00 Temperature 98.2 F 100.4 F H 98.5 F Pulse Rate 76 83 84 Respiratory Rate 18 18 18 Blood Pressure 104/52 L 133/67 92/51 L Pulse Oximetry 98 100 100 Intake & Output 01/14/18 01/15/18 01/15/18 18:59 06:59 18:59 Output Total 3000 / 3000 Balance -3000 / -3000 Weight 78.8 kg Output: Hemodialysis Amount 3000 / 3000 Other: Date of Last Bowel Movement 01/12/18 01/13/18 Exam: L groin incision ok wound packed with minimal sanguinous drainage Laboratory Results - last 24 hr 01/14/18 01/14/18 01/14/18 10:32 12:45 18:21 WBC RBC Hgb Hct MCV MCH MCHC RDW Plt Count MPV Neut % (Auto) Lymph % (Auto) [place] % (Auto) Eos % (Auto) Baso % (Auto) Neut # (Auto) Lymph # (Auto) [place] # (Auto) Eos # (Auto) Baso # (Auto) WBC Differential Differential Comment PT INR POC Glucose 162 H 78 80 01/14/18 01/15/18 01/15/18 21:12 03:35 03:35 WBC RBC Hgb Hct MCV MCH MCHC RDW Plt Count MPV Neut % (Auto) Lymph % (Auto) [place] % (Auto) Eos % (Auto) Baso % (Auto) Neut # (Auto) Lymph # (Auto) [place] # (Auto) Eos # (Auto) Baso # (Auto) WBC Differential Differential Comment PT 14.5 H INR 1.4 POC Glucose 89 74 01/15/18 03:55 WBC 14.5 H RBC 2.60 L Hgb 7.0 L Hct 21.5 L MCV 82.7 MCH 26.8 L MCHC 32.3 RDW 18.6 H Plt Count 358 D MPV 7.5 Neut % (Auto) 92.8 H Lymph % (Auto) 1.5 L [place] % (Auto) 2.8 Eos % (Auto) 2.1 Baso % (Auto) 0.8 Neut # (Auto) 13.5 H Lymph # (Auto) 0.2 L [place] # (Auto) 0.4 Eos # (Auto) 0.3 Baso # (Auto) 0.1 WBC Differential . Differential Comment Auto diff final PT INR POC Glucose Assessment and Plan - Assessment (1) End-stage renal disease on hemodialysis Code(s): N18.6 - End stage renal disease; Z99.2 - Dependence on renal dialysis Status: Acute - Plan POD#5 Pt s/p partial catheter excision, repair of vein, drainage of hematoma Pain controlled Hct stable cultures noted - on broad antibiotics 1. Needs BID wound packing in hospital and once discharged 2. Broad antibiotics likely x 6 weeks 3. Continue to use R UE AVF 4. Will f/u in my clinic in 2 weeks
--- NOTE | 2018-01-15 11:19 | P.PN ---
Subjective Interval history: Follow-up nonfunctional Vas-Cath/symptomatic anemia January 13, 2018-patient seen and examined, H&H improved post transfusion. Awaiting for EGD. Low BP however patient still requesting adjustment of her narcotics. Mother by the bedside. January 14, 2018-patient seen and examined, episode of asymptomatic hypoglycemia. No other issues January 15, 2018-patient seen and examined, afebrile. She is concerned about a wound for which patient states she was not seen by the wound care nurse over the past few days Physical Exam Vital signs: Vital Signs 01/14/18 12:00 01/14/18 20:00 01/14/18 22:16 Temperature 97.7 F 98.4 F Pulse Rate 79 83 Respiratory Rate 14 18 Blood Pressure 108/61 122/56 L Pulse Oximetry 100 98 98 01/15/18 00:00 01/15/18 04:00 01/15/18 08:00 Temperature 98.2 F 100.4 F H 98.5 F Pulse Rate 76 83 84 Respiratory Rate 18 18 Blood Pressure 104/52 L 133/67 92/51 L Pulse Oximetry 98 100 100 Intake & Output 01/14/18 01/15/18 01/15/18 18:59 06:59 18:59 Output Total 3000 / 3000 Balance -3000 / -3000 Weight 78.8 kg Output: Hemodialysis Amount 3000 / 3000 Other: Date of Last Bowel Movement 01/12/18 01/13/18 Narrative: GENERAL: NAD. SKIN: Warm and dry. HEAD: Normocephalic. EYES: No scleral icterus. No injection or drainage. NECK: Supple, trachea midline. No JVD or lymphadenopathy. CARDIOVASCULAR: Regular rate and rhythm without murmurs, gallops, or rubs. RESPIRATORY: Breath sounds equal bilaterally. No accessory muscle use. GASTROINTESTINAL: Abdomen soft, non-tender, nondistended. MUSCULOSKELETAL: No cyanosis, or edema. Bilateral lower extremity lymphedema; left lower extremity with a chronic wound; dressing covering it. dressing over previous site of HD catheter with surrounding blood BACK: Nontender without obvious deformity. No CVA tenderness. Results - Labs CBC & Chem 7: 01/15/18 03:55 01/12/18 06:32 Laboratory Results - last 24 hr 01/14/18 01/14/18 01/14/18 12:45 18:21 21:12 WBC RBC Hgb Hct MCV MCH MCHC RDW Plt Count MPV Neut % (Auto) Lymph % (Auto) Blair % (Auto) Eos % (Auto) Baso % (Auto) Neut # (Auto) Lymph # (Auto) Blair # (Auto) Eos # (Auto) Baso # (Auto) WBC Differential Differential Comment PT INR POC Glucose 78 80 89 01/15/18 01/15/18 01/15/18 03:35 03:35 03:55 WBC 14.5 H RBC 2.60 L Hgb 7.0 L Hct 21.5 L MCV 82.7 MCH 26.8 L MCHC 32.3 RDW 18.6 H Plt Count 358 D MPV 7.5 Neut % (Auto) 92.8 H Lymph % (Auto) 1.5 L Blair % (Auto) 2.8 Eos % (Auto) 2.1 Baso % (Auto) 0.8 Neut # (Auto) 13.5 H Lymph # (Auto) 0.2 L Blair # (Auto) 0.4 Eos # (Auto) 0.3 Baso # (Auto) 0.1 WBC Differential . Differential Comment Auto diff final PT 14.5 H INR 1.4 POC Glucose 74 - Procedures s/p partial catheter excision, repair of vein, drainage of hematoma Assessment and Plan - Plan 52-year-old female with Bacteremia Appreciate input from infectious disease specialist Currently on vancomycin with HD. Continue to monitor culture report CHF exacerbation Fluid overload Abdominal ascites Appreciate input from Nephrology for hemodialysis. Hemodialysis per protocol Left CFV tunneled catheter removed 01/08 by vascular surgery Continue to use right upper extremity aVF HD catheter in groin removed 01/10/18 Left lower extremity venous stasis cellulitis. Appreciate input from podiatry, patient declined MRI to rule out osteomyelitis Dysfunctional Vas-Cath left lower extremity. Small thrombus around Vas-Cath. On warfarin . Appreciate input from vascular surgery s/p partial catheter excision, repair of vein, drainage of hematoma Hypertension. Continue home meds. Anemia of chronic kidney disease compounded by acute blood loss H&H stable posttransfusion January 12, 2018 Appreciate input from gastroenterology and status post EGD January 13, 2018 pending biopsy report Continue with PPI and serial H&H monitoring Hypoglycemia, asymptomatic Secondary to end-stage renal disease Treatment per hypoglycemia protocol History of CVA History of DVT Continue warfarin . GERD. Chronic. Continue PPI.
--- NOTE | 2018-01-15 12:44 | P.PNNP ---
Subjective Interval history: Resting on right side. Complains for pain that is not well controlled and constipation. Low grade temperature overnight. <Jillian Bowling - Last Filed: 01/15/18 12:39> Physical Exam Vital signs: Vital Signs 01/14/18 20:00 01/14/18 22:16 01/15/18 00:00 Temperature 98.4 F 98.2 F Pulse Rate 83 76 Respiratory Rate 18 18 Blood Pressure 122/56 L 104/52 L Pulse Oximetry 98 98 98 01/15/18 04:00 01/15/18 08:00 01/15/18 12:00 Temperature 100.4 F H 98.5 F 98.3 F Pulse Rate 83 84 78 Respiratory Rate 18 18 18 Blood Pressure 133/67 92/51 L 94/51 L Pulse Oximetry 100 100 94 L Intake & Output 01/14/18 01/15/18 01/15/18 18:59 06:59 18:59 Output Total 3000 / 3000 Balance -3000 / -3000 Weight 78.8 kg Output: Hemodialysis Amount 3000 / 3000 Other: Date of Last Bowel Movement 01/12/18 01/13/18 - Constitutional no acute distress - Routine HEENT Exam Head: Present: normocephalic ENT: Present: mucous membranes moist - Routine Neck Exam Present: supple. Absent: JVD - Routine Respiratory Exam Present: decreased breath sounds. Absent: rales, rhonchi, wheezes - Routine Cardiovascular Exam Present: RRR, murmur - Routine Abdominal Exam Present: soft, normoactive bowel sounds - Routine Extremities Exam Present: edema, AV fistula - Routine Skin Exam Present: dry, warm, wounds - Routine Neurological Exam Present: alert, oriented X3 - Routine Psychiatric Exam Present: cooperative <Jillian Bowling - Last Filed: 01/15/18 12:39> Vital signs: Vital Signs 01/15/18 12:00 01/15/18 16:00 01/15/18 20:00 Temperature 98.3 F 98.0 F 98.2 F Pulse Rate 78 80 81 Respiratory Rate 18 17 17 Blood Pressure 94/51 L 106/58 L 118/67 Pulse Oximetry 94 L 100 95 01/16/18 00:00 01/16/18 04:00 01/16/18 08:00 Temperature 98.1 F 98.0 F 98.5 F Pulse Rate 86 82 81 Respiratory Rate 16 14 18 Blood Pressure 108/53 L 110/59 L 108/65 Pulse Oximetry 97 96 100 Intake & Output 01/15/18 01/16/18 01/16/18 18:59 06:59 18:59 Intake Total 700 / 700 Balance 700 / 700 Intake: Oral 700 / 700 Other: Date of Last Bowel Movement 01/15/18 # Bowel Movements 2 # Incontinent Bowel Movements 2 <Courtney Hernandez - Last Filed: 01/16/18 10:18> Assessment and Plan - Assessment (1) End-stage renal disease on hemodialysis Code(s): N18.6 - End stage renal disease; Z99.2 - Dependence on renal dialysis Status: Acute - Plan ESRD She is on hemodialysis Wednesday, Wednesday and Wednesday Has AVG in right upper arm with good thrill HD catheter in groin removed 01/10 Continue Sensipar Hemodialysis yesterday with UF of 3 liters Bacteremia Vancomycin with HD ID managing Anemia Epogen with dialysis HGB at 7.0 from 7.3 Hypertension Will monitor, on low side coreg reduced <Jillian Bowling - Last Filed: 01/15/18 12:39> - Assessment (1) End-stage renal disease on hemodialysis Code(s): N18.6 - End stage renal disease; Z99.2 - Dependence on renal dialysis Status: Acute - Attending Attestation Patient seen and examined, agree with above. Continue HD, follow Hgb. <Courtney Hernandez - Last Filed: 01/16/18 10:18>
--- NOTE | 2018-01-15 14:40 | P.PNGI ---
Subjective Interval history: Pt reports some nausea, no emesis. Has been receiving nausea medication with good relief. Per tech 2 BMs today, black but no smell of melena. Pt is on iron supplements. Pt with some mild abdominal pain. <Isi Prince - Last Filed: 01/15/18 14:37> Physical Exam Vital signs: Vital Signs 01/14/18 20:00 01/14/18 22:16 01/15/18 00:00 Temperature 98.4 F 98.2 F Pulse Rate 83 76 Respiratory Rate 18 18 Blood Pressure 122/56 L 104/52 L Pulse Oximetry 98 98 98 01/15/18 04:00 01/15/18 08:00 01/15/18 12:00 Temperature 100.4 F H 98.5 F 98.3 F Pulse Rate 83 84 78 Respiratory Rate 18 18 18 Blood Pressure 133/67 92/51 L 94/51 L Pulse Oximetry 100 94 L 94 L Intake & Output 01/14/18 01/15/18 01/15/18 18:59 06:59 18:59 Intake Total 100 / 100 Output Total 3000 / 3000 Balance -3000 / -3000 100 / 100 Weight 78.8 kg Intake: Oral 100 / 100 Output: Hemodialysis Amount 3000 / 3000 Other: Date of Last Bowel Movement 01/12/18 01/13/18 - Constitutional no acute distress - Routine HEENT Exam Head: Present: normocephalic, atraumatic - Routine Respiratory Exam Absent: accessory muscle use - Routine Abdominal Exam Present: soft, normoactive bowel sounds. Absent: tenderness, distended, rebound , guarding, firm, rigid <Isi Prince - Last Filed: 01/15/18 14:37> Vital signs: Vital Signs 01/14/18 22:16 01/15/18 00:00 01/15/18 04:00 Temperature 98.2 F 100.4 F H Pulse Rate 76 83 Respiratory Rate 18 18 Blood Pressure 104/52 L 133/67 Pulse Oximetry 98 98 100 01/15/18 08:00 01/15/18 12:00 01/15/18 16:00 Temperature 98.5 F 98.3 F 98.0 F Pulse Rate 84 78 80 Respiratory Rate 18 18 17 Blood Pressure 92/51 L 94/51 L 106/58 L Pulse Oximetry 94 L 94 L 100 01/15/18 20:00 Temperature 98.2 F Pulse Rate 87 Respiratory Rate 17 Blood Pressure 118/67 Pulse Oximetry 100 Intake & Output 01/15/18 01/15/18 01/16/18 06:59 18:59 06:59 Intake Total 700 / 700 Output Total 3000 / 3000 Balance -3000 / -3000 700 / 700 Weight 78.8 kg Intake: Oral 700 / 700 Output: Hemodialysis Amount 3000 / 3000 Other: Date of Last Bowel Movement 01/13/18 # Bowel Movements 2 # Incontinent Bowel Movements 2 <Anyi العراقي - Last Filed: 01/15/18 21:14> Results - Labs CBC & Chem 7: 01/15/18 03:55 01/12/18 06:32 Laboratory Results - last 24 hr 01/14/18 01/14/18 01/15/18 18:21 21:12 03:35 WBC RBC Hgb Hct MCV MCH MCHC RDW Plt Count MPV Neut % (Auto) Lymph % (Auto) Tift % (Auto) Eos % (Auto) Baso % (Auto) Neut # (Auto) Lymph # (Auto) Tift # (Auto) Eos # (Auto) Baso # (Auto) WBC Differential Differential Comment PT 14.5 H INR 1.4 POC Glucose 80 89 01/15/18 01/15/18 01/15/18 03:35 03:55 12:20 WBC 14.5 H RBC 2.60 L Hgb 7.0 L Hct 21.5 L MCV 82.7 MCH 26.8 L MCHC 32.3 RDW 18.6 H Plt Count 358 D MPV 7.5 Neut % (Auto) 92.8 H Lymph % (Auto) 1.5 L Tift % (Auto) 2.8 Eos % (Auto) 2.1 Baso % (Auto) 0.8 Neut # (Auto) 13.5 H Lymph # (Auto) 0.2 L Tift # (Auto) 0.4 Eos # (Auto) 0.3 Baso # (Auto) 0.1 WBC Differential . Differential Comment Auto diff final PT INR POC Glucose 74 442 H - Procedures s/p partial catheter excision, repair of vein, drainage of hematoma <Isi Prince - Last Filed: 01/15/18 14:37> - Labs CBC & Chem 7: 01/15/18 03:55 01/12/18 06:32 Laboratory Results - last 24 hr 01/14/18 01/15/18 01/15/18 21:12 03:35 03:35 WBC RBC Hgb Hct MCV MCH MCHC RDW Plt Count MPV Neut % (Auto) Lymph % (Auto) Tift % (Auto) Eos % (Auto) Baso % (Auto) Neut # (Auto) Lymph # (Auto) Tift # (Auto) Eos # (Auto) Baso # (Auto) WBC Differential Differential Comment PT 14.5 H INR 1.4 POC Glucose 89 74 01/15/18 01/15/18 03:55 12:20 WBC 14.5 H RBC 2.60 L Hgb 7.0 L Hct 21.5 L MCV 82.7 MCH 26.8 L MCHC 32.3 RDW 18.6 H Plt Count 358 D MPV 7.5 Neut % (Auto) 92.8 H Lymph % (Auto) 1.5 L Tift % (Auto) 2.8 Eos % (Auto) 2.1 Baso % (Auto) 0.8 Neut # (Auto) 13.5 H Lymph # (Auto) 0.2 L Tift # (Auto) 0.4 Eos # (Auto) 0.3 Baso # (Auto) 0.1 WBC Differential . Differential Comment Auto diff final PT INR POC Glucose 442 H <Anyi العراقي - Last Filed: 01/15/18 21:14> Assessment and Plan - Plan Symptomatic anemia with melena stools. Patient does feel weak and fatigued but denies any upper GI symptoms of nausea vomiting or dyspepsia. Patient denies any abdominal pain and no constipation. Melena stools noted when patient was being changed in the room and she is currently being monitored in the intensive care setting and admitted to the hospital on 01/03/2018 End-stage renal disease with dialysis for approximately 10 years according to patient she had recent left lower extremity Vas-Cath which was removed. Patient now has right arm AV fistula. Patient came in with anemia which could have been related to her end-stage renal disease but since 01 09 hemoglobin has been 5.5 and 5.2 and receiving transfusions daily without hemoglobin improvement. Coagulopathy with PT/INR 2.5 on admission now 1.5 and will need to be monitored before her tentative EGD. Possible mild icteric sclera noted on exam will check LFTs and bilirubin. Patient denies any history of alcohol tobacco or illicit drugs. 01/13/2018 patient had EGD with Dr. العراقي. Findings include no obvious bleeding positive for multiple gastric deep ulcers,. Hemoglobin check on 2017 was 7.3. 01/14/2018 will follow and recheck hemoglobin in the morning. Encourage patient to take p.o. fluids and eat her renal diet. Coumadin still on hold. Hepatic panel nonreactive PT/INR 1.5. Patient did have melena stool this morning according to patient's family member. Currently patient has no obvious bleeding and this may be the remnants of her previous GI bleed. Patient has had 6 transfusions this admission. (01/15) Pt S/O EGD two days ago. H/H remains stable over night. 2 BMs today, appeared black but no smell of melena. Pt is on iron supplements. No blood transfusion since3 01/12. Of note, pt is also on Epogen- CKD on HD. Plan EGD biopsy pending Protonix Close monitoring of H/H Our service will sign off, please reconsult as needed Have pt follow up with GI after DC Patient was seen per myself and Dr. العراقي, this note was written on his behalf <Isi Prince - Last Filed: 01/15/18 14:37> - Attending Attestation As above, please notify us if needed again. <Anyi العراقي - Last Filed: 01/15/18 21:14>
[2018-01-15] MEDS: traZODone 50 MG Tablet PO SCH (21:12)
[2018-01-16 05:26] LABS: INR 1.7 Ratio; Prothrombin Time 16.9 sec (9.8-11.6)
[2018-01-16 05:45] LABS: Albumin 1.5 g/dL (3.4-5.0); Calcium 7.4 mg/dL (8.5-10.1); Potassium 4.1 meq/L (3.5-5.1); Total Protein 6.9 g/dL (6.4-8.2)
[2018-01-16] MEDS: Sodium Hypochlorite 0.125% Top Soln 500 ML Bottle TOPICAL SCH ×3 (06:02→22:24)
[2018-01-16] MEDS: amLODIPine 10 MG Tablet PO SCH (09:07)
[2018-01-16] MEDS: Ferrous Sulfate 325 MG Tablet PO SCH (09:07)
[2018-01-16] MEDS: Levofloxacin 500 mg Premix Inj 500 MG/100 ML PIGGYBACK IV.SIG SCH (09:08)
--- NOTE | 2018-01-16 11:33 | P.PNNP ---
Subjective Interval history: Denies any shortness of breath, no edema. VSS and afebrile. No acute changes. <Jillian Bowling - Last Filed: 01/16/18 11:28> Physical Exam Vital signs: Vital Signs 01/15/18 12:00 01/15/18 16:00 01/15/18 20:00 Temperature 98.3 F 98.0 F 98.2 F Pulse Rate 78 80 81 Respiratory Rate 18 17 17 Blood Pressure 94/51 L 106/58 L 118/67 Pulse Oximetry 94 L 100 95 01/16/18 00:00 01/16/18 04:00 01/16/18 08:00 Temperature 98.1 F 98.0 F 98.5 F Pulse Rate 86 82 81 Respiratory Rate 16 14 18 Blood Pressure 108/53 L 110/59 L 108/65 Pulse Oximetry 97 96 100 Intake & Output 01/15/18 01/16/18 01/16/18 18:59 06:59 18:59 Intake Total 700 / 700 Balance 700 / 700 Intake: Oral 700 / 700 Other: Date of Last Bowel Movement 01/15/18 # Bowel Movements 2 # Incontinent Bowel Movements 2 - Constitutional no acute distress - Routine HEENT Exam Head: Present: normocephalic - Routine Neck Exam Present: supple. Absent: JVD - Routine Respiratory Exam Present: decreased breath sounds. Absent: rales, wheezes, crackles - Routine Cardiovascular Exam Present: RRR - Routine Abdominal Exam Present: soft, normoactive bowel sounds - Routine Extremities Exam Present: AV fistula. Absent: edema - Routine Skin Exam Present: dry, warm - Routine Neurological Exam Present: alert, oriented X3 - Routine Psychiatric Exam Present: cooperative <Jillian Bowling - Last Filed: 01/16/18 11:28> Vital signs: Vital Signs 01/16/18 12:00 01/16/18 15:26 01/16/18 16:00 Temperature 98.3 F 99.2 F Pulse Rate 79 76 Respiratory Rate 18 20 Blood Pressure 112/52 L 91/53 L Pulse Oximetry 100 97 100 01/16/18 20:00 01/17/18 00:00 01/17/18 04:00 Temperature 97.9 F 98.0 F 97.9 F Pulse Rate 82 85 86 Respiratory Rate 16 16 14 Blood Pressure 100/51 L 118/72 89/54 L Pulse Oximetry 98 95 97 01/17/18 09:31 Temperature 98.1 F Pulse Rate 83 Respiratory Rate 22 Blood Pressure 108/68 Pulse Oximetry 100 Intake & Output 01/16/18 01/17/18 01/17/18 18:59 06:59 18:59 Intake Total 480 / 480 480 / 480 Balance 480 / 480 480 / 480 Weight 81 kg Intake: Oral 480 / 480 480 / 480 Other: # Voids 0 Date of Last Bowel Movement 01/15/18 01/17/18 # Bowel Movements 0 <Courtney Hernandez - Last Filed: 01/17/18 10:43> Assessment and Plan - Assessment (1) End-stage renal disease on hemodialysis Code(s): N18.6 - End stage renal disease; Z99.2 - Dependence on renal dialysis Status: Acute - Plan ESRD She is on hemodialysis Wednesday, Wednesday and Wednesday Has AVG in right upper arm with good thrill HD catheter in groin removed 01/10 Continue Sensipar Hemodialysis tomorrow. labs ordered Bacteremia Vancomycin with HD ID managing Anemia Epogen with dialysis HGB at 7.0 from 7.3 yesterday CBC in AM Hypertension Will monitor, on coreg <Jillian Bowling - Last Filed: 01/16/18 11:28> - Assessment (1) End-stage renal disease on hemodialysis Code(s): N18.6 - End stage renal disease; Z99.2 - Dependence on renal dialysis Status: Acute - Attending Attestation Patient seen and examined, agree with above. Follow Hgb. and continue HD as schedule. <Courtney Hernandez - Last Filed: 01/17/18 10:43>
--- NOTE | 2018-01-16 12:01 | P.PN ---
Subjective Interval history: Follow-up nonfunctional Vas-Cath/symptomatic anemia January 13, 2018-patient seen and examined, H&H improved post transfusion. Awaiting for EGD. Low BP however patient still requesting adjustment of her narcotics. Mother by the bedside. January 14, 2018-patient seen and examined, episode of asymptomatic hypoglycemia. No other issues January 15, 2018-patient seen and examined, afebrile. She is concerned about a wound for which patient states she was not seen by the wound care nurse over the past few days January 16, 2018-patient seen and examined, denies any shortness of breath. Hemoglobin dropping. No acute event overnight. Physical Exam Vital signs: Vital Signs 01/15/18 12:00 01/15/18 16:00 01/15/18 20:00 Temperature 98.3 F 98.0 F 98.2 F Pulse Rate 78 80 81 Respiratory Rate 18 17 17 Blood Pressure 94/51 L 106/58 L 118/67 Pulse Oximetry 94 L 100 95 01/16/18 00:00 01/16/18 04:00 01/16/18 08:00 Temperature 98.1 F 98.0 F 98.5 F Pulse Rate 86 82 85 Respiratory Rate 16 14 18 Blood Pressure 108/53 L 110/59 L 108/65 Pulse Oximetry 97 96 100 Intake & Output 01/15/18 01/16/18 01/16/18 18:59 06:59 18:59 Intake Total 700 / 700 Balance 700 / 700 Intake: Oral 700 / 700 Other: Date of Last Bowel Movement 01/15/18 # Bowel Movements 2 # Incontinent Bowel Movements 2 Narrative: GENERAL: NAD. SKIN: Warm and dry. HEAD: Normocephalic. EYES: No scleral icterus. No injection or drainage. NECK: Supple, trachea midline. No JVD or lymphadenopathy. CARDIOVASCULAR: Regular rate and rhythm without murmurs, gallops, or rubs. RESPIRATORY: Breath sounds equal bilaterally. No accessory muscle use. GASTROINTESTINAL: Abdomen soft, non-tender, nondistended. MUSCULOSKELETAL: No cyanosis, or edema. Bilateral lower extremity lymphedema; left lower extremity with a chronic wound; dressing covering it. dressing over previous site of HD catheter with surrounding blood BACK: Nontender without obvious deformity. No CVA tenderness. Results - Labs CBC & Chem 7: 01/15/18 03:55 01/16/18 04:11 Laboratory Results - last 24 hr 01/15/18 01/15/18 01/16/18 12:20 21:23 03:12 PT INR Sodium Potassium Chloride Carbon Dioxide Anion Gap BUN Creatinine Estimated GFR POC Glucose 442 H 74 84 Random Glucose Calcium Prot Corrected Calcium Total Bilirubin AST ALT Alkaline Phosphatase Total Protein Albumin 01/16/18 01/16/18 01/16/18 04:11 04:11 09:17 PT 16.9 H INR 1.7 Sodium 137 Potassium 4.1 Chloride 98 Carbon Dioxide 28.0 Anion Gap 11 BUN 60 H Creatinine 4.00 H Estimated GFR 14 L POC Glucose 56 L Random Glucose 59 L Calcium 7.4 L* Prot Corrected Calcium 7.5 L Total Bilirubin 0.5 AST 15 ALT 7 L Alkaline Phosphatase 253 H Total Protein 6.9 Albumin 1.5 L 01/16/18 10:39 PT INR Sodium Potassium Chloride Carbon Dioxide Anion Gap BUN Creatinine Estimated GFR POC Glucose 75 Random Glucose Calcium Prot Corrected Calcium Total Bilirubin AST ALT Alkaline Phosphatase Total Protein Albumin Microbiology 01/16/18 06:30 Stool Stool Occult Blood (JEANETTE) - Final Hemoccult positive - Procedures s/p partial catheter excision, repair of vein, drainage of hematoma Assessment and Plan - Plan 52-year-old female with Bacteremia Appreciate input from infectious disease specialist Currently on vancomycin with HD. Continue to monitor culture report CHF exacerbation Fluid overload Abdominal ascites Appreciate input from Nephrology for hemodialysis. Hemodialysis per protocol Left CFV tunneled catheter removed 01/08 by vascular surgery Continue to use right upper extremity aVF HD catheter in groin removed 01/10/18 Left lower extremity venous stasis cellulitis. Appreciate input from podiatry, patient declined MRI to rule out osteomyelitis Case discussed today with podiatry January 16, 2018 Dysfunctional Vas-Cath left lower extremity. Small thrombus around Vas-Cath. On warfarin . Appreciate input from vascular surgery s/p partial catheter excision, repair of vein, drainage of hematoma Hypertension. Continue home meds. Anemia of chronic kidney disease compounded by acute blood loss Transfused total of 6 units packed red blood cell Appreciate input from gastroenterology and status post EGD January 13, 2018 pending biopsy report Continue with PPI and serial H&H monitoring Hypoglycemia, asymptomatic Secondary to end-stage renal disease Treatment per hypoglycemia protocol History of CVA History of DVT Continue warfarin . GERD. Chronic. Continue PPI.
[2018-01-16] MEDS: Dextrose 50% in Water 50 ML Vial IV.PUSH PRN (12:41)
--- NOTE | 2018-01-16 13:40 | P.PN ---
Subjective Interval history: Moderate pain of left ankle wounds no events Physical Exam Vital signs: Vital Signs 01/15/18 16:00 01/15/18 20:00 01/16/18 00:00 Temperature 98.0 F 98.2 F 98.1 F Pulse Rate 80 81 86 Respiratory Rate 17 17 16 Blood Pressure 106/58 L 118/67 108/53 L Pulse Oximetry 100 95 97 01/16/18 04:00 01/16/18 08:00 01/16/18 12:00 Temperature 98.0 F 98.5 F 98.3 F Pulse Rate 82 85 75 Respiratory Rate 18 Blood Pressure 110/59 L 108/65 112/52 L Pulse Oximetry 96 100 100 Intake & Output 01/15/18 01/16/18 01/16/18 18:59 06:59 18:59 Intake Total 700 / 700 Balance 700 / 700 Intake: Oral 700 / 700 Other: Date of Last Bowel Movement 01/15/18 # Bowel Movements 2 # Incontinent Bowel Movements 2 Narrative: Lower extremity physical exam: Vascular: Dorsalis pedis nonpalpable, posterior tibial nonpalpable. Capillary refill time within normal limits to digits X5 bilateral foot. Edema present bilateral lower extremity. Neuro: Gross sensation intact to bilateral lower extremity. Pinpoint sensation intact. No hyperalgesia noted to bilateral lower extremity Dermatology: Normal temperature and turgor to bilateral lower extremity. Left medial leg ulcerations Granular base with no hyperkeratotic borders. 3 ulcers measuring just under dime size with mixed fibrotic granular base no probing deep minimal serous type drainage no obvious odor limited range of motion of the left foot and ankle. Results - Labs CBC & Chem 7: 01/15/18 03:55 01/16/18 04:11 Laboratory Results - last 24 hr 01/15/18 01/16/18 01/16/18 21:23 03:12 04:11 PT 16.9 H INR 1.7 Sodium Potassium Chloride Carbon Dioxide Anion Gap BUN Creatinine Estimated GFR POC Glucose 74 84 Random Glucose Calcium Prot Corrected Calcium Total Bilirubin AST ALT Alkaline Phosphatase Total Protein Albumin 01/16/18 01/16/18 01/16/18 04:11 09:17 10:39 PT INR Sodium 137 Potassium 4.1 Chloride 98 Carbon Dioxide 28.0 Anion Gap 11 BUN 60 H Creatinine 4.00 H Estimated GFR 14 L POC Glucose 56 L 75 Random Glucose 59 L Calcium 7.4 L* Prot Corrected Calcium 7.5 L Total Bilirubin 0.5 AST 15 ALT 7 L Alkaline Phosphatase 253 H Total Protein 6.9 Albumin 1.5 L Microbiology 01/16/18 06:30 Stool Stool Occult Blood (JEANETTE) - Final Hemoccult positive - Procedures s/p partial catheter excision, repair of vein, drainage of hematoma Assessment and Plan - Assessment (1) Ulcer of left ankle Code(s): L97.329 - Non-pressure chronic ulcer of left ankle with unspecified severity Status: Acute - Plan Patient appears to be improving recommend continue local wound care compressive wrapping of the extremity patient can follow-up with wound care center in [place] please reconsult as needed at this point
[2018-01-16] MEDS: Calcium Carbonate 500 MG Tablet PO SCH (22:21)
[2018-01-16] MEDS: traZODone 50 MG Tablet PO SCH (22:22)
[2018-01-17 00:43] LABS: Albumin 1.7 g/dL (3.4-5.0); Calcium 6.8 mg/dL (8.5-10.1); Potassium 4.6 meq/L (3.5-5.1); Total Protein 7.2 g/dL (6.4-8.2)
[2018-01-17] MEDS ORDERED: SODIUM CHLOR 0.9% IV.SIG ONE (00:55)
[2018-01-17] MEDS ORDERED: CALCIUM CHLORIDE IV.SIG ONE (00:55)
[2018-01-17] MEDS ORDERED: Dextrose 10% in Water Inj 1,000 ML IV.CONT SCH (01:00)
[2018-01-17] MEDS ORDERED: Dextrose 10% in Water Inj 500 ML IV.SIG SCH (02:45)
[2018-01-17] MEDS: Dextrose 50% in Water 50 ML Vial IV.PUSH PRN (05:27)
[2018-01-17 07:10] LABS: Baso # (Auto) 0.1 th/mm3 (0.0-0.2); Baso % (Auto) 0.6 % (0.0-2.0); Eos # (Auto) 0.5 th/mm3 (0.0-0.4); Eos % (Auto) 4.7 % (0.0-4.0); Lymph # (Auto) 0.8 th/mm3 (1.0-4.8); Lymph % (Auto) 7.5 % (9.0-44.0); Mean Corpuscular HGB Conc 32.2 % (32.0-36.0); Mean Corpuscular Hemoglobin 26.4 pg (27.0-34.0); Mean Platelet Volume 8.2 fL (7.0-11.0); Neut # (Auto) 8.1 th/mm3 (1.8-7.7); Neut % (Auto) 77.2 % (16.0-70.0); Platelet Count 402 th/mm3 (150-450); Red Blood Count 2.58 mil/mm3 (4.00-5.30); Red Cell Distribution Width 18.3 % (11.6-17.2); White Blood Count 10.4 th/mm3 (4.0-11.0)
[2018-01-17 07:18] LABS: INR 2.4 Ratio; Prothrombin Time 24.4 sec (9.8-11.6)
[2018-01-17 07:26] LABS: Hematocrit 21.2 % (35.0-46.0); Hemoglobin 6.8 gm/dL (11.6-15.3)
[2018-01-17 07:49] LABS: Albumin 1.6 g/dL (3.4-5.0); Calcium 7.1 mg/dL (8.5-10.1); Carbon Dioxide 27.2 meq/L (21.0-32.0); Phosphorus 3.7 mg/dL (2.5-4.9); Potassium 4.7 meq/L (3.5-5.1); Total Protein 7.5 g/dL (6.4-8.2)
[2018-01-17] MEDS ORDERED: Sodium Chlor 0.9% Inj 250 ML IV.SIG SCH ×2 (09:00)
[2018-01-17] MEDS: Ferrous Sulfate 325 MG Tablet PO SCH (10:29)
[2018-01-17] MEDS: amLODIPine 10 MG Tablet PO SCH (10:39)
[2018-01-17] MEDS: Calcium Carbonate 500 MG Tablet PO SCH (10:42)
--- NOTE | 2018-01-17 12:06 | P.PNVS ---
Subjective Post Op Day #: 7 Procedure: Repair of L CFV and evacuation of hematoma Subjective/Hospital Course: 52/F alert in NAD Pt continues to c/o L LE pain with dressing changes Wound stable w/o R/D/O/S Objective Vital Signs / I&O: Vital Signs 01/16/18 15:26 01/16/18 16:00 01/16/18 20:00 Temperature 99.2 F 97.9 F Pulse Rate 76 82 Respiratory Rate 20 16 Blood Pressure 91/53 L 100/51 L Pulse Oximetry 97 100 98 01/17/18 00:00 01/17/18 04:00 01/17/18 09:31 Temperature 98.0 F 97.9 F 98.1 F Pulse Rate 85 86 83 Respiratory Rate 16 14 22 Blood Pressure 118/72 89/54 L 108/68 Pulse Oximetry 95 97 100 Intake & Output 01/16/18 01/17/18 01/17/18 18:59 06:59 18:59 Intake Total 480 / 480 480 / 480 Balance 480 / 480 480 / 480 Weight 81 kg Intake: Oral 480 / 480 480 / 480 Other: # Voids 0 Date of Last Bowel Movement 01/15/18 01/17/18 # Bowel Movements 0 Exam: Wound stable w/o R/D/S/O L groin incision intact Laboratory Results - last 24 hr 01/16/18 01/16/18 01/16/18 14:51 21:32 22:19 WBC RBC Hgb Hct MCV MCH MCHC RDW Plt Count MPV Neut % (Auto) Lymph % (Auto) [place] % (Auto) Eos % (Auto) Baso % (Auto) Neut # (Auto) Lymph # (Auto) [place] # (Auto) Eos # (Auto) Baso # (Auto) WBC Differential Differential Comment PT INR Sodium Potassium Chloride Carbon Dioxide Anion Gap BUN Creatinine Estimated GFR POC Glucose 83 66 L 91 Random Glucose Calcium Prot Corrected Calcium Phosphorus Magnesium Total Bilirubin AST ALT Alkaline Phosphatase Total Protein Albumin 01/16/18 01/17/18 01/17/18 23:41 00:02 00:24 WBC RBC Hgb Hct MCV MCH MCHC RDW Plt Count MPV Neut % (Auto) Lymph % (Auto) [place] % (Auto) Eos % (Auto) Baso % (Auto) Neut # (Auto) Lymph # (Auto) [place] # (Auto) Eos # (Auto) Baso # (Auto) WBC Differential Differential Comment PT INR Sodium 135 L Potassium 4.6 Chloride 97 L Carbon Dioxide 28.0 Anion Gap 10 BUN 60 H Creatinine 4.34 H Estimated GFR 13 L POC Glucose 70 86 Random Glucose 48 L* Calcium 6.8 L* Prot Corrected Calcium 6.8 L* Phosphorus Magnesium 2.0 Total Bilirubin 0.4 AST 12 L ALT 9 L Alkaline Phosphatase 226 H Total Protein 7.2 Albumin 1.7 L 01/17/18 01/17/18 01/17/18 01:26 05:07 06:03 WBC 10.4 RBC 2.58 L Hgb 6.8 L* Hct 21.2 L MCV 82.0 MCH 26.4 L MCHC 32.2 RDW 18.3 H Plt Count 402 MPV 8.2 Neut % (Auto) 77.2 H Lymph % (Auto) 7.5 L [place] % (Auto) 10.0 H Eos % (Auto) 4.7 H Baso % (Auto) 0.6 Neut # (Auto) 8.1 H Lymph # (Auto) 0.8 L [place] # (Auto) 1.0 H Eos # (Auto) 0.5 H Baso # (Auto) 0.1 WBC Differential . Differential Comment Auto diff final PT INR Sodium Potassium Chloride Carbon Dioxide Anion Gap BUN Creatinine Estimated GFR POC Glucose 94 59 L Random Glucose Calcium Prot Corrected Calcium Phosphorus Magnesium Total Bilirubin AST ALT Alkaline Phosphatase Total Protein Albumin 01/17/18 01/17/18 01/17/18 06:03 06:05 06:40 WBC RBC Hgb Hct MCV MCH MCHC RDW Plt Count MPV Neut % (Auto) Lymph % (Auto) [place] % (Auto) Eos % (Auto) Baso % (Auto) Neut # (Auto) Lymph # (Auto) [place] # (Auto) Eos # (Auto) Baso # (Auto) WBC Differential Differential Comment PT 24.4 H INR 2.4 Sodium 134 L Potassium 4.7 Chloride 97 L Carbon Dioxide 27.2 Anion Gap 10 BUN 61 H Creatinine 4.45 H Estimated GFR 13 L POC Glucose 93 Random Glucose 46 L* Calcium 7.1 L* Prot Corrected Calcium 7.0 L* Phosphorus 3.7 Magnesium Total Bilirubin 0.4 AST 13 L ALT 8 L Alkaline Phosphatase 228 H Total Protein 7.5 Albumin 1.6 L 01/17/18 08:39 WBC RBC Hgb Hct MCV MCH MCHC RDW Plt Count MPV Neut % (Auto) Lymph % (Auto) [place] % (Auto) Eos % (Auto) Baso % (Auto) Neut # (Auto) Lymph # (Auto) [place] # (Auto) Eos # (Auto) Baso # (Auto) WBC Differential Differential Comment PT INR Sodium Potassium Chloride Carbon Dioxide Anion Gap BUN Creatinine Estimated GFR POC Glucose 68 Random Glucose Calcium Prot Corrected Calcium Phosphorus Magnesium Total Bilirubin AST ALT Alkaline Phosphatase Total Protein Albumin Microbiology 01/16/18 06:30 Stool Occult Blood (JEANETTE) - Final Stool Hemoccult positive Assessment and Plan - Assessment (1) End-stage renal disease on hemodialysis Code(s): N18.6 - End stage renal disease; Z99.2 - Dependence on renal dialysis Status: Acute - Plan POD#7 Pt s/p partial catheter excision, repair of vein, drainage of hematoma Pain controlled Plan Continue daily wound care- BID wound packing in hospital and at discharged Continue Broad antibiotics likely x 6 weeks Continue to use R UE AVF Arranged out pt f/u in 2 weeks Zehra Lynch NP [facility] [phone] Discharge Planning: clear for d/c from a vascular standpoint Arranged out pt f/u
--- NOTE | 2018-01-17 14:02 | P.PNNP ---
Subjective Interval history: Reports increased pain and that nursing is very delayed in bringing her pain medication. No shortness of breath. <Jillian Bowling - Last Filed: 01/17/18 13:57> Physical Exam Vital signs: Vital Signs 01/16/18 15:26 01/16/18 16:00 01/16/18 20:00 Temperature 99.2 F 97.9 F Pulse Rate 76 82 Respiratory Rate 20 16 Blood Pressure 91/53 L 100/51 L Pulse Oximetry 97 100 98 01/17/18 00:00 01/17/18 04:00 01/17/18 09:31 Temperature 98.0 F 97.9 F 98.1 F Pulse Rate 85 86 83 Respiratory Rate 16 14 22 Blood Pressure 118/72 89/54 L 108/68 Pulse Oximetry 95 97 100 Intake & Output 01/16/18 01/17/18 01/17/18 18:59 06:59 18:59 Intake Total 480 / 480 480 / 480 Balance 480 / 480 480 / 480 Weight 81 kg Intake: Oral 480 / 480 480 / 480 Other: # Voids 0 Date of Last Bowel Movement 01/15/18 01/17/18 # Bowel Movements 0 - Constitutional no acute distress - Routine HEENT Exam Head: Present: normocephalic ENT: Present: mucous membranes moist - Routine Neck Exam Present: supple. Absent: JVD - Routine Respiratory Exam Present: decreased breath sounds. Absent: rales, rhonchi, wheezes - Routine Cardiovascular Exam Present: RRR - Routine Abdominal Exam Present: soft, normoactive bowel sounds - Routine Extremities Exam Present: AV fistula. Absent: edema - Routine Skin Exam Present: dry, warm, wounds - Routine Neurological Exam Present: alert, oriented X3 - Routine Psychiatric Exam Present: cooperative <Jillian Bowling - Last Filed: 01/17/18 13:57> Vital signs: Vital Signs 01/17/18 16:00 01/17/18 17:49 01/18/18 00:00 Temperature 97.9 F Pulse Rate 86 86 84 Respiratory Rate 20 17 Blood Pressure 143/79 H 98/53 L Pulse Oximetry 95 96 01/18/18 02:12 01/18/18 02:40 01/18/18 04:00 Temperature 98.7 F 98.7 F 98.0 F Pulse Rate 91 H 88 67 Respiratory Rate 20 20 16 Blood Pressure 91/62 L 94/61 L 90/57 L Pulse Oximetry 97 95 01/18/18 05:30 01/18/18 08:00 01/18/18 12:00 Temperature 98.3 F 98.3 F 97.7 F Pulse Rate 88 77 83 Respiratory Rate 18 18 Blood Pressure 134/61 100/65 106/70 Pulse Oximetry 93 L 97 97 Intake & Output 01/17/18 01/18/18 01/18/18 18:59 06:59 18:59 Intake Total 1000 / 1000 250 / 250 400 / 400 Output Total 3000 / 3000 Balance 1000 / 1000 -2750 / -2750 400 / 400 Weight 81 kg Intake: IV 250 / 250 Vancomycin Inj 1,000 MG In NS 250 / 250 Inj 250 ML @ 250 mls/hr IV.SIG WITH DIALYSIS [facility]A Rx#:[id number] Oral 1000 / 1000 Intake (Blood Product) Amt 0 / 0 400 / 400 Rbc As-3 Leukoreduced Unit 0 / 0 400 / 400 [id number] Output: Hemodialysis Amount 3000 / 3000 Other: # Voids 1 Date of Last Bowel Movement 01/17/18 01/17/18 # Bowel Movements 1 1 # Incontinent Bowel Movements 1 <Courtney Hernandez - Last Filed: 01/18/18 13:36> Assessment and Plan - Assessment (1) End-stage renal disease on hemodialysis Code(s): N18.6 - End stage renal disease; Z99.2 - Dependence on renal dialysis Status: Acute - Plan ESRD She is on hemodialysis Wednesday, Wednesday and Wednesday Has AVG in right upper arm with good thrill HD catheter in groin removed 01/10 Continue Sensipar Hemodialysis today will remove fluid as tolerated Bacteremia Vancomycin with HD ID managing Anemia Epogen with dialysis HGB 6.8 plan for transfusion Hypertension Will monitor, on coreg <Jillian Bowling - Last Filed: 01/17/18 13:57> - Assessment (1) End-stage renal disease on hemodialysis Code(s): N18.6 - End stage renal disease; Z99.2 - Dependence on renal dialysis Status: Acute - Attending Attestation Patient seen and examined, agree with above. Continue HD MWF. Follow Hgb. <Courtney Hernandez - Last Filed: 01/18/18 13:36>
--- NOTE | 2018-01-17 15:28 | P.PNIM ---
Subjective Interval history: Upset about the service here in the hospital. She wants to be able to have food available to order. She does not like the Nepro supplements and requests another alternative. Open to getting a dietitian consultation. In addition she is open for possible getting a Roho cushion versus specialty bed for comfort. Physical Exam Vital signs: Vital Signs 01/16/18 15:26 01/16/18 16:00 01/16/18 20:00 Temperature 99.2 F 97.9 F Pulse Rate 76 82 Respiratory Rate 20 16 Blood Pressure 91/53 L 100/51 L Pulse Oximetry 97 100 98 01/17/18 00:00 01/17/18 04:00 01/17/18 09:31 Temperature 98.0 F 97.9 F 98.1 F Pulse Rate 85 86 83 Respiratory Rate 16 14 22 Blood Pressure 118/72 89/54 L 108/68 Pulse Oximetry 95 97 100 Intake & Output 01/16/18 01/17/18 01/17/18 18:59 06:59 18:59 Intake Total 480 / 480 480 / 480 Balance 480 / 480 480 / 480 Weight 81 kg Intake: Oral 480 / 480 480 / 480 Other: # Voids 0 Date of Last Bowel Movement 01/15/18 01/17/18 # Bowel Movements 0 Narrative: GENERAL: This is a well-nourished, well-developed patient, in no apparent distress. CARDIOVASCULAR: Regular rate and rhythm without murmurs, gallops, or rubs. RESPIRATORY: Clear to auscultation. Breath sounds equal bilaterally. No wheezes , rales, or rhonchi. GASTROINTESTINAL: Abdomen soft, non-tender, nondistended. Normal active bowel sounds NEURO: Alert & Oriented x4 to person, place, time, situation. Moves all ext x4 Lower extremity physical exam: Capillary refill time within normal limits to digits X5 bilateral foot. Edema present bilateral lower extremity. Larger on the right greater than the left. Neuro: Gross sensation intact to bilateral lower extremity. Patient moves all 4 extremities. Results - Labs CBC & Chem 7: 01/17/18 06:03 01/17/18 06:03 Laboratory Results - last 24 hr 01/16/18 01/16/18 01/16/18 21:32 22:19 23:41 WBC RBC Hgb Hct MCV MCH MCHC RDW Plt Count MPV Neut % (Auto) Lymph % (Auto) [place] % (Auto) Eos % (Auto) Baso % (Auto) Neut # (Auto) Lymph # (Auto) [place] # (Auto) Eos # (Auto) Baso # (Auto) WBC Differential Differential Comment PT INR Sodium Potassium Chloride Carbon Dioxide Anion Gap BUN Creatinine Estimated GFR POC Glucose 66 L 91 70 Random Glucose Calcium Prot Corrected Calcium Phosphorus Magnesium Total Bilirubin AST ALT Alkaline Phosphatase Total Protein Albumin 01/17/18 01/17/18 01/17/18 00:02 00:24 01:26 WBC RBC Hgb Hct MCV MCH MCHC RDW Plt Count MPV Neut % (Auto) Lymph % (Auto) [place] % (Auto) Eos % (Auto) Baso % (Auto) Neut # (Auto) Lymph # (Auto) [place] # (Auto) Eos # (Auto) Baso # (Auto) WBC Differential Differential Comment PT INR Sodium 135 L Potassium 4.6 Chloride 97 L Carbon Dioxide 28.0 Anion Gap 10 BUN 60 H Creatinine 4.34 H Estimated GFR 13 L POC Glucose 86 94 Random Glucose 48 L* Calcium 6.8 L* Prot Corrected Calcium 6.8 L* Phosphorus Magnesium 2.0 Total Bilirubin 0.4 AST 12 L ALT 9 L Alkaline Phosphatase 226 H Total Protein 7.2 Albumin 1.7 L 01/17/18 01/17/18 01/17/18 05:07 06:03 06:03 WBC 10.4 RBC 2.58 L Hgb 6.8 L* Hct 21.2 L MCV 82.0 MCH 26.4 L MCHC 32.2 RDW 18.3 H Plt Count 402 MPV 8.2 Neut % (Auto) 77.2 H Lymph % (Auto) 7.5 L [place] % (Auto) 10.0 H Eos % (Auto) 4.7 H Baso % (Auto) 0.6 Neut # (Auto) 8.1 H Lymph # (Auto) 0.8 L [place] # (Auto) 1.0 H Eos # (Auto) 0.5 H Baso # (Auto) 0.1 WBC Differential . Differential Comment Auto diff final PT INR Sodium 134 L Potassium 4.7 Chloride 97 L Carbon Dioxide 27.2 Anion Gap 10 BUN 61 H Creatinine 4.45 H Estimated GFR 13 L POC Glucose 59 L Random Glucose 46 L* Calcium 7.1 L* Prot Corrected Calcium 7.0 L* Phosphorus 3.7 Magnesium Total Bilirubin 0.4 AST 13 L ALT 8 L Alkaline Phosphatase 228 H Total Protein 7.5 Albumin 1.6 L 01/17/18 01/17/18 01/17/18 06:05 06:40 08:39 WBC RBC Hgb Hct MCV MCH MCHC RDW Plt Count MPV Neut % (Auto) Lymph % (Auto) [place] % (Auto) Eos % (Auto) Baso % (Auto) Neut # (Auto) Lymph # (Auto) [place] # (Auto) Eos # (Auto) Baso # (Auto) WBC Differential Differential Comment PT 24.4 H INR 2.4 Sodium Potassium Chloride Carbon Dioxide Anion Gap BUN Creatinine Estimated GFR POC Glucose 93 68 Random Glucose Calcium Prot Corrected Calcium Phosphorus Magnesium Total Bilirubin AST ALT Alkaline Phosphatase Total Protein Albumin 01/17/18 12:39 WBC RBC Hgb Hct MCV MCH MCHC RDW Plt Count MPV Neut % (Auto) Lymph % (Auto) [place] % (Auto) Eos % (Auto) Baso % (Auto) Neut # (Auto) Lymph # (Auto) [place] # (Auto) Eos # (Auto) Baso # (Auto) WBC Differential Differential Comment PT INR Sodium Potassium Chloride Carbon Dioxide Anion Gap BUN Creatinine Estimated GFR POC Glucose 73 Random Glucose Calcium Prot Corrected Calcium Phosphorus Magnesium Total Bilirubin AST ALT Alkaline Phosphatase Total Protein Albumin Microbiology 01/10/18 19:02 Catheter Tip - Other Fungal Culture - Preliminary No growth in 1 week 01/10/18 19:02 Other Acid Fast Bacilli Smear - Final No acid fast bacilli seen 01/10/18 19:02 Other Mycobacterial Culture - Preliminary No growth in 1 week 01/10/18 18:15 Tissue - Groin Fungal Smear - Final No fungal elements seen 01/10/18 18:15 Tissue - Groin Fungal Culture - Preliminary No growth in 1 week 01/10/18 18:15 Tissue - Groin Acid Fast Bacilli Smear - Final No acid fast bacilli seen 01/10/18 18:15 Tissue - Groin Mycobacterial Culture - Preliminary No growth in 1 week - Procedures s/p partial catheter excision, repair of vein, drainage of hematoma Assessment and Plan - Plan 52-year-old female with Bacteremia Appreciate input from infectious disease specialist Currently on vancomycin with HD and Levaquin IV and switch to PO Continue to monitor culture report CHF exacerbation Fluid overload Abdominal ascites Appreciate input from Nephrology for hemodialysis. Hemodialysis per protocol Left CFV tunneled catheter removed 01/08 by vascular surgery Continue to use right upper extremity aVF HD catheter in groin removed 01/10/18 Left lower extremity venous stasis cellulitis. Appreciate input from podiatry, patient declined MRI to rule out osteomyelitis Case discussed today with podiatry January 16, 2018 Dysfunctional Vas-Cath left lower extremity. Small thrombus around Vas-Cath. On warfarin . Appreciate input from vascular surgery s/p partial catheter excision, repair of vein, drainage of hematoma, clear for discharge from vascular surgeon with outpatient follow-up. Hypertension, chronic essential. Continue home meds. Anemia of chronic kidney disease compounded by acute blood loss Transfused total of 6 units packed red blood cell Appreciate input from gastroenterology and status post EGD January 13, 2018 pending biopsy report, patient was found to have gastric ulcer Continue with PPI and increase to twice daily and serial H&H monitoring which showed a decrease in hemoglobin today to 6.8. Will transfuse 1 unit of packed red blood cell. In addition we will start Carafate 1 g p.o. 3 times daily q. before meals and at bedtime, Epogen to be given with dialysis. Hypoglycemia, asymptomatic Secondary to end-stage renal disease Treatment per hypoglycemia protocol, encourage p.o. intake. History of CVA History of DVT Continue warfarin, monitor INR. GERD. Chronic. Continue PPI. DVT prophylaxiswarfarin
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
[2018-01-17] MEDS: Sodium Hypochlorite 0.125% Top Soln 500 ML Bottle TOPICAL SCH (17:32)
[2018-01-18] MEDS: Temazepam 15 MG Capsule PO PRN (01:37)
[2018-01-18] MEDS: traZODone 50 MG Tablet PO SCH ×2 (01:39→21:35)
[2018-01-18] MEDS: Calcium Carbonate 500 MG Tablet PO SCH ×3 (01:42→21:35)
[2018-01-18] MEDS: Sucralfate Liq 1 GM/10 ML UDC PO SCH ×4 (01:43→21:35)
[2018-01-18] MEDS: Sodium Hypochlorite 0.125% Top Soln 500 ML Bottle TOPICAL SCH ×2 (03:03→21:56)
--- NOTE | 2018-01-18 03:48 | XR ---
EXAM DATE: 01/18/2018 3:12 AM EDT AGE/SEX: 52 years / Female INDICATIONS: . Cough CLINICAL DATA: This is the patient's subsequent encounter. Patient reports that signs and symptoms h ave been present for 3 weeks and indicates a pain score of 2/10. MEDICAL/SURGICAL HISTORY: Congestive heart failure. Deep venous thrombosis. Chronic kidney dis ease. section. COMPARISON: [facility], CHEST 1V SINGLE AP, 01/10/2018. . FINDINGS: Bilateral mostly basilar airspace disease improved from January 10 comparison. Small right effusion impro miranda. Tortuous aorta. Cardiomegaly. CONCLUSION: Improved bilateral airspace disease since January 10. Improved right effusion. No new infiltrate. Electronically signed by: Riley Everett MD 01/18/2018 3:46 AM EDT
[2018-01-18] MEDS: Aztreonam Inj 500 MG in Sodium Chlor 0.9% Inj 100 ML IV.SIG SCH ×2 (06:49→06:50)
[2018-01-18 07:19] LABS: Hematocrit 24.1 % (35.0-46.0); Hemoglobin 7.8 gm/dL (11.6-15.3)
[2018-01-18] MEDS: Ferrous Sulfate 325 MG Tablet PO SCH (09:43)
[2018-01-18] MEDS: amLODIPine 10 MG Tablet PO SCH (09:47)
[2018-01-18] MEDS ORDERED: SODIUM CHLOR 0.9% IV.SIG ONE (13:38)
[2018-01-18] MEDS ORDERED: CALCIUM CHLORIDE IV.SIG ONE (13:38)
--- NOTE | 2018-01-18 14:39 | P.PNNP ---
Subjective Interval history: Complaining of increased pain in back and left leg. Hemodialysis yesterday tolerated well. HGB improved today at 7.8 after transfusion. <TawnyaJillian - Last Filed: 01/18/18 14:35> Physical Exam Vital signs: Vital Signs 01/17/18 16:00 01/17/18 17:49 01/18/18 00:00 Temperature 97.9 F Pulse Rate 86 86 84 Respiratory Rate 20 17 Blood Pressure 143/79 H 98/53 L Pulse Oximetry 95 96 01/18/18 02:12 01/18/18 02:40 01/18/18 04:00 Temperature 98.7 F 98.7 F 98.0 F Pulse Rate 91 H 88 67 Respiratory Rate 20 20 16 Blood Pressure 91/62 L 94/61 L 90/57 L Pulse Oximetry 97 95 01/18/18 05:30 01/18/18 08:00 01/18/18 12:00 Temperature 98.3 F 98.3 F 97.7 F Pulse Rate 88 77 83 Respiratory Rate 18 18 18 Blood Pressure 134/61 100/65 106/70 Pulse Oximetry 93 L 97 97 Intake & Output 01/17/18 01/18/18 01/18/18 18:59 06:59 18:59 Intake Total 1000 / 1000 250 / 250 400 / 400 Output Total 3000 / 3000 Balance 1000 / 1000 -2750 / -2750 400 / 400 Weight 81 kg Intake: IV 250 / 250 Vancomycin Inj 1,000 MG In NS 250 / 250 Inj 250 ML @ 250 mls/hr IV.SIG WITH DIALYSIS [facility]A Rx#:[id number] Oral 1000 / 1000 Intake (Blood Product) Amt 0 / 0 400 / 400 Rbc As-3 Leukoreduced Unit 0 / 0 400 / 400 [id number] Output: Hemodialysis Amount 3000 / 3000 Other: # Voids 1 Date of Last Bowel Movement 01/17/18 01/17/18 # Bowel Movements 1 1 # Incontinent Bowel Movements 1 - Constitutional no acute distress - Routine HEENT Exam Head: Present: normocephalic ENT: Present: mucous membranes moist - Routine Neck Exam Present: supple. Absent: JVD - Routine Respiratory Exam Present: decreased breath sounds. Absent: rales, rhonchi - Routine Cardiovascular Exam Present: RRR, murmur - Routine Abdominal Exam Present: soft, normoactive bowel sounds. Absent: tenderness - Routine Extremities Exam Present: edema, AV fistula - Routine Skin Exam Present: dry, warm - Routine Neurological Exam Present: alert, oriented X3 - Routine Psychiatric Exam Present: agitated <Jillian Bowling - Last Filed: 01/18/18 14:35> Vital signs: Vital Signs 01/19/18 12:00 Temperature 98.3 F Pulse Rate 84 Respiratory Rate 18 Blood Pressure 113/68 Pulse Oximetry 100 Intake & Output 01/19/18 01/20/18 01/20/18 18:59 06:59 18:59 Intake Total 750 / 750 Output Total 2000 Balance -1251 / -1251 Weight 81 kg Intake: IV 750 / 750 D10W Inj 500 ML @ 50 mls/hr IV. 500 / 500 SIG .Q10H KAELA Rx#:[id number] Vancomycin Inj 1,000 MG In NS 250 / 250 Inj 250 ML @ 250 mls/hr IV.SIG WITH DIALYSIS KAELA Rx#:[id number] Output: Stool Hemodialysis Amount 1999 Other: Date of Last Bowel Movement 01/17/18 <Courtney Hernandez - Last Filed: 01/20/18 11:39> Assessment and Plan - Assessment (1) End-stage renal disease on hemodialysis Code(s): N18.6 - End stage renal disease; Z99.2 - Dependence on renal dialysis Status: Acute - Plan ESRD She is on hemodialysis Wednesday, Wednesday and Wednesday Has AVG in right upper arm with good thrill HD catheter in groin removed 01/10 Continue Sensipar Hypocalcemia on oral replacement and IV replacement given Hemodialysis yesterday with UF of 3 liters Bacteremia Vancomycin with HD ID managing Anemia Epogen with dialysis HGB 7.8 plan for transfusion Hypertension Will monitor, on coreg <Jillian Bowling - Last Filed: 01/18/18 14:35> - Assessment (1) End-stage renal disease on hemodialysis Code(s): N18.6 - End stage renal disease; Z99.2 - Dependence on renal dialysis Status: Acute - Attending Attestation Patient seen and examined, agree with above. HD done yesterday, continue same. <Courtney Hernandez - Last Filed: 01/20/18 11:39>
--- NOTE | 2018-01-18 14:59 | P.PNIM ---
Subjective Interval history: Doing okay however wants to go home unhappy with the service here. Reports that she is decided to have the nursing staff change her bandages as she was refusing earlier per nursing staff. Physical Exam Vital signs: Vital Signs 01/17/18 16:00 01/17/18 17:49 01/18/18 00:00 Temperature 97.9 F Pulse Rate 86 86 84 Respiratory Rate 20 17 Blood Pressure 143/79 H 98/53 L Pulse Oximetry 95 96 01/18/18 02:12 01/18/18 02:40 01/18/18 04:00 Temperature 98.7 F 98.7 F 98.0 F Pulse Rate 91 H 88 67 Respiratory Rate 20 20 16 Blood Pressure 91/62 L 94/61 L 90/57 L Pulse Oximetry 97 95 01/18/18 05:30 01/18/18 08:00 01/18/18 12:00 Temperature 98.3 F 98.3 F 97.7 F Pulse Rate 88 77 83 Respiratory Rate 18 18 18 Blood Pressure 134/61 100/65 106/70 Pulse Oximetry 93 L 97 97 Intake & Output 01/17/18 01/18/18 01/18/18 18:59 06:59 18:59 Intake Total 1000 / 1000 250 / 250 400 / 400 Output Total 3000 / 3000 Balance 1000 / 1000 -2750 / -2750 400 / 400 Weight 81 kg Intake: IV 250 / 250 Vancomycin Inj 1,000 MG In NS 250 / 250 Inj 250 ML @ 250 mls/hr IV.SIG WITH DIALYSIS [facility] Rx#:[id number] Oral 1000 / 1000 Intake (Blood Product) Amt 0 / 0 400 / 400 Rbc As-3 Leukoreduced Unit 0 / 0 400 / 400 [id number] Output: Hemodialysis Amount 3000 / 3000 Other: # Voids 1 Date of Last Bowel Movement 01/17/18 01/17/18 # Bowel Movements 1 1 # Incontinent Bowel Movements 1 Narrative: GENERAL: This is a well-nourished, well-developed patient, in no apparent distress. CARDIOVASCULAR: Regular rate and rhythm without murmurs, gallops, or rubs. RESPIRATORY: Clear to auscultation. Breath sounds equal bilaterally. No wheezes , rales, or rhonchi. GASTROINTESTINAL: Abdomen soft, non-tender, nondistended. Normal active bowel sounds NEURO: Alert & Oriented x4 to person, place, time, situation. Moves all ext x4 Lower extremity physical exam: Capillary refill time within normal limits bilaterally. Edema present bilateral lower extremity. Larger on the right greater than the left. Neuro: Gross sensation intact to bilateral lower extremity. Patient moves all 4 extremities. Results - Labs CBC & Chem 7: 01/18/18 06:21 01/17/18 06:03 Laboratory Results - last 24 hr 01/12/18 01/17/18 01/17/18 12:07 18:32 20:36 Hgb Hct PT INR POC Glucose 91 Blood Type A Positive Antibody Screen Negative MTS Gel Crossmatch See Detail See Detail 01/18/18 01/18/18 01/18/18 01:34 06:21 06:21 Hgb 7.8 L Hct 24.1 L PT Cancelled INR Cancelled POC Glucose 147 H Blood Type Antibody Screen MTS Gel Crossmatch 01/18/18 01/18/18 01/18/18 09:01 10:48 13:11 Hgb Hct PT INR POC Glucose 67 L 88 83 Blood Type Antibody Screen MTS Gel Crossmatch Microbiology 01/10/18 19:02 Catheter Tip - Other Fungal Culture - Preliminary No growth in 1 week 01/10/18 19:02 Other Acid Fast Bacilli Smear - Final No acid fast bacilli seen 01/10/18 19:02 Other Mycobacterial Culture - Preliminary No growth in 1 week 01/10/18 18:15 Tissue - Groin Fungal Smear - Final No fungal elements seen 01/10/18 18:15 Tissue - Groin Fungal Culture - Preliminary No growth in 1 week 01/10/18 18:15 Tissue - Groin Acid Fast Bacilli Smear - Final No acid fast bacilli seen 01/10/18 18:15 Tissue - Groin Mycobacterial Culture - Preliminary No growth in 1 week - Imaging Impressions Chest X-Ray 01/18/18 06:00 CONCLUSION: Improved bilateral airspace disease since January 10. Improved right effusion. No new infiltrate. - Procedures s/p partial catheter excision, repair of vein, drainage of hematoma Assessment and Plan - Plan 52-year-old female with Bacteremia Appreciate input from infectious disease specialist Currently on vancomycin with HD and Levaquin IV switched to Aztreonam Continue to monitor culture report Await for final recommendation from infectious disease for transition to outpatient antibiotic treatment. CHF exacerbation - now compensated Fluid overload Abdominal ascites Appreciate input from Nephrology for hemodialysis. Hemodialysis per protocol Left CFV tunneled catheter removed 01/08 by vascular surgery Continue to use right upper extremity aVF HD catheter in groin removed 01/10/18 Left lower extremity venous stasis cellulitis. Appreciate input from podiatry, patient declined MRI to rule out osteomyelitis Case discussed with podiatry January 16, 2018 by previous attending physician Dysfunctional Vas-Cath left lower extremity. Small thrombus around Vas-Cath. On warfarin. Appreciate input from vascular surgery s/p partial catheter excision, repair of vein, drainage of hematoma, clear for discharge from vascular surgeon with outpatient follow-up. Hypertension, chronic essential. Continue home meds. Anemia of chronic kidney disease compounded by acute blood loss Transfused total of 6 units packed red blood cell Appreciate input from gastroenterology and status post EGD January 13, 2018 pending biopsy report, patient was found to have gastric ulcer Continue with PPI and increase to twice daily and serial H&H monitoring which showed a decrease in hemoglobin today to 6.8. transfuse 1 unit of packed red blood cell yesterday with a repeat of hemoglobin 7.8. In addition we will start Carafate 1 g p.o. 3 times daily q. before meals and at bedtime, Epogen to be given with dialysis. Hypoglycemia, asymptomatic Secondary to end-stage renal disease Treatment per hypoglycemia protocol, encourage p.o. intake. History of CVA History of DVT Continue warfarin, monitor INR. GERD. Chronic. Continue PPI. DVT prophylaxiswarfarin on hold as patient declined lab draws today.
--- NOTE | 2018-01-18 15:41 | P.PNID ---
Subjective Remarks: Xcover for Dr Medina Overnight events reviewed No fever No rash No diarrhea, now constipated C/o pain in the groin and L ankle as well as in LUE where periferal IV is Vascular surgery took the permacath out and noted a hematoma/abscess cavity. Cultures intraop sent and growing Proteus mirabilus and Staph epi s/p EGD with gastritis 2 D echo negative for veg's, + severe mitral and TV regurge Antibiotics: Vancomycin IV in dialysis azactam Lines: Line sites LUE with no evidence of infection. Past Medical History: Past medical history History of DVT Lymphedema Cerebrovascular accident Congestive heart failure Hypertension Anemia End-stage renal disease Past surgical history April 27, 2017 patient underwent a angiogram as well as a venogram. May 2016 underwent a right brachial brachial AV fistula placement Patient also has had an IVC filter placed Bilateral multiple upper extremity AV fistula placements September 03, 2017 patient had right upper extremity access revision. Allergies/Adverse Reactions: Allergies Penicillins Allergy (Severe, Verified 09/02/17 14:16) Swelling Objective Vital Signs 01/17/18 16:00 01/17/18 17:49 01/18/18 00:00 Temperature 97.9 F Pulse Rate 86 86 84 Respiratory Rate 20 17 Blood Pressure 143/79 H 98/53 L Pulse Oximetry 95 96 01/18/18 02:12 01/18/18 02:40 01/18/18 04:00 Temperature 98.7 F 98.7 F 98.0 F Pulse Rate 91 H 88 67 Respiratory Rate 20 20 16 Blood Pressure 91/62 L 94/61 L 90/57 L Pulse Oximetry 97 95 01/18/18 05:30 01/18/18 08:00 01/18/18 12:00 Temperature 98.3 F 98.3 F 97.7 F Pulse Rate 88 77 83 Respiratory Rate 18 18 18 Blood Pressure 134/61 100/65 106/70 Pulse Oximetry 93 L 97 97 Intake & Output 01/17/18 01/18/18 01/18/18 18:59 06:59 18:59 Intake Total 1000 / 1000 250 / 250 400 / 400 Output Total 3000 / 3000 Balance 1000 / 1000 -2750 / -2750 400 / 400 Weight 81 kg Intake: IV 250 / 250 Vancomycin Inj 1,000 MG In NS 250 / 250 Inj 250 ML @ 250 mls/hr IV.SIG WITH DIALYSIS [facility] Rx#:[id number] Oral 1000 / 1000 Intake (Blood Product) Amt 0 / 0 400 / 400 Rbc As-3 Leukoreduced Unit 0 / 0 400 / 400 [id number] Output: Hemodialysis Amount 3000 / 3000 Other: # Voids 1 Date of Last Bowel Movement 01/17/18 01/17/18 # Bowel Movements 1 1 # Incontinent Bowel Movements 1 01/10/18 19:02 Catheter Tip - Other Fungal Culture - Preliminary No growth in 1 week 01/10/18 19:02 Other Acid Fast Bacilli Smear - Final No acid fast bacilli seen 01/10/18 19:02 Other Mycobacterial Culture - Preliminary No growth in 1 week 01/10/18 18:15 Tissue - Groin Fungal Smear - Final No fungal elements seen 01/10/18 18:15 Tissue - Groin Fungal Culture - Preliminary No growth in 1 week 01/10/18 18:15 Tissue - Groin Acid Fast Bacilli Smear - Final No acid fast bacilli seen 01/10/18 18:15 Tissue - Groin Mycobacterial Culture - Preliminary No growth in 1 week 01/16/18 06:30 Stool Stool Occult Blood (JEANETTE) - Final Hemoccult positive Lab - Hematology Results 01/17/18 01/18/18 06:03 06:21 WBC 10.4 RBC 2.58 L Hgb 6.8 L* 7.8 L Hct 21.2 L 24.1 L MCV 82.0 MCH 26.4 L MCHC 32.2 RDW 18.3 H Plt Count 402 MPV 8.2 Neut % (Auto) 77.2 H Lymph % (Auto) 7.5 L Woods % (Auto) 10.0 H Eos % (Auto) 4.7 H Baso % (Auto) 0.6 Neut # (Auto) 8.1 H Lymph # (Auto) 0.8 L Woods # (Auto) 1.0 H Eos # (Auto) 0.5 H Baso # (Auto) 0.1 WBC Differential . Differential Comment Auto diff final Lab - Chemistry Results 01/16/18 01/16/18 01/16/18 21:32 22:19 23:41 Sodium Potassium Chloride Carbon Dioxide Anion Gap BUN Creatinine Estimated GFR POC Glucose 66 L 91 70 Random Glucose Calcium Prot Corrected Calcium Phosphorus Magnesium Total Bilirubin AST ALT Alkaline Phosphatase Total Protein Albumin 01/17/18 01/17/18 01/17/18 00:02 00:24 01:26 Sodium 135 L Potassium 4.6 Chloride 97 L Carbon Dioxide 28.0 Anion Gap 10 BUN 60 H Creatinine 4.34 H Estimated GFR 13 L POC Glucose 86 94 Random Glucose 48 L* Calcium 6.8 L* Prot Corrected Calcium 6.8 L* Phosphorus Magnesium 2.0 Total Bilirubin 0.4 AST 12 L ALT 9 L Alkaline Phosphatase 226 H Total Protein 7.2 Albumin 1.7 L 01/17/18 01/17/18 01/17/18 05:07 06:03 06:40 Sodium 134 L Potassium 4.7 Chloride 97 L Carbon Dioxide 27.2 Anion Gap 10 BUN 61 H Creatinine 4.45 H Estimated GFR 13 L POC Glucose 59 L 93 Random Glucose 46 L* Calcium 7.1 L* Prot Corrected Calcium 7.0 L* Phosphorus 3.7 Magnesium Total Bilirubin 0.4 AST 13 L ALT 8 L Alkaline Phosphatase 228 H Total Protein 7.5 Albumin 1.6 L 01/17/18 01/17/18 01/17/18 08:39 12:39 18:32 Sodium Potassium Chloride Carbon Dioxide Anion Gap BUN Creatinine Estimated GFR POC Glucose 68 73 91 Random Glucose Calcium Prot Corrected Calcium Phosphorus Magnesium Total Bilirubin AST ALT Alkaline Phosphatase Total Protein Albumin 01/18/18 01/18/18 01/18/18 01:34 09:01 10:48 Sodium Potassium Chloride Carbon Dioxide Anion Gap BUN Creatinine Estimated GFR POC Glucose 147 H 67 L 88 Random Glucose Calcium Prot Corrected Calcium Phosphorus Magnesium Total Bilirubin AST ALT Alkaline Phosphatase Total Protein Albumin 01/18/18 13:11 Sodium Potassium Chloride Carbon Dioxide Anion Gap BUN Creatinine Estimated GFR POC Glucose 83 Random Glucose Calcium Prot Corrected Calcium Phosphorus Magnesium Total Bilirubin AST ALT Alkaline Phosphatase Total Protein Albumin Imaging: ITS Impressions Venous Doppler Study 01/06/18 00:00 CONCLUSION: No evidence of right upper extremity DVT Tube Removal 01/07/18 00:00 CONCLUSION: The patient's left groin dialysis permacath could not be removed, firmly adherent to the tissues deep to the groin region. Surgical consultation is recommended for removal. Chest X-Ray 01/18/18 06:00 CONCLUSION: Improved bilateral airspace disease since January 10. Improved right effusion. No new infiltrate. Physical Exam: GENERAL: Well-nourished well-developed, not in acute distress SKIN: Cool and dry, no generalized rash HEAD: Atraumatic. Normocephalic. No temporal or scalp tenderness. EYES: Pupils equal round and reactive. Scleral icterus. No injection or drainage. No petechia ENT: Nothing abnormal detected NECK: Trachea midline. Supple, nontender, no meningeal signs. CARDIOVASCULAR: Regular rate and rhytms, 3-4 ?4 systlolic murmus in all points of auscultation RESPIRATORY: Clear to auscultation bilaterally. GASTROINTESTINAL: Abdomen soft nontender. MUSCULOSKELETAL: Extremities without clubbing, cyanosis. L thigh : L groing opnong with no purulence and necrotic tissue + incision with minimal serousan g drainage + tender induration, skin discoloraiton: noticibley improved, much less induation L ankle wond ( inner aspect) with dressing in place NEUROLOGICAL: Alert oriented 3. Nonfocal. Psych irritable IV line sites ok. Opening in right thigh with significant tenderness and induration noted. Suture sites ok. Assessment and Plan - Plan Staph epi bacteremia likely related to Permacath in Left groin. - permacath was removed Possible infected Hematoma infected/Septic Thrombophlebitis at site of left permacath. - proteus -GPC ESRD on HD Multiple AV fistulas with access issues needing revisions. RUE Fistula current HD access. Bilateral infiltrates ? pneumonia ? septic emboli. Lymphedema LLE ulcer MRSA infected Recs cont vanco 1 gm to be given in HD. - cont Vanco with HD Follow intraop cultures ID to adjust antibiotics. - start levaquine 500 mg po qod dc azactam liliana ford Patient, her mother liliana lee abx as o/p - minimal of 2 weeks
[2018-01-18] MEDS ORDERED: levoFLOXacin 500 MG Tablet PO SCH (16:00)
[2018-01-19 07:08] LABS: INR 2.5 Ratio
[2018-01-19] MEDS: Sodium Hypochlorite 0.125% Top Soln 500 ML Bottle TOPICAL SCH ×2 (07:52→09:33)
[2018-01-19] MEDS: Sucralfate Liq 1 GM/10 ML UDC PO SCH ×3 (07:52→11:38)
[2018-01-19] MEDS: amLODIPine 10 MG Tablet PO SCH (09:33)
[2018-01-19] MEDS: Calcium Carbonate 500 MG Tablet PO SCH (09:33)
[2018-01-19] MEDS: Ferrous Sulfate 325 MG Tablet PO SCH (09:33)
--- NOTE | 2018-01-19 12:00 | P.DCO ---
- Physical Therapy Order: Evaluate and treat - Home Health Nursing Order: Medical education, Wound care and dressing changes - Certification I have seen patient Adrienne Jackman on 01/19/18. My clinical findings support the need for the requested home health care services because: Limited mobility due to disease progression I certify that my clinical findings support that this patient is homebound because: Unsteady gait/balance
--- NOTE | 2018-01-19 12:11 | P.DS ---
Date of admission: 01/04/18 05:11 Primary care physician: UNKNOWN Anticipated date of discharge: 01/19/18 Brief History from admission: Obtained from admitting physician's history and physical. 52-year-old female with history of ESRD on hemodialysis Wednesday, Wednesday, Wednesday (Dr Nicole in [place]), CVA, CHF who presents with worsening pain and swelling in bilateral legs, abdomen, together with worsening fatigue. She notes that left groin Vas-Cath stopped working last week, and she received partial dialysis, ending early on to dialysis days due to nonfunctional Vas- Cath.. Subsequent dialysis via right sided AV fistula has proceeded successfully per patient report. Patient reports feeling generally fatigued, short of breath, with abdominal distention over the past week DS: Diagnosis - Discharge Diagnosis (1) End-stage renal disease on hemodialysis Status: Acute (2) Ulcer of left ankle Status: Acute (3) Bacteremia due to Gram-negative bacteria Status: Acute (4) Anemia in CKD (chronic kidney disease) Status: Acute DS: Summary Hospital Course: 52-year-old female with Bacteremia gram-negative olinda and gram-positive cocci Appreciate input from infectious disease specialist Currently on vancomycin with HD and complete p.o. Levaquin for 14 more days per infectious disease. Continue to monitor culture report CHF exacerbation - now compensated Fluid overload Abdominal ascites Appreciate input from Nephrology for hemodialysis. Hemodialysis per protocol Left CFV tunneled catheter removed 01/08 by vascular surgery Continue to use right upper extremity aVF HD catheter in groin removed 01/10/18 Left lower extremity venous stasis cellulitis. Appreciate input from podiatry, patient declined MRI to rule out osteomyelitis Case discussed with podiatry January 16, 2018 by previous attending physician Dysfunctional Vas-Cath left lower extremity. Small thrombus around Vas-Cath. On warfarin. Appreciate input from vascular surgery s/p partial catheter excision, repair of vein, drainage of hematoma, clear for discharge from vascular surgeon with outpatient follow-up. Hypertension, chronic essential. Continue home meds. Anemia of chronic kidney disease compounded by acute blood loss Transfused total of 6 units packed red blood cell Appreciate input from gastroenterology and status post EGD January 13, 2018 pending biopsy report, patient was found to have gastric ulcer Continue with PPI and increase to twice daily and serial H&H monitoring which showed a decrease in hemoglobin today to 6.8. transfuse 1 unit of packed red blood cell yesterday with a repeat of hemoglobin 7.8. In addition we will start Carafate 1 g p.o. 3 times daily q. before meals and at bedtime, Epogen to be given with dialysis. Hypoglycemia, asymptomatic Secondary to end-stage renal disease Treatment per hypoglycemia protocol, encourage p.o. intake. History of CVA History of DVT Continue warfarin at 5 mg, monitor INR while on dialysis on Levaquin. GERD. Chronic. Continue PPI. DVT prophylaxiswarfarin - Time Spent with Patient Total time spent providing and/or coordinating discharge services: Greater than 30 minutes - Quality: VTE Deep Vein Thrombosis/Pulmonary Embolism Present on Admission: Yes Exam Vital signs: Vital Signs 01/18/18 16:00 01/18/18 20:00 01/18/18 22:21 Temperature 98.4 F 97.8 F Pulse Rate 80 81 Respiratory Rate 18 18 Blood Pressure 105/68 108/64 Pulse Oximetry 97 97 01/19/18 00:00 01/19/18 04:00 01/19/18 08:00 Temperature 97.9 F 98.2 F 98.1 F Pulse Rate 88 80 84 Respiratory Rate 17 18 Blood Pressure 109/79 108/74 109/71 Pulse Oximetry 97 97 95 Intake & Output 01/18/18 01/19/18 01/19/18 18:59 06:59 18:59 Intake Total 400 / 400 1150 / 1150 500 / 500 Output Total 3001 / 3001 Balance 400 / 400 -1851 / -1851 500 / 500 Weight 81 kg Intake: IV 500 / 500 D10W Inj 500 ML @ 50 mls/hr IV. 500 / 500 SIG .Q10H [facility] Rx#:[id number] Oral 1000 / 1000 Anesthesia Amount 150 / 150 Intake (Blood Product) Amt 400 / 400 Rbc As-3 Leukoreduced Unit 400 / 400 [id number] Output: Stool 1 / 1 Hemodialysis Amount 3000 / 3000 Estimated Blood Loss 0 / 0 Other: # Voids 1 Date of Last Bowel Movement 01/17/18 01/17/18 01/17/18 # Bowel Movements 1 1 # Incontinent Bowel Movements 1 1 Results Procedures completed during hospitalization: s/p partial catheter excision, repair of vein, drainage of hematoma Labs on day of discharge: Labs from last 24 hours 01/19/18 01/19/18 01/19/18 11:02 10:25 09:04 WBC RBC Hgb Hct Plt Count WBC Differential Differential Comment PT INR POC Glucose 79 60 L 53 L 01/19/18 01/19/18 01/19/18 06:29 06:29 03:21 WBC Pending RBC Pending Hgb Pending Hct Pending Plt Count Pending WBC Differential Pending Differential Comment Pending PT 25.0 H INR 2.5 POC Glucose 67 L 01/18/18 01/18/18 01/18/18 20:50 18:44 13:11 WBC RBC Hgb Hct Plt Count WBC Differential Differential Comment PT INR POC Glucose 95 62 L 83 Preliminary micro results at discharge 01/10/18 19:02 Fungal Culture - Preliminary Catheter Tip - Other No growth in 1 week 01/10/18 19:02 Mycobacterial Culture - Preliminary Other No growth in 1 week 01/10/18 18:15 Fungal Culture - Preliminary Tissue - Groin No growth in 1 week 01/10/18 18:15 Mycobacterial Culture - Preliminary Tissue - Groin No growth in 1 week - Impressions ITS Impressions Venous Doppler Study 01/06/18 00:00 CONCLUSION: No evidence of right upper extremity DVT Tube Removal 01/07/18 00:00 CONCLUSION: The patient's left groin dialysis permacath could not be removed, firmly adherent to the tissues deep to the groin region. Surgical consultation is recommended for removal. Chest X-Ray 01/18/18 06:00 CONCLUSION: Improved bilateral airspace disease since January 10. Improved right effusion. No new infiltrate. Discharge Plan - Discharge Disposition Patient Disposition: /Home Health Service - Discharge Condition Condition: Stable - Discharge Order Discharge Orders: Discharge Order (Routine); Ordered 01/19/18 Ordered By: Mellissa Uriostegui Podiatry Clear for Discharge (Routine); Ordered 01/06/18 Ordered By: Doreen Chilel Vascular Surgery Clear for Discharge (Routine); Ordered 01/17/18 Ordered By: Zehra Lynch - Discharge Details Anticipated Discharge Date: 01/19/18 - Physicians Team Primary Care Provider: UNKNOWN, Attending Provider: Mellissa Uriostegui Other Providers: Courtney Hernandez MD ; Doreen Chilel DPM ; Emily Medina MD ; Rukhsana Brooks MD ; Anyi العراقي MD
--- NOTE | 2018-01-19 12:55 | P.DIET ---
Nutritional Evaluation Type of nutrition evaluation: initial Nutrition screening: Poor PO Intake (MDC) Subjective Subjective Comments: Pt has been eating 50% of meals. Requested chips prior to dialysis today and I delivered them with a vanilla Ensure for her to trial. She does not like the Nepro. Objective - Diagnosis Occluded LLE vascath, recurrent wound, B LL PNA - Objective % IBW: 132 (IBW 135#) Body Weight Used for Calculations: IBW (61.4 kg) Energy Needs - Lower Range (kCal/kg): 28 Energy Needs - Upper Range (kCal/kg): 32 Lower Limit kCal/kg (kCals): 1,719 Upper Limit kCal/kg (kCals): 1,965 Lower Limit Protein Factor (Grams per Kg): 1.2 Upper Limit Protein Factor (Grams per Kg): 1.5 Lower Protein Needs (Protein): 74 Upper Protein Needs (Protein): 92 Dietitian Reviewed in Medical Record: Current diet, Curent medications, Intake & Output, Labs, Medical history, Wound/DTI Diet Order: Regular Oral Diet Intake Amount: Fair 50-75% Wound Care Note: Midline sacral pressure injury- ongoing Objective Comments: HX: A-V fistula. CHF, CKD, on dialysis, DVT, lymphedema has HD on Assessment Assessment: Pt is at high nutrition risk 2' to dx and marginal po intake. Labs reviewed and hypoglycemic events noted. Pt will not drink the Nepro so we are trialing Ensure which provides 250 kcals and 9 gms protein per [address] will monitor supplement acceptance. Pt has diet office phone # to call down for snacks to bring with her to dialysis. RD will follow. Recommendations: Continue current diet Change Nepro to Ensure and monitor acceptance Dietitian to Monitor: Lab values, Glucose level, Supplement acceptance, Intake & Output, Diet tolerance, Weight change, PO Intake, Wound/skin status, Medical course
--- NOTE | 2018-01-19 13:57 | P.DCO ---
Post Hospital Infusion Therapy Location of Infusion Therapy: Dialysis Center Appointment Date: 01/21/18 Patient Weight: 81 kg - Diagnosis (1) End-stage renal disease on hemodialysis Code(s): N18.6 - End stage renal disease; Z99.2 - Dependence on renal dialysis (2) Bacteremia due to Gram-negative bacteria Code(s): R78.81 - Bacteremia - Administer Medication Vancomycin Dose: 1 gram IV Directions: q 48 hours with Hemodialysis M/W/F Start Treatment: 01/19/18 Stop Treatment: 02/09/18 - Additional Information Venous Access: Tunneled Catheter Additional Instructions: [x] Peripheral flush and dressing changes per protocol [x] Implanted port and central blending line attendant: * Implanted port: 10 ml Normal Saline followed by 5 ml Heparin 100 units/ml Heparin flush after each use and monthly to maintain. [] May leave port accessed during therapy. [] May leave peripheral site accessed for duration of therapy. [x] If patient has SOB or respiratory distress, check oxygen saturation. If less than 90% or clinical signs of respiratory distress, administer oxygen at 2 L/min. via nasal cannula and notify physician. [x] Anaphylaxis/Reaction orders: * Stop infusion. * Keep IV line open with saline flush. * Notify physician. * Monitor vital signs every 15 minutes until symptoms resolve. * Check Oxygen saturation; Oxygen at 2 L/min. via nasal cannula if less than 90% or clinical signs of respiratory distress. * Administer diphenhydramine (Benadryl) 25 mg IV STAT, (unless patient has received as pre-med). May repeat once, if necessary. * Solu-Cortef 250 mg IVP over 30-60 seconds, use 100 mg vials for each dissolution. * Epinephrine (1mg/1 ml) 0.3 mg subcutaneously or IVP now with any signs of respiratory distress. * Check with physician for new additional pre-med orders if patient is re- challenged or re-treated. [x] May remove PICC line when treatment complete, after confirming with Physician. [x] If the patient is admitted to the hospital, the ED, or transferred via [facility] , complete transfer form including medication reconciliation order sheet. Case Management Consult: No Allergies Penicillins Allergy (Severe, Verified 09/02/17 14:16) Swelling
--- NOTE | 2018-01-19 14:31 | P.DCO ---
- Physical Therapy Order: Evaluate and treat - Home Health Nursing Order: Wound care and dressing changes, Nursing assessment with vital signs Instructions: left ankle ulcer with gauze/queta, left groin (2 wounds) 1 packed then AD pad the other wound with just AD pad then two pads over top and taped. Left leg wound - silvadene with 4 x4 pad wrapped with prewrap then wrapped over. - Certification I have seen patient Adrienne Jackman on 01/19/18. My clinical findings support the need for the requested home health care services because: Limited mobility due to disease progression I certify that my clinical findings support that this patient is homebound because: Unsteady gait/balance
[2018-01-19 15:22] LABS: Baso # (Auto) 0.1 th/mm3 (0.0-0.2); Baso % (Auto) 0.8 % (0.0-2.0); Eos # (Auto) 0.5 th/mm3 (0.0-0.4); Eos % (Auto) 5.7 % (0.0-4.0); Hematocrit 22.4 % (35.0-46.0); Hemoglobin 7.5 gm/dL (11.6-15.3); Lymph # (Auto) 0.6 th/mm3 (1.0-4.8); Lymph % (Auto) 7.1 % (9.0-44.0); Mean Corpuscular HGB Conc 33.6 % (32.0-36.0); Mean Corpuscular Hemoglobin 26.9 pg (27.0-34.0); Mean Corpuscular Volume 80.1 fL (80.0-100.0); Mean Platelet Volume 7.1 fL (7.0-11.0); Mono # (Auto) 0.7 th/mm3 (0.0-0.9); Mono % (Auto) 8.4 % (0.0-8.0); Neut # (Auto) 6.7 th/mm3 (1.8-7.7); Platelet Count 481 th/mm3 (150-450); Red Cell Distribution Width 17.8 % (11.6-17.2); White Blood Count 8.5 th/mm3 (4.0-11.0)
--- NOTE | 2018-01-19 15:30 | P.PNNP ---
Subjective Interval history: Reports feeling better today. Hemodialysis planned for today. <Jillian Bowling - Last Filed: 01/19/18 15:26> Physical Exam Vital signs: Vital Signs 01/18/18 16:00 01/18/18 20:00 01/18/18 22:21 Temperature 98.4 F 97.8 F Pulse Rate 80 81 Respiratory Rate 18 16 18 Blood Pressure 105/68 108/64 Pulse Oximetry 97 97 01/19/18 00:00 01/19/18 04:00 01/19/18 08:00 Temperature 97.9 F 98.2 F 98.1 F Pulse Rate 88 80 84 Respiratory Rate 17 16 18 Blood Pressure 109/79 108/74 109/71 Pulse Oximetry 97 97 95 01/19/18 12:00 Temperature 98.3 F Pulse Rate 84 Respiratory Rate 18 Blood Pressure 113/68 Pulse Oximetry 100 Intake & Output 01/18/18 01/19/18 01/19/18 18:59 06:59 18:59 Intake Total 400 / 400 1150 / 1150 500 / 500 Output Total 3001 / 3001 Balance 400 / 400 -1851 / -1851 499 / 499 Weight 81 kg 81 kg Intake: IV 500 / 500 D10W Inj 500 ML @ 50 mls/hr IV. 500 / 500 SIG .Q10H [facility] Rx#:[id number] Oral 1000 / 1000 Anesthesia Amount 150 / 150 Intake (Blood Product) Amt 400 / 400 Rbc As-3 Leukoreduced Unit 400 / 400 [id number] Output: Stool / Hemodialysis Amount 3000 / 3000 Estimated Blood Loss 0 / 0 Other: # Voids 1 Date of Last Bowel Movement 01/17/18 01/17/18 01/17/18 # Bowel Movements 1 1 # Incontinent Bowel Movements 1 1 - Constitutional no acute distress - Routine HEENT Exam Head: Present: normocephalic - Routine Neck Exam Present: supple. Absent: JVD - Routine Respiratory Exam Present: decreased breath sounds. Absent: rales, rhonchi - Routine Cardiovascular Exam Present: RRR - Routine Abdominal Exam Present: soft, normoactive bowel sounds - Routine Extremities Exam Present: edema - Routine Skin Exam Present: dry, warm - Routine Neurological Exam Present: alert, oriented X3 - Routine Psychiatric Exam Present: cooperative <Jillian Bowling - Last Filed: 01/19/18 15:26> Vital signs: Vital Signs 01/19/18 12:00 Temperature 98.3 F Pulse Rate 84 Respiratory Rate 18 Blood Pressure 113/68 Pulse Oximetry 100 Intake & Output 01/19/18 01/20/18 01/20/18 18:59 06:59 18:59 Intake Total 750 / 750 Output Total 2000 Balance -1251 / -1251 Weight 81 kg Intake: IV 750 / 750 D10W Inj 500 ML @ 50 mls/hr IV. 500 / 500 SIG .Q10H [facility] Rx#:[id number] Vancomycin Inj 1,000 MG In NS 250 / 250 Inj 250 ML @ 250 mls/hr IV.SIG WITH DIALYSIS [facility] Rx#:[id number] Output: Stool Hemodialysis Amount 1999 Other: Date of Last Bowel Movement 01/17/18 <Courtney Hernandez - Last Filed: 01/20/18 11:51> Assessment and Plan - Assessment (1) End-stage renal disease on hemodialysis Code(s): N18.6 - End stage renal disease; Z99.2 - Dependence on renal dialysis Status: Acute - Plan ESRD She is on hemodialysis Wednesday, Wednesday and Wednesday Has AVG in right upper arm with good thrill HD catheter in groin removed 01/10 Continue Sensipar Hemodialysis planned for today Bacteremia Vancomycin with HD ID managing Anemia Epogen with dialysis HGB 7.5 plan Hypertension Will monitor, on coreg Plan for discharge <Jillian Bowling - Last Filed: 01/19/18 15:26> - Assessment (1) End-stage renal disease on hemodialysis Code(s): N18.6 - End stage renal disease; Z99.2 - Dependence on renal dialysis Status: Acute - Attending Attestation Patient seen and examined, agree with above. Possible discharge, to follow with her [employer] and continue HD. Told to call her HD unit. <Courtney Hernandez - Last Filed: 01/20/18 11:51>
[2018-01-19] MEDS: Vancomycin Inj 1,000 MG in Sodium Chlor 0.9% Inj 250 ML IV.SIG SCH (15:42)
== END 2018-01-19 18:00 | disposition home health service (06) ==
LOC: NEDA 19:45 → NEPD 19:45 → N03 01-04 10:26
PROVIDERS: ADMIT Family Medicine; ATTEND Family Medicine
DX: R19.7 Diarrhea, unspecified; Y84.8 Other medical procedures as the cause of abnormal reaction of the patient, or of later complication, without mention of misadventure at the time of the procedure; I89.0 Lymphedema, not elsewhere classified; Z79.01 Long term (current) use of anticoagulants; Z86.73 Personal history of transient ischemic attack (TIA), and cerebral infarction without residual deficits; I25.9 Chronic ischemic heart disease, unspecified; Z88.0 Allergy status to penicillin; K25.9 Gastric ulcer, unspecified as acute or chronic, without hemorrhage or perforation; I87.2 Venous insufficiency (chronic) (peripheral); Z86.718 Personal history of other venous thrombosis and embolism; D68.9 Coagulation defect, unspecified; E83.51 Hypocalcemia; T80.211A Bloodstream infection due to central venous catheter, initial encounter; L03.116 Cellulitis of left lower limb; L97.329 Non-pressure chronic ulcer of left ankle with unspecified severity; Z99.2 Dependence on renal dialysis; E16.2 Hypoglycemia, unspecified; I13.2 Hypertensive heart and chronic kidney disease with heart failure and with stage 5 chronic kidney disease, or end stage renal disease; N18.6 End stage renal disease; D62 Acute posthemorrhagic anemia; L89.151 Pressure ulcer of sacral region, stage 1; B95.62 Methicillin resistant Staphylococcus aureus infection as the cause of diseases classified elsewhere; K21.9 Gastro-esophageal reflux disease without esophagitis; R18.8 Other ascites; I50.9 Heart failure, unspecified; D63.1 Anemia in chronic kidney disease; T82.594A Other mechanical complication of infusion catheter, initial encounter; K22.2 Esophageal obstruction; K92.1 Melena; T82.868A Thrombosis due to vascular prosthetic devices, implants and grafts, initial encounter; J18.9 Pneumonia, unspecified organism